=== PATIENT | male | born 1955 | race Hispanic/Latino ===

== ENCOUNTER 2017-09-20 12:34 | Inpatient (IN) | payer MEDICAID ==
[2017-09-20 12:40] VITALS: BMI 33.5
[2017-09-20] MEDS ORDERED: Sodium Chloride 0.9% 1,000 ML IV STA (13:02)
[2017-09-20] MEDS ORDERED: Morphine 4 MG/ML VIAL ONE (13:21)
[2017-09-20 13:31] LABS: BASO % 0.4 % (0.0-2.0); EOS # 0.1 K/uL (0.0-0.7); EOS % 0.8 % (0.0-4.0); HEMOGLOBIN 12.8 g/dL (12.0-18.0); LYMPH # 1.2 K/uL (1.0-4.3); LYMPH % 9.8 % (20.0-40.0); MEAN CELL VOLUME 91.3 fl (80.0-94.0); MEAN CORPUSCULAR HEMOGLOBIN 30.6 pg (27.0-31.0); MEAN CORPUSCULAR HGB CONC 33.5 g/dL (33.0-37.0); MEAN PLATELET VOLUME 8.3 fl (7.2-11.7); MONO # 0.9 K/uL (0.0-0.8); MONO % 7.1 % (0.0-10.0); NEUT # 9.8 K/uL (1.8-7.0); NEUT % 81.9 % (50.0-75.0); NRBC % 0.1 % (0.0-0.0); PLATELET COUNT 172 K/uL (130-400); RED CELL DISTRIBUTION WIDTH 13.8 % (11.5-14.5); WHITE BLOOD COUNT 11.9 K/uL (4.8-10.8)
[2017-09-20 13:45] LABS: ALT/SGPT 30 U/L (21-72); AST/SGOT 23 U/L (17-59); BLOOD UREA NITROGEN 19 mg/dl (9-20); CALCIUM 8.6 mg/dL (8.4-10.2); GFR AFRICAN-AMERICAN > 60; GFR NON-AFRICAN AMERICAN 51
--- NOTE | 2017-09-20 14:09 | RAD ---
PROCEDURE: Right Foot and 3rd toe Radiographs. HISTORY: second digit necrosis COMPARISON: None. FINDINGS: BONES: No fracture, erosions or periosteal change. JOINTS: Unremarkable. SOFT TISSUES: Normal. OTHER FINDINGS: None. IMPRESSION: No demonstrated fracture, dislocation or periosteal reaction.
--- NOTE | 2017-09-20 14:11 | US ---
PROCEDURE: Right lower extremity venous duplex Doppler. HISTORY: calf pain, lower leg edema COMPARISON: None available. TECHNIQUE: Common femoral, superficial femoral, popliteal and posterior tibial veins were evaluated. Flow was assessed with color Doppler, compressibility, assessment of phasic flow and augmentation response. FINDINGS: COMMON FEMORAL VEIN: Unremarkable. SUPERFICIAL FEMORAL VEIN: Unremarkable. POPLITEAL VEIN: Unremarkable. POSTERIOR TIBIAL VEIN: Unremarkable. OTHER FINDINGS: Prominent right inguinal lymph nodes with fatty romina. IMPRESSION: No evidence of deep venous thrombosis in the right lower extremity.
[2017-09-20 14:26] LABS: BANDS 2 % (0-2); LYMPHOCYTE 12 % (20-50); MONOCYTE 7 % (0-10); NEUTROPHIL 79 % (42-75); PLATELET ESTIMATE NORMAL (NORMAL); TOTAL CELLS COUNTED 100
[2017-09-20 14:27] LABS: ANISOCYTOSIS SLIGHT; LARGE PLATELETS PRESENT
--- NOTE | 2017-09-20 15:35 | CP.PCM.CON ---
History of Present Illness - History of Present Illness History of Present Illness: 62 y/o male patient with PMHx of DM, HTN seen and evaluated at bedside in ED complaining of pain, redness and swelling to his right foot. Patient states that he got scratches to his 2nd toe about 3 days ago and it progressively started getting worst from there. Patient states that the color of the toe started turning black and he started getting pain and redness which extended to his right leg. Patient states that [facility] a homeless [facility]. 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 States that he last saw her about 6 months ago. Patient states that he has had history of wound to the right foot which he had a surgery on with Dr. Johnson at [facility]. Patient denies of any other pedal complains at this time. Patient denies of any recent F/N/V/C/SOB/CP today. PMHx: DM, HTN PSHx: Right heel I&D, Sebaceous cyst removal from the neck, Cholecystectomy Allergies: N.K.D.A SHx: 1ppd smoker x 20 years, Denies of EtOH and illicit drug usage Review of Systems - Constitutional Constitutional: As Per HPI Past Patient History - Infectious Disease Hx of Infectious Diseases: None - Tetanus Immunizations Tetanus Immunization: Unknown - Past Medical History & Family History Past Medical History?: Yes - Past Social History Smoking Status: Current Some Days Smoker - CARDIAC Hx Hypertension: Yes - PULMONARY Hx Bronchitis: Yes Hx Chronic Obstructive Pulmonary Disease (COPD): Yes Hx Pneumonia: Yes - NEUROLOGICAL Hx Neurological Disorder: No - HEENT Hx Cataracts: Yes (CHANEL SX) - RENAL Hx Chronic Kidney Disease: No - ENDOCRINE/METABOLIC Hx Diabetes Mellitus Type 2: Yes - HEMATOLOGICAL/ONCOLOGICAL Hx Blood Transfusions: No Hx Blood Transfusion Reaction: No - INTEGUMENTARY Other/Comment: RT FOOT ULCER - MUSCULOSKELETAL/RHEUMATOLOGICAL Hx Falls: Yes - GASTROINTESTINAL Hx Gall Bladder Disease: Yes - GENITOURINARY/GYNECOLOGICAL Hx Genitourinary Disorders: No - PSYCHIATRIC Hx Psychophysiologic Disorder: Yes Hx Anxiety: Yes Hx Depression: No Hx Substance Use: No - SURGICAL HISTORY Hx Surgeries: Yes - ANESTHESIA Hx Anesthesia Reactions: No Hx Malignant Hyperthermia: No Meds Allergies/Adverse Reactions: Allergies Allergy/AdvReac Type Severity Reaction Status Date / Time No Known Allergies Allergy Verified 12/30/15 17:31 Physical Exam - Constitutional Appears: Well, Non-toxic, No Acute Distress - Extremities Exam Additional comments: Bilateral LE exam: VASC: DP/PT pulses are palpable 2/4 b/l, Cap Refill time: < 3 sec to all digits except 2nd digit on the right, Temp gradient: warm to warm from proximal to distal on the right and warm to cool from proximal to distal on the left, diffuse non-pitting edema accompanied with erythema noted on the dorsum of the foot which extends on the distal leg DERM: Hyperpigmented changed noted on the dorsum of the 2nd digit as well as 3rd digit on the right, dusky skin appearance and macerated wound edges noted on the distal aspect of the right 2nd digit, small fissure with mild serous drainage noted on the medial proximal aspect of the right digit, no malodor, no probe to bone, no purulance, no tunneling or undermining, no interdigital maceration NEURO: Protective sensation grossly diminished ORTHO: tenderness on palpation of the distal leg as well as during ROM of the 2nd digit on the right - Neurological Exam Neurological exam: Alert, Oriented x3 - Psychiatric Exam Psychiatric exam: Normal Affect, Normal Mood Results - Vital Signs Recent Vital Signs: Last Vital Signs Temp 97.7 F 09/20/17 12:42 Pulse 92 H 09/20/17 12:42 Resp 20 09/20/17 12:42 BP 175/65 H 09/20/17 12:42 Pulse Ox 98 09/20/17 12:42 - Labs Result Diagrams: 09/20/17 13:19 09/20/17 13:19 Labs: Laboratory Results - last 24 hr 09/20/17 09/20/17 13:19 13:19 WBC 11.9 H RBC 4.20 L Hgb 12.8 Hct 38.4 MCV 91.3 MCH 30.6 MCHC 33.5 RDW 13.8 Plt Count 172 MPV 8.3 Neut % (Auto) 81.9 H Lymph % (Auto) 9.8 L [place] % (Auto) 7.1 Eos % (Auto) 0.8 Baso % (Auto) 0.4 Neut # 9.8 H Lymph # 1.2 Daniels # 0.9 H Eos # 0.1 Baso # 0.0 Neutrophils % (Manual) 79 H Band Neutrophils % 2 Lymphocytes % (Manual) 12 L Monocytes % (Manual) 7 Platelet Estimate Normal Large Platelets Present Anisocytosis (manual) Slight Sodium 133 Potassium 4.4 Chloride 94 L Carbon Dioxide 28 Anion Gap 15 BUN 19 Creatinine 1.4 Est GFR ( Amer) > 60 Est GFR (Non-Af Amer) 51 Random Glucose 519 H* Calcium 8.6 Total Bilirubin 0.8 AST 23 ALT 30 Alkaline Phosphatase 81 Total Protein 7.8 Albumin 4.0 Globulin 3.9 Albumin/Globulin Ratio 1.0 Assessment & Plan - Assessment and Plan (Free Text) Assessment: 62 y/o male patient with PMHx of DM, HTN seen and evaluated in ED for 1). ischemic changes to the right 2nd and 3rd digit 2). cellulitis extending proximally on the right LE Plan: Patient seen and evaluated at bedside in ED Patient discussed in details with attending Dr. Ramirez Labs, vitals and charts reviewed - afebrile WBC @ 11.9 X-rays of the right foot ordered/reviewed - no signs of soft tissue emphysema, no signs of periosteal reaction indicating acute OM noted, no acute fractures or dislocations noted Wound cleaned using saline and dressing applied using betadine, DSD Patient started on vancomycin/zosyn in the ED Infectious disease consult placed - recommendations appreciated Vascular consult placed - recommendations appreciated - Arterial duplex ordered Mulitipodus boots ordered - to be worn at all times while in ED Surgical shoe ordered - weightbear as tolerated to the RLE Patient educated that he may need surgical intervention - patient demonstrated verbal understanding Podiatry to follow patient while in house Thank you for the podiatry consult and allowing to take part in patient care - Date & Time Date: 09/20/17 Time: 15:42
[2017-09-20] MEDS ORDERED: Povidone Iodine Topical 10% Sol ONE (15:55)
[2017-09-20] MEDS ORDERED: Piperacillin/Tazobact 3.375 GM in Sodium Chloride 0.9% 100 ML IV ONE (16:09)
[2017-09-20] MEDS ORDERED: Insulin Regular 100 units/ml IV STA (16:09)
--- NOTE | 2017-09-20 18:02 | ED PDOC ---
Lower Extremity Pain/Injury Time Seen by Provider: 09/20/17 12:50 Chief Complaint (Nursing): Lower Extremity Problem/Injury Chief Complaint (Provider): Right foot pain, discoloration History Per: Patient Onset/Duration Of Symptoms: Days Current Symptoms Are (Timing): Still Present Severity: Severe Pain Scale Rating Of: 10 Additional Complaint(s): Pt reports pain of the right foot for a long time. Pt states the last 2-3 days he noticed his right 2nd toe turning a lang color and becoming more painful. Pt denies fever/chills. Pt states the pain radiates up the right leg. PT reports taking his normal percocet at home but states it is not helping. Pt states he has had 2 areas of scabbing/ulcers over the 2nd and 3rd dorsal toes Past Medical History Reviewed: Historical Data, Nursing Documentation, Vital Signs Vital Signs: Last Vital Signs Temp 100.3 F H 09/20/17 17:15 Pulse 79 09/20/17 17:15 Resp 20 09/20/17 17:15 BP 131/63 09/20/17 17:15 Pulse Ox 99 09/20/17 17:47 - Medical History PMH: Anxiety, Bronchitis, COPD, Diabetes, Gall Bladder Disease, HTN, Pneumonia Denies: Depression, Chronic Kidney Disease - Surgical History Surgical History: Cholecystectomy - Family History Family History: States: No Known Family Hx - Home Medications Home Medications: Ambulatory Orders Medication Instructions Recorded GlipiZIDE [Glucotrol] 5 tab PO BID 07/27/13 Insulin Detemir [Levemir] 50 units SC .AM 07/27/13 Metformin Hydrochloride [Metformin] 1,000 mg PO BID 07/27/13 Alprazolam [Xanax] 0.5 mg PO TID PRN 06/25/14 Aspirin 81 mg PO DAILY 06/25/14 Oxycodone Hydrochloride [Oxycodone] 30 mg PO QID PRN 07/19/15 Insulin Detemir [Levemir] 50 units SC HS 12/30/15 Losartan/Hydrochlorothiazide 1 tab PO DAILY 12/30/15 [Losartan-Hctz 100-12.5 mg Tab] - Allergies Allergies/Adverse Reactions: Allergies Allergy/AdvReac Type Severity Reaction Status Date / Time No Known Allergies Allergy Verified 12/30/15 17:31 Review of Systems ROS Statement: Except As Marked, All Systems Reviewed And Found Negative Constitutional: Negative for: Fever, Chills Genitourinary Male: Negative for: Dysuria, Frequency Musculoskeletal: Positive for: Foot Pain Skin: Positive for: Bruising, Other Physical Exam - Reviewed Nursing Documentation Reviewed: Yes Vital Signs Reviewed: Yes - Physical Exam Appears: Positive for: Well, Non-toxic, No Acute Distress Head Exam: Positive for: ATRAUMATIC, NORMAL INSPECTION, NORMOCEPHALIC Skin: Positive for: Warm. Negative for: Normal Color ((+) edema and lang necrotic discoloration of the right 2nd toe, (+) erythema extending up the right leg to mid shaft) Eye Exam: Positive for: Normal appearance ENT: Positive for: Normal ENT Inspection Neck: Positive for: Normal, Painless ROM Cardiovascular/Chest: Positive for: Regular Rate, Rhythm Respiratory: Positive for: CNT, Normal Breath Sounds Back: Positive for: Normal Inspection Extremity: Positive for: Normal ROM Neurologic/Psych: Positive for: Alert, Oriented - Laboratory Results Result Diagrams: 09/20/17 13:19 09/20/17 13:19 - ECG O2 Sat by Pulse Oximetry: 99 Medical Decision Making Medical Decision Makin - Discussed admission with Dr. Krishna. Pt seen and evaluated by podiatry. 1750 - Informed by MESFIN Orozco that patient has temp of 100.3. Tylenol 650mg ordered. Instructed RN to inform Dr. Crabtree Disposition - Clinical Impression Clinical Impression: Cellulitis, Hyperglycemia - Patient ED Disposition Is Patient to be Admitted: Yes - Disposition Disposition Time: 17:40 Condition: STABLE
[2017-09-20 18:06] LABS: VENOUS BLOOD GAS BASE EXCESS 5.2 mmol/L (0.0-2.0); VENOUS BLOOD GAS PCO2 59 mmHg (40-60); VENOUS BLOOD GAS PO2 15 mm/Hg (30-55); VENOUS BLOOD PH 7.35 (7.32-7.43)
--- NOTE | 2017-09-20 19:05 | CP.PCM.HP ---
History of Present Illness - History of Present Illness History of Present Illness: CC:Right Foot History of Present Illness: A 62 y/o male patient with PMHx of DM, HTN seen and evaluated at bedside in ED complaining of pain, redness and swelling to his right foot. Patient states that he got scratches to his 2nd toe about 3 days ago and it progressively started getting worst from there. Patient states that the color of the toe started turning black and he started getting pain and redness which extended to his right leg. Patient states that [facility]. 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 States that he last saw her about 6 months ago. Patient states that he has had history of wound to the right foot which he had a surgery on with at [place]. Patient denies of any other pedal complains at this time. Patient denies of any recent F/N/V/C/SOB/CP today. Present on Admission - Present on Admission Any Indicators Present on Admission: No History of DVT/PE: No History of Uncontrolled Diabetes: Yes Urinary Catheter: No Decubitus Ulcer Present: No Review of Systems - Review of Systems All systems: reviewed and no additional remarkable complaints except - Musculoskeletal Musculoskeletal: As Per HPI Past Patient History - Infectious Disease Hx of Infectious Diseases: None - Tetanus Immunizations Tetanus Immunization: Unknown - Past Medical History & Family History Past Medical History?: Yes - Past Social History Smoking Status: Current Some Days Smoker Alcohol: None Drugs: Denies - CARDIAC Hx Cardiac Disorders: Yes - PULMONARY Hx Bronchitis: Yes Hx Chronic Obstructive Pulmonary Disease (COPD): Yes Hx Pneumonia: Yes - NEUROLOGICAL Hx Neurological Disorder: No - HEENT Hx Cataracts: Yes (CHANEL SX) - RENAL Hx Chronic Kidney Disease: No - ENDOCRINE/METABOLIC Hx Diabetes Mellitus Type 2: Yes - HEMATOLOGICAL/ONCOLOGICAL Hx Blood Transfusions: No Hx Blood Transfusion Reaction: No - INTEGUMENTARY Other/Comment: RT FOOT ULCER - MUSCULOSKELETAL/RHEUMATOLOGICAL Hx Falls: Yes - GASTROINTESTINAL Hx Gall Bladder Disease: Yes - GENITOURINARY/GYNECOLOGICAL Hx Genitourinary Disorders: No - PSYCHIATRIC Hx Anxiety: Yes Hx Depression: No - SURGICAL HISTORY Hx Cholecystectomy: Yes - ANESTHESIA Hx Anesthesia Reactions: No Hx Malignant Hyperthermia: No Meds Allergies/Adverse Reactions: Allergies Allergy/AdvReac Type Severity Reaction Status Date / Time No Known Allergies Allergy Verified 12/30/15 17:31 Physical Exam - Constitutional Appears: Well, No Acute Distress - Head Exam Head Exam: ATRAUMATIC, NORMAL INSPECTION, NORMOCEPHALIC - Eye Exam Eye Exam: EOMI, Normal appearance, PERRL Pupil Exam: NORMAL ACCOMODATION, PERRL - ENT Exam ENT Exam: Mucous Membranes Moist, Normal Exam - Neck Exam Neck exam: Positive for: Full Rom, Normal Inspection - Respiratory Exam Respiratory Exam: Clear to Auscultation Bilateral, NORMAL BREATHING PATTERN - Cardiovascular Exam Cardiovascular Exam: REGULAR RHYTHM, +S1, +S2 - GI/Abdominal Exam GI & Abdominal Exam: Normal Bowel Sounds, Soft. absent: Tenderness - Back Exam Back exam: NORMAL INSPECTION - Neurological Exam Neurological exam: Alert, CN II-XII Intact, Normal Gait, Oriented x3, Reflexes Normal - Psychiatric Exam Psychiatric exam: Normal Affect, Normal Mood - Skin Skin Exam: Dry, Intact, Normal Color, Warm Results - Vital Signs Recent Vital Signs: Last Vital Signs Temp 99.7 F H 09/20/17 18:59 Pulse 80 09/20/17 19:00 Resp 18 09/20/17 19:00 BP 138/80 09/20/17 19:00 Pulse Ox 95 09/20/17 18:59 - Labs Result Diagrams: 09/23/17 06:52 09/23/17 06:52 Labs: Laboratory Results - last 24 hr 09/20/17 09/20/17 09/20/17 13:19 13:19 17:10 WBC 11.9 H RBC 4.20 L Hgb 12.8 Hct 38.4 MCV 91.3 MCH 30.6 MCHC 33.5 RDW 13.8 Plt Count 172 MPV 8.3 Neut % (Auto) 81.9 H Lymph % (Auto) 9.8 L [place] % (Auto) 7.1 Eos % (Auto) 0.8 Baso % (Auto) 0.4 Neut # 9.8 H Lymph # 1.2 [place] # 0.9 H Eos # 0.1 Baso # 0.0 Neutrophils % (Manual) 79 H Band Neutrophils % 2 Lymphocytes % (Manual) 12 L Monocytes % (Manual) 7 Platelet Estimate Normal Large Platelets Present Anisocytosis (manual) Slight pO2 VBG pH VBG pCO2 VBG HCO3 VBG Total CO2 VBG O2 Sat (Calc) VBG Base Excess VBG Potassium Glucose Lactate FiO2 Sodium 133 Potassium 4.4 Chloride 94 L Carbon Dioxide 28 Anion Gap 15 BUN 19 Creatinine 1.4 Est GFR ( Amer) > 60 Est GFR (Non-Af Amer) 51 POC Glucose (mg/dL) 268 H Random Glucose 519 H* Calcium 8.6 Total Bilirubin 0.8 AST 23 ALT 30 Alkaline Phosphatase 81 Total Protein 7.8 Albumin 4.0 Globulin 3.9 Albumin/Globulin Ratio 1.0 Venous Blood Potassium 09/20/17 17:55 WBC RBC Hgb Hct MCV MCH MCHC RDW Plt Count MPV Neut % (Auto) Lymph % (Auto) [place] % (Auto) Eos % (Auto) Baso % (Auto) Neut # Lymph # [place] # Eos # Baso # Neutrophils % (Manual) Band Neutrophils % Lymphocytes % (Manual) Monocytes % (Manual) Platelet Estimate Large Platelets Anisocytosis (manual) pO2 15 L VBG pH 7.35 VBG pCO2 59 VBG HCO3 26.8 VBG Total CO2 34.4 H VBG O2 Sat (Calc) 30.8 L VBG Base Excess 5.2 H VBG Potassium 4.3 Glucose 246 H Lactate 1.3 FiO2 21.0 Sodium 137.0 Potassium Chloride 103.0 Carbon Dioxide Anion Gap BUN Creatinine Est GFR ( Amer) Est GFR (Non-Af Amer) POC Glucose (mg/dL) Random Glucose Calcium Total Bilirubin AST ALT Alkaline Phosphatase Total Protein Albumin Globulin Albumin/Globulin Ratio Venous Blood Potassium 4.3 - Imaging and Cardiology X-Ray of Right Foot: Status: Report reviewed by me Additional comment: No Fracture, Dislocation or Perosteal Elevation US Venous Doppler: Status: Report reviewed by me Additional comment: No DVT of Right Lower extremity. Assessment & Plan (1) Gangrene of toe Assessment and Plan: with Surrounding Cellulitis PVD IV Vancomycin/Zosyn ASA Wound care daily Wll need amputation after Vascular Intervention ID & CV Consult with Maintenance Chief on Board Status: Acute Priority: High (2) Diabetes mellitus Status: Chronic Priority: High
[2017-09-20] MEDS ORDERED: OXYCODONE HYDROCHLORIDE 30 MG PO PRN (19:32)
[2017-09-20] MEDS: oxyCODONE 10 mg Immediate Release Tab PO PRN (20:24)
[2017-09-20] MEDS ORDERED: INSULIN DETEMIR 50 UNIT SC SCH (22:00)
[2017-09-20] MEDS: Insulin Detemir 100 Units/ml Inj SC SCH (22:12)
[2017-09-20] MEDS: Insulin Lispro (humaLOG) 100 Units/ml Inj SC SCH (22:14)
[2017-09-21] MEDS: Piperacillin/Tazobact 3.375 GM in Sodium Chloride 0.9% 100 ML IVPB SCH ×3 (00:33→16:05)
[2017-09-21] MEDS: oxyCODONE 10 mg Immediate Release Tab PO PRN ×4 (03:53→22:11)
[2017-09-21 06:48] LABS: BASO % 0.3 % (0.0-2.0); EOS # 0.2 K/uL (0.0-0.7); EOS % 1.8 % (0.0-4.0); HEMOGLOBIN 11.6 g/dL (12.0-18.0); LYMPH # 1.4 K/uL (1.0-4.3); LYMPH % 13.7 % (20.0-40.0); MEAN CELL VOLUME 92.1 fl (80.0-94.0); MEAN CORPUSCULAR HEMOGLOBIN 30.1 pg (27.0-31.0); MEAN CORPUSCULAR HGB CONC 32.7 g/dL (33.0-37.0); MEAN PLATELET VOLUME 8.4 fl (7.2-11.7); MONO # 0.9 K/uL (0.0-0.8); MONO % 8.7 % (0.0-10.0); NEUT # 7.6 K/uL (1.8-7.0); NEUT % 75.5 % (50.0-75.0); RBC 3.85 Mil/uL (4.40-5.90); WHITE BLOOD COUNT 10.1 K/uL (4.8-10.8)
[2017-09-21 07:07] LABS: BLOOD UREA NITROGEN 16 mg/dl (9-20); GFR AFRICAN-AMERICAN > 60; GFR NON-AFRICAN AMERICAN > 60
--- NOTE | 2017-09-21 07:58 | CP.PCM.PN ---
Subjective - Date & Time of Evaluation Date of Evaluation: 09/21/17 Time of Evaluation: 07:58 - Subjective Subjective: Podiatry Progress Note - Dr. Ramirez 62 y/o male patient with PMHx of DM, HTN seen and evaluated at bedside for ischemic changes to right 2nd and 3rd digit + cellulitis RLE. Patient hemodynamically stable and NAD. Denies any acute events overnight. Reports worsening pain to his right calf and increased swelling to his RLE. Denies SOB. Patient states the color of his 2nd digit is worsening as well. Denies N/V/F/D/ C. Objective - Vital Signs/Intake and Output Vital Signs (last 24 hours): Temp Pulse Resp BP Pulse Ox 98.9 F 71 19 132/73 95 09/21/17 00:00 09/21/17 00:00 09/21/17 00:00 09/21/17 00:00 09/21/17 00:00 - Medications Medications: Current Medications Alprazolam (Xanax) 0.5 mg PO TID PRN PRN Reason: Anxiety Aspirin (Ecotrin) 81 mg PO DAILY [facility] Glipizide (Glucotrol) 5 mg PO BID [facility] Heparin Sodium (Porcine) (Heparin) 5,000 units SC Q8 [facility] PRN Reason: Protocol Last Admin: 09/21/17 00:33 Dose: 5,000 units Hydrochlorothiazide (Microzide) 12.5 mg PO DAILY [facility] Piperacillin Sod/Tazobactam (Sod 3.375 gm/ Sodium Chloride) 100 mls @ 100 mls/ hr IVPB Q8 [facility] PRN Reason: Protocol Last Admin: 09/21/17 00:33 Dose: 100 mls/hr Vancomycin HCl 1,000 mg/ (Sodium Chloride) 250 mls @ 250 mls/hr IVPB Q12@0500, 1700 [facility] PRN Reason: Protocol Last Admin: 09/21/17 04:04 Dose: 250 mls/hr Insulin Detemir (Levemir) 50 units SC [facility] Last Admin: 09/20/17 22:12 Dose: 50 unit Insulin Human Lispro (Humalog) 0 units SC ACHS [facility] PRN Reason: Protocol Last Admin: 09/20/17 22:14 Dose: Not Given Losartan Potassium (Cozaar) 100 mg PO DAILY [facility] Oxycodone HCl (Oxycodone Immediate Release Tab) 30 mg PO QID PRN PRN Reason: Pain, moderate (4-7) Last Admin: 09/21/17 03:53 Dose: 30 mg - Labs Labs: 09/21/17 05:30 09/21/17 05:30 - Constitutional Appears: Well, Non-toxic, No Acute Distress - Extremities Exam Additional comments: Bilateral LE exam: VASC: DP/PT pulses are palpable 2/4 b/l, Cap Refill time: < 3 sec to all digits except 2nd digit on the right. Temperature gradient warm hot to RLE, warm to warm LLE. Increase in warmth noted to erythema to right lower leg and dorsum of foot. Diffuse non-pitting edema noted to RLE. DERM: Hyperpigmented changed noted on the dorsum of the 2nd digit as well as 3rd digit on the right, dusky skin appearance and macerated wound edges noted on the distal aspect of the right 2nd digit, small fissure with mild serous drainage noted on the medial proximal aspect of the right digit, no malodor, no probe to bone, no purulance, no tunneling or undermining, no interdigital maceration. Erythema noted to dorsum of right forefoot as well as circumfirentially around right lower 1/2 of leg. NEURO: Protective sensation grossly diminished ORTHO: Tenderness to palpation to erythema on lower leg as well as during ROM of the 2nd digit on the right. Pain on right calf squeeze. No palpable cord noted to RLE. - Neurological Exam Neurological Exam: Alert, Awake, Oriented x3 - Psychiatric Exam Psychiatric exam: Normal Affect, Normal Mood Assessment and Plan - Assessment and Plan (Free Text) Assessment: 62 y/o male patient with PMHx of DM, HTN seen and evaluated in ED for 1) ischemic changes to the right 2nd and 3rd digit 2) cellulitis extending proximally on the right LE Plan: Patient seen and evaluated at bedside Discussed with attending Dr. Ramirez Febrile yesterday PM (Tmax 100.3), afebrile currently, WBC decreasing 10.1 ( yesterday 11.9) X-rays of the right foot ordered/reviewed - no signs of soft tissue emphysema, no signs of periosteal reaction indicating acute OM noted, no acute fractures or dislocations noted Wound cleaned using saline and dressing applied using betadine, DSD Patient currently on Vancomycin and Zosyn; f/u ID recommendations Bilateral arterial duplex - elevated peak systolic velocities and loss of triphasic waveform in the below the knee RLE likely representing moderate to severe stenoses -Per vascular, plan for angio this week Mulitipodus boots ordered - to be worn at all times in bed Surgical shoe ordered - weightbear as tolerated to the RLE Patient educated that he may need surgical intervention - patient demonstrated verbal understanding Podiatry will continue to follow patient while in house
[2017-09-21] MEDS: Insulin Lispro (humaLOG) 100 Units/ml Inj SC SCH ×4 (08:42→22:07)
[2017-09-21] MEDS: Insulin Detemir 100 Units/ml Inj SC SCH ×2 (08:43→22:12)
[2017-09-21] MEDS ORDERED: Patient's Own Med (Losartan/Hydrochlorothiazide [Losartan-Hctz 100-12.5 Mg Tab] 1 TAB) PO SCH (09:00)
--- NOTE | 2017-09-21 12:21 | US ---
PROCEDURE: Duplex ultrasound of the right lower extremity arteries. HISTORY: swelling on RLE COMPARISON: None available. TECHNIQUE: Grayscale and duplex Doppler evaluation of the right common femoral, superficial femoral, popliteal, posterior tibial and dorsalis pedis arteries was performed.. FINDINGS: COMMON FEMORAL ARTERY: Patent. Maximal flow velocity of 114.7 cm/s. Triphasic waveform. SUPERFICIAL FEMORAL ARTERY:Patent. Maximal flow velocity of 148.4 cm/s. Triphasic waveform. POPLITEAL ARTERY:Patent. Maximal flow velocity of 123.4 cm/s. Monophasic waveform. POSTERIOR TIBIAL ARTERY: Patent. Maximal flow velocity of 172.7 cm/s. Monophasic waveform. ANTERIOR TIBIAL ARTERY: Patent. Maximal flow velocity of 133.2 cm/s. Monophasic waveform. DORSALIS PEDIS ARTERY: Patent. Maximal flow velocity of 107.6 cm/s. Monophasic waveform. OTHER FINDINGS: None. IMPRESSION: Elevated peak systolic velocities and loss of triphasic waveform in the erldt-kxi-exit right lower extremity likely representing moderate to severe stenoses.
--- NOTE | 2017-09-21 17:15 | CP.PCM.CON ---
History of Present Illness - History of Present Illness History of Present Illness: 62 y/o male patient with PMHx of DM, HTN seen and evaluated at bedside for ischemic changes to right 2nd and 3rd digit + cellulitis RLE. Patient hemodynamically stable and NAD. Denies any acute events overnight. Reports worsening pain to his right calf and increased swelling to his RLE. Denies SOB. Patient states the color of his 2nd digit is worsening as well. Denies N/V/F/D/ C. id consult to follow Past Patient History - Infectious Disease Hx of Infectious Diseases: None - Tetanus Immunizations Tetanus Immunization: Unknown - Past Medical History & Family History Past Medical History?: Yes - Past Social History Smoking Status: Current Some Days Smoker - CARDIAC Hx Cardiac Disorders: Yes - PULMONARY Hx Bronchitis: Yes Hx Chronic Obstructive Pulmonary Disease (COPD): Yes Hx Pneumonia: Yes - NEUROLOGICAL Hx Neurological Disorder: No - HEENT Hx Cataracts: Yes (CHANEL SX) - RENAL Hx Chronic Kidney Disease: No - ENDOCRINE/METABOLIC Hx Diabetes Mellitus Type 2: Yes - HEMATOLOGICAL/ONCOLOGICAL Hx Blood Transfusions: No Hx Blood Transfusion Reaction: No - INTEGUMENTARY Other/Comment: RT FOOT ULCER - MUSCULOSKELETAL/RHEUMATOLOGICAL Hx Falls: Yes - GASTROINTESTINAL Hx Gall Bladder Disease: Yes - GENITOURINARY/GYNECOLOGICAL Hx Genitourinary Disorders: No - PSYCHIATRIC Hx Anxiety: Yes Hx Depression: No - SURGICAL HISTORY Hx Cholecystectomy: Yes - ANESTHESIA Hx Anesthesia Reactions: No Hx Malignant Hyperthermia: No Meds Allergies/Adverse Reactions: Allergies Allergy/AdvReac Type Severity Reaction Status Date / Time No Known Allergies Allergy Verified 12/30/15 17:31 - Medications Medications: Current Medications Acetaminophen (Tylenol 325mg Tab) 650 mg PO Q6 PRN PRN Reason: Temperature Alprazolam (Xanax) 0.5 mg PO TID PRN PRN Reason: Anxiety Last Admin: 09/21/17 10:36 Dose: 0.5 mg Aspirin (Ecotrin) 81 mg PO DAILY [facility] Last Admin: 09/21/17 08:41 Dose: 81 mg Glipizide (Glucotrol) 5 mg PO BID [facility] Last Admin: 09/21/17 16:02 Dose: 5 mg Heparin Sodium (Porcine) (Heparin) 5,000 units SC Q8 [facility] PRN Reason: Protocol Last Admin: 09/21/17 16:02 Dose: 5,000 units Hydrochlorothiazide (Microzide) 12.5 mg PO DAILY [facility] Last Admin: 09/21/17 08:43 Dose: 12.5 mg Piperacillin Sod/Tazobactam (Sod 3.375 gm/ Sodium Chloride) 100 mls @ 100 mls/ hr IVPB Q8 [facility] PRN Reason: Protocol Last Admin: 09/21/17 16:05 Dose: 100 mls/hr Vancomycin HCl 1,000 mg/ (Sodium Chloride) 250 mls @ 250 mls/hr IVPB Q12@0500, 1700 [facility] PRN Reason: Protocol Last Admin: 09/21/17 16:09 Dose: 250 mls/hr Insulin Detemir (Levemir) 50 units SC AMHS [facility] Last Admin: 09/21/17 08:43 Dose: 50 unit Insulin Human Lispro (Humalog) 0 units SC ACHS [facility] PRN Reason: Protocol Last Admin: 09/21/17 16:03 Dose: 1 units Losartan Potassium (Cozaar) 100 mg PO DAILY [facility] Last Admin: 09/21/17 08:41 Dose: 100 mg Oxycodone HCl (Oxycodone Immediate Release Tab) 30 mg PO QID PRN PRN Reason: Pain, moderate (4-7) Last Admin: 09/21/17 10:14 Dose: 30 mg Results - Vital Signs Recent Vital Signs: Last Vital Signs Temp 101.4 F H 09/21/17 15:45 Pulse 72 09/21/17 15:45 Resp 20 09/21/17 15:45 BP 127/66 09/21/17 15:45 Pulse Ox 92 L 09/21/17 15:45 - Labs Result Diagrams: 09/21/17 05:30 09/21/17 05:30 Labs: Laboratory Results - last 24 hr 09/20/17 09/20/17 09/20/17 16:09 17:55 21:56 WBC RBC Hgb Hct MCV MCH MCHC RDW Plt Count MPV Neut % (Auto) Lymph % (Auto) Story % (Auto) Eos % (Auto) Baso % (Auto) Neut # Lymph # Story # Eos # Baso # ESR pO2 15 L VBG pH 7.35 VBG pCO2 59 VBG HCO3 26.8 VBG Total CO2 34.4 H VBG O2 Sat (Calc) 30.8 L VBG Base Excess 5.2 H VBG Potassium 4.3 Sodium 137.0 Chloride 103.0 Glucose 246 H Lactate 1.3 FiO2 21.0 Potassium Carbon Dioxide Anion Gap BUN Creatinine Est GFR ( Amer) Est GFR (Non-Af Amer) POC Glucose (mg/dL) 339 H 326 H Random Glucose Hemoglobin A1c Calcium TSH 3rd Generation Venous Blood Potassium 4.3 09/21/17 09/21/17 09/21/17 05:30 05:30 05:30 WBC 10.1 RBC 3.85 L Hgb 11.6 L Hct 35.5 MCV 92.1 MCH 30.1 MCHC 32.7 L RDW 14.0 Plt Count 160 MPV 8.4 Neut % (Auto) 75.5 H Lymph % (Auto) 13.7 L Story % (Auto) 8.7 Eos % (Auto) 1.8 Baso % (Auto) 0.3 Neut # 7.6 H Lymph # 1.4 Story # 0.9 H Eos # 0.2 Baso # 0.0 ESR 102 H pO2 VBG pH VBG pCO2 VBG HCO3 VBG Total CO2 VBG O2 Sat (Calc) VBG Base Excess VBG Potassium Sodium 133 Chloride 99 Glucose Lactate FiO2 Potassium 4.0 Carbon Dioxide 30 Anion Gap 8 L BUN 16 Creatinine 1.1 Est GFR ( Amer) > 60 Est GFR (Non-Af Amer) > 60 POC Glucose (mg/dL) Random Glucose 279 H Hemoglobin A1c 12.3 H D Calcium 8.0 L TSH 3rd Generation 1.08 Venous Blood Potassium 09/21/17 09/21/17 09/21/17 05:46 11:09 15:31 WBC RBC Hgb Hct MCV MCH MCHC RDW Plt Count MPV Neut % (Auto) Lymph % (Auto) Story % (Auto) Eos % (Auto) Baso % (Auto) Neut # Lymph # Story # Eos # Baso # ESR pO2 VBG pH VBG pCO2 VBG HCO3 VBG Total CO2 VBG O2 Sat (Calc) VBG Base Excess VBG Potassium Sodium Chloride Glucose Lactate FiO2 Potassium Carbon Dioxide Anion Gap BUN Creatinine Est GFR ( Amer) Est GFR (Non-Af Amer) POC Glucose (mg/dL) 229 H 229 H 162 H Random Glucose Hemoglobin A1c Calcium TSH 3rd Generation Venous Blood Potassium
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
--- NOTE | 2017-09-21 18:25 | CP.PCM.PN ---
Subjective - Date & Time of Evaluation Date of Evaluation: 09/21/17 Time of Evaluation: 18:23 - Subjective Subjective: s/p arterial duplex showing multilevel stenosis Objective - Vital Signs/Intake and Output Vital Signs (last 24 hours): Temp Pulse Resp BP Pulse Ox 101.4 F H 72 20 127/66 92 L 09/21/17 15:45 09/21/17 15:45 09/21/17 15:45 09/21/17 15:45 09/21/17 15:45 - Medications Medications: Current Medications Acetaminophen (Tylenol 325mg Tab) 650 mg PO Q6 PRN PRN Reason: Temperature Alprazolam (Xanax) 0.5 mg PO TID PRN PRN Reason: Anxiety Last Admin: 09/21/17 16:05 Dose: 0.5 mg Aspirin (Ecotrin) 81 mg PO DAILY [facility] Last Admin: 09/21/17 08:41 Dose: 81 mg Glipizide (Glucotrol) 5 mg PO BID [facility] Last Admin: 09/21/17 16:02 Dose: 5 mg Heparin Sodium (Porcine) (Heparin) 5,000 units SC Q8 [facility] PRN Reason: Protocol Last Admin: 09/21/17 16:02 Dose: 5,000 units Hydrochlorothiazide (Microzide) 12.5 mg PO DAILY [facility] Last Admin: 09/21/17 08:43 Dose: 12.5 mg Piperacillin Sod/Tazobactam (Sod 3.375 gm/ Sodium Chloride) 100 mls @ 100 mls/ hr IVPB Q8 [facility] PRN Reason: Protocol Last Admin: 09/21/17 16:05 Dose: 100 mls/hr Vancomycin HCl 1,000 mg/ (Sodium Chloride) 250 mls @ 250 mls/hr IVPB Q12@0500, 1700 [facility] PRN Reason: Protocol Last Admin: 09/21/17 16:09 Dose: 250 mls/hr Insulin Detemir (Levemir) 50 units SC AMHS [facility] Last Admin: 09/21/17 08:43 Dose: 50 unit Insulin Human Lispro (Humalog) 0 units SC ACHS [facility] PRN Reason: Protocol Last Admin: 09/21/17 16:03 Dose: 1 units Losartan Potassium (Cozaar) 100 mg PO DAILY [facility] Last Admin: 09/21/17 08:41 Dose: 100 mg Oxycodone HCl (Oxycodone Immediate Release Tab) 30 mg PO QID PRN PRN Reason: Pain, moderate (4-7) Last Admin: 09/21/17 16:05 Dose: 30 mg - Labs Labs: 09/21/17 05:30 09/21/17 05:30 - Constitutional Appears: Well - Head Exam Head Exam: ATRAUMATIC, NORMAL INSPECTION, NORMOCEPHALIC - Eye Exam Eye Exam: EOMI, Normal appearance, PERRL Pupil Exam: NORMAL ACCOMODATION, PERRL - ENT Exam ENT Exam: Mucous Membranes Moist, Normal Exam - Neck Exam Neck Exam: Full ROM, Normal Inspection. absent: Lymphadenopathy - Respiratory Exam Respiratory Exam: Clear to Ausculation Bilateral, NORMAL BREATHING PATTERN - Cardiovascular Exam Cardiovascular Exam: REGULAR RHYTHM, +S1, +S2. absent: Murmur - GI/Abdominal Exam GI & Abdominal Exam: Soft, Normal Bowel Sounds. absent: Tenderness - Extremities Exam Extremities Exam: Full ROM, Normal Capillary Refill. absent: Joint Swelling, Pedal Edema Additional comments: dsg , erythema , tenderness - Back Exam Back Exam: NORMAL INSPECTION - Neurological Exam Neurological Exam: Alert, Awake, CN II-XII Intact, Oriented x3 - Psychiatric Exam Psychiatric exam: Normal Affect, Normal Mood - Skin Skin Exam: Dry, Intact, Normal Color, Warm Assessment and Plan (1) Gangrene of toe Assessment & Plan: cont ABx asa, statins, bb add plavix Status: Acute (2) PVD (peripheral vascular disease) Assessment & Plan: plan for angio on once cellulitis resolves Status: Acute (3) Cellulitis Status: Acute
[2017-09-22] MEDS: Piperacillin/Tazobact 3.375 GM in Sodium Chloride 0.9% 100 ML IVPB SCH ×3 (00:29→16:08)
--- NOTE | 2017-09-22 01:39 | CP.PCM.PN ---
Subjective - Date & Time of Evaluation Date of Evaluation: 09/21/17 Time of Evaluation: 18:45 Objective - Vital Signs/Intake and Output Vital Signs (last 24 hours): Temp Pulse Resp BP Pulse Ox 100.4 F H 67 18 117/62 95 09/22/17 00:30 09/22/17 00:01 09/22/17 00:01 09/22/17 00:01 09/22/17 00:01 - Medications Medications: Current Medications Acetaminophen (Tylenol 325mg Tab) 650 mg PO Q6 PRN PRN Reason: Temperature Last Admin: 09/22/17 00:30 Dose: 650 mg Alprazolam (Xanax) 0.5 mg PO TID PRN PRN Reason: Anxiety Last Admin: 09/21/17 23:12 Dose: 0.5 mg Aspirin (Ecotrin) 81 mg PO DAILY [facility] Last Admin: 09/21/17 08:41 Dose: 81 mg Glipizide (Glucotrol) 5 mg PO BID [facility] Last Admin: 09/21/17 16:02 Dose: 5 mg Heparin Sodium (Porcine) ([facility]) 5,000 units SC Q8 [facility] PRN Reason: Protocol Last Admin: 09/22/17 00:31 Dose: 5,000 units Hydrochlorothiazide (Microzide) 12.5 mg PO DAILY [facility] Last Admin: 09/21/17 08:43 Dose: 12.5 mg Piperacillin Sod/Tazobactam (Sod 3.375 gm/ Sodium Chloride) 100 mls @ 100 mls/ hr IVPB Q8 [facility] PRN Reason: Protocol Last Admin: 09/22/17 00:29 Dose: 100 mls/hr Vancomycin HCl 1,000 mg/ (Sodium Chloride) 250 mls @ 250 mls/hr IVPB Q12@0500, 1700 [facility] PRN Reason: Protocol Last Admin: 09/21/17 16:09 Dose: 250 mls/hr Insulin Detemir (Levemir) 50 units SC [facility]HS [facility] Last Admin: 09/21/17 22:12 Dose: 50 unit Insulin Human Lispro (Humalog) 0 units SC ACHS [facility] PRN Reason: Protocol Last Admin: 09/21/17 22:07 Dose: Not Given Losartan Potassium (Cozaar) 100 mg PO DAILY [facility] Last Admin: 09/21/17 08:41 Dose: 100 mg Oxycodone HCl (Oxycodone Immediate Release Tab) 30 mg PO QID PRN PRN Reason: Pain, moderate (4-7) Last Admin: 09/21/17 22:11 Dose: 30 mg - Labs Labs: 09/21/17 05:30 09/21/17 05:30
[2017-09-22 05:27] LABS: BASO # 0.1 K/uL (0.0-0.2); BASO % 0.8 % (0.0-2.0); EOS # 0.2 K/uL (0.0-0.7); EOS % 2.1 % (0.0-4.0); HEMOGLOBIN 11.3 g/dL (12.0-18.0); LYMPH % 21.4 % (20.0-40.0); MEAN CELL VOLUME 91.4 fl (80.0-94.0); MEAN CORPUSCULAR HEMOGLOBIN 30.1 pg (27.0-31.0); MEAN PLATELET VOLUME 7.7 fl (7.2-11.7); MONO % 11.3 % (0.0-10.0); NEUT # 5.9 K/uL (1.8-7.0); NEUT % 64.4 % (50.0-75.0); NRBC % 0.1 % (0.0-0.0); RBC 3.76 Mil/uL (4.40-5.90); RED CELL DISTRIBUTION WIDTH 13.7 % (11.5-14.5); WHITE BLOOD COUNT 9.2 K/uL (4.8-10.8)
[2017-09-22 05:59] LABS: BLOOD UREA NITROGEN 17 mg/dl (9-20); CALCIUM 8.3 mg/dL (8.4-10.2); GFR AFRICAN-AMERICAN > 60; GFR NON-AFRICAN AMERICAN > 60
[2017-09-22] MEDS: Insulin Lispro (humaLOG) 100 Units/ml Inj SC SCH ×4 (06:37→22:09)
[2017-09-22 06:56] LABS: HDL CHOLESTEROL 31 MG/DL (30-70)
[2017-09-22 07:06] LABS: LDL CHOLESTEROL 33 mg/dL (0-129)
--- NOTE | 2017-09-22 07:46 | CP.PCM.PN ---
<Seema Hartman - Last Filed: 09/22/17 14:16> Subjective - Date & Time of Evaluation Date of Evaluation: 09/22/17 Time of Evaluation: 07:44 - Subjective Subjective: PGY2 progress note for cardiology, Dr. Quiros Pt seen and examined at bedside. Pt was febrile overnight. Temp improved after Tylenol. Pt denies having any CP, SOB, abd pain, N/V/D/C. C/O non- productive cough and right LE pain and swelling. Pt is ambulating without difficulty. 12 point ROS negative except for the above mentioned. Objective - Vital Signs/Intake and Output Vital Signs (last 24 hours): Temp Pulse Resp BP Pulse Ox 99.3 F 67 18 117/62 95 09/22/17 01:30 09/22/17 00:01 09/22/17 00:01 09/22/17 00:01 09/22/17 00:01 - Medications Medications: Current Medications Acetaminophen (Tylenol 325mg Tab) 650 mg PO Q6 PRN PRN Reason: Temperature Last Admin: 09/22/17 00:30 Dose: 650 mg Alprazolam (Xanax) 0.5 mg PO TID PRN PRN Reason: Anxiety Last Admin: 09/21/17 23:12 Dose: 0.5 mg Aspirin (Ecotrin) 81 mg PO DAILY [facility] Last Admin: 09/21/17 08:41 Dose: 81 mg Atorvastatin Calcium (Lipitor) 20 mg PO DAILY [facility] Carvedilol (Coreg) 3.125 mg PO Q12 [facility] Glipizide (Glucotrol) 5 mg PO BID [facility] Last Admin: 09/21/17 16:02 Dose: 5 mg Heparin Sodium (Porcine) (Heparin) 5,000 units SC Q8 [facility] PRN Reason: Protocol Last Admin: 09/22/17 00:31 Dose: 5,000 units Hydrochlorothiazide (Microzide) 12.5 mg PO DAILY [facility] Last Admin: 09/21/17 08:43 Dose: 12.5 mg Piperacillin Sod/Tazobactam (Sod 3.375 gm/ Sodium Chloride) 100 mls @ 100 mls/ hr IVPB Q8 [facility] PRN Reason: Protocol Last Admin: 09/22/17 00:29 Dose: 100 mls/hr Vancomycin HCl 1,000 mg/ (Sodium Chloride) 250 mls @ 250 mls/hr IVPB Q12@0500, 1700 [facility] PRN Reason: Protocol Last Admin: 09/22/17 05:50 Dose: 250 mls/hr Insulin Detemir (Levemir) 50 units SC AMHS [facility] Last Admin: 09/21/17 22:12 Dose: 50 unit Insulin Human Lispro (Humalog) 0 units SC ACHS [facility] PRN Reason: Protocol Last Admin: 09/22/17 06:37 Dose: Not Given Losartan Potassium (Cozaar) 100 mg PO DAILY [facility] Last Admin: 09/21/17 08:41 Dose: 100 mg Oxycodone HCl (Oxycodone Immediate Release Tab) 30 mg PO QID PRN PRN Reason: Pain, moderate (4-7) Last Admin: 09/21/17 22:11 Dose: 30 mg - Labs Labs: 09/22/17 05:10 09/22/17 05:10 - Constitutional Appears: Non-toxic, No Acute Distress - Head Exam Head Exam: ATRAUMATIC - ENT Exam ENT Exam: Mucous Membranes Moist - Respiratory Exam Respiratory Exam: Clear to Ausculation Bilateral. absent: Accessory Muscle Use , Rales, Rhonchi, Wheezes, Respiratory Distress - Cardiovascular Exam Cardiovascular Exam: REGULAR RHYTHM, +S1, +S2. absent: Gallop, Rubs, Murmur - GI/Abdominal Exam GI & Abdominal Exam: Soft, Normal Bowel Sounds. absent: Distended, Firm, Guarding, Rigid, Tenderness - Extremities Exam Extremities Exam: Pedal Edema (Right LE), Tenderness (R LE) - Neurological Exam Neurological Exam: Alert, Awake, Oriented x3 - Psychiatric Exam Psychiatric exam: Normal Affect, Normal Mood - Skin Skin Exam: Dry, Intact, Normal Color, Warm Assessment and Plan - Assessment and Plan (Free Text) Assessment: (1) Gangrene of toe cont ABx per ID recs. Currently on Zosyn and vanco LE venous US showed no DVT (2) PVD (peripheral vascular disease) LE arterial US showed moderate to severe stenosis in right Le below the knee plan for angio once cellulitis resolves Continue Aspirin, Statin, plavix, Coreg (3) Diabetes Hgb A1c is 12.3 Continue management per primary team Lipid panel WNL (4) HTN Currently under control Continue Losartan and HCTZ Case will be discussed with attending, Dr. Quiros <Nico Quiros - Last Filed: 09/22/17 15:37> Objective - Vital Signs/Intake and Output Vital Signs (last 24 hours): Temp Pulse Resp BP Pulse Ox 98.8 F 75 18 172/73 H 98 09/22/17 08:36 09/22/17 08:36 09/22/17 08:36 09/22/17 08:36 09/22/17 08:36 - Medications Medications: Current Medications Acetaminophen (Tylenol 325mg Tab) 650 mg PO Q6 PRN PRN Reason: Temperature Last Admin: 09/22/17 00:30 Dose: 650 mg Alprazolam (Xanax) 0.5 mg PO TID PRN PRN Reason: Anxiety Last Admin: 09/22/17 15:28 Dose: 0.5 mg Aspirin (Ecotrin) 81 mg PO DAILY [facility] Last Admin: 09/22/17 08:38 Dose: 81 mg Atorvastatin Calcium (Lipitor) 20 mg PO DAILY [facility] Last Admin: 09/22/17 08:50 Dose: 20 mg Benzocaine/Menthol (Cepacol Sore Throat) 1 pam PO Q2 PRN PRN Reason: Sore Throat Last Admin: 09/22/17 12:14 Dose: 1 pam Carvedilol (Coreg) 3.125 mg PO Q12 [facility] Last Admin: 09/22/17 08:46 Dose: 3.125 mg Clopidogrel Bisulfate (Plavix) 75 mg PO DAILY [facility] Last Admin: 09/22/17 08:45 Dose: 75 mg Glipizide (Glucotrol) 5 mg PO BID [facility] Last Admin: 09/22/17 08:38 Dose: 5 mg Heparin Sodium (Porcine) (Heparin) 5,000 units SC Q8 [facility] PRN Reason: Protocol Last Admin: 09/22/17 08:37 Dose: 5,000 units Hydrochlorothiazide (Microzide) 12.5 mg PO DAILY [facility] Last Admin: 09/22/17 08:38 Dose: 12.5 mg Piperacillin Sod/Tazobactam (Sod 3.375 gm/ Sodium Chloride) 100 mls @ 100 mls/ hr IVPB Q8 [facility] PRN Reason: Protocol Last Admin: 09/22/17 08:54 Dose: 100 mls/hr Vancomycin HCl 1,000 mg/ (Sodium Chloride) 250 mls @ 250 mls/hr IVPB Q12@0500, 1700 [facility] PRN Reason: Protocol Last Admin: 09/22/17 05:50 Dose: 250 mls/hr Sodium Chloride (Sodium Chloride 0.9%) 1,000 mls @ 75 mls/hr IV .[id number] [facility] Stop: 09/23/17 22:15 Last Admin: 09/22/17 15:29 Dose: Not Given Insulin Detemir (Levemir) 50 units SC AMHS [facility] Last Admin: 09/22/17 08:47 Dose: 50 unit Insulin Human Lispro (Humalog) 0 units SC ACHS [facility] PRN Reason: Protocol Last Admin: 09/22/17 12:14 Dose: 2 units Lactobacillus Acidophilus (Bacid Acidophilus) 1 cap PO BID [facility] Losartan Potassium (Cozaar) 100 mg PO DAILY [facility] Last Admin: 09/22/17 08:38 Dose: 100 mg Oxycodone HCl (Oxycodone Immediate Release Tab) 30 mg PO QID PRN PRN Reason: Pain, moderate (4-7) Last Admin: 09/22/17 15:27 Dose: 30 mg - Labs Labs: 09/22/17 05:10 09/22/17 05:10 Assessment and Plan (1) Gangrene of toe Status: Acute (2) PVD (peripheral vascular disease) Status: Acute (3) Cellulitis Status: Acute Attending/Attestation - Attestation I have personally seen and examined this patient.: Yes I have fully participated in the care of the patient.: Yes I have reviewed all pertinent clinical information, including history, physical exam and plan: Yes Notes (Text): 09/22/17 15:37 npo p mn angio in am
--- NOTE | 2017-09-22 08:18 | CP.PCM.PN ---
Subjective - Date & Time of Evaluation Date of Evaluation: 09/22/17 Time of Evaluation: 08:18 - Subjective Subjective: Podiatry Progress Note - Dr. Ramirez 62 y/o male patient with PMHx of DM, HTN seen and evaluated at bedside for ischemic changes to right 2nd and 3rd digit + cellulitis RLE. Patient hemodynamically stable and NAD. present at bedside. No acute events overnight. Patient still complaining of pain in areas of redness, denies any pain to his 2nd and 3rd digits. Patient states he was febrile overnight, however not currently. Patient aware he is scheduled for angio with Dr. Quiros. Denies N/V/D/C/SOB. Objective - Vital Signs/Intake and Output Vital Signs (last 24 hours): Temp Pulse Resp BP Pulse Ox 99.3 F 67 18 117/62 95 09/22/17 01:30 09/22/17 00:01 09/22/17 00:01 09/22/17 00:01 09/22/17 00:01 - Medications Medications: Current Medications Acetaminophen (Tylenol 325mg Tab) 650 mg PO Q6 PRN PRN Reason: Temperature Last Admin: 09/22/17 00:30 Dose: 650 mg Alprazolam (Xanax) 0.5 mg PO TID PRN PRN Reason: Anxiety Last Admin: 09/21/17 23:12 Dose: 0.5 mg Aspirin (Ecotrin) 81 mg PO DAILY [facility] Last Admin: 09/21/17 08:41 Dose: 81 mg Atorvastatin Calcium (Lipitor) 20 mg PO DAILY [facility] Carvedilol (Coreg) 3.125 mg PO Q12 [facility] Clopidogrel Bisulfate (Plavix) 75 mg PO DAILY [facility] Glipizide (Glucotrol) 5 mg PO BID [facility] Last Admin: 09/21/17 16:02 Dose: 5 mg Heparin Sodium (Porcine) (Heparin) 5,000 units SC Q8 [facility] PRN Reason: Protocol Last Admin: 09/22/17 00:31 Dose: 5,000 units Hydrochlorothiazide (Microzide) 12.5 mg PO DAILY [facility] Last Admin: 09/21/17 08:43 Dose: 12.5 mg Piperacillin Sod/Tazobactam (Sod 3.375 gm/ Sodium Chloride) 100 mls @ 100 mls/ hr IVPB Q8 [facility] PRN Reason: Protocol Last Admin: 09/22/17 00:29 Dose: 100 mls/hr Vancomycin HCl 1,000 mg/ (Sodium Chloride) 250 mls @ 250 mls/hr IVPB Q12@0500, 1700 [facility] PRN Reason: Protocol Last Admin: 09/22/17 05:50 Dose: 250 mls/hr Insulin Detemir (Levemir) 50 units SC AMHS [facility] Last Admin: 09/21/17 22:12 Dose: 50 unit Insulin Human Lispro (Humalog) 0 units SC ACHS [facility] PRN Reason: Protocol Last Admin: 09/22/17 06:37 Dose: Not Given Losartan Potassium (Cozaar) 100 mg PO DAILY [facility] Last Admin: 09/21/17 08:41 Dose: 100 mg Oxycodone HCl (Oxycodone Immediate Release Tab) 30 mg PO QID PRN PRN Reason: Pain, moderate (4-7) Last Admin: 09/21/17 22:11 Dose: 30 mg - Labs Labs: 09/22/17 05:10 09/22/17 05:10 - Constitutional Appears: Well, Non-toxic, No Acute Distress - Extremities Exam Additional comments: Bilateral LE exam: VASC: DP/PT pulses are palpable 2/4 b/l, Cap Refill time: < 3 sec to all digits except 2nd digit on the right. Temperature gradient warm hot to RLE, warm to warm LLE. Increase in warmth noted to erythema to right lower leg and dorsum of foot. Diffuse non-pitting edema noted to RLE. DERM: Dry ulcerations noted to dorsum of the 2nd digit as well as 3rd digit on the right, dusky skin appearance noted on the distal aspect of the right 2nd digit, small fissure with mild serous drainage noted on the medial proximal aspect of the right digit, no malodor, no probe to bone, no purulance, no tunneling or undermining, no interdigital maceration. Erythema noted to dorsum of right forefoot as well as circumfirentially around right lower 1/2 of leg. NEURO: Protective sensation grossly diminished ORTHO: Tenderness to palpation to erythema on lower leg as well as during ROM of the 2nd digit on the right. Pain on right calf squeeze. No palpable cord noted to RLE. - Neurological Exam Neurological Exam: Alert, Awake, Oriented x3 Assessment and Plan - Assessment and Plan (Free Text) Assessment: 62 y/o male patient with PMHx of DM, HTN seen and evaluated in ED for 1) ischemic changes to the right 2nd and 3rd digit 2) cellulitis extending proximally on the right LE Plan: Patient seen and evaluated at bedside with attending Dr. Ramirez Febrile yesterday PM (Tmax 100.4), afebrile currently, WBC decreasing 9.2 ( yesterday 10.1) X-rays of the right foot ordered/reviewed - no signs of soft tissue emphysema, no signs of periosteal reaction indicating acute OM noted, no acute fractures or dislocations noted Right foot and ankle MRI ordered, f/u report Wound cleaned using saline and dressing applied using betadine, DSD Continue Vancomycin and Zosyn per ID Bilateral arterial duplex - elevated peak systolic velocities and loss of triphasic waveform in the below the knee RLE likely representing moderate to severe stenoses -Per vascular, plan for angio this week, likely tomorrow Continue multipodus boots Continue WBAT to the RLE in surgical shoe Patient educated that he may need surgical intervention - patient demonstrated verbal understanding Podiatry will continue to follow patient while in house
[2017-09-22] MEDS: oxyCODONE 10 mg Immediate Release Tab PO PRN ×3 (08:46→20:52)
[2017-09-22] MEDS: Insulin Detemir 100 Units/ml Inj SC SCH ×2 (08:47→22:10)
[2017-09-22] MEDS ORDERED: Benzocaine/Menthol (Cepacol) Lozenge PO PRN (11:08)
--- NOTE | 2017-09-22 13:17 | CP.PCM.CON ---
History of Present Illness - History of Present Illness History of Present Illness: 62 y/o male patient with PMHx of DM, HTN seen and evaluated at bedside for ischemic changes to right 2nd and 3rd digit + cellulitis RLE. Patient hemodynamically stable and NAD. Denies any acute events overnight. Reports worsening pain to his right calf and increased swelling to his RLE. Denies SOB. Patient states the color of his 2nd digit is worsening as well. Denies N/V/F/D/ C. ID consulted for severe cellulitis right leg, r/o OM right foot with ischemic changes to digits 2/3 of right foot Review of Systems - Review of Systems All systems: reviewed and no additional remarkable complaints except - Constitutional Constitutional: absent: Chills, Fever - EENT Eyes: absent: As Per HPI, Blind Spots, Blurred Vision, Change in Vision, Decreased Night Vision, Diplopia, Discharge, Dry Eye, Exophthalmos, Floaters, Irritation, Itchy Eyes, Loss of Peripheral Vision, Pain, Photophobia, Requires Corrective Lenses, Sees Flashes, Spots in Vision, Tunnel Vision, Other Visual Disturbances, Loss of Vision, Other Ears: absent: As Per HPI, Decreased Hearing, Ear Discharge, Ear Pain, Tinnitus, Abnormal Hearing, Disequilibrium, Dizziness, Other Nose/Mouth/Throat: absent: As Per HPI, Epistaxis, Nasal Congestion, Nasal Discharge, Nasal Obstruction, Nasal Trauma, Nose Pain, Post Nasal Drip, Sinus Pain, Sinus Pressure, Bleeding Gums, Change in Voice, Dental Pain, Dry Mouth, Dysphagia, Halitosis, Hoarsness, Lip Swelling, Mouth Lesions, Mouth Pain, Odynophagia, Sore Throat, Throat Swelling, Tongue Swelling, Facial Pain, Neck Pain, Neck Mass, Other - Cardiovascular Cardiovascular: absent: As Per HPI, Acrocyanosis, Chest Pain, Chest Pain at Rest , Chest Pain with Activity, Claudication, Diaphoresis, Dyspnea, Dyspnea on Exertion, Edema, Irregular Heart Rhythm, Pain Radiating to Arm/Neck/Jaw, Leg Edema, Leg Ulcers, Lightheadedness, Orthopnea, Palpitations, Paroxysmal Nocturnal Dyspnea, Pedal Edema, Radiating Pain, Rapid Heart Rate, Slow Heart Rate, Syncope, Other - Respiratory Respiratory: absent: As Per HPI, Cough, Dyspnea, Hemoptysis, Dyspnea on Exertion , Wheezing, Snoring, Stridor, Pain on Inspiration, Chest Congestion, Excessive Mucous Production, Change in Mucous Color, Pain with Coughing, Other - Gastrointestinal Gastrointestinal: absent: As Per HPI, Abdominal Pain, Belching, Bloating, Change in Bowel Habits, Change in Stool Character, Coffee Ground Emesis, Constipation, Cramping, Diarrhea, Dyspepsia, Dysphagia, Early Satiety, Excessive Flatus, Fecal Incontinence, Heartburn, Hematemesis, Hematochezia, Loose Stools, Melena, Nausea, Odynophagia, Temesmus, Vomiting, Other - Genitourinary Genitourinary: absent: As Per HPI, Change in Urinary Stream, Difficulty Urinating, Dysuria, Flank Pain, Hematuria, Pyuria, Nocturia, Urinary Incontinence, Urinary Frequency, Urinary Hesitance, Urinary Urgency, Voiding Freq/Small Amts, Freq UTI, Hx Renal/Bladder Calculi, Hx /Renal Surgery, Bladder Distension, Other - Musculoskeletal Musculoskeletal: As Per HPI - Integumentary Integumentary: As Per HPI - Neurological Neurological: As Per HPI, Sensory Deficit - Psychiatric Psychiatric: absent: As Per HPI, Abnormal Sleep Pattern, Anhedonia, Anxiety, Auditory Hallucinations, Behavioral Changes, Change in Appetite, Change in Libido, Confusion, Depression, Difficulty Concentrating, Hallucinations, Homicidal Ideation, Hopelessness, Irritability, Memory Loss, Mood Swings, Panic Attacks, Paranoia, Suicidal Ideation, Visual Hallucinations, Tactile Hallucinations, Other - Endocrine Endocrine: absent: As Per HPI, Change in Body Appearance, Change in Libido, Cold Intolorance, Deepening of Voice, Excessive Sweating, Fatigue, Flushing, Heat Intolorance, Increase in Ring/Shoe/Hat Size, Palpitations, Polydipsia, Polyphagia, Polyuria, Other - Hematologic/Lymphatic Hematologic: absent: As Per HPI, Easy Bleeding, Easy Bruising, Lymphadenopathy, Other Past Patient History - Infectious Disease Hx of Infectious Diseases: None - Tetanus Immunizations Tetanus Immunization: Unknown - Past Medical History & Family History Past Medical History?: Yes - Past Social History Smoking Status: Current Some Days Smoker - CARDIAC Hx Cardiac Disorders: Yes - PULMONARY Hx Bronchitis: Yes Hx Chronic Obstructive Pulmonary Disease (COPD): Yes Hx Pneumonia: Yes - NEUROLOGICAL Hx Neurological Disorder: No - HEENT Hx Cataracts: Yes (CHANEL SX) - RENAL Hx Chronic Kidney Disease: No - ENDOCRINE/METABOLIC Hx Diabetes Mellitus Type 2: Yes - HEMATOLOGICAL/ONCOLOGICAL Hx Blood Transfusions: No Hx Blood Transfusion Reaction: No - INTEGUMENTARY Other/Comment: RT FOOT ULCER - MUSCULOSKELETAL/RHEUMATOLOGICAL Hx Falls: Yes - GASTROINTESTINAL Hx Gall Bladder Disease: Yes - GENITOURINARY/GYNECOLOGICAL Hx Genitourinary Disorders: No - PSYCHIATRIC Hx Anxiety: Yes Hx Depression: No - SURGICAL HISTORY Hx Cholecystectomy: Yes - ANESTHESIA Hx Anesthesia Reactions: No Hx Malignant Hyperthermia: No Meds Allergies/Adverse Reactions: Allergies Allergy/AdvReac Type Severity Reaction Status Date / Time No Known Allergies Allergy Verified 12/30/15 17:31 - Medications Medications: Current Medications Acetaminophen (Tylenol 325mg Tab) 650 mg PO Q6 PRN PRN Reason: Temperature Last Admin: 09/22/17 00:30 Dose: 650 mg Alprazolam (Xanax) 0.5 mg PO TID PRN PRN Reason: Anxiety Last Admin: 09/22/17 08:45 Dose: 0.5 mg Aspirin (Ecotrin) 81 mg PO DAILY [facility] Last Admin: 09/22/17 08:38 Dose: 81 mg Atorvastatin Calcium (Lipitor) 20 mg PO DAILY [facility] Last Admin: 09/22/17 08:50 Dose: 20 mg Benzocaine/Menthol (Cepacol Sore Throat) 1 pam PO Q2 PRN PRN Reason: Sore Throat Last Admin: 09/22/17 12:14 Dose: 1 pam Carvedilol (Coreg) 3.125 mg PO Q12 [facility] Last Admin: 09/22/17 08:46 Dose: 3.125 mg Clopidogrel Bisulfate (Plavix) 75 mg PO DAILY [facility] Last Admin: 09/22/17 08:45 Dose: 75 mg Glipizide (Glucotrol) 5 mg PO BID [facility] Last Admin: 09/22/17 08:38 Dose: 5 mg Heparin Sodium (Porcine) (Heparin) 5,000 units SC Q8 [facility] PRN Reason: Protocol Last Admin: 09/22/17 08:37 Dose: 5,000 units Hydrochlorothiazide (Microzide) 12.5 mg PO DAILY [facility] Last Admin: 09/22/17 08:38 Dose: 12.5 mg Piperacillin Sod/Tazobactam (Sod 3.375 gm/ Sodium Chloride) 100 mls @ 100 mls/ hr IVPB Q8 [facility] PRN Reason: Protocol Last Admin: 09/22/17 08:54 Dose: 100 mls/hr Vancomycin HCl 1,000 mg/ (Sodium Chloride) 250 mls @ 250 mls/hr IVPB Q12@0500, 1700 [facility] PRN Reason: Protocol Last Admin: 09/22/17 05:50 Dose: 250 mls/hr Insulin Detemir (Levemir) 50 units SC AMHS [facility] Last Admin: 09/22/17 08:47 Dose: 50 unit Insulin Human Lispro (Humalog) 0 units SC ACHS [facility] PRN Reason: Protocol Last Admin: 09/22/17 12:14 Dose: 2 units Losartan Potassium (Cozaar) 100 mg PO DAILY [facility] Last Admin: 09/22/17 08:38 Dose: 100 mg Oxycodone HCl (Oxycodone Immediate Release Tab) 30 mg PO QID PRN PRN Reason: Pain, moderate (4-7) Last Admin: 09/22/17 08:46 Dose: 30 mg Physical Exam - Constitutional Appears: Chronically Ill - Head Exam Head Exam: ATRAUMATIC, NORMOCEPHALIC - Eye Exam Eye Exam: PERRL. absent: Scleral icterus - ENT Exam ENT Exam: Mucous Membranes Dry - Neck Exam Neck exam: Negative for: Lymphadenopathy - Respiratory Exam Respiratory Exam: Decreased Breath Sounds, Rhonchi - Cardiovascular Exam Cardiovascular Exam: REGULAR RHYTHM, +S1, +S2 - GI/Abdominal Exam GI & Abdominal Exam: Diminished Bowel Sounds - Rectal Exam Rectal Exam: Deferred - Exam Exam: NORMAL INSPECTION - Extremities Exam Extremities exam: Positive for: pedal pulses present. Negative for: calf tenderness, pedal edema, tenderness - Back Exam Back exam: absent: CVA tenderness (L), CVA tenderness (R) - Neurological Exam Neurological exam: Alert, CN II-XII Intact, Oriented x3, Reflexes Normal - Psychiatric Exam Psychiatric exam: Depressed - Skin Skin Exam: Dry, Erythema Additional comments: necrosis right second digit cellulitis right leg dusky color right 3rd digit Results - Vital Signs Recent Vital Signs: Last Vital Signs Temp 98.8 F 09/22/17 08:36 Pulse 75 09/22/17 08:36 Resp 18 09/22/17 08:36 BP 172/73 H 09/22/17 08:36 Pulse Ox 98 09/22/17 08:36 - Labs Result Diagrams: 09/22/17 05:10 09/22/17 05:10 Labs: Laboratory Results - last 24 hr 09/21/17 09/21/17 09/22/17 15:31 21:07 02:04 WBC RBC Hgb Hct MCV MCH MCHC RDW Plt Count MPV Neut % (Auto) Lymph % (Auto) Johnson % (Auto) Eos % (Auto) Baso % (Auto) Neut # Lymph # Johnson # Eos # Baso # Sodium Potassium Chloride Carbon Dioxide Anion Gap BUN Creatinine Est GFR ( Amer) Est GFR (Non-Af Amer) POC Glucose (mg/dL) 162 H 150 H 103 Random Glucose Calcium Triglycerides Cholesterol LDL Cholesterol Direct HDL Cholesterol Vancomycin Trough 09/22/17 09/22/17 09/22/17 05:10 05:10 05:10 WBC 9.2 RBC 3.76 L Hgb 11.3 L Hct 34.4 L MCV 91.4 MCH 30.1 MCHC 33.0 RDW 13.7 Plt Count 166 MPV 7.7 Neut % (Auto) 64.4 Lymph % (Auto) 21.4 Johnson % (Auto) 11.3 H Eos % (Auto) 2.1 Baso % (Auto) 0.8 Neut # 5.9 Lymph # 2.0 Johnson # 1.0 H Eos # 0.2 Baso # 0.1 Sodium 138 Potassium 3.5 L Chloride 99 Carbon Dioxide 33 H Anion Gap 10 BUN 17 Creatinine 1.1 Est GFR ( Amer) > 60 Est GFR (Non-Af Amer) > 60 POC Glucose (mg/dL) Random Glucose 65 L Calcium 8.3 L Triglycerides Cholesterol LDL Cholesterol Direct HDL Cholesterol Vancomycin Trough 7.9 09/22/17 09/22/17 09/22/17 05:10 05:24 06:15 WBC RBC Hgb Hct MCV MCH MCHC RDW Plt Count MPV Neut % (Auto) Lymph % (Auto) Johnson % (Auto) Eos % (Auto) Baso % (Auto) Neut # Lymph # Johnson # Eos # Baso # Sodium Potassium Chloride Carbon Dioxide Anion Gap BUN Creatinine Est GFR ( Amer) Est GFR (Non-Af Amer) POC Glucose (mg/dL) 77 133 H Random Glucose Calcium Triglycerides 78 Cholesterol 96 LDL Cholesterol Direct 33 HDL Cholesterol 31 Vancomycin Trough 09/22/17 09/22/17 10:41 10:45 WBC RBC Hgb Hct MCV MCH MCHC RDW Plt Count MPV Neut % (Auto) Lymph % (Auto) Johnson % (Auto) Eos % (Auto) Baso % (Auto) Neut # Lymph # Johnson # Eos # Baso # Sodium Potassium Chloride Carbon Dioxide Anion Gap BUN Creatinine Est GFR ( Amer) Est GFR (Non-Af Amer) POC Glucose (mg/dL) 204 H Random Glucose Calcium Triglycerides Cholesterol LDL Cholesterol Direct HDL Cholesterol Vancomycin Trough 11.5 H Assessment & Plan (1) Cellulitis Status: Acute (2) Gangrene of toe Status: Acute (3) PVD (peripheral vascular disease) Status: Acute - Assessment and Plan (Free Text) Assessment: severe SSTI right foot and leg may need amp right 2nd toe consider mri TO ESTABLISH INTGRITY OF RIGHT 2ND 3RD METATARSALS AND TO R/O OM
[2017-09-22] MEDS: Sodium Chloride 0.9% 1,000 ML IV SCH ×2 (15:29→23:51)
--- NOTE | 2017-09-22 15:59 | RAD ---
HISTORY: Admission. Portable upright study 19:20. COMPARISON: No prior. FINDINGS: LUNGS: No active pulmonary disease. PLEURA: No significant pleural effusion identified, no pneumothorax apparent. CARDIOVASCULAR: Normal. OSSEOUS STRUCTURES: No significant abnormalities. VISUALIZED UPPER ABDOMEN: Normal. OTHER FINDINGS: None. IMPRESSION: No active disease.
[2017-09-22] MEDS: Lactobacillus Acidophilus 500 MU Cap PO SCH (16:09)
--- NOTE | 2017-09-22 23:46 | CP.PCM.PN ---
Subjective - Date & Time of Evaluation Date of Evaluation: 09/22/17 Time of Evaluation: 14:05 Objective - Vital Signs/Intake and Output Vital Signs (last 24 hours): Temp Pulse Resp BP Pulse Ox 98.4 F 90 20 153/71 H 94 L 09/22/17 16:19 09/22/17 21:04 09/22/17 16:19 09/22/17 21:04 09/22/17 16:19 - Medications Medications: Current Medications Acetaminophen (Tylenol 325mg Tab) 650 mg PO Q6 PRN PRN Reason: Temperature Last Admin: 09/22/17 00:30 Dose: 650 mg Alprazolam (Xanax) 0.5 mg PO TID PRN PRN Reason: Anxiety Last Admin: 09/22/17 20:52 Dose: 0.5 mg Aspirin (Ecotrin) 81 mg PO DAILY [facility] Last Admin: 09/22/17 08:38 Dose: 81 mg Atorvastatin Calcium (Lipitor) 20 mg PO DAILY [facility] Last Admin: 09/22/17 08:50 Dose: 20 mg Benzocaine/Menthol (Cepacol Sore Throat) 1 pam PO Q2 PRN PRN Reason: Sore Throat Last Admin: 09/22/17 12:14 Dose: 1 pam Carvedilol (Coreg) 3.125 mg PO Q12 [facility] Last Admin: 09/22/17 21:04 Dose: 3.125 mg Clopidogrel Bisulfate (Plavix) 75 mg PO DAILY [facility] Last Admin: 09/22/17 08:45 Dose: 75 mg Glipizide (Glucotrol) 5 mg PO BID [facility] Last Admin: 09/22/17 16:12 Dose: 5 mg Heparin Sodium (Porcine) (Heparin) 5,000 units SC Q8 [facility] PRN Reason: Protocol Last Admin: 09/22/17 16:13 Dose: 5,000 units Hydrochlorothiazide (Microzide) 12.5 mg PO DAILY [facility] Last Admin: 09/22/17 08:38 Dose: 12.5 mg Piperacillin Sod/Tazobactam (Sod 3.375 gm/ Sodium Chloride) 100 mls @ 100 mls/ hr IVPB Q8 [facility] PRN Reason: Protocol Last Admin: 09/22/17 16:08 Dose: 100 mls/hr Vancomycin HCl 1,000 mg/ (Sodium Chloride) 250 mls @ 250 mls/hr IVPB Q12@0500, 1700 [facility] PRN Reason: Protocol Last Admin: 09/22/17 16:08 Dose: 250 mls/hr Sodium Chloride (Sodium Chloride 0.9%) 1,000 mls @ 75 mls/hr IV .[id number] [facility] Stop: 09/23/17 22:15 Last Admin: 09/22/17 15:29 Dose: Not Given Insulin Detemir (Levemir) 50 units SC [facility] Last Admin: 09/22/17 22:10 Dose: Not Given Insulin Human Lispro (Humalog) 0 units SC [facility] PRN Reason: Protocol Last Admin: 09/22/17 22:09 Dose: Not Given Lactobacillus Acidophilus (Bacid Acidophilus) 1 cap PO BID [facility] Last Admin: 09/22/17 16:09 Dose: 1 cap Losartan Potassium (Cozaar) 100 mg PO DAILY [facility] Last Admin: 09/22/17 08:38 Dose: 100 mg Oxycodone HCl (Oxycodone Immediate Release Tab) 30 mg PO QID PRN PRN Reason: Pain, moderate (4-7) Last Admin: 09/22/17 20:52 Dose: 30 mg - Labs Labs: 09/22/17 05:10 09/22/17 05:10
[2017-09-23] MEDS: Piperacillin/Tazobact 3.375 GM in Sodium Chloride 0.9% 100 ML IVPB SCH ×3 (01:08→17:30)
[2017-09-23] MEDS: oxyCODONE 10 mg Immediate Release Tab PO PRN ×4 (04:05→22:21)
[2017-09-23] MEDS: Insulin Lispro (humaLOG) 100 Units/ml Inj SC SCH ×4 (06:47→22:43)
--- NOTE | 2017-09-23 07:42 | CP.PCM.PN ---
Subjective - Date & Time of Evaluation Date of Evaluation: 09/23/17 Time of Evaluation: 07:42 - Subjective Subjective: Podiatry Progress Note - Dr. Ramirez 62 y/o male patient with PMHx of DM, HTN seen and evaluated at bedside for ischemic changes to right 2nd and 3rd digit + cellulitis RLE. Patient drowsy, hemodynamically stable and NAD. Patient seen s/p vascular intervention. Patient still complaining of 10/10 pain in areas of redness, denies any pain to his 2nd and 3rd digits as he has no feeling in his toes. Denies N/V/D/C/SOB/calf pain. Objective - Vital Signs/Intake and Output Vital Signs (last 24 hours): Temp Pulse Resp BP Pulse Ox 98.1 F 61 20 129/72 97 09/23/17 07:20 09/23/17 07:20 09/23/17 07:20 09/23/17 07:20 09/23/17 07:20 - Medications Medications: Current Medications Acetaminophen (Tylenol 325mg Tab) 650 mg PO Q6 PRN PRN Reason: Temperature Last Admin: 09/22/17 23:47 Dose: 650 mg Alprazolam (Xanax) 0.5 mg PO TID PRN PRN Reason: Anxiety Last Admin: 09/22/17 20:52 Dose: 0.5 mg Aspirin (Ecotrin) 81 mg PO DAILY [facility] Last Admin: 09/22/17 08:38 Dose: 81 mg Atorvastatin Calcium (Lipitor) 20 mg PO DAILY [facility] Last Admin: 09/22/17 08:50 Dose: 20 mg Benzocaine/Menthol (Cepacol Sore Throat) 1 pam PO Q2 PRN PRN Reason: Sore Throat Last Admin: 09/22/17 12:14 Dose: 1 pam Carvedilol (Coreg) 3.125 mg PO Q12 [facility] Last Admin: 09/22/17 21:04 Dose: 3.125 mg Clopidogrel Bisulfate (Plavix) 75 mg PO DAILY [facility] Last Admin: 09/22/17 08:45 Dose: 75 mg Glipizide (Glucotrol) 5 mg PO BID [facility] Last Admin: 09/22/17 16:12 Dose: 5 mg Heparin Sodium (Porcine) (Heparin) 5,000 units SC Q8 [facility] PRN Reason: Protocol Last Admin: 09/23/17 01:14 Dose: Not Given Hydrochlorothiazide (Microzide) 12.5 mg PO DAILY [facility] Last Admin: 09/22/17 08:38 Dose: 12.5 mg Piperacillin Sod/Tazobactam (Sod 3.375 gm/ Sodium Chloride) 100 mls @ 100 mls/ hr IVPB Q8 [facility] PRN Reason: Protocol Last Admin: 09/23/17 01:08 Dose: 100 mls/hr Vancomycin HCl 1,000 mg/ (Sodium Chloride) 250 mls @ 250 mls/hr IVPB Q12@0500, 1700 [facility] PRN Reason: Protocol Last Admin: 09/23/17 04:51 Dose: 250 mls/hr Sodium Chloride (Sodium Chloride 0.9%) 1,000 mls @ 75 mls/hr IV .[id number] [facility] Stop: 09/23/17 22:15 Last Admin: 09/22/17 23:51 Dose: 75 mls/hr Insulin Detemir (Levemir) 50 units SC [facility] Last Admin: 09/22/17 22:10 Dose: Not Given Insulin Human Lispro (Humalog) 0 units SC [facility] PRN Reason: Protocol Last Admin: 09/23/17 06:47 Dose: Not Given Lactobacillus Acidophilus (Bacid Acidophilus) 1 cap PO BID [facility] Last Admin: 09/22/17 16:09 Dose: 1 cap Losartan Potassium (Cozaar) 100 mg PO DAILY [facility] Last Admin: 09/22/17 08:38 Dose: 100 mg Oxycodone HCl (Oxycodone Immediate Release Tab) 30 mg PO QID PRN PRN Reason: Pain, moderate (4-7) Last Admin: 09/23/17 04:05 Dose: 30 mg - Labs Labs: 09/22/17 05:10 09/22/17 05:10 - Constitutional Appears: Well, Non-toxic, No Acute Distress - Extremities Exam Additional comments: Bilateral LE exam: VASC: DP/PT pulses are palpable 2/4 b/l, Cap Refill time: < 3 sec to all digits except 2nd digit on the right. Temperature gradient warm hot to RLE, warm to warm LLE. Increase in warmth noted to erythema to right lower leg and dorsum of foot. Diffuse non-pitting edema noted to RLE. DERM: Dry ulcerations noted to dorsum of the 2nd digit as well as 3rd digit on the right, dusky skin appearance noted on the distal aspect of the right 2nd digit, small fissure with absent drainage noted on the medial proximal aspect of the right digit + malodor, no probe to bone, no purulance, no tunneling or undermining, no interdigital maceration. Erythema noted to dorsum of right forefoot as well as circumfirentially around right lower 1/2 of leg. NEURO: Protective sensation grossly diminished ORTHO: Tenderness to palpation to erythema on lower leg as well as during ROM of the 2nd digit on the right. Pain on right calf squeeze. No palpable cord noted to RLE. - Neurological Exam Neurological Exam: Alert, Awake, Oriented x3 - Psychiatric Exam Psychiatric exam: Normal Mood Assessment and Plan - Assessment and Plan (Free Text) Assessment: 62 y/o male patient with PMHx of DM, HTN seen and evaluated in ED for 1) ischemic changes to the right 2nd and 3rd digit 2) cellulitis extending proximally on the right LE Plan: Patient seen and evaluated at bedside with attending Dr. Ramirez Febrile yesterday PM (Tmax 101.6), afebrile currently, WBC increasing 11.2 ( yesterday 9.2) X-rays of the right foot ordered/reviewed - No signs of soft tissue emphysema, no signs of periosteal reaction indicating acute OM noted, no acute fractures or dislocations noted Right foot and ankle MRI ordered/reviewed - Osteomyelitis at 2nd digit and relatively diffuse fashion with borderline or early OM at proximal phalanx of 3rfd digit - Joint effusions at 2nd and 3rd MPJs small but nonspecific - Signal changes at distal phalanx of great toe may reflex failure of fat suppression w/limited OM not excluded Wound cleaned using saline and dressing applied using betadine, DSD Continue Vancomycin and Zosyn per ID Bilateral arterial duplex - elevated peak systolic velocities and loss of triphasic waveform in the below the knee RLE likely representing moderate to severe stenoses -Per vascular, marcocirculation present, distal small vessel disease -s/p peripheral angio at , f/u report Continue multipodus boots Continue WBAT to the RLE in surgical shoe Patient educated that he may need surgical intervention pending results of angio - patient demonstrated verbal understanding and agrees Pain mgmt per medicine Podiatry will continue to follow patient while in house
[2017-09-23 08:00] LABS: BASO # 0.1 K/uL (0.0-0.2); BASO % 0.8 % (0.0-2.0); EOS # 0.3 K/uL (0.0-0.7); EOS % 2.6 % (0.0-4.0); HEMOGLOBIN 12.4 g/dL (12.0-18.0); LYMPH # 2.1 K/uL (1.0-4.3); LYMPH % 18.5 % (20.0-40.0); MEAN CELL VOLUME 91.7 fl (80.0-94.0); MEAN CORPUSCULAR HEMOGLOBIN 30.2 pg (27.0-31.0); MEAN CORPUSCULAR HGB CONC 32.9 g/dL (33.0-37.0); MEAN PLATELET VOLUME 9.3 fl (7.2-11.7); MONO # 1.3 K/uL (0.0-0.8); NEUT # 7.4 K/uL (1.8-7.0); NEUT % 66.1 % (50.0-75.0); NRBC % 0.1 % (0.0-0.0); RBC 4.12 Mil/uL (4.40-5.90); RED CELL DISTRIBUTION WIDTH 13.8 % (11.5-14.5); WHITE BLOOD COUNT 11.2 K/uL (4.8-10.8)
[2017-09-23 08:12] LABS: BLOOD UREA NITROGEN 18 mg/dl (9-20); CALCIUM 8.4 mg/dL (8.4-10.2); GFR AFRICAN-AMERICAN > 60; GFR NON-AFRICAN AMERICAN > 60
--- NOTE | 2017-09-23 08:22 | CP.PCM.PN ---
<Seema Hartman - Last Filed: 09/23/17 08:24> Subjective - Date & Time of Evaluation Date of Evaluation: 09/23/17 Time of Evaluation: : - Subjective Subjective: PGY2 progress note for cardiology, Dr. Quiros Pt seen and examined at bedside. No acute events overnight. Pt is resting comfortably in bed. Still complaining of R LE pain. Denies having any CP, SOB , abd pain, N/V/D/C. 12 point ROS negative except for above mentioned. Objective - Vital Signs/Intake and Output Vital Signs (last 24 hours): Temp Pulse Resp BP Pulse Ox 98.1 F 61 20 129/72 97 09/23/17 07:20 09/23/17 08:01 09/23/17 07:20 09/23/17 08:01 09/23/17 07:20 - Medications Medications: Current Medications Acetaminophen (Tylenol 325mg Tab) 650 mg PO Q6 PRN PRN Reason: Temperature Last Admin: 09/22/17 23:47 Dose: 650 mg Alprazolam (Xanax) 0.5 mg PO TID PRN PRN Reason: Anxiety Last Admin: 09/23/17 07:59 Dose: 0.5 mg Aspirin (Ecotrin) 81 mg PO DAILY [facility] Last Admin: 09/22/17 08:38 Dose: 81 mg Atorvastatin Calcium (Lipitor) 20 mg PO DAILY [facility] Last Admin: 09/22/17 08:50 Dose: 20 mg Benzocaine/Menthol (Cepacol Sore Throat) 1 pam PO Q2 PRN PRN Reason: Sore Throat Last Admin: 09/22/17 12:14 Dose: 1 pam Carvedilol (Coreg) 3.125 mg PO Q12 [facility] Last Admin: 09/23/17 08:01 Dose: 3.125 mg Clopidogrel Bisulfate (Plavix) 75 mg PO DAILY [facility] Last Admin: 09/22/17 08:45 Dose: 75 mg Glipizide (Glucotrol) 5 mg PO BID [facility] Last Admin: 09/22/17 16:12 Dose: 5 mg Heparin Sodium (Porcine) (Heparin) 5,000 units SC Q8 [facility] PRN Reason: Protocol Last Admin: 09/23/17 01:14 Dose: Not Given Hydrochlorothiazide (Microzide) 12.5 mg PO DAILY [facility] Last Admin: 09/22/17 08:38 Dose: 12.5 mg Piperacillin Sod/Tazobactam (Sod 3.375 gm/ Sodium Chloride) 100 mls @ 100 mls/ hr IVPB Q8 [facility] PRN Reason: Protocol Last Admin: 09/23/17 01:08 Dose: 100 mls/hr Vancomycin HCl 1,000 mg/ (Sodium Chloride) 250 mls @ 250 mls/hr IVPB Q12@0500, 1700 [facility] PRN Reason: Protocol Last Admin: 09/23/17 04:51 Dose: 250 mls/hr Sodium Chloride (Sodium Chloride 0.9%) 1,000 mls @ 75 mls/hr IV .[id number] [facility] Stop: 09/23/17 22:15 Last Admin: 09/22/17 23:51 Dose: 75 mls/hr Insulin Detemir (Levemir) 50 units SC [facility] Last Admin: 09/22/17 22:10 Dose: Not Given Insulin Human Lispro (Humalog) 0 units SC [facility] PRN Reason: Protocol Last Admin: 09/23/17 06:47 Dose: Not Given Lactobacillus Acidophilus (Bacid Acidophilus) 1 cap PO BID [facility] Last Admin: 09/22/17 16:09 Dose: 1 cap Losartan Potassium (Cozaar) 100 mg PO DAILY [facility] Last Admin: 09/22/17 08:38 Dose: 100 mg Oxycodone HCl (Oxycodone Immediate Release Tab) 30 mg PO QID PRN PRN Reason: Pain, moderate (4-7) Last Admin: 09/23/17 08:02 Dose: 30 mg - Labs Labs: 09/23/17 06:52 09/23/17 06:52 - Constitutional Appears: Non-toxic, No Acute Distress - Head Exam Head Exam: ATRAUMATIC - ENT Exam ENT Exam: Mucous Membranes Moist - Respiratory Exam Respiratory Exam: Clear to Ausculation Bilateral. absent: Accessory Muscle Use , Rales, Rhonchi, Wheezes, Respiratory Distress - Cardiovascular Exam Cardiovascular Exam: REGULAR RHYTHM, +S1, +S2. absent: Gallop, Rubs, Murmur - GI/Abdominal Exam GI & Abdominal Exam: Soft, Normal Bowel Sounds. absent: Firm, Guarding, Rigid, Tenderness - Extremities Exam Extremities Exam: Tenderness (right LE ). absent: Pedal Edema - Neurological Exam Neurological Exam: Alert, Awake, Oriented x3 - Psychiatric Exam Psychiatric exam: Normal Affect, Normal Mood - Skin Skin Exam: Dry, Erythema (R LE), Intact, Warm. absent: Normal Color Assessment and Plan - Assessment and Plan (Free Text) Assessment: (1) PVD (peripheral vascular disease) Angio scheduled for this morning LE arterial US showed moderate to severe stenosis in right LE below the knee Continue Aspirin, Statin, plavix, Coreg (2) Gangrene of toe cont ABx per ID recs. Currently on Zosyn and vanco LE venous US showed no DVT Initial blood cx negative (3) Diabetes Hgb A1c is 12.3 Continue management per primary team Lipid panel WNL (4) HTN Currently under control Continue Losartan and HCTZ Case will be discussed with attending, Dr. Quiros <Nico Quiros - Last Filed: 09/23/17 11:23> Objective - Vital Signs/Intake and Output Vital Signs (last 24 hours): Temp Pulse Resp BP Pulse Ox 98.1 F 61 20 129/72 97 09/23/17 07:20 09/23/17 08:01 09/23/17 07:20 09/23/17 08:01 09/23/17 07:20 - Medications Medications: Current Medications Acetaminophen (Tylenol 325mg Tab) 650 mg PO Q6 PRN PRN Reason: Temperature Last Admin: 09/22/17 23:47 Dose: 650 mg Alprazolam (Xanax) 0.5 mg PO TID PRN PRN Reason: Anxiety Last Admin: 09/23/17 07:59 Dose: 0.5 mg Aspirin (Ecotrin) 81 mg PO DAILY [facility] Last Admin: 09/22/17 08:38 Dose: 81 mg Atorvastatin Calcium (Lipitor) 20 mg PO DAILY [facility] Last Admin: 09/22/17 08:50 Dose: 20 mg Benzocaine/Menthol (Cepacol Sore Throat) 1 pam PO Q2 PRN PRN Reason: Sore Throat Last Admin: 09/22/17 12:14 Dose: 1 pam Carvedilol (Coreg) 3.125 mg PO Q12 [facility] Last Admin: 09/23/17 08:01 Dose: 3.125 mg Clopidogrel Bisulfate (Plavix) 75 mg PO DAILY [facility] Last Admin: 09/22/17 08:45 Dose: 75 mg Glipizide (Glucotrol) 5 mg PO BID [facility] Last Admin: 09/22/17 16:12 Dose: 5 mg Heparin Sodium (Porcine) (Heparin) 5,000 units SC Q8 [facility] PRN Reason: Protocol Last Admin: 09/23/17 01:14 Dose: Not Given Hydrochlorothiazide (Microzide) 12.5 mg PO DAILY [facility] Last Admin: 09/22/17 08:38 Dose: 12.5 mg Piperacillin Sod/Tazobactam (Sod 3.375 gm/ Sodium Chloride) 100 mls @ 100 mls/ hr IVPB Q8 [facility] PRN Reason: Protocol Last Admin: 09/23/17 01:08 Dose: 100 mls/hr Vancomycin HCl 1,000 mg/ (Sodium Chloride) 250 mls @ 250 mls/hr IVPB Q12@0500, 1700 [facility] PRN Reason: Protocol Last Admin: 09/23/17 04:51 Dose: 250 mls/hr Sodium Chloride (Sodium Chloride 0.9%) 1,000 mls @ 75 mls/hr IV .[id number] [facility] Stop: 09/23/17 22:15 Last Admin: 09/22/17 23:51 Dose: 75 mls/hr Insulin Detemir (Levemir) 50 units SC [facility] Last Admin: 09/22/17 22:10 Dose: Not Given Insulin Human Lispro (Humalog) 0 units SC [facility] PRN Reason: Protocol Last Admin: 09/23/17 06:47 Dose: Not Given Lactobacillus Acidophilus (Bacid Acidophilus) 1 cap PO BID [facility] Last Admin: 09/22/17 16:09 Dose: 1 cap Losartan Potassium (Cozaar) 100 mg PO DAILY [facility] Last Admin: 09/22/17 08:38 Dose: 100 mg Oxycodone HCl (Oxycodone Immediate Release Tab) 30 mg PO QID PRN PRN Reason: Pain, moderate (4-7) Last Admin: 09/23/17 08:02 Dose: 30 mg - Labs Labs: 09/23/17 06:52 09/23/17 06:52 Assessment and Plan (1) Gangrene of toe Status: Acute (2) PVD (peripheral vascular disease) Status: Acute (3) Cellulitis Status: Acute Attending/Attestation - Attestation I have personally seen and examined this patient.: Yes I have fully participated in the care of the patient.: Yes I have reviewed all pertinent clinical information, including history, physical exam and plan: Yes Notes (Text): 09/23/17 11:23 s/p peripheral angiogram today at macro-circulation patent distal small vessel disease ASA, statins, Acei
[2017-09-23] MEDS: Insulin Detemir 100 Units/ml Inj SC SCH ×2 (09:00→22:47)
[2017-09-23] MEDS: Lactobacillus Acidophilus 500 MU Cap PO SCH ×2 (09:00→17:26)
--- NOTE | 2017-09-23 12:48 | CP.PCM.PN ---
Subjective - Date & Time of Evaluation Date of Evaluation: 09/23/17 Time of Evaluation: 07:00 - Subjective Subjective: s/p peripheral angiogram today at macro-circulation patent distal small vessel disease empiric iv rx in progress Objective - Vital Signs/Intake and Output Vital Signs (last 24 hours): Temp Pulse Resp BP Pulse Ox 98.1 F 61 20 129/72 97 09/23/17 07:20 09/23/17 08:01 09/23/17 07:20 09/23/17 08:01 09/23/17 07:20 - Medications Medications: Current Medications Acetaminophen (Tylenol 325mg Tab) 650 mg PO Q6 PRN PRN Reason: Temperature Last Admin: 09/22/17 23:47 Dose: 650 mg Alprazolam (Xanax) 0.5 mg PO TID PRN PRN Reason: Anxiety Last Admin: 09/23/17 07:59 Dose: 0.5 mg Aspirin (Ecotrin) 81 mg PO DAILY [facility] Last Admin: 09/22/17 08:38 Dose: 81 mg Atorvastatin Calcium (Lipitor) 20 mg PO DAILY [facility] Last Admin: 09/22/17 08:50 Dose: 20 mg Benzocaine/Menthol (Cepacol Sore Throat) 1 pam PO Q2 PRN PRN Reason: Sore Throat Last Admin: 09/22/17 12:14 Dose: 1 pam Carvedilol (Coreg) 3.125 mg PO Q12 [facility] Last Admin: 09/23/17 08:01 Dose: 3.125 mg Clopidogrel Bisulfate (Plavix) 75 mg PO DAILY [facility] Last Admin: 09/22/17 08:45 Dose: 75 mg Glipizide (Glucotrol) 5 mg PO BID [facility] Last Admin: 09/22/17 16:12 Dose: 5 mg Heparin Sodium (Porcine) (Heparin) 5,000 units SC Q8 [facility] PRN Reason: Protocol Last Admin: 09/23/17 01:14 Dose: Not Given Hydrochlorothiazide (Microzide) 12.5 mg PO DAILY [facility] Last Admin: 09/22/17 08:38 Dose: 12.5 mg Piperacillin Sod/Tazobactam (Sod 3.375 gm/ Sodium Chloride) 100 mls @ 100 mls/ hr IVPB Q8 [facility] PRN Reason: Protocol Last Admin: 09/23/17 01:08 Dose: 100 mls/hr Vancomycin HCl 1,000 mg/ (Sodium Chloride) 250 mls @ 250 mls/hr IVPB Q12@0500, 1700 [facility] PRN Reason: Protocol Last Admin: 09/23/17 04:51 Dose: 250 mls/hr Sodium Chloride (Sodium Chloride 0.9%) 1,000 mls @ 75 mls/hr IV .[id number] [facility] Stop: 09/23/17 22:15 Last Admin: 09/22/17 23:51 Dose: 75 mls/hr Insulin Detemir (Levemir) 50 units SC [facility] Last Admin: 09/22/17 22:10 Dose: Not Given Insulin Human Lispro (Humalog) 0 units SC [facility] PRN Reason: Protocol Last Admin: 09/23/17 06:47 Dose: Not Given Lactobacillus Acidophilus (Bacid Acidophilus) 1 cap PO BID [facility] Last Admin: 09/22/17 16:09 Dose: 1 cap Losartan Potassium (Cozaar) 100 mg PO DAILY [facility] Last Admin: 09/22/17 08:38 Dose: 100 mg Oxycodone HCl (Oxycodone Immediate Release Tab) 30 mg PO QID PRN PRN Reason: Pain, moderate (4-7) Last Admin: 09/23/17 08:02 Dose: 30 mg - Labs Labs: 09/23/17 06:52 09/23/17 06:52 - Constitutional Appears: Non-toxic, Chronically Ill - Head Exam Head Exam: NORMOCEPHALIC - Eye Exam Eye Exam: PERRL - ENT Exam ENT Exam: Mucous Membranes Dry - Neck Exam Neck Exam: absent: Lymphadenopathy - Respiratory Exam Respiratory Exam: Decreased Breath Sounds - Cardiovascular Exam Cardiovascular Exam: REGULAR RHYTHM - GI/Abdominal Exam GI & Abdominal Exam: Distended - Rectal Exam Rectal Exam: Deferred - Exam Exam: NORMAL INSPECTION - Extremities Exam Extremities Exam: Pedal Edema Assessment and Plan (1) Cellulitis Status: Acute (2) Gangrene of toe Status: Acute (3) PVD (peripheral vascular disease) Status: Acute
--- NOTE | 2017-09-23 13:11 | MRI ---
PROCEDURE: MRI RIGHT FOOT WITHOUT CONTRAST HISTORY: r/o osteomyelitis 2nd and 3rd digits COMPARISON: Right foot radiographs 09/20/2017. TECHNIQUE: Multiple multisequential MR imaging of the right foot is performed from the digits to the proximal hindfoot. The posterior hindfoot is excluded from this examination due to clinical indication of osteomyelitis 2nd and 3rd digits. Intravenous contrast was not administered as per referring physician request. FINDINGS: Increased signal changes are seen in long TR sequences at the 2nd digit proximal and middle phalanges and potentially the distal phalanx as well with abnormal study signal also seen in the distal phalanx of the great toe. Borderline signal changes seen at the 3rd digit proximal phalanx. Diffuse cellulitis type changes seen in the forefoot soft tissues tooth in general and particularly at the dorsal forefoot and midfoot. A definite abscess is not clearly identified the nonspecific joint effusions are seen related to the 2nd and 3rd metatarsal phalangeal joints. Early osteomyelitis versus reactive edema is questioned at the proximal phalanx 3rd digit. Abnormal signal of the distal phalanx great toe is indeterminate and may reflect failure fat suppression with limited osteomyelitis not excluded here nevertheless. Otherwise, no Lisfranc ligament disruption appreciated with the medial lateral collateral ligaments grossly intact. The flexor or extensor tendons are grossly nonfocal as well as the perineal tendon, tibialis anterior and posterior tendons. Plantar fascia appears grossly intact. No definite fracture, subluxation or dislocation. Degenerative changes are manifest primarily by cortical sclerosis throughout the forefoot and midfoot joints diffusely. IMPRESSION: Overall pattern indicates osteomyelitis at the 2nd digit and relatively diffuse fashion with borderline or early osteomyelitis at the proximal phalanx 3rd digit. Joint effusions at the 2nd and 3rd metatarsophalangeal joints are small but are nonspecific in terms of entered related or potentially reactive or infectious. Signal changes at the distal phalanx great toe may reflect failure of fat suppression with limited osteomyelitis is not excluded here either.
[2017-09-23 23:58] LABS: HEPATITIS B SURFACE AG NEGATIVE (NEGATIVE)
[2017-09-24 00:03] LABS: HEPATITIS A IGM NEGATIVE (NEGATIVE); HEPATITIS B CORE AB Negative (NEGATIVE)
[2017-09-24] MEDS: Piperacillin/Tazobact 3.375 GM in Sodium Chloride 0.9% 100 ML IVPB SCH ×3 (00:09→16:46)
[2017-09-24 00:16] LABS: HEPATITIS C ANTIBODY Negative (NEGATIVE)
[2017-09-24] MEDS: oxyCODONE 10 mg Immediate Release Tab PO PRN ×3 (03:42→22:14)
[2017-09-24] MEDS: Insulin Lispro (humaLOG) 100 Units/ml Inj SC SCH ×4 (06:51→22:05)
--- NOTE | 2017-09-24 07:17 | CP.PCM.PN ---
<Seema Hartman - Last Filed: 09/24/17 07:44> Subjective - Date & Time of Evaluation Date of Evaluation: 09/24/17 Time of Evaluation: 07:15 - Subjective Subjective: PGY2 progress note for cardiology, Dr. Quiros Pt seen and examined at bedside. No acute events overnight. Pt underwent LE angio yesterday at [facility] which showed microvascular disease B/L. Denies having any Cp, SOB, abd pain, N/V/D/C, F/C. Continues to complain of right LE pain. 12 point ROS are negative except for the above mentioned. Objective - Vital Signs/Intake and Output Vital Signs (last 24 hours): Temp Pulse Resp BP Pulse Ox 98.5 F 68 18 134/62 94 L 09/24/17 00:00 09/24/17 00:00 09/24/17 00:00 09/24/17 00:00 09/24/17 00:00 - Medications Medications: Current Medications Acetaminophen (Tylenol 325mg Tab) 650 mg PO Q6 PRN PRN Reason: Temperature Last Admin: 09/23/17 18:52 Dose: 650 mg Alprazolam (Xanax) 0.5 mg PO TID PRN PRN Reason: Anxiety Last Admin: 09/24/17 05:51 Dose: 0.5 mg Aspirin (Ecotrin) 81 mg PO DAILY [facility] Last Admin: 09/23/17 18:14 Dose: 81 mg Atorvastatin Calcium (Lipitor) 20 mg PO DAILY [facility] Last Admin: 09/23/17 17:13 Dose: 20 mg Benzocaine/Menthol (Cepacol Sore Throat) 1 pam PO Q2 PRN PRN Reason: Sore Throat Last Admin: 09/22/17 12:14 Dose: 1 pam Carvedilol (Coreg) 3.125 mg PO Q12 [facility] Last Admin: 09/23/17 22:22 Dose: 3.125 mg Clopidogrel Bisulfate (Plavix) 75 mg PO DAILY [facility] Last Admin: 09/23/17 18:13 Dose: 75 mg Glipizide (Glucotrol) 5 mg PO BID [facility] Last Admin: 09/23/17 17:12 Dose: 5 mg Hydrochlorothiazide (Microzide) 12.5 mg PO DAILY [facility] Last Admin: 09/23/17 17:14 Dose: 12.5 mg Piperacillin Sod/Tazobactam (Sod 3.375 gm/ Sodium Chloride) 100 mls @ 100 mls/ hr IVPB Q8 [facility] PRN Reason: Protocol Last Admin: 09/24/17 00:09 Dose: 100 mls/hr Vancomycin HCl 1,000 mg/ (Sodium Chloride) 250 mls @ 250 mls/hr IVPB Q12@0500, 1700 [facility] PRN Reason: Protocol Last Admin: 09/24/17 04:00 Dose: 250 mls/hr Insulin Detemir (Levemir) 50 units SC [facility] Last Admin: 09/23/17 22:47 Dose: 50 unit Insulin Human Lispro (Humalog) 0 units SC ACHS [facility] PRN Reason: Protocol Last Admin: 09/24/17 06:51 Dose: Not Given Lactobacillus Acidophilus (Bacid Acidophilus) 1 cap PO BID [facility] Last Admin: 09/23/17 17:26 Dose: 1 cap Losartan Potassium (Cozaar) 100 mg PO DAILY [facility] Last Admin: 09/23/17 17:11 Dose: 100 mg Oxycodone HCl (Oxycodone Immediate Release Tab) 30 mg PO QID PRN PRN Reason: Pain, moderate (4-7) Last Admin: 09/24/17 03:42 Dose: 30 mg - Labs Labs: 09/23/17 06:52 09/23/17 06:52 - Constitutional Appears: Non-toxic, No Acute Distress - Head Exam Head Exam: ATRAUMATIC - ENT Exam ENT Exam: Mucous Membranes Moist - Respiratory Exam Respiratory Exam: Clear to Ausculation Bilateral, NORMAL BREATHING PATTERN. absent: Accessory Muscle Use, Rales, Rhonchi, Wheezes, Respiratory Distress - Cardiovascular Exam Cardiovascular Exam: REGULAR RHYTHM, +S1, +S2. absent: Gallop, Rubs, Murmur - GI/Abdominal Exam GI & Abdominal Exam: Soft, Normal Bowel Sounds. absent: Distended, Firm, Guarding, Rigid, Tenderness, Organomegaly - Extremities Exam Extremities Exam: Tenderness (R LE). absent: Pedal Edema - Neurological Exam Neurological Exam: Alert, Awake, Normal Gait (Pt able to ambulate with use of cane ), Oriented x3 - Psychiatric Exam Psychiatric exam: Normal Affect, Normal Mood - Skin Skin Exam: Dry, Erythema (right LE), Intact, Warm Assessment and Plan - Assessment and Plan (Free Text) Assessment: (1) PVD (peripheral vascular disease) S/P angio yesterday which showed B/L microvascular disease. Recommend aggressive medical therapy Continue Aspirin, Statin, plavix, Coreg (2) Gangrene of toe Per podiatry note, pt scheduled for OR this morning. Will require medical and cardiac clearance. Will consider getting echo cont ABx per ID recs. Currently on Zosyn and vanco LE venous US showed no DVT Initial blood cx negative (3) Diabetes Hgb A1c is 12.3 Continue management per primary team Lipid panel WNL (4) HTN Currently under control Continue Losartan and HCTZ Case will be discussed with attending, Dr. Quiros <Nico Quiros - Last Filed: 09/24/17 12:41> Objective - Vital Signs/Intake and Output Vital Signs (last 24 hours): Temp Pulse Resp BP Pulse Ox 99.3 F 64 20 134/81 96 09/24/17 08:19 09/24/17 08:54 09/24/17 08:19 09/24/17 08:54 09/24/17 08:19 - Medications Medications: Current Medications Acetaminophen (Tylenol 325mg Tab) 650 mg PO Q6 PRN PRN Reason: Temperature Last Admin: 09/23/17 18:52 Dose: 650 mg Alprazolam (Xanax) 0.5 mg PO TID PRN PRN Reason: Anxiety Last Admin: 09/24/17 05:51 Dose: 0.5 mg Aspirin (Ecotrin) 81 mg PO DAILY [facility] Last Admin: 09/23/17 18:14 Dose: 81 mg Atorvastatin Calcium (Lipitor) 20 mg PO DAILY [facility] Last Admin: 09/24/17 08:49 Dose: Not Given Benzocaine/Menthol (Cepacol Sore Throat) 1 pam PO Q2 PRN PRN Reason: Sore Throat Last Admin: 09/22/17 12:14 Dose: 1 pam Carvedilol (Coreg) 3.125 mg PO Q12 [facility] Last Admin: 09/24/17 08:54 Dose: 3.125 mg Clopidogrel Bisulfate (Plavix) 75 mg PO DAILY [facility] Last Admin: 09/23/17 18:13 Dose: 75 mg Glipizide (Glucotrol) 5 mg PO BID [facility] Last Admin: 09/24/17 08:52 Dose: 5 mg Hydrochlorothiazide (Microzide) 12.5 mg PO DAILY [facility] Last Admin: 09/24/17 08:52 Dose: 12.5 mg Piperacillin Sod/Tazobactam (Sod 3.375 gm/ Sodium Chloride) 100 mls @ 100 mls/ hr IVPB Q8 [facility] PRN Reason: Protocol Last Admin: 09/24/17 09:00 Dose: 100 mls/hr Vancomycin HCl 1,000 mg/ (Sodium Chloride) 250 mls @ 250 mls/hr IVPB Q12@0500, 1700 [facility] PRN Reason: Protocol Last Admin: 09/24/17 04:00 Dose: 250 mls/hr Dextrose (Dextrose 5% In Water) 500 mls @ 0 mls/hr IV .Q0M [facility] PRN Reason: Per Protocol Stop: 09/25/17 10:26 Dextrose/Sodium Chloride (Dextrose 5%/0.45% Ns 1000 Ml) 1,000 mls @ 75 mls/hr IV .[id number] [facility] Stop: 09/25/17 11:44 Last Admin: 09/24/17 11:54 Dose: 75 mls/hr Insulin Detemir (Levemir) 50 units SC [facility] Last Admin: 09/24/17 08:43 Dose: Not Given Insulin Human Lispro (Humalog) 0 units SC [facility] PRN Reason: Protocol Last Admin: 09/24/17 11:56 Dose: Not Given Lactobacillus Acidophilus (Bacid Acidophilus) 1 cap PO BID [facility] Last Admin: 09/24/17 08:48 Dose: Not Given Losartan Potassium (Cozaar) 100 mg PO DAILY [facility] Last Admin: 09/24/17 08:52 Dose: 100 mg Morphine Sulfate (Morphine) 2 mg IVP Q4 PRN PRN Reason: Pain, severe (8-10) Last Admin: 09/24/17 10:49 Dose: 2 mg Oxycodone HCl (Oxycodone Immediate Release Tab) 30 mg PO QID PRN PRN Reason: Pain, moderate (4-7) Last Admin: 09/24/17 03:42 Dose: 30 mg - Labs Labs: 09/24/17 06:12 09/24/17 06:12 Assessment and Plan (1) Gangrene of toe Status: Acute (2) PVD (peripheral vascular disease) Status: Acute (3) Cellulitis Status: Acute Attending/Attestation - Attestation I have personally seen and examined this patient.: Yes I have fully participated in the care of the patient.: Yes I have reviewed all pertinent clinical information, including history, physical exam and plan: Yes Notes (Text): 09/24/17 12:41 ok to proceed with amputation with low risk for perioperative cardiac event
[2017-09-24 07:34] LABS: BASO % 0.7 % (0.0-2.0); HEMOGLOBIN 11.2 g/dL (12.0-18.0); LYMPH # 0.7 K/uL (1.0-4.3); LYMPH % 13.8 % (20.0-40.0); MEAN CELL VOLUME 90.2 fl (80.0-94.0); MEAN CORPUSCULAR HEMOGLOBIN 29.7 pg (27.0-31.0); MEAN CORPUSCULAR HGB CONC 32.9 g/dL (33.0-37.0); MEAN PLATELET VOLUME 8.4 fl (7.2-11.7); MONO # 0.5 K/uL (0.0-0.8); MONO % 9.9 % (0.0-10.0); NEUT # 3.6 K/uL (1.8-7.0); NEUT % 74.6 % (50.0-75.0); NRBC % 0.1 % (0.0-0.0); RBC 3.77 Mil/uL (4.40-5.90); RED CELL DISTRIBUTION WIDTH 13.6 % (11.5-14.5); WHITE BLOOD COUNT 4.8 K/uL (4.8-10.8)
--- NOTE | 2017-09-24 07:37 | CP.PCM.PN ---
Subjective - Date & Time of Evaluation Date of Evaluation: 09/24/17 Time of Evaluation: 07:37 - Subjective Subjective: Podiatry Progress Note - Dr. Ramirez 62 year old male patient PMHx DM, HTN seen and evaluated at bedside for pre- operative evaluation for right partial foot amputation by Dr. Ramirez today. Patient hemodynamically stable and NAD. Denies any acute events overnight with no complains s/p LE angio yesterday. States he is still experiencing RLE pain in areas of redness circumfirentially around his right lower leg along with the top of his right foot; no pain to his 2nd and 3rd digits. NPO status confirmed. Denies N/V/F/D/C/SOB/calf pain. Objective - Vital Signs/Intake and Output Vital Signs (last 24 hours): Temp Pulse Resp BP Pulse Ox 98.5 F 68 18 134/62 94 L 09/24/17 00:00 09/24/17 00:00 09/24/17 00:00 09/24/17 00:00 09/24/17 00:00 - Medications Medications: Current Medications Acetaminophen (Tylenol 325mg Tab) 650 mg PO Q6 PRN PRN Reason: Temperature Last Admin: 09/23/17 18:52 Dose: 650 mg Alprazolam (Xanax) 0.5 mg PO TID PRN PRN Reason: Anxiety Last Admin: 09/24/17 05:51 Dose: 0.5 mg Aspirin (Ecotrin) 81 mg PO DAILY [facility] Last Admin: 09/23/17 18:14 Dose: 81 mg Atorvastatin Calcium (Lipitor) 20 mg PO DAILY [facility] Last Admin: 09/23/17 17:13 Dose: 20 mg Benzocaine/Menthol (Cepacol Sore Throat) 1 pam PO Q2 PRN PRN Reason: Sore Throat Last Admin: 09/22/17 12:14 Dose: 1 pam Carvedilol (Coreg) 3.125 mg PO Q12 [facility] Last Admin: 09/23/17 22:22 Dose: 3.125 mg Clopidogrel Bisulfate (Plavix) 75 mg PO DAILY [facility] Last Admin: 09/23/17 18:13 Dose: 75 mg Glipizide (Glucotrol) 5 mg PO BID [facility] Last Admin: 09/23/17 17:12 Dose: 5 mg Hydrochlorothiazide (Microzide) 12.5 mg PO DAILY [facility] Last Admin: 09/23/17 17:14 Dose: 12.5 mg Piperacillin Sod/Tazobactam (Sod 3.375 gm/ Sodium Chloride) 100 mls @ 100 mls/ hr IVPB Q8 [facility] PRN Reason: Protocol Last Admin: 09/24/17 00:09 Dose: 100 mls/hr Vancomycin HCl 1,000 mg/ (Sodium Chloride) 250 mls @ 250 mls/hr IVPB Q12@0500, 1700 [facility] PRN Reason: Protocol Last Admin: 09/24/17 04:00 Dose: 250 mls/hr Insulin Detemir (Levemir) 50 units SC [facility] Last Admin: 09/23/17 22:47 Dose: 50 unit Insulin Human Lispro (Humalog) 0 units SC ACHS [facility] PRN Reason: Protocol Last Admin: 09/24/17 06:51 Dose: Not Given Lactobacillus Acidophilus (Bacid Acidophilus) 1 cap PO BID [facility] Last Admin: 09/23/17 17:26 Dose: 1 cap Losartan Potassium (Cozaar) 100 mg PO DAILY [facility] Last Admin: 09/23/17 17:11 Dose: 100 mg Oxycodone HCl (Oxycodone Immediate Release Tab) 30 mg PO QID PRN PRN Reason: Pain, moderate (4-7) Last Admin: 09/24/17 03:42 Dose: 30 mg - Labs Labs: 09/23/17 06:52 09/23/17 06:52 - Constitutional Appears: Well, Non-toxic, No Acute Distress - Extremities Exam Additional comments: Dressing to right foot appears clean/dry/intact with no strikethrough noted. - Neurological Exam Neurological Exam: Alert, Awake, Oriented x3 - Psychiatric Exam Psychiatric exam: Flat Affect Assessment and Plan - Assessment and Plan (Free Text) Assessment: 62 y/o male patient with PMHx of DM, HTN seen and evaluated in ED for 1) ischemic changes to the right 2nd and 3rd digit 2) cellulitis extending proximally on the right LE Plan: Patient seen and evaluated at bedside Discussed with attending Dr. Ramirez Febrile yesterday PM (Tmax 100.3), afebrile currently, WBC 4.8 X-rays of the right foot ordered/reviewed - No signs of soft tissue emphysema, no signs of periosteal reaction indicating acute OM noted, no acute fractures or dislocations noted Right foot and ankle MRI ordered/reviewed - Osteomyelitis at 2nd digit and relatively diffuse fashion with borderline or early OM at proximal phalanx of 3rd digit - Joint effusions at 2nd and 3rd MPJs small but nonspecific - Signal changes at distal phalanx of great toe may reflex failure of fat suppression w/limited OM not excluded Continue local wound care Continue Vancomycin and Zosyn per ID Bilateral arterial duplex - elevated peak systolic velocities and loss of triphasic waveform in the below the knee RLE likely representing moderate to severe stenoses -Per vascular, marcocirculation present, distal small vessel disease; recommending aggressive medical thearpy -s/p peripheral angio at which showed bilateral microvascular disease and patent macro-circulation -ASA and plavix held Continue multipodus boots Plan for OR today right partial foot amputation -NPO since mn -Explained to pt procedure and post-operative course -Pt will be NWB RLE with the assistance of crutches; PT consulted Pain mgmt per medicine Podiatry will continue to follow patient while in house
[2017-09-24 07:51] LABS: BLOOD UREA NITROGEN 13 mg/dl (9-20); CALCIUM 8.5 mg/dL (8.4-10.2); GFR AFRICAN-AMERICAN > 60; GFR NON-AFRICAN AMERICAN > 60
[2017-09-24] MEDS: Insulin Detemir 100 Units/ml Inj SC SCH ×3 (08:43→22:18)
[2017-09-24] MEDS: Lactobacillus Acidophilus 500 MU Cap PO SCH ×2 (08:48→16:43)
[2017-09-24] MEDS ORDERED: Lidocaine 1% Inj (20ml) IJ ONE (10:25)
[2017-09-24] MEDS ORDERED: Bupivacaine 0.5% Inj(30mL) IJ ONE (10:25)
[2017-09-24] MEDS ORDERED: Dextrose 50% SYRINGE Inj (50 ml) IVP ONE (11:39)
[2017-09-24] MEDS ORDERED: Dextrose 50% SYRINGE Inj (50 ml) ONE (11:51)
[2017-09-24] MEDS: Dextrose 5%/0.45% NS 1,000 ML IV SCH (11:54)
[2017-09-24] MEDS ORDERED: Lidocaine 1% Inj (20ml) ONE (12:16)
[2017-09-24] MEDS ORDERED: ceFAZolin IV 1 gm in Dextrose 2 GM/100 ML BAG IVPB ONE (12:16)
[2017-09-24] MEDS ORDERED: Bupivacaine 0.5% Inj(30mL) ONE (12:16)
--- NOTE | 2017-09-24 12:33 | CARD ---
APPROVED REPORT EXAM: Two-dimensional and M-mode echocardiogram with Doppler and color Doppler. Other Information Quality : GoodRhythm : NSR INDICATION Pre-Op 2D DIMENSIONS IVSd1.28 (0.7-1.1cm)LVDd4.49 (3.9-5.9cm) LVOT Diameter2.59 (1.8-2.4cm)PWd0.87 (0.7-1.1cm) IVSs1.49 (0.8-1.2cm)LVDs3.08 (2.5-4.0cm) FS (%) 31.3 %PWs1.23 (0.8-1.2cm) M-Mode DIMENSIONS Left Atrium (MM)5.49 (2.5-4.0cm)IVSd0.69 (0.7-1.1cm) Aortic Root3.08 (2.2-3.7cm)LVDd6.29 (4.0-5.6cm) Aortic Cusp Exc.2.32 (1.5-2.0cm)PWd1.03 (0.7-1.1cm) IVSs1.19 cmFS (%) 34 % LVDs4.17 (2.0-3.8cm)PWs1.26 cm Mitral Valve MV E Uncctaij72.1cm/sMV DECEL [id number] A Twefsssa46.7cm/s MV IVW99yxQ/A ratio1.1MVA (PHT)3.49cm2 TDI Lateral E' Peak V12.79cm/sMedial E' Peak V9.86cm/sE/Lateral E'6.3 E/Medial E'8.2 LEFT VENTRICLE The left ventricle is normal size. There is normal left ventricular wall thickness. The left ventricular function is normal. The left ventricular ejection fraction is within the normal range. The Ejection Fraction is 60-65%. There is normal LV segmental wall motion. The left ventricular diastolic function is normal. No left ventricle thrombus noted on this study. There is no mass noted in the left ventricle. RIGHT VENTRICLE The right ventricle is normal size. There is normal right ventricular wall thickness. The right ventricular systolic function is normal. ATRIA The left atrium size is normal. The right atrium size is normal. The interatrial septum is intact with no evidence for an atrial septal defect. AORTIC VALVE The aortic valve is normal in structure. No aortic regurgitation is present. No aortic regurgitation is present. There is no aortic valvular stenosis. There is no aortic valvular vegetation. MITRAL VALVE The mitral valve is normal in structure. There is no evidence of mitral valve prolapse. There is no mitral valve stenosis. There is no mitral valve regurgitation noted. TRICUSPID VALVE The tricuspid valve is normal in structure. There is no tricuspid valve regurgitation noted. There is no tricuspid valve prolapse or vegetation. There is no tricuspid valve stenosis. PULMONIC VALVE The pulmonary valve is normal in structure. There is no pulmonic valvular regurgitation. There is no pulmonic valvular stenosis. GREAT VESSELS The aortic root is normal in size. The IVC is normal in size and collapses >50% with inspiration. PERICARDIAL EFFUSION The pericardium appears normal. <Conclusion> The left ventricle is normal size. The left ventricular function is normal. The left ventricular ejection fraction is within the normal range. The Ejection Fraction is 60-65%.
--- NOTE | 2017-09-24 12:36 | CARD ---
APPROVED REPORT EKG Measurement Heart [id number] <Conclusion> Normal sinus rhythm Left axis deviation Abnormal ECG
--- NOTE | 2017-09-24 13:02 | CP.PCM.PN ---
Subjective - Date & Time of Evaluation Date of Evaluation: 09/24/17 Time of Evaluation: 09:00 - Subjective Subjective: awaiting amputation afeb no new cultures Objective - Vital Signs/Intake and Output Vital Signs (last 24 hours): Temp Pulse Resp BP Pulse Ox 99.3 F 64 20 134/81 96 09/24/17 08:19 09/24/17 08:54 09/24/17 08:19 09/24/17 08:54 09/24/17 08:19 - Medications Medications: Current Medications Acetaminophen (Tylenol 325mg Tab) 650 mg PO Q6 PRN PRN Reason: Temperature Last Admin: 09/23/17 18:52 Dose: 650 mg Alprazolam (Xanax) 0.5 mg PO TID PRN PRN Reason: Anxiety Last Admin: 09/24/17 05:51 Dose: 0.5 mg Aspirin (Ecotrin) 81 mg PO DAILY [facility] Last Admin: 09/23/17 18:14 Dose: 81 mg Atorvastatin Calcium (Lipitor) 20 mg PO DAILY [facility] Last Admin: 09/24/17 08:49 Dose: Not Given Benzocaine/Menthol (Cepacol Sore Throat) 1 pam PO Q2 PRN PRN Reason: Sore Throat Last Admin: 09/22/17 12:14 Dose: 1 pam Carvedilol (Coreg) 3.125 mg PO Q12 [facility] Last Admin: 09/24/17 08:54 Dose: 3.125 mg Clopidogrel Bisulfate (Plavix) 75 mg PO DAILY [facility] Last Admin: 09/23/17 18:13 Dose: 75 mg Glipizide (Glucotrol) 5 mg PO BID [facility] Last Admin: 09/24/17 08:52 Dose: 5 mg Hydrochlorothiazide (Microzide) 12.5 mg PO DAILY [facility] Last Admin: 09/24/17 08:52 Dose: 12.5 mg Piperacillin Sod/Tazobactam (Sod 3.375 gm/ Sodium Chloride) 100 mls @ 100 mls/ hr IVPB Q8 [facility] PRN Reason: Protocol Last Admin: 09/24/17 09:00 Dose: 100 mls/hr Vancomycin HCl 1,000 mg/ (Sodium Chloride) 250 mls @ 250 mls/hr IVPB Q12@0500, 1700 [facility] PRN Reason: Protocol Last Admin: 09/24/17 04:00 Dose: 250 mls/hr Dextrose (Dextrose 5% In Water) 500 mls @ 0 mls/hr IV .Q0M [facility] PRN Reason: Per Protocol Stop: 09/25/17 10:26 Dextrose/Sodium Chloride (Dextrose 5%/0.45% Ns 1000 Ml) 1,000 mls @ 75 mls/hr IV .[id number] [facility] Stop: 09/25/17 11:44 Last Admin: 09/24/17 11:54 Dose: 75 mls/hr Insulin Detemir (Levemir) 50 units SC [facility] Last Admin: 09/24/17 08:43 Dose: Not Given Insulin Human Lispro (Humalog) 0 units SC ACHS [facility] PRN Reason: Protocol Last Admin: 09/24/17 11:56 Dose: Not Given Lactobacillus Acidophilus (Bacid Acidophilus) 1 cap PO BID [facility] Last Admin: 09/24/17 08:48 Dose: Not Given Losartan Potassium (Cozaar) 100 mg PO DAILY [facility] Last Admin: 09/24/17 08:52 Dose: 100 mg Morphine Sulfate (Morphine) 2 mg IVP Q4 PRN PRN Reason: Pain, severe (8-10) Last Admin: 09/24/17 10:49 Dose: 2 mg Oxycodone HCl (Oxycodone Immediate Release Tab) 30 mg PO QID PRN PRN Reason: Pain, moderate (4-7) Last Admin: 09/24/17 03:42 Dose: 30 mg - Labs Labs: 09/24/17 06:12 09/24/17 06:12 - Constitutional Appears: Non-toxic, Chronically Ill - Head Exam Head Exam: NORMOCEPHALIC - Eye Exam Eye Exam: PERRL - ENT Exam ENT Exam: Mucous Membranes Dry - Neck Exam Neck Exam: absent: Lymphadenopathy - Respiratory Exam Respiratory Exam: Decreased Breath Sounds - Cardiovascular Exam Cardiovascular Exam: REGULAR RHYTHM - GI/Abdominal Exam GI & Abdominal Exam: Distended - Rectal Exam Rectal Exam: Deferred - Exam Exam: NORMAL INSPECTION Assessment and Plan (1) Cellulitis Status: Acute (2) Gangrene of toe Status: Acute (3) PVD (peripheral vascular disease) Status: Acute - Assessment and Plan (Free Text) Assessment: for or / amp in am
--- NOTE | 2017-09-24 13:04 | CP.PCM.PCO ---
Physician Communication Note - Physician Communication Note Physician Communication Note: please send bone for biopsy / culture
--- NOTE | 2017-09-24 23:52 | CP.PCM.PN ---
Subjective - Date & Time of Evaluation Date of Evaluation: 09/23/17 Time of Evaluation: 12:15 - Subjective Subjective: Seen and examined at the bed side. Denies SOB, Chest pain, Palpitation and lightheadedness. Cardiology Clearance appreciated for the gangrenous toe amputation. Denies fever or chills. Objective - Vital Signs/Intake and Output Vital Signs (last 24 hours): Temp Pulse Resp BP Pulse Ox 99.1 F 70 20 157/79 H 98 09/24/17 16:09 09/24/17 21:12 09/24/17 16:09 09/24/17 21:12 09/24/17 16:09 - Medications Medications: Current Medications Acetaminophen (Tylenol 325mg Tab) 650 mg PO Q6 PRN PRN Reason: Temperature Last Admin: 09/23/17 18:52 Dose: 650 mg Alprazolam (Xanax) 0.5 mg PO TID PRN PRN Reason: Anxiety Last Admin: 09/24/17 22:14 Dose: 0.5 mg Aspirin (Ecotrin) 81 mg PO DAILY [facility] Last Admin: 09/23/17 18:14 Dose: 81 mg Atorvastatin Calcium (Lipitor) 20 mg PO DAILY [facility] Last Admin: 09/24/17 08:49 Dose: Not Given Benzocaine/Menthol (Cepacol Sore Throat) 1 pam PO Q2 PRN PRN Reason: Sore Throat Last Admin: 09/22/17 12:14 Dose: 1 pam Carvedilol (Coreg) 3.125 mg PO Q12 [facility] Last Admin: 09/24/17 21:12 Dose: 3.125 mg Clopidogrel Bisulfate (Plavix) 75 mg PO DAILY [facility] Last Admin: 09/23/17 18:13 Dose: 75 mg Glipizide (Glucotrol) 5 mg PO BID [facility] Last Admin: 09/24/17 18:29 Dose: 5 mg Hydrochlorothiazide (Microzide) 12.5 mg PO DAILY [facility] Last Admin: 09/24/17 08:52 Dose: 12.5 mg Piperacillin Sod/Tazobactam (Sod 3.375 gm/ Sodium Chloride) 100 mls @ 100 mls/ hr IVPB Q8 [facility] PRN Reason: Protocol Last Admin: 09/24/17 16:46 Dose: 100 mls/hr Vancomycin HCl 1,000 mg/ (Sodium Chloride) 250 mls @ 250 mls/hr IVPB Q12@0500, 1700 [facility] PRN Reason: Protocol Last Admin: 09/24/17 17:50 Dose: 250 mls/hr Dextrose (Dextrose 5% In Water) 500 mls @ 0 mls/hr IV .Q0M [facility] PRN Reason: Per Protocol Stop: 09/25/17 10:26 Dextrose/Sodium Chloride (Dextrose 5%/0.45% Ns 1000 Ml) 1,000 mls @ 75 mls/hr IV .[id number] [facility] Stop: 09/25/17 11:44 Last Admin: 09/24/17 11:54 Dose: 75 mls/hr Insulin Detemir (Levemir) 25 units SC [facility] Last Admin: 09/24/17 22:18 Dose: Not Given Insulin Human Lispro (Humalog) 0 units SC [facility] PRN Reason: Protocol Last Admin: 09/24/17 22:05 Dose: Not Given Lactobacillus Acidophilus (Bacid Acidophilus) 1 cap PO BID [facility] Last Admin: 09/24/17 16:43 Dose: 1 cap Losartan Potassium (Cozaar) 100 mg PO DAILY [facility] Last Admin: 09/24/17 08:52 Dose: 100 mg Morphine Sulfate (Morphine) 2 mg IVP Q4 PRN PRN Reason: Pain, severe (8-10) Last Admin: 09/24/17 10:49 Dose: 2 mg Oxycodone HCl (Oxycodone Immediate Release Tab) 30 mg PO QID PRN PRN Reason: Pain, moderate (4-7) Last Admin: 09/24/17 22:14 Dose: 30 mg - Labs Labs: 09/24/17 06:12 09/24/17 06:12 - Constitutional Appears: Well, No Acute Distress - Head Exam Head Exam: ATRAUMATIC, NORMAL INSPECTION, NORMOCEPHALIC - Eye Exam Eye Exam: EOMI, Normal appearance, PERRL Pupil Exam: NORMAL ACCOMODATION - ENT Exam ENT Exam: Mucous Membranes Moist, Normal External Ear Exam - Neck Exam Neck Exam: Full ROM, Normal Inspection - Respiratory Exam Respiratory Exam: Clear to Ausculation Bilateral. absent: Rales, Wheezes - Cardiovascular Exam Cardiovascular Exam: REGULAR RHYTHM, +S1, +S2 - GI/Abdominal Exam GI & Abdominal Exam: Soft, Normal Bowel Sounds. absent: Rigid - Extremities Exam Additional comments: Dry ulcerations noted to dorsum of the 2nd digit as well as 3rd digit on the right, dusky skin appearance noted on the distal aspect of the right 2nd digit, small fissure with absent drainage noted on the medial proximal aspect of the right digit + malodor, no probe to bone, no purulance, no tunneling or undermining, no interdigital maceration. Erythema noted to dorsum of right forefoot as well as circumfirentially around right lower 1/2 of leg. DP/PT pulses are palpable 2/4 b/l, Cap Refill time: < 3 sec to all digits except 2nd digit on the right. Temperature gradient warm hot to RLE, warm to warm LLE. Increase in warmth noted to erythema to right lower leg and dorsum of foot. Diffuse non-pitting edema noted to RLE. - Back Exam Back Exam: NORMAL INSPECTION. absent: CVA tenderness (L), CVA tenderness (R) - Neurological Exam Neurological Exam: Alert, Awake, CN II-XII Intact, Oriented x3 - Psychiatric Exam Psychiatric exam: Normal Affect, Normal Mood - Additional Findings Additional findings: -EKG- LAD. Otherwise normal -Echo: Normal with EF 60-65%. Assessment and Plan (1) Gangrene of toe Assessment & Plan: Continue IV Vancomycin and Zosyn Wound care daily For Amputation tomorrow NPO Past Midnight Cardiology Clearance Appreciated Medically Cleared with Acceptable Risk for the Procedure Status: Acute (2) Diabetes mellitus Status: Chronic
[2017-09-25] MEDS: Piperacillin/Tazobact 3.375 GM in Sodium Chloride 0.9% 100 ML IVPB SCH ×3 (00:33→16:04)
[2017-09-25] MEDS: Dextrose 5%/0.45% NS 1,000 ML IV SCH (01:15)
[2017-09-25] MEDS: Insulin Lispro (humaLOG) 100 Units/ml Inj SC SCH ×4 (06:59→22:26)
[2017-09-25 08:00] LABS: INR 1.4 (0.9-1.2); PARTIAL THROMBOPLASTIN TIME 30.9 Seconds (25.6-37.1); PROTHROMBIN TIME 15.8 Seconds (9.8-13.1)
[2017-09-25] MEDS: Lactobacillus Acidophilus 500 MU Cap PO SCH ×2 (08:08→16:00)
[2017-09-25] MEDS: Insulin Detemir 100 Units/ml Inj SC SCH ×2 (08:10→22:10)
--- NOTE | 2017-09-25 08:22 | CP.PCM.PN ---
Subjective - Date & Time of Evaluation Date of Evaluation: 09/25/17 Time of Evaluation: 08:16 - Subjective Subjective: Podiatry Progress Note- Dr. Ramirez 62 year old male patient PMHx DM, HTN seen at bedside for OM of digits of right foot. Patient is AAO x 3 and NAD seen sleeping at time of examination. He denies any acute overnight events or any new onset pain. Denies N/V/F/C/CP/SOB/ posterior calf pain/urinary retention/constipation. Denies any further pedal complaints at this time. Patient is scheduled for OR today at 12:[address] Ramirez for amputation of second digits with bony removal of third digit and bone biopsy of hallux distal phalanx. Patient has confirmed his NPO status since yesterday evening. All questions about surgery were answered to patient's satisfaction with patient demonstrating good understanding. Blood sugar today is 86. Medical clearance from Dr. Krishna is still pending but he has been contacted and will provide medical clearance before surgery. Objective - Vital Signs/Intake and Output Vital Signs (last 24 hours): Temp Pulse Resp BP Pulse Ox 99.8 F H 65 18 142/93 H 95 09/25/17 08:14 09/25/17 08:14 09/25/17 08:14 09/25/17 08:14 09/25/17 08:14 - Medications Medications: Current Medications Acetaminophen (Tylenol 325mg Tab) 650 mg PO Q6 PRN PRN Reason: Temperature Last Admin: 09/23/17 18:52 Dose: 650 mg Alprazolam (Xanax) 0.5 mg PO TID PRN PRN Reason: Anxiety Last Admin: 09/24/17 22:14 Dose: 0.5 mg Aspirin (Ecotrin) 81 mg PO DAILY [facility] Last Admin: 09/23/17 18:14 Dose: 81 mg Atorvastatin Calcium (Lipitor) 20 mg PO DAILY [facility] Last Admin: 09/25/17 08:11 Dose: Not Given Benzocaine/Menthol (Cepacol Sore Throat) 1 pam PO Q2 PRN PRN Reason: Sore Throat Last Admin: 09/22/17 12:14 Dose: 1 pam Carvedilol (Coreg) 3.125 mg PO Q12 [facility] Last Admin: 09/25/17 08:09 Dose: 3.125 mg Clopidogrel Bisulfate (Plavix) 75 mg PO DAILY [facility] Last Admin: 09/23/17 18:13 Dose: 75 mg Glipizide (Glucotrol) 5 mg PO BID [facility] Last Admin: 09/25/17 08:10 Dose: Not Given Hydrochlorothiazide (Microzide) 12.5 mg PO DAILY [facility] Last Admin: 09/25/17 08:11 Dose: Not Given Piperacillin Sod/Tazobactam (Sod 3.375 gm/ Sodium Chloride) 100 mls @ 100 mls/ hr IVPB Q8 [facility] PRN Reason: Protocol Last Admin: 09/25/17 08:11 Dose: 100 mls/hr Vancomycin HCl 1,000 mg/ (Sodium Chloride) 250 mls @ 250 mls/hr IVPB Q12@0500, 1700 [facility] PRN Reason: Protocol Last Admin: 09/25/17 04:54 Dose: 250 mls/hr Dextrose (Dextrose 5% In Water) 500 mls @ 0 mls/hr IV .Q0M [facility] PRN Reason: Per Protocol Stop: 09/25/17 10:26 Dextrose/Sodium Chloride (Dextrose 5%/0.45% Ns 1000 Ml) 1,000 mls @ 75 mls/hr IV .[id number] [facility] Stop: 09/25/17 11:44 Last Admin: 09/25/17 01:15 Dose: Not Given Insulin Detemir (Levemir) 25 units SC AMHS [facility] Last Admin: 09/25/17 08:10 Dose: Not Given Insulin Human Lispro (Humalog) 0 units SC ACHS [facility] PRN Reason: Protocol Last Admin: 09/25/17 06:59 Dose: Not Given Lactobacillus Acidophilus (Bacid Acidophilus) 1 cap PO BID [facility] Last Admin: 09/25/17 08:08 Dose: Not Given Losartan Potassium (Cozaar) 100 mg PO DAILY [facility] Last Admin: 09/25/17 08:10 Dose: Not Given Morphine Sulfate (Morphine) 2 mg IVP Q4 PRN PRN Reason: Pain, severe (8-10) Last Admin: 09/25/17 07:40 Dose: 2 mg Oxycodone HCl (Oxycodone Immediate Release Tab) 30 mg PO QID PRN PRN Reason: Pain, moderate (4-7) Last Admin: 09/24/17 22:14 Dose: 30 mg - Labs Labs: 09/24/17 06:12 09/24/17 06:12 PT 15.8 Seconds (9.8-13.1) H 09/25/17 06:50 INR 1.4 (0.9-1.2) H 09/25/17 06:50 APTT 30.9 Seconds (25.6-37.1) 09/25/17 06:50 - Constitutional Appears: Well, Non-toxic, No Acute Distress - Extremities Exam Additional comments: Bilateral LE exam: VASC: DP/PT pulses are palpable 2/4 b/l, Cap Refill time: < 3 sec to all digits except 2nd digit on the right. Temperature gradient warm hot to RLE, warm to warm LLE. Increase in warmth noted to erythema to right lower leg and dorsum of foot. Diffuse non-pitting edema noted to RLE. DERM: Dry ulcerations noted to dorsum of the 2nd digit as well as 3rd digit on the right, dusky skin appearance noted on the distal aspect of the right 2nd digit, small fissure with absent drainage noted on the medial proximal aspect of the right digit + malodor, no probe to bone, no purulance, no tunneling or undermining, no interdigital maceration. Erythema noted to dorsum of right forefoot as well as circumfirentially around right lower 1/2 of leg. NEURO: Protective sensation grossly diminished ORTHO: Tenderness to palpation to erythema on lower leg as well as during ROM of the 2nd digit on the right. - Neurological Exam Neurological Exam: Alert, Awake, Oriented x3 - Psychiatric Exam Psychiatric exam: Normal Affect, Normal Mood Assessment and Plan - Assessment and Plan (Free Text) Assessment: 62 year old male with PMHx DM, HTN seen at bedside for OM of digits of right foot. Patient is for OR today with Dr. Ramirez at 12:30 for R second digit amputation, bony removal of R third digit and bone biopsy of R hallux. Plan: Pt was seen and examined at bedside Pt NPO status was confirmed Dr. Krishna to provide medical clearance before patient's surgery today. Otherwise , all Pre-op testing and clearance was in the chart Pt has exhausted all conservative treatment at this time and is opting for surgical intervention Pt was explained procedure and post-operative course All pt's questions were answered to satisfaction No guarantees were made Pt understands all risks, benefits and complications of procedure Pt will follow-up with Dr. Ramirez following discharge from hospital
[2017-09-25] MEDS ORDERED: Lidocaine 1% Inj (20ml) IJ ONE (11:52)
[2017-09-25] MEDS ORDERED: Bupivacaine 0.5% Inj(30mL) IJ ONE (11:52)
[2017-09-25] MEDS ORDERED: ceFAZolin IV 1 gm in Dextrose 1 GM/50 ML BAG IVPB ONE (11:52)
[2017-09-25] MEDS ORDERED: Etomidate 20 mg/10ml Inj IV ONE (12:00)
[2017-09-25] MEDS ORDERED: Propofol 10 mg/ml Inj (20 ML) ONE (12:00)
[2017-09-25] MEDS ORDERED: Sodium Chloride 0.9% 1,000 ML IV SCH (12:00)
[2017-09-25] MEDS ORDERED: Phenylephrine 10 mg/ml Inj ONE (12:04)
[2017-09-25] MEDS ORDERED: Ropivacaine 0.5% 30ML IV ONE (12:05)
[2017-09-25] MEDS ORDERED: Lactated Ringer's 1,000 ML IV ONE (12:41)
[2017-09-25] MEDS ORDERED: Midazolam 2 MG/2 ML VIAL ONE (12:44)
[2017-09-25] MEDS ORDERED: Dexamethasone 4 mg/1 ml ONE (12:58)
[2017-09-25] MEDS ORDERED: Sevoflurane - Inhalation Anesthetic Liq (250 ml) ONE (13:00)
--- NOTE | 2017-09-25 14:30 | PCM.SURG1 ---
Surgeon's Initial Post Op Note - Surgeon's Notes Surgeon: Dr. Ramirez, DPM Quality Control Clerk: Dr. Taurus Wei Type of Anesthesia: General LMA, Block Regional Anesthesia Administered By: Dr. Cohn Pre-Operative Diagnosis: Osteomyelitis right second digit, Osteomyelitis proximal phalanx right third digit Operative Findings: See dictation report. M- 3-0 vicryl, 3-0 prolene. I- 10 cc Marcaine plain, pop block Post-Operative Diagnosis: Same Operation Performed: Partial second ray resection right foot. Removal of proximal phalanx, third digit, right foot. Biopsy of distal phalanx, right hallux Specimen/Specimens Removed: 2nd digit, bone 2nd metatarsal, bone third proximal phalanx, bone biopsy distal phalanx right hallux, soft tissue right foot Estimated Blood Loss: EBL {In ML}: 20 Blood Products Given: N/A Drains Used: No Drains Post-Op Condition: Good Date of Surgery/Procedure: 09/25/17 Time of Surgery/Procedure: 14:31
[2017-09-25] MEDS ORDERED: HYDROmorphone 0.5 mg/0.5 ml ISec IVP PRN ×2 (14:31→22:23)
--- NOTE | 2017-09-25 14:35 | PCM.ANESB2 ---
Popliteal Nerve Block - Popliteal Nerve Block Date of Procedure: 09/25/17 Anesthesiologist: Suki Pre-Procedure Diagnosis: Dry gangrene right foot Post-Procedure Diagnosis: Same Procedure Performed: Popliteal Nerve Block Right - Procedure Popliteal Nerve Block: This procedure was explained to the patient that it is for post-operative pain management. Consent was obtained after a thorough discussion with the patient regarding the benefits and possible complications of local anesthetic block of the sciatic nerve at the popliteal level. The patient was brought to the operating room and standard monitors are applied. After the procedure and prior to emergence, a time-out was held with the circulating nurse to confirm the correct surgery and the appropriate block. Under general anesthesia, patient's operative leg was gently raised and supported and the groove in between the biceps femoris and vastus lateralis muscles was carefully palpated. The skin approximately 8cm above the popliteal crease was then marked. The ultrasound transducer was then applied to the posterior thigh approximately 8cm above the popliteal crease in the transverse plane and the sciatic nerve before its division was visualized lateral to the popliteal artery and in between the bicep femoris and semimembranosus/semitendinosus muscles. After identification, the lateral portion of the thigh was prepped with Betadine solution three times and Lidocaine 1% was injected subcutaneously for topical anesthesia. At this point, a # 21 gauge Stimuplex insulated 4 inch needle was inserted into pre-marked area and advanced in a perpendicular direction. The needle was inserted above the ultrasound transducer in-plane towards the sciatic nerve in a [id number] direction. Needle advancement was performed carefully under direct ultrasound visualization. Nerve stimulator was used and dorsiflexion of the __right___ foot was elicited at a current of _0.4____ MA. After repeated negative aspiration, __2___cc of __2___ % ____lidocaine was injected and this was flowed with ___8___ cc of __2____% ___lidocaine and 20 cc 0.5% ropivicaine . Under ultrasound guidance the local anesthetics were observed surrounding sciatic nerve . The needle was removed intact and sterile dressing was applied. The patient tolerated the popliteal nerve block well with stable vital signs and was prepared for emergence.
[2017-09-25] MEDS: Lactated Ringer's 1,000 ML IV SCH (16:15)
--- NOTE | 2017-09-25 16:56 | RAD ---
PROCEDURE: Right Foot Radiographs. HISTORY: s/p right foot surgery COMPARISON: 09/20/2017 FINDINGS: BONES: Status post amputation 2nd digit at metatarsal phalangeal articulation. There has been amputation of a small portion of the distal aspect of the 2nd metatarsal. There has been osteotomy of the distal aspect 3rd proximal phalanx. No acute fracture. Very small plantar calcaneal spur. JOINTS: Normal. SOFT TISSUES: Soft tissue swelling noted over the plantar and dorsal aspect of the foot OTHER FINDINGS: None. IMPRESSION: Amputation 2nd digit and small portion of 2nd metatarsal head. Osteotomy distal aspect 3rd proximal phalanx.
[2017-09-25] MEDS: oxyCODONE 10 mg ER Tab (oxyCONTIN) PO SCH (20:48)
--- NOTE | 2017-09-25 23:17 | CP.PCM.PN ---
Subjective - Date & Time of Evaluation Date of Evaluation: 09/25/17 Time of Evaluation: 18:10 Objective - Vital Signs/Intake and Output Vital Signs (last 24 hours): Temp Pulse Resp BP Pulse Ox 101.6 F H 80 17 151/71 H 95 09/25/17 22:09 09/25/17 21:35 09/25/17 21:35 09/25/17 21:35 09/25/17 21:35 Intake and Output: 09/25/17 09/26/17 18:59 06:59 Intake Total 700 Balance 700 - Medications Medications: Current Medications Acetaminophen (Tylenol 325mg Tab) 650 mg PO Q6 PRN PRN Reason: Temperature Last Admin: 09/25/17 22:09 Dose: 650 mg Alprazolam (Xanax) 0.5 mg PO TID PRN PRN Reason: Anxiety Last Admin: 09/25/17 16:08 Dose: 0.5 mg Aspirin (Ecotrin) 81 mg PO DAILY [facility]EDS AT [facility] Last Admin: 09/23/17 18:14 Dose: 81 mg Atorvastatin Calcium (Lipitor) 20 mg PO DAILY [facility] 234 [facility]S AT [facility] Last Admin: 09/25/17 16:06 Dose: 20 mg Benzocaine/Menthol (Cepacol Sore Throat) 1 pam PO Q2 PRN PRN Reason: Sore Throat Last Admin: 09/22/17 12:14 Dose: 1 pam Carvedilol (Coreg) 3.125 mg PO Q12 [facility] 234 [facility]S AT [facility] Last Admin: 09/25/17 20:47 Dose: 3.125 mg Clopidogrel Bisulfate (Plavix) 75 mg PO DAILY [facility] 234 [facility]S AT [facility] Last Admin: 09/23/17 18:13 Dose: 75 mg Glipizide (Glucotrol) 5 mg PO BID [facility] 234 [facility]S AT [facility] Last Admin: 09/25/17 16:05 Dose: 5 mg Heparin Sodium (Porcine) (Heparin) 5,000 units SC Q8 [facility] PRN Reason: Protocol Hydrochlorothiazide (Microzide) 12.5 mg PO DAILY [facility] 234 [facility]S AT [facility] Last Admin: 09/25/17 16:06 Dose: 12.5 mg Hydromorphone HCl (Dilaudid) 1 mg IVP Q4 PRN PRN Reason: Pain, severe (8-10) Piperacillin Sod/Tazobactam (Sod 3.375 gm/ Sodium Chloride) 100 mls @ 100 mls/ hr IVPB Q8 [facility] 234 [facility]S AT [facility] PRN Reason: Protocol Last Admin: 09/25/17 16:04 Dose: 100 mls/hr Vancomycin HCl 1 gm/ Sodium (Chloride) 250 mls @ 166.667 mls/hr IVPB Q12@0500, 1700 [facility] 234 [facility]S AT [facility] PRN Reason: Protocol Last Admin: 09/25/17 16:03 Dose: 166.667 mls/hr Sodium Chloride (Sodium Chloride 0.9%) 1,000 mls @ 0 mls/hr IV .Q0M [facility] 234 [facility]EDS AT [facility] PRN Reason: As Directed Stop: 09/26/17 11:53 Lactated Ringer's (Lactated Ringer's) 1,000 mls @ 100 mls/hr IV .Q10H [facility] 234 [facility]S AT [facility] Last Admin: 09/25/17 16:15 Dose: Not Given Insulin Detemir (Levemir) 25 units SC AMHS COUNTS [facility]CLUDE 234 [facility]S AT [facility] Last Admin: 09/25/17 22:10 Dose: 25 units Insulin Human Lispro (Humalog) 0 units SC ACHS [facility] 234 BEDS AT [facility] PRN Reason: Protocol Last Admin: 09/25/17 22:26 Dose: Not Given Lactobacillus Acidophilus (Bacid Acidophilus) 1 cap PO BID [facility] 234 [facility]S AT [facility] Last Admin: 09/25/17 16:00 Dose: 1 cap Losartan Potassium (Cozaar) 100 mg PO DAILY [facility] 234 [facility]S [facility] Last Admin: 09/25/17 16:06 Dose: 100 mg Oxycodone HCl (Oxycontin Extended Release Tab) 30 mg PO Q12 [facility] 234 [facility]S AT [facility] Stop: 09/28/17 21:01 Last Admin: 09/25/17 20:48 Dose: 30 mg Oxycodone HCl (Oxycodone Immediate Release Tab) 30 mg PO Q6 PRN PRN Reason: Pain, moderate (4-7) - Labs Labs: 09/24/17 06:12 09/24/17 06:12 PT 15.8 Seconds (9.8-13.1) H 09/25/17 06:50 INR 1.4 (0.9-1.2) H 09/25/17 06:50 APTT 30.9 Seconds (25.6-37.1) 09/25/17 06:50 Assessment and Plan (1) Gangrene of toe Status: Acute (2) Diabetes mellitus Status: Chronic
[2017-09-26] MEDS: Piperacillin/Tazobact 3.375 GM in Sodium Chloride 0.9% 100 ML IVPB SCH ×3 (00:41→17:00)
[2017-09-26] MEDS: Lactated Ringer's 1,000 ML IV SCH (04:55)
[2017-09-26] MEDS: oxyCODONE 10 mg Immediate Release Tab PO PRN ×2 (05:53→16:05)
[2017-09-26] MEDS: Insulin Lispro (humaLOG) 100 Units/ml Inj SC SCH ×4 (06:54→22:00)
[2017-09-26] MEDS: oxyCODONE 10 mg ER Tab (oxyCONTIN) PO SCH ×2 (08:39→21:10)
[2017-09-26] MEDS: Lactobacillus Acidophilus 500 MU Cap PO SCH ×2 (08:41→16:06)
[2017-09-26] MEDS: Insulin Detemir 100 Units/ml Inj SC SCH ×2 (09:25→22:41)
--- NOTE | 2017-09-26 11:54 | CP.PCM.PN ---
Subjective - Date & Time of Evaluation Date of Evaluation: 09/26/17 Time of Evaluation: 11:49 - Subjective Subjective: 62 year old male seen at bedside one day s/p partial second ray amputation, resection of third proximal phalanx and biopsy of hallux distal phalanx, all of right foot. Patient is AAO x 3 and NAD resting comfortably in bed. Patient was febrile last night but his fever has since broken after being given Tylenol. Encouraged patient to continue using his incentive spirometer. Patient states that the pain in his right leg is still present but improved. He denies any feeling to his right foot. Denies N/V/F/C/CP/SOB/posterior calf pain when calf is squeezed. Denies any further pedal complaints at this time Objective - Vital Signs/Intake and Output Vital Signs (last 24 hours): Temp Pulse Resp BP Pulse Ox 98.5 F 81 20 125/65 99 09/26/17 08:23 09/26/17 08:55 09/26/17 08:23 09/26/17 08:55 09/26/17 08:23 - Medications Medications: Current Medications Acetaminophen (Tylenol 325mg Tab) 650 mg PO Q6 PRN PRN Reason: Temperature Last Admin: 09/25/17 22:09 Dose: 650 mg Alprazolam (Xanax) 0.5 mg PO TID PRN PRN Reason: Anxiety Last Admin: 09/25/17 16:08 Dose: 0.5 mg Aspirin (Ecotrin) 81 mg PO DAILY [facility] Atorvastatin Calcium (Lipitor) 20 mg PO DAILY [facility] Last Admin: 09/26/17 08:44 Dose: 20 mg Benzocaine/Menthol (Cepacol Sore Throat) 1 pam PO Q2 PRN PRN Reason: Sore Throat Last Admin: 09/22/17 12:14 Dose: 1 pam Carvedilol (Coreg) 3.125 mg PO Q12 [facility] Last Admin: 09/26/17 08:55 Dose: 3.125 mg Clopidogrel Bisulfate (Plavix) 75 mg PO DAILY [facility] Glipizide (Glucotrol) 5 mg PO BID [facility] Last Admin: 09/26/17 08:43 Dose: 5 mg Heparin Sodium (Porcine) (Heparin) 5,000 units SC Q8 [facility] PRN Reason: Protocol Last Admin: 09/26/17 08:44 Dose: 5,000 units Hydrochlorothiazide (Microzide) 12.5 mg PO DAILY [facility] Last Admin: 09/26/17 08:44 Dose: 12.5 mg Hydromorphone HCl (Dilaudid) 1 mg IVP Q4 PRN PRN Reason: Pain, severe (8-10) Vancomycin HCl 1 gm/ Sodium (Chloride) 250 mls @ 166.667 mls/hr IVPB Q12@0500, 1700 [facility] PRN Reason: Protocol Last Admin: 09/26/17 04:52 Dose: 166.667 mls/hr Sodium Chloride (Sodium Chloride 0.9%) 1,000 mls @ 0 mls/hr IV .Q0M [facility] PRN Reason: As Directed Stop: 09/26/17 11:53 Lactated Ringer's (Lactated Ringer's) 1,000 mls @ 100 mls/hr IV .Q10H [facility] Last Admin: 09/26/17 04:55 Dose: 100 mls/hr Piperacillin Sod/Tazobactam (Sod 3.375 gm/ Sodium Chloride) 100 mls @ 100 mls/ hr IVPB Q8H [facility] PRN Reason: Protocol Last Admin: 09/26/17 10:43 Dose: 100 mls/hr Insulin Detemir (Levemir) 25 units SC AMHS [facility] Last Admin: 09/26/17 09:25 Dose: 25 units Insulin Human Lispro (Humalog) 0 units SC ACHS [facility] PRN Reason: Protocol Last Admin: 09/26/17 06:54 Dose: Not Given Lactobacillus Acidophilus (Bacid Acidophilus) 1 cap PO BID [facility] Last Admin: 09/26/17 08:41 Dose: 1 cap Losartan Potassium (Cozaar) 100 mg PO DAILY [facility] Last Admin: 09/26/17 08:42 Dose: 100 mg Oxycodone HCl (Oxycontin Extended Release Tab) 30 mg PO Q12 [facility] Stop: 09/28/17 21:01 Last Admin: 09/26/17 08:39 Dose: 30 mg Oxycodone HCl (Oxycodone Immediate Release Tab) 30 mg PO Q6 PRN PRN Reason: Pain, moderate (4-7) Last Admin: 09/26/17 05:53 Dose: 30 mg - Labs Labs: 09/24/17 06:12 09/24/17 06:12 PT 15.8 Seconds (9.8-13.1) H 09/25/17 06:50 INR 1.4 (0.9-1.2) H 09/25/17 06:50 APTT 30.9 Seconds (25.6-37.1) 09/25/17 06:50 - Constitutional Appears: Well, Non-toxic, No Acute Distress - Extremities Exam Additional comments: RLE focused exam VASC: DP/PT pulses are palpable 2/4 b/l, Cap Refill time: < 3 sec to all digits. Temperature gradient warm to warm RLE, warm to warm LLE. Increase in warmth noted to erythema to right lower leg and dorsum of foot that was present yesterday is seen to be diminishing at this time. Diffuse non-pitting edema noted to RLE decreased from yesterday. DERM: All suture sites noted to be intact with no evidence of dehiscence. No clinical signs of infection to surgical site including erythema, malodor, purulent drainage. Otherwise no open lesions, wounds, maceration, xerosis, abnormal pigmentation or abnormal growths noted. NEURO: Protective sensation grossly diminished ORTHO: Amputation of second digit noted right foot. No POP to surgical site ( popliteal block given yesterday) - Neurological Exam Neurological Exam: Alert, Awake, Oriented x3 - Psychiatric Exam Psychiatric exam: Normal Affect, Normal Mood Assessment and Plan - Assessment and Plan (Free Text) Assessment: 62 year old male seen at bedside one day s/p partial second ray amputation, resection of third proximal phalanx and biopsy of hallux distal phalanx, all of right foot. Plan: Patient seen and evaluated at bedside Dressing noted to be C/D/I Plan discussed with Dr. Ramirez Afebrile Intra- op cx and biopsy pending Continue IV abx per ID Continue incentive spirometer Weight bearing as tolerated to right foot with surgical shoe Continue PT Podiatry will continue to follow while patient is in house
--- NOTE | 2017-09-26 12:39 | CP.PCM.PN ---
Subjective - Date & Time of Evaluation Date of Evaluation: 09/26/17 Time of Evaluation: 08:00 - Subjective Subjective: doing well s/p amputation right second digit for OM cellulitis RLE less Objective - Vital Signs/Intake and Output Vital Signs (last 24 hours): Temp Pulse Resp BP Pulse Ox 98.5 F 81 20 125/65 99 09/26/17 08:23 09/26/17 08:55 09/26/17 08:23 09/26/17 08:55 09/26/17 08:23 - Medications Medications: Current Medications Acetaminophen (Tylenol 325mg Tab) 650 mg PO Q6 PRN PRN Reason: Temperature Last Admin: 09/25/17 22:09 Dose: 650 mg Alprazolam (Xanax) 0.5 mg PO TID PRN PRN Reason: Anxiety Last Admin: 09/26/17 11:58 Dose: 0.5 mg Aspirin (Ecotrin) 81 mg PO DAILY [facility] Atorvastatin Calcium (Lipitor) 20 mg PO DAILY [facility] Last Admin: 09/26/17 08:44 Dose: 20 mg Benzocaine/Menthol (Cepacol Sore Throat) 1 pam PO Q2 PRN PRN Reason: Sore Throat Last Admin: 09/22/17 12:14 Dose: 1 pam Carvedilol (Coreg) 3.125 mg PO Q12 [facility] Last Admin: 09/26/17 08:55 Dose: 3.125 mg Clopidogrel Bisulfate (Plavix) 75 mg PO DAILY [facility] Glipizide (Glucotrol) 5 mg PO BID [facility] Last Admin: 09/26/17 08:43 Dose: 5 mg Heparin Sodium (Porcine) (Heparin) 5,000 units SC Q8 [facility] PRN Reason: Protocol Last Admin: 09/26/17 08:44 Dose: 5,000 units Hydrochlorothiazide (Microzide) 12.5 mg PO DAILY [facility] Last Admin: 09/26/17 08:44 Dose: 12.5 mg Hydromorphone HCl (Dilaudid) 1 mg IVP Q4 PRN PRN Reason: Pain, severe (8-10) Vancomycin HCl 1 gm/ Sodium (Chloride) 250 mls @ 166.667 mls/hr IVPB Q12@0500, 1700 [facility] PRN Reason: Protocol Last Admin: 09/26/17 04:52 Dose: 166.667 mls/hr Lactated Ringer's (Lactated Ringer's) 1,000 mls @ 100 mls/hr IV .Q10H [facility] Last Admin: 09/26/17 04:55 Dose: 100 mls/hr Piperacillin Sod/Tazobactam (Sod 3.375 gm/ Sodium Chloride) 100 mls @ 100 mls/ hr IVPB Q8H [facility] PRN Reason: Protocol Last Admin: 09/26/17 10:43 Dose: 100 mls/hr Insulin Detemir (Levemir) 25 units SC AMHS [facility] Last Admin: 09/26/17 09:25 Dose: 25 units Insulin Human Lispro (Humalog) 0 units SC ACHS [facility] PRN Reason: Protocol Last Admin: 09/26/17 06:54 Dose: Not Given Lactobacillus Acidophilus (Bacid Acidophilus) 1 cap PO BID [facility] Last Admin: 09/26/17 08:41 Dose: 1 cap Losartan Potassium (Cozaar) 100 mg PO DAILY [facility] Last Admin: 09/26/17 08:42 Dose: 100 mg Oxycodone HCl (Oxycontin Extended Release Tab) 30 mg PO Q12 [facility] Stop: 09/28/17 21:01 Last Admin: 09/26/17 08:39 Dose: 30 mg Oxycodone HCl (Oxycodone Immediate Release Tab) 30 mg PO Q6 PRN PRN Reason: Pain, moderate (4-7) Last Admin: 09/26/17 05:53 Dose: 30 mg - Labs Labs: 09/24/17 06:12 09/24/17 06:12 PT 15.8 Seconds (9.8-13.1) H 09/25/17 06:50 INR 1.4 (0.9-1.2) H 09/25/17 06:50 APTT 30.9 Seconds (25.6-37.1) 09/25/17 06:50 - Constitutional Appears: Non-toxic, Chronically Ill - Head Exam Head Exam: NORMOCEPHALIC - Eye Exam Eye Exam: absent: Scleral icterus - ENT Exam ENT Exam: Mucous Membranes Dry - Neck Exam Neck Exam: absent: Lymphadenopathy - Respiratory Exam Respiratory Exam: Decreased Breath Sounds - Cardiovascular Exam Cardiovascular Exam: REGULAR RHYTHM - GI/Abdominal Exam GI & Abdominal Exam: Distended, Soft - Rectal Exam Rectal Exam: Deferred - Exam Exam: NORMAL INSPECTION Assessment and Plan (1) Cellulitis Status: Acute (2) Gangrene of toe Status: Acute (3) PVD (peripheral vascular disease) Status: Acute - Assessment and Plan (Free Text) Assessment: cont iv then po rx await or cultures
[2017-09-27] MEDS: Piperacillin/Tazobact 3.375 GM in Sodium Chloride 0.9% 100 ML IVPB SCH ×3 (01:32→17:08)
[2017-09-27] MEDS: oxyCODONE 10 mg Immediate Release Tab PO PRN ×2 (04:49→15:40)
[2017-09-27] MEDS: Lactobacillus Acidophilus 500 MU Cap PO SCH ×2 (08:32→17:13)
[2017-09-27] MEDS: Insulin Lispro (humaLOG) 100 Units/ml Inj SC SCH ×4 (08:38→22:12)
[2017-09-27] MEDS: Insulin Detemir 100 Units/ml Inj SC SCH ×2 (08:41→22:14)
[2017-09-27] MEDS: oxyCODONE 10 mg ER Tab (oxyCONTIN) PO SCH ×2 (08:55→22:11)
--- NOTE | 2017-09-27 14:53 | CP.PCM.PN ---
Subjective - Date & Time of Evaluation Date of Evaluation: 09/27/17 Time of Evaluation: 14:52 - Subjective Subjective: 62 year old male seen at bedside two days s/p partial second ray amputation, resection of third proximal phalanx and biopsy of hallux distal phalanx, all of right foot. Patient is AAO x 3 and NAD resting comfortably in bed. Patient states that the pain in his right leg is still present but improved. He also states that sensation to his right foot is returned and that his pain is well controlled. He states that he has been walking in a surgical shoe without incident. Denies N/V/F/C/CP/SOB/posterior calf pain when calf is squeezed. Denies any further pedal complaints at this time Objective - Vital Signs/Intake and Output Vital Signs (last 24 hours): Temp Pulse Resp BP Pulse Ox 98.0 F 54 L 20 99/61 L 96 09/27/17 08:15 09/27/17 08:15 09/27/17 08:15 09/27/17 08:33 09/27/17 08:15 - Medications Medications: Current Medications Acetaminophen (Tylenol 325mg Tab) 650 mg PO Q6 PRN PRN Reason: Temperature Last Admin: 09/26/17 16:12 Dose: 650 mg Aspirin (Ecotrin) 81 mg PO DAILY [facility] Last Admin: 09/27/17 08:34 Dose: 81 mg Atorvastatin Calcium (Lipitor) 20 mg PO DAILY [facility] Last Admin: 09/27/17 08:34 Dose: 20 mg Benzocaine/Menthol (Cepacol Sore Throat) 1 pma PO Q2 PRN PRN Reason: Sore Throat Last Admin: 09/22/17 12:14 Dose: 1 pam Carvedilol (Coreg) 3.125 mg PO Q12 [facility] Last Admin: 09/27/17 08:33 Dose: 3.125 mg Glipizide (Glucotrol) 5 mg PO BID [facility] Last Admin: 09/27/17 08:36 Dose: 5 mg Heparin Sodium (Porcine) (Heparin) 5,000 units SC Q8 [facility] PRN Reason: Protocol Last Admin: 09/27/17 08:37 Dose: 5,000 units Hydrochlorothiazide (Microzide) 12.5 mg PO DAILY [facility] Last Admin: 09/27/17 08:36 Dose: 12.5 mg Hydromorphone HCl (Dilaudid) 1 mg IVP Q4 PRN PRN Reason: Pain, severe (8-10) Vancomycin HCl 1 gm/ Sodium (Chloride) 250 mls @ 166.667 mls/hr IVPB Q12@0500, 1700 [facility] PRN Reason: Protocol Last Admin: 09/27/17 04:58 Dose: 166.667 mls/hr Lactated Ringer's (Lactated Ringer's) 1,000 mls @ 100 mls/hr IV .Q10H [facility] Last Admin: 09/26/17 04:55 Dose: 100 mls/hr Piperacillin Sod/Tazobactam (Sod 3.375 gm/ Sodium Chloride) 100 mls @ 100 mls/ hr IVPB Q8H [facility] PRN Reason: Protocol Last Admin: 09/27/17 08:42 Dose: 100 mls/hr Insulin Detemir (Levemir) 25 units SC AMHS [facility] Last Admin: 09/27/17 08:41 Dose: 25 units Insulin Human Lispro (Humalog) 0 units SC ACHS [facility] PRN Reason: Protocol Last Admin: 09/27/17 12:12 Dose: 1 units Lactobacillus Acidophilus (Bacid Acidophilus) 1 cap PO BID [facility] Last Admin: 09/27/17 08:32 Dose: 1 cap Losartan Potassium (Cozaar) 100 mg PO DAILY [facility] Last Admin: 09/27/17 08:33 Dose: 100 mg Oxycodone HCl (Oxycontin Extended Release Tab) 30 mg PO Q12 [facility] Stop: 09/28/17 21:01 Last Admin: 09/27/17 08:55 Dose: 30 mg Oxycodone HCl (Oxycodone Immediate Release Tab) 30 mg PO Q6 PRN PRN Reason: Pain, moderate (4-7) Last Admin: 09/27/17 04:49 Dose: 30 mg - Labs Labs: 09/24/17 06:12 09/24/17 06:12 PT 15.8 Seconds (9.8-13.1) H 09/25/17 06:50 INR 1.4 (0.9-1.2) H 09/25/17 06:50 APTT 30.9 Seconds (25.6-37.1) 09/25/17 06:50 - Constitutional Appears: Well, Non-toxic, No Acute Distress - Extremities Exam Additional comments: RLE focused exam VASC: DP/PT pulses are palpable 2/4 b/l, Cap Refill time: < 3 sec to all digits. Temperature gradient warm to warm RLE, warm to warm LLE. Increase in warmth noted to erythema to right lower leg and dorsum of foot that was present yesterday is seen to be diminishing at this time. Diffuse non-pitting edema noted to RLE decreased from yesterday. DERM: All suture sites noted to be intact with no evidence of dehiscence. No clinical signs of infection to surgical site including erythema, malodor, purulent drainage. Minimal area of maceration noted to skin surrounding surgical site. Otherwise no open lesions, wounds, maceration, xerosis, abnormal pigmentation or abnormal growths noted. NEURO: Protective sensation grossly diminished ORTHO: Amputation of second digit noted right foot. No POP to surgical site ( popliteal block given yesterday) - Neurological Exam Neurological Exam: Alert, Awake, Oriented x3 - Psychiatric Exam Psychiatric exam: Normal Affect, Normal Mood Assessment and Plan - Assessment and Plan (Free Text) Assessment: 62 year old male seen at bedside two days s/p partial second ray amputation, resection of third proximal phalanx and biopsy of hallux distal phalanx, all of right Plan: Patient seen and evaluated at bedside Minimal bloody strikethrough noted to dressing Plan discussed with Dr. Ramirez Afebrile Intra- op cx and biopsy pending Continue IV abx per ID Continue incentive spirometer Weight bearing as tolerated to right foot with surgical shoe Continue PT Surgical site dressed with gauze, ABD pad, kirlix, LUBA Per Dr. Ramirez patient is stable from podiatric standpoint and can be transferred to [facility] Podiatry will continue to follow while patient is in house
--- NOTE | 2017-09-28 01:55 | CP.PCM.PN ---
Subjective - Date & Time of Evaluation Date of Evaluation: 09/26/17 Time of Evaluation: 18:25 Objective - Vital Signs/Intake and Output Vital Signs (last 24 hours): Temp Pulse Resp BP Pulse Ox 98.4 F 62 19 135/70 95 09/28/17 00:26 09/28/17 00:26 09/28/17 00:26 09/28/17 00:26 09/28/17 00:26 - Medications Medications: Current Medications Acetaminophen (Tylenol 325mg Tab) 650 mg PO Q6 PRN PRN Reason: Temperature Last Admin: 09/26/17 16:12 Dose: 650 mg Alprazolam (Xanax) 0.5 mg PO TID PRN PRN Reason: Anxiety Last Admin: 09/27/17 22:25 Dose: 0.5 mg Aspirin (Ecotrin) 81 mg PO DAILY [facility] Last Admin: 09/27/17 08:34 Dose: 81 mg Atorvastatin Calcium (Lipitor) 20 mg PO DAILY [facility] Last Admin: 09/27/17 08:34 Dose: 20 mg Benzocaine/Menthol (Cepacol Sore Throat) 1 pam PO Q2 PRN PRN Reason: Sore Throat Last Admin: 09/22/17 12:14 Dose: 1 pam Carvedilol (Coreg) 3.125 mg PO Q12 [facility] Last Admin: 09/27/17 21:15 Dose: Not Given Glipizide (Glucotrol) 5 mg PO BID [facility] Last Admin: 09/27/17 17:59 Dose: 5 mg Heparin Sodium (Porcine) (Heparin) 5,000 units SC Q8 [facility] PRN Reason: Protocol Last Admin: 09/28/17 01:46 Dose: 5,000 units Hydrochlorothiazide (Microzide) 12.5 mg PO DAILY [facility] Last Admin: 09/27/17 08:36 Dose: 12.5 mg Hydromorphone HCl (Dilaudid) 1 mg IVP Q4 PRN PRN Reason: Pain, severe (8-10) Vancomycin HCl 1 gm/ Sodium (Chloride) 250 mls @ 166.667 mls/hr IVPB Q12@0500, 1700 [facility] PRN Reason: Protocol Last Admin: 09/27/17 17:14 Dose: 166.667 mls/hr Lactated Ringer's (Lactated Ringer's) 1,000 mls @ 100 mls/hr IV .Q10H [facility] Last Admin: 09/26/17 04:55 Dose: 100 mls/hr Piperacillin Sod/Tazobactam (Sod 3.375 gm/ Sodium Chloride) 100 mls @ 100 mls/ hr IVPB Q8H [facility] PRN Reason: Protocol Last Admin: 09/27/17 17:08 Dose: 100 mls/hr Insulin Detemir (Levemir) 25 units SC [facility]HS [facility] Last Admin: 09/27/17 22:14 Dose: 25 units Insulin Human Lispro (Humalog) 0 units SC ACHS [facility] PRN Reason: Protocol Last Admin: 09/27/17 22:12 Dose: Not Given Lactobacillus Acidophilus (Bacid Acidophilus) 1 cap PO BID [facility] Last Admin: 09/27/17 17:13 Dose: 1 cap Losartan Potassium (Cozaar) 100 mg PO DAILY [facility] Last Admin: 09/27/17 08:33 Dose: 100 mg Oxycodone HCl (Oxycontin Extended Release Tab) 30 mg PO Q12 [facility] Stop: 09/28/17 21:01 Last Admin: 09/27/17 22:11 Dose: 30 mg Oxycodone HCl (Oxycodone Immediate Release Tab) 30 mg PO Q6 PRN PRN Reason: Pain, moderate (4-7) Last Admin: 09/27/17 15:40 Dose: 30 mg - Labs Labs: 09/24/17 06:12 09/24/17 06:12 PT 15.8 Seconds (9.8-13.1) H 09/25/17 06:50 INR 1.4 (0.9-1.2) H 09/25/17 06:50 APTT 30.9 Seconds (25.6-37.1) 09/25/17 06:50 Assessment and Plan (1) Gangrene of toe Status: Acute (2) Diabetes mellitus Status: Chronic
--- NOTE | 2017-09-28 01:56 | CP.PCM.PN ---
Subjective - Date & Time of Evaluation Date of Evaluation: 09/27/17 Time of Evaluation: 17:30 Objective - Vital Signs/Intake and Output Vital Signs (last 24 hours): Temp Pulse Resp BP Pulse Ox 98.4 F 62 19 135/70 95 09/28/17 00:26 09/28/17 00:26 09/28/17 00:26 09/28/17 00:26 09/28/17 00:26 - Medications Medications: Current Medications Acetaminophen (Tylenol 325mg Tab) 650 mg PO Q6 PRN PRN Reason: Temperature Last Admin: 09/26/17 16:12 Dose: 650 mg Alprazolam (Xanax) 0.5 mg PO TID PRN PRN Reason: Anxiety Last Admin: 09/27/17 22:25 Dose: 0.5 mg Aspirin (Ecotrin) 81 mg PO DAILY [facility] Last Admin: 09/27/17 08:34 Dose: 81 mg Atorvastatin Calcium (Lipitor) 20 mg PO DAILY [facility] Last Admin: 09/27/17 08:34 Dose: 20 mg Benzocaine/Menthol (Cepacol Sore Throat) 1 pam PO Q2 PRN PRN Reason: Sore Throat Last Admin: 09/22/17 12:14 Dose: 1 pam Carvedilol (Coreg) 3.125 mg PO Q12 [facility] Last Admin: 09/27/17 21:15 Dose: Not Given Glipizide (Glucotrol) 5 mg PO BID [facility] Last Admin: 09/27/17 17:59 Dose: 5 mg Heparin Sodium (Porcine) (Heparin) 5,000 units SC Q8 [facility] PRN Reason: Protocol Last Admin: 09/28/17 01:46 Dose: 5,000 units Hydrochlorothiazide (Microzide) 12.5 mg PO DAILY [facility] Last Admin: 09/27/17 08:36 Dose: 12.5 mg Hydromorphone HCl (Dilaudid) 1 mg IVP Q4 PRN PRN Reason: Pain, severe (8-10) Vancomycin HCl 1 gm/ Sodium (Chloride) 250 mls @ 166.667 mls/hr IVPB Q12@0500, 1700 [facility] PRN Reason: Protocol Last Admin: 09/27/17 17:14 Dose: 166.667 mls/hr Lactated Ringer's (Lactated Ringer's) 1,000 mls @ 100 mls/hr IV .Q10H [facility] Last Admin: 09/26/17 04:55 Dose: 100 mls/hr Piperacillin Sod/Tazobactam (Sod 3.375 gm/ Sodium Chloride) 100 mls @ 100 mls/ hr IVPB Q8H [facility] PRN Reason: Protocol Last Admin: 09/27/17 17:08 Dose: 100 mls/hr Insulin Detemir (Levemir) 25 units SC AMHS [facility] Last Admin: 09/27/17 22:14 Dose: 25 units Insulin Human Lispro (Humalog) 0 units SC ACHS [facility] PRN Reason: Protocol Last Admin: 09/27/17 22:12 Dose: Not Given Lactobacillus Acidophilus (Bacid Acidophilus) 1 cap PO BID [facility] Last Admin: 09/27/17 17:13 Dose: 1 cap Losartan Potassium (Cozaar) 100 mg PO DAILY [facility] Last Admin: 09/27/17 08:33 Dose: 100 mg Oxycodone HCl (Oxycontin Extended Release Tab) 30 mg PO Q12 [facility] Stop: 09/28/17 21:01 Last Admin: 09/27/17 22:11 Dose: 30 mg Oxycodone HCl (Oxycodone Immediate Release Tab) 30 mg PO Q6 PRN PRN Reason: Pain, moderate (4-7) Last Admin: 09/27/17 15:40 Dose: 30 mg - Labs Labs: 09/24/17 06:12 09/24/17 06:12 PT 15.8 Seconds (9.8-13.1) H 09/25/17 06:50 INR 1.4 (0.9-1.2) H 09/25/17 06:50 APTT 30.9 Seconds (25.6-37.1) 09/25/17 06:50 Assessment and Plan (1) Gangrene of toe Status: Acute (2) Diabetes mellitus Status: Chronic
[2017-09-28] MEDS: Piperacillin/Tazobact 3.375 GM in Sodium Chloride 0.9% 100 ML IVPB SCH ×3 (02:06→18:39)
[2017-09-28] MEDS: Lactated Ringer's 1,000 ML IV SCH ×2 (02:50→14:01)
[2017-09-28] MEDS: Insulin Lispro (humaLOG) 100 Units/ml Inj SC SCH ×4 (07:59→21:48)
[2017-09-28] MEDS: Lactobacillus Acidophilus 500 MU Cap PO SCH ×2 (08:42→17:11)
[2017-09-28] MEDS: Insulin Detemir 100 Units/ml Inj SC SCH ×2 (08:43→21:48)
[2017-09-28] MEDS: oxyCODONE 10 mg ER Tab (oxyCONTIN) PO SCH ×2 (08:54→20:55)
[2017-09-28] MEDS: oxyCODONE 10 mg Immediate Release Tab PO PRN ×2 (09:09→15:17)
--- NOTE | 2017-09-28 09:23 | OP ---
PROCEDURE DATE: 09/25/2017 PREOPERATIVE DIAGNOSES: Osteomyelitis of right second digit, osteomyelitis of right third digit proximal phalanx and possible osteomyelitis of distal phalanx, right hallux. NAME OF PROCEDURE: 1. Partial second ray resection, right foot. 2. Proximal phalanx resection of third digit, right foot. 3. Bone biopsy of distal phalanx, right hallux. SURGEON: Demetri Ramirez DPM. SUPERINTENDENT STATIONS: Taurus Wei DPM, PGY-1. TYPE OF ANESTHESIA: General LMA with popliteal block postoperatively. ANESTHESIA ADMINISTERED BY: Alessio Cohn MD. INDICATIONS: The patient is a 62-year-old male with the above diagnoses. The patient has exhausted all conservative treatment at this time and now requires surgical intervention. The patient signed the consent after careful explanation of risks, benefits, complications and alternatives for surgical procedure. No guarantees were given nor implied. N.p.o. status confirmed prior to taking the patient to the OR. PREPARATION: The patient was brought into the operating room and placed on the operating room table in a supine position. Time-out was performed for identification of the correct patient and procedure. General LMA sedation was given to the patient. The right lower extremity was then prepped and draped in a normal sterile manner and the procedure was began. A pneumatic ankle tourniquet was applied to the right ankle, but was not inflated during this case. DESCRIPTION OF PROCEDURE: Procedure 1, attention was then drawn to the right second digit, which was noted to be purple/black in color due to ischemic skin changes. Using a #10 blade, an incision was made down to the level of bone at the base of the second digit in a racquet-type incision pattern. The digit was then disarticulated from the foot at the second metatarsophalangeal joint using the same #10 blade. From there, all remaining visible nonviable soft tissue was removed using pickups and a fresh #15 blade. A micro-sagittal saw on power was then utilized to resect the distal most aspect of the second metatarsal head. All soft tissue and bony samples were sent to pathology for examination. Procedure 2, attention was then drawn to the third digit where an elliptical incision was made dorsally on the third digit exposing underlying tendon and bone using a fresh #10 blade. Using the same #10 blade, a transverse incision was made through the extensor tendon of the third digit and the tendon was retracted both distally and proximally exposing the underlying phalanges. Using a micro-sagittal saw on power, the distal most aspect of the proximal phalanx of the third digit was then excised, removed from the field and sent to pathology for examination as well. Both incision sites were then flushed with copious amounts of normal sterile saline. Procedure 3, attention was then drawn to the hallux of the right foot. Using a Jamshidi needle, 2 bone biopsies were obtained from the distal phalanx of the hallux and also sent to pathology for examination and culture to rule out any potential underlying osteomyelitis. Attention was then drawn back to the site of the second digit amputation. Using 3-0 Prolene suture, end over end suturing technique was used to suture closed the surgical site superficially. Attention was then kal to the third digit surgical site where 3-0 Vicryl was used to reapproximate the distal and proximal ends of the extensor tendon and 3-0 Prolene was used to close the surgical site superficially. The wound was then dressed with Xeroform, 4x4 gauze, Kerlix and a loosely placed LUBA bandage and the procedure was completed. POSTOPERATIVE CONDITION: The patient tolerated the anesthesia and procedure well and was escorted to the recovery room with vital signs stable and neurovascular status intact to the right lower extremity. The patient is to remain weightbearing as tolerated to the right lower extremity in a surgical shoe and will remain in-house for the time being. Podiatry will continue to follow up with the patient while he is in-house and upon discharge from the hospital, the patient will follow up with Dr. Ramirez as an outpatient at his private clinic. Taurus Wei DPM Demetri Ramirez DPM [facility]ENTER[facility]
[2017-09-28 09:59] LABS: HEMOGLOBIN 11.7 g/dL (12.0-18.0); MEAN CELL VOLUME 89.6 fl (80.0-94.0); MEAN CORPUSCULAR HEMOGLOBIN 29.8 pg (27.0-31.0); MEAN CORPUSCULAR HGB CONC 33.2 g/dL (33.0-37.0); RBC 3.94 Mil/uL (4.40-5.90); RED CELL DISTRIBUTION WIDTH 14.2 % (11.5-14.5); WHITE BLOOD COUNT 5.6 K/uL (4.8-10.8)
[2017-09-28 10:08] LABS: BLOOD UREA NITROGEN 16 mg/dl (9-20); CALCIUM 8.5 mg/dL (8.4-10.2); GFR AFRICAN-AMERICAN > 60; GFR NON-AFRICAN AMERICAN > 60
--- NOTE | 2017-09-28 11:59 | CP.PCM.PN ---
Subjective - Date & Time of Evaluation Date of Evaluation: 09/27/17 Time of Evaluation: 19:35 - Subjective Subjective: feeling fine no complaints Objective - Vital Signs/Intake and Output Vital Signs (last 24 hours): Temp Pulse Resp BP Pulse Ox 98.0 F 54 L 20 99/61 L 96 09/27/17 08:15 09/27/17 08:15 09/27/17 08:15 09/27/17 08:33 09/27/17 08:15 - Medications Medications: Current Medications Acetaminophen (Tylenol 325mg Tab) 650 mg PO Q6 PRN PRN Reason: Temperature Last Admin: 09/26/17 16:12 Dose: 650 mg Alprazolam (Xanax) 0.5 mg PO TID PRN PRN Reason: Anxiety Last Admin: 09/28/17 11:00 Dose: 0.5 mg Aspirin (Ecotrin) 81 mg PO DAILY [facility] Last Admin: 09/28/17 08:43 Dose: 81 mg Atorvastatin Calcium (Lipitor) 20 mg PO DAILY [facility] Last Admin: 09/28/17 08:44 Dose: 20 mg Benzocaine/Menthol (Cepacol Sore Throat) 1 pam PO Q2 PRN PRN Reason: Sore Throat Last Admin: 09/22/17 12:14 Dose: 1 pam Carvedilol (Coreg) 3.125 mg PO Q12 [facility] Last Admin: 09/28/17 08:42 Dose: 3.125 mg Glipizide (Glucotrol) 5 mg PO BID [facility] Last Admin: 09/28/17 08:43 Dose: 5 mg Heparin Sodium (Porcine) (Heparin) 5,000 units SC Q8 [facility] PRN Reason: Protocol Last Admin: 09/28/17 08:43 Dose: 5,000 units Hydrochlorothiazide (Microzide) 12.5 mg PO DAILY [facility] Last Admin: 09/28/17 08:44 Dose: 12.5 mg Hydromorphone HCl (Dilaudid) 1 mg IVP Q4 PRN PRN Reason: Pain, severe (8-10) Vancomycin HCl 1 gm/ Sodium (Chloride) 250 mls @ 166.667 mls/hr IVPB Q12@0500, 1700 [facility] PRN Reason: Protocol Last Admin: 09/28/17 05:46 Dose: 166.667 mls/hr Lactated Ringer's (Lactated Ringer's) 1,000 mls @ 100 mls/hr IV .Q10H [facility] Last Admin: 09/28/17 02:50 Dose: Not Given Piperacillin Sod/Tazobactam (Sod 3.375 gm/ Sodium Chloride) 100 mls @ 100 mls/ hr IVPB Q8H [facility] PRN Reason: Protocol Last Admin: 09/28/17 08:44 Dose: 100 mls/hr Insulin Detemir (Levemir) 25 units SC AMHS [facility] Last Admin: 09/28/17 08:43 Dose: 25 units Insulin Human Lispro (Humalog) 0 units SC ACHS [facility] PRN Reason: Protocol Last Admin: 09/28/17 07:59 Dose: Not Given Lactobacillus Acidophilus (Bacid Acidophilus) 1 cap PO BID [facility] Last Admin: 09/28/17 08:42 Dose: 1 cap Losartan Potassium (Cozaar) 100 mg PO DAILY [facility] Last Admin: 09/28/17 08:42 Dose: 100 mg Oxycodone HCl (Oxycontin Extended Release Tab) 30 mg PO Q12 [facility] Stop: 09/28/17 21:01 Last Admin: 09/28/17 08:54 Dose: Not Given Oxycodone HCl (Oxycodone Immediate Release Tab) 30 mg PO Q6 PRN PRN Reason: Pain, moderate (4-7) Last Admin: 09/28/17 09:09 Dose: 30 mg - Labs Labs: 09/28/17 09:52 09/28/17 09:52 PT 15.8 Seconds (9.8-13.1) H 09/25/17 06:50 INR 1.4 (0.9-1.2) H 09/25/17 06:50 APTT 30.9 Seconds (25.6-37.1) 09/25/17 06:50 - Constitutional Appears: Well - Head Exam Head Exam: ATRAUMATIC, NORMAL INSPECTION, NORMOCEPHALIC - Eye Exam Eye Exam: EOMI, Normal appearance, PERRL Pupil Exam: NORMAL ACCOMODATION, PERRL - ENT Exam ENT Exam: Mucous Membranes Moist, Normal Exam - Neck Exam Neck Exam: Full ROM, Normal Inspection. absent: Lymphadenopathy - Respiratory Exam Respiratory Exam: Clear to Ausculation Bilateral, NORMAL BREATHING PATTERN - Cardiovascular Exam Cardiovascular Exam: REGULAR RHYTHM, +S1, +S2, Murmur - GI/Abdominal Exam GI & Abdominal Exam: Soft, Normal Bowel Sounds. absent: Tenderness - Extremities Exam Extremities Exam: Full ROM, Normal Capillary Refill, Normal Inspection. absent : Joint Swelling, Pedal Edema Additional comments: dsg with erythema - Back Exam Back Exam: NORMAL INSPECTION - Neurological Exam Neurological Exam: Alert, Awake, CN II-XII Intact, Oriented x3 - Psychiatric Exam Psychiatric exam: Normal Affect, Normal Mood - Skin Skin Exam: Dry, Intact, Normal Color, Warm Assessment and Plan (1) Gangrene of toe Status: Acute (2) PVD (peripheral vascular disease) Status: Acute (3) Cellulitis Status: Acute (4) Diabetes mellitus Status: Chronic (5) HTN (hypertension) Status: Acute
--- NOTE | 2017-09-28 12:00 | CP.PCM.PN ---
Subjective - Date & Time of Evaluation Date of Evaluation: 09/28/17 Time of Evaluation: 11:59 - Subjective Subjective: c/o pain in the leg and foot Objective - Vital Signs/Intake and Output Vital Signs (last 24 hours): Temp Pulse Resp BP Pulse Ox 98.2 F 62 19 134/73 98 09/28/17 07:43 09/28/17 08:42 09/28/17 07:43 09/28/17 08:42 09/28/17 07:43 - Medications Medications: Current Medications Acetaminophen (Tylenol 325mg Tab) 650 mg PO Q6 PRN PRN Reason: Temperature Last Admin: 09/26/17 16:12 Dose: 650 mg Alprazolam (Xanax) 0.5 mg PO TID PRN PRN Reason: Anxiety Last Admin: 09/28/17 11:00 Dose: 0.5 mg Aspirin (Ecotrin) 81 mg PO DAILY [facility] Last Admin: 09/28/17 08:43 Dose: 81 mg Atorvastatin Calcium (Lipitor) 20 mg PO DAILY [facility] Last Admin: 09/28/17 08:44 Dose: 20 mg Benzocaine/Menthol (Cepacol Sore Throat) 1 pam PO Q2 PRN PRN Reason: Sore Throat Last Admin: 09/22/17 12:14 Dose: 1 pam Carvedilol (Coreg) 3.125 mg PO Q12 [facility] Last Admin: 09/28/17 08:42 Dose: 3.125 mg Glipizide (Glucotrol) 5 mg PO BID [facility] Last Admin: 09/28/17 08:43 Dose: 5 mg Heparin Sodium (Porcine) (Heparin) 5,000 units SC Q8 [facility] PRN Reason: Protocol Last Admin: 09/28/17 08:43 Dose: 5,000 units Hydrochlorothiazide (Microzide) 12.5 mg PO DAILY [facility] Last Admin: 09/28/17 08:44 Dose: 12.5 mg Hydromorphone HCl (Dilaudid) 1 mg IVP Q4 PRN PRN Reason: Pain, severe (8-10) Vancomycin HCl 1 gm/ Sodium (Chloride) 250 mls @ 166.667 mls/hr IVPB Q12@0500, 1700 [facility] PRN Reason: Protocol Last Admin: 09/28/17 05:46 Dose: 166.667 mls/hr Lactated Ringer's (Lactated Ringer's) 1,000 mls @ 100 mls/hr IV .Q10H [facility] Last Admin: 09/28/17 02:50 Dose: Not Given Piperacillin Sod/Tazobactam (Sod 3.375 gm/ Sodium Chloride) 100 mls @ 100 mls/ hr IVPB Q8H [facility] PRN Reason: Protocol Last Admin: 09/28/17 08:44 Dose: 100 mls/hr Insulin Detemir (Levemir) 25 units SC AMHS [facility] Last Admin: 09/28/17 08:43 Dose: 25 units Insulin Human Lispro (Humalog) 0 units SC ACHS [facility] PRN Reason: Protocol Last Admin: 09/28/17 07:59 Dose: Not Given Lactobacillus Acidophilus (Bacid Acidophilus) 1 cap PO BID [facility] Last Admin: 09/28/17 08:42 Dose: 1 cap Losartan Potassium (Cozaar) 100 mg PO DAILY [facility] Last Admin: 09/28/17 08:42 Dose: 100 mg Oxycodone HCl (Oxycontin Extended Release Tab) 30 mg PO Q12 [facility] Stop: 09/28/17 21:01 Last Admin: 09/28/17 08:54 Dose: Not Given Oxycodone HCl (Oxycodone Immediate Release Tab) 30 mg PO Q6 PRN PRN Reason: Pain, moderate (4-7) Last Admin: 09/28/17 09:09 Dose: 30 mg - Labs Labs: 09/28/17 09:52 09/28/17 09:52 PT 15.8 Seconds (9.8-13.1) H 09/25/17 06:50 INR 1.4 (0.9-1.2) H 09/25/17 06:50 APTT 30.9 Seconds (25.6-37.1) 09/25/17 06:50 - Constitutional Appears: Well - Head Exam Head Exam: ATRAUMATIC, NORMAL INSPECTION, NORMOCEPHALIC - Eye Exam Eye Exam: EOMI, Normal appearance, PERRL Pupil Exam: NORMAL ACCOMODATION, PERRL - ENT Exam ENT Exam: Mucous Membranes Moist, Normal Exam - Neck Exam Neck Exam: Full ROM, Normal Inspection. absent: Lymphadenopathy - Respiratory Exam Respiratory Exam: Clear to Ausculation Bilateral, NORMAL BREATHING PATTERN - Cardiovascular Exam Cardiovascular Exam: REGULAR RHYTHM, +S1, +S2, Murmur - GI/Abdominal Exam GI & Abdominal Exam: Soft, Normal Bowel Sounds. absent: Tenderness - Extremities Exam Extremities Exam: Full ROM, Normal Capillary Refill, Normal Inspection. absent : Joint Swelling, Pedal Edema Additional comments: erythema and tenderness - Back Exam Back Exam: NORMAL INSPECTION - Neurological Exam Neurological Exam: Alert, Awake, CN II-XII Intact, Normal Gait, Oriented x3 - Psychiatric Exam Psychiatric exam: Normal Affect, Normal Mood - Skin Skin Exam: Dry, Intact, Normal Color, Warm Assessment and Plan (1) Gangrene of toe Status: Acute (2) PVD (peripheral vascular disease) Status: Acute (3) Cellulitis Status: Acute (4) Diabetes mellitus Status: Chronic (5) HTN (hypertension) Status: Acute
--- NOTE | 2017-09-28 12:29 | CP.PCM.PN ---
Subjective - Date & Time of Evaluation Date of Evaluation: 09/28/17 Time of Evaluation: 08:00 - Subjective Subjective: wound growing sstaph await ID/ sensitivity ? Mrsa possible d/c on Zyvox for 7 days if covered Objective - Vital Signs/Intake and Output Vital Signs (last 24 hours): Temp Pulse Resp BP Pulse Ox 98.2 F 62 19 134/73 98 09/28/17 07:43 09/28/17 08:42 09/28/17 07:43 09/28/17 08:42 09/28/17 07:43 - Medications Medications: Current Medications Acetaminophen (Tylenol 325mg Tab) 650 mg PO Q6 PRN PRN Reason: Temperature Last Admin: 09/26/17 16:12 Dose: 650 mg Alprazolam (Xanax) 0.5 mg PO TID PRN PRN Reason: Anxiety Last Admin: 09/28/17 11:00 Dose: 0.5 mg Aspirin (Ecotrin) 81 mg PO DAILY [facility] Last Admin: 09/28/17 08:43 Dose: 81 mg Atorvastatin Calcium (Lipitor) 20 mg PO DAILY [facility] Last Admin: 09/28/17 08:44 Dose: 20 mg Benzocaine/Menthol (Cepacol Sore Throat) 1 pam PO Q2 PRN PRN Reason: Sore Throat Last Admin: 09/22/17 12:14 Dose: 1 pam Carvedilol (Coreg) 3.125 mg PO Q12 [facility] Last Admin: 09/28/17 08:42 Dose: 3.125 mg Glipizide (Glucotrol) 5 mg PO BID [facility] Last Admin: 09/28/17 08:43 Dose: 5 mg Heparin Sodium (Porcine) (Heparin) 5,000 units SC Q8 [facility] PRN Reason: Protocol Last Admin: 09/28/17 08:43 Dose: 5,000 units Hydrochlorothiazide (Microzide) 12.5 mg PO DAILY [facility] Last Admin: 09/28/17 08:44 Dose: 12.5 mg Hydromorphone HCl (Dilaudid) 1 mg IVP Q4 PRN PRN Reason: Pain, severe (8-10) Vancomycin HCl 1 gm/ Sodium (Chloride) 250 mls @ 166.667 mls/hr IVPB Q12@0500, 1700 [facility] PRN Reason: Protocol Last Admin: 09/28/17 05:46 Dose: 166.667 mls/hr Lactated Ringer's (Lactated Ringer's) 1,000 mls @ 100 mls/hr IV .Q10H [facility] Last Admin: 09/28/17 02:50 Dose: Not Given Piperacillin Sod/Tazobactam (Sod 3.375 gm/ Sodium Chloride) 100 mls @ 100 mls/ hr IVPB Q8H [facility] PRN Reason: Protocol Last Admin: 09/28/17 08:44 Dose: 100 mls/hr Insulin Detemir (Levemir) 25 units SC AMHS [facility] Last Admin: 09/28/17 08:43 Dose: 25 units Insulin Human Lispro (Humalog) 0 units SC ACHS [facility] PRN Reason: Protocol Last Admin: 09/28/17 07:59 Dose: Not Given Lactobacillus Acidophilus (Bacid Acidophilus) 1 cap PO BID [facility] Last Admin: 09/28/17 08:42 Dose: 1 cap Losartan Potassium (Cozaar) 100 mg PO DAILY [facility] Last Admin: 09/28/17 08:42 Dose: 100 mg Oxycodone HCl (Oxycontin Extended Release Tab) 30 mg PO Q12 [facility] Stop: 09/28/17 21:01 Last Admin: 09/28/17 08:54 Dose: Not Given Oxycodone HCl (Oxycodone Immediate Release Tab) 30 mg PO Q6 PRN PRN Reason: Pain, moderate (4-7) Last Admin: 09/28/17 09:09 Dose: 30 mg - Labs Labs: 09/28/17 09:52 09/28/17 09:52 PT 15.8 Seconds (9.8-13.1) H 09/25/17 06:50 INR 1.4 (0.9-1.2) H 09/25/17 06:50 APTT 30.9 Seconds (25.6-37.1) 09/25/17 06:50 - Constitutional Appears: Non-toxic, Chronically Ill - Head Exam Head Exam: NORMOCEPHALIC - Eye Exam Eye Exam: PERRL - ENT Exam ENT Exam: Mucous Membranes Dry - Neck Exam Neck Exam: absent: Lymphadenopathy - Respiratory Exam Respiratory Exam: Decreased Breath Sounds - Cardiovascular Exam Cardiovascular Exam: REGULAR RHYTHM - GI/Abdominal Exam GI & Abdominal Exam: Distended, Soft - Rectal Exam Rectal Exam: Deferred - Exam Exam: NORMAL INSPECTION Assessment and Plan (1) Cellulitis Status: Acute (2) Gangrene of toe Status: Acute (3) PVD (peripheral vascular disease) Status: Acute
--- NOTE | 2017-09-28 14:30 | CP.PCM.CON ---
Past Patient History - Infectious Disease Hx of Infectious Diseases: None - Tetanus Immunizations Tetanus Immunization: Unknown - Past Medical History & Family History Past Medical History?: Yes - Past Social History Smoking Status: Current Some Days Smoker Alcohol: None Drugs: Denies - CARDIAC Hx Cardiac Disorders: Yes - PULMONARY Hx Bronchitis: Yes Hx Chronic Obstructive Pulmonary Disease (COPD): Yes Hx Pneumonia: Yes - NEUROLOGICAL Hx Neurological Disorder: No - HEENT Hx Cataracts: Yes (CHANEL SX) - RENAL Hx Chronic Kidney Disease: No - ENDOCRINE/METABOLIC Hx Diabetes Mellitus Type 2: Yes - HEMATOLOGICAL/ONCOLOGICAL Hx Blood Transfusions: No Hx Blood Transfusion Reaction: No - INTEGUMENTARY Other/Comment: RT FOOT ULCER - MUSCULOSKELETAL/RHEUMATOLOGICAL Hx Falls: Yes - GASTROINTESTINAL Hx Gall Bladder Disease: Yes - GENITOURINARY/GYNECOLOGICAL Hx Genitourinary Disorders: No - PSYCHIATRIC Hx Anxiety: Yes Hx Depression: No - SURGICAL HISTORY Hx Cholecystectomy: Yes - ANESTHESIA Hx Anesthesia Reactions: No Hx Malignant Hyperthermia: No Meds Allergies/Adverse Reactions: Allergies Allergy/AdvReac Type Severity Reaction Status Date / Time No Known Allergies Allergy Verified 12/30/15 17:31 - Medications Medications: Current Medications Acetaminophen (Tylenol 325mg Tab) 650 mg PO Q6 PRN PRN Reason: Temperature Last Admin: 09/26/17 16:12 Dose: 650 mg Alprazolam (Xanax) 0.5 mg PO TID PRN PRN Reason: Anxiety Last Admin: 09/28/17 11:00 Dose: 0.5 mg Aspirin (Ecotrin) 81 mg PO DAILY [facility] Last Admin: 09/28/17 08:43 Dose: 81 mg Atorvastatin Calcium (Lipitor) 20 mg PO DAILY [facility] Last Admin: 09/28/17 08:44 Dose: 20 mg Benzocaine/Menthol (Cepacol Sore Throat) 1 pam PO Q2 PRN PRN Reason: Sore Throat Last Admin: 09/22/17 12:14 Dose: 1 pam Carvedilol (Coreg) 3.125 mg PO Q12 [facility] Last Admin: 09/28/17 08:42 Dose: 3.125 mg Glipizide (Glucotrol) 5 mg PO BID [facility] Last Admin: 09/28/17 08:43 Dose: 5 mg Heparin Sodium (Porcine) (Heparin) 5,000 units SC Q8 [facility] PRN Reason: Protocol Last Admin: 09/28/17 08:43 Dose: 5,000 units Hydrochlorothiazide (Microzide) 12.5 mg PO DAILY [facility] Last Admin: 09/28/17 08:44 Dose: 12.5 mg Hydromorphone HCl (Dilaudid) 1 mg IVP Q4 PRN PRN Reason: Pain, severe (8-10) Vancomycin HCl 1 gm/ Sodium (Chloride) 250 mls @ 166.667 mls/hr IVPB Q12@0500, 1700 [facility] PRN Reason: Protocol Last Admin: 09/28/17 05:46 Dose: 166.667 mls/hr Lactated Ringer's (Lactated Ringer's) 1,000 mls @ 100 mls/hr IV .Q10H [facility] Last Admin: 09/28/17 14:01 Dose: Not Given Piperacillin Sod/Tazobactam (Sod 3.375 gm/ Sodium Chloride) 100 mls @ 100 mls/ hr IVPB Q8H [facility] PRN Reason: Protocol Last Admin: 09/28/17 08:44 Dose: 100 mls/hr Insulin Detemir (Levemir) 25 units SC AMHS [facility] Last Admin: 09/28/17 08:43 Dose: 25 units Insulin Human Lispro (Humalog) 0 units SC ACHS [facility] PRN Reason: Protocol Last Admin: 09/28/17 14:01 Dose: Not Given Lactobacillus Acidophilus (Bacid Acidophilus) 1 cap PO BID [facility] Last Admin: 09/28/17 08:42 Dose: 1 cap Losartan Potassium (Cozaar) 100 mg PO DAILY [facility] Last Admin: 09/28/17 08:42 Dose: 100 mg Oxycodone HCl (Oxycontin Extended Release Tab) 30 mg PO Q12 [facility] Stop: 09/28/17 21:01 Last Admin: 09/28/17 08:54 Dose: Not Given Oxycodone HCl (Oxycodone Immediate Release Tab) 30 mg PO Q6 PRN PRN Reason: Pain, moderate (4-7) Last Admin: 09/28/17 09:09 Dose: 30 mg Results - Vital Signs Recent Vital Signs: Last Vital Signs Temp 98.2 F 09/28/17 07:43 Pulse 62 09/28/17 08:42 Resp 19 09/28/17 07:43 BP 134/73 09/28/17 08:42 Pulse Ox 98 09/28/17 07:43 - Labs Result Diagrams: 09/28/17 09:52 09/28/17 09:52 Labs: Laboratory Results - last 24 hr 09/27/17 09/27/17 09/28/17 15:54 21:44 05:19 WBC RBC Hgb Hct MCV MCH MCHC RDW Plt Count Sodium Potassium Chloride Carbon Dioxide Anion Gap BUN Creatinine Est GFR ( Amer) Est GFR (Non-Af Amer) POC Glucose (mg/dL) 112 H 116 H 90 Random Glucose Calcium 09/28/17 09/28/17 09/28/17 09:52 09:52 10:36 WBC 5.6 RBC 3.94 L Hgb 11.7 L Hct 35.3 MCV 89.6 MCH 29.8 MCHC 33.2 RDW 14.2 Plt Count 169 Sodium 140 Potassium 4.3 Chloride 101 Carbon Dioxide 28 Anion Gap 15 BUN 16 Creatinine 1.1 Est GFR ( Amer) > 60 Est GFR (Non-Af Amer) > 60 POC Glucose (mg/dL) 151 H Random Glucose 113 H Calcium 8.5
--- NOTE | 2017-09-28 15:05 | MRI ---
PROCEDURE: MRI right ankle without contrast HISTORY: r/o abscess right foot and ankle COMPARISON: Right foot x-rays 09/20/2017. MRI right foot 09/22/2017 TECHNIQUE: Only education professional sequences and T2 sagittal sequence were acquired as patient was premature termination of the exam. FINDINGS: Incomplete exam as patient requested premature termination. No marrow signal abnormality seen on STIR sequences. No focal fluid collections seen. Achilles tendon appears intact. Plantar fascia is unremarkable. Sinus tarsi appears unremarkable. Subcutaneous soft tissue edema noted along the dorsum of the foot as well as anterior aspect visualized lower leg and ankle. Subcutaneous soft tissue edema noted of the foot to the extent visualized. IMPRESSION: Limited exam as patient requested premature termination. No marrow signal abnormality seen on this single STIR sequence. Subcutaneous soft tissue edema of the foot as above. Recommend repeat MRI of the ankle as only a single sequence was acquired. .
--- NOTE | 2017-09-28 15:08 | CP.PCM.PN ---
Subjective - Date & Time of Evaluation Date of Evaluation: 09/28/17 Time of Evaluation: 15:05 - Subjective Subjective: 62 year old male seen at bedside 3 days s/p right foot surgery with partial second ray amputation, resection of third proximal phalanx and biopsy of hallux distal phalanx. Patient is AAO x 3 and in NAD resting comfortably in bed at time of visit. Admits to continued pain in the right foot. He states that sensation to his right foot is returned and that his pain is well controlled. He admits to ambulating in the surgical shoe at all times and working with physical therapy, using both a walker and a cane. Denies N/V/F/C/CP/SOB. Objective - Vital Signs/Intake and Output Vital Signs (last 24 hours): Temp Pulse Resp BP Pulse Ox 98.2 F 62 19 134/73 98 09/28/17 07:43 09/28/17 08:42 09/28/17 07:43 09/28/17 08:42 09/28/17 07:43 - Medications Medications: Current Medications Acetaminophen (Tylenol 325mg Tab) 650 mg PO Q6 PRN PRN Reason: Temperature Last Admin: 09/26/17 16:12 Dose: 650 mg Alprazolam (Xanax) 0.5 mg PO TID PRN PRN Reason: Anxiety Last Admin: 09/28/17 11:00 Dose: 0.5 mg Aspirin (Ecotrin) 81 mg PO DAILY [facility] Last Admin: 09/28/17 08:43 Dose: 81 mg Atorvastatin Calcium (Lipitor) 20 mg PO DAILY [facility] Last Admin: 09/28/17 08:44 Dose: 20 mg Benzocaine/Menthol (Cepacol Sore Throat) 1 pam PO Q2 PRN PRN Reason: Sore Throat Last Admin: 09/22/17 12:14 Dose: 1 pam Carvedilol (Coreg) 3.125 mg PO Q12 [facility] Last Admin: 09/28/17 08:42 Dose: 3.125 mg Glipizide (Glucotrol) 5 mg PO BID [facility] Last Admin: 09/28/17 08:43 Dose: 5 mg Heparin Sodium (Porcine) (Heparin) 5,000 units SC Q8 [facility] PRN Reason: Protocol Last Admin: 09/28/17 08:43 Dose: 5,000 units Hydrochlorothiazide (Microzide) 12.5 mg PO DAILY [facility] Last Admin: 09/28/17 08:44 Dose: 12.5 mg Hydromorphone HCl (Dilaudid) 1 mg IVP Q4 PRN PRN Reason: Pain, severe (8-10) Vancomycin HCl 1 gm/ Sodium (Chloride) 250 mls @ 166.667 mls/hr IVPB Q12@0500, 1700 [facility] PRN Reason: Protocol Last Admin: 09/28/17 05:46 Dose: 166.667 mls/hr Lactated Ringer's (Lactated Ringer's) 1,000 mls @ 100 mls/hr IV .Q10H [facility] Last Admin: 09/28/17 14:01 Dose: Not Given Piperacillin Sod/Tazobactam (Sod 3.375 gm/ Sodium Chloride) 100 mls @ 100 mls/ hr IVPB Q8H [facility] PRN Reason: Protocol Last Admin: 09/28/17 08:44 Dose: 100 mls/hr Insulin Detemir (Levemir) 25 units SC AMHS [facility] Last Admin: 09/28/17 08:43 Dose: 25 units Insulin Human Lispro (Humalog) 0 units SC ACHS [facility] PRN Reason: Protocol Last Admin: 09/28/17 14:01 Dose: Not Given Lactobacillus Acidophilus (Bacid Acidophilus) 1 cap PO BID [facility] Last Admin: 09/28/17 08:42 Dose: 1 cap Losartan Potassium (Cozaar) 100 mg PO DAILY [facility] Last Admin: 09/28/17 08:42 Dose: 100 mg Oxycodone HCl (Oxycontin Extended Release Tab) 30 mg PO Q12 [facility] Stop: 09/28/17 21:01 Last Admin: 09/28/17 08:54 Dose: Not Given Oxycodone HCl (Oxycodone Immediate Release Tab) 30 mg PO Q6 PRN PRN Reason: Pain, moderate (4-7) Last Admin: 09/28/17 09:09 Dose: 30 mg - Labs Labs: 09/28/17 09:52 09/28/17 09:52 PT 15.8 Seconds (9.8-13.1) H 09/25/17 06:50 INR 1.4 (0.9-1.2) H 09/25/17 06:50 APTT 30.9 Seconds (25.6-37.1) 09/25/17 06:50 - Constitutional Appears: Well, Non-toxic, No Acute Distress - Extremities Exam Extremities Exam: absent: Calf Tenderness Additional comments: RLE focused: dressing remains clean, dry and intact CFT < 3 sec to all digits pt able to wiggle remaining toes no strikethrough noted to bandage - Neurological Exam Neurological Exam: Alert, Awake, Oriented x3 - Psychiatric Exam Psychiatric exam: Normal Affect, Normal Mood Assessment and Plan - Assessment and Plan (Free Text) Assessment: 62 year old male seen at bedside 3 days s/p right foot partial second ray amputation, resection of third proximal phalanx and biopsy of hallux distal phalanx Plan: Patient seen and evaluated at bedside Plan discussed with Dr. Ramirez Afebrile, absent leukocytosis noted Intra-op toe cx shoes Staph aureus - await sensitivity Continue IV abx per ID, await further recs Continue incentive spirometer Continue WBAT to right foot with surgical shoe Continue PT Per Dr. Ramirez patient is stable from podiatric standpoint and can be transferred to [facility] Podiatry will continue to follow while patient is in house
[2017-09-28 15:36] VITALS: RESP 20
[2017-09-29] MEDS: Piperacillin/Tazobact 3.375 GM in Sodium Chloride 0.9% 100 ML IVPB SCH ×3 (00:47→16:31)
--- NOTE | 2017-09-29 00:57 | CP.PCM.PN ---
Subjective - Date & Time of Evaluation Date of Evaluation: 09/28/17 Time of Evaluation: 16:00 Objective - Vital Signs/Intake and Output Vital Signs (last 24 hours): Temp Pulse Resp BP Pulse Ox 98.4 F 60 20 122/62 97 09/29/17 00:02 09/29/17 00:02 09/29/17 00:02 09/29/17 00:02 09/29/17 00:02 - Medications Medications: Current Medications Acetaminophen (Tylenol 325mg Tab) 650 mg PO Q6 PRN PRN Reason: Temperature Last Admin: 09/26/17 16:12 Dose: 650 mg Alprazolam (Xanax) 0.5 mg PO TID PRN PRN Reason: Anxiety Last Admin: 09/28/17 11:00 Dose: 0.5 mg Aspirin (Ecotrin) 81 mg PO DAILY [facility] Last Admin: 09/28/17 08:43 Dose: 81 mg Atorvastatin Calcium (Lipitor) 20 mg PO DAILY [facility] Last Admin: 09/28/17 08:44 Dose: 20 mg Benzocaine/Menthol (Cepacol Sore Throat) 1 pam PO Q2 PRN PRN Reason: Sore Throat Last Admin: 09/22/17 12:14 Dose: 1 pam Carvedilol (Coreg) 3.125 mg PO Q12 [facility] Last Admin: 09/28/17 20:58 Dose: Not Given Glipizide (Glucotrol) 5 mg PO BID [facility] Last Admin: 09/28/17 17:11 Dose: 5 mg Heparin Sodium (Porcine) (Heparin) 5,000 units SC Q8 [facility] PRN Reason: Protocol Last Admin: 09/28/17 17:11 Dose: 5,000 units Hydrochlorothiazide (Microzide) 12.5 mg PO DAILY [facility] Last Admin: 09/28/17 08:44 Dose: 12.5 mg Vancomycin HCl 1 gm/ Sodium (Chloride) 250 mls @ 166.667 mls/hr IVPB Q12@0500, 1700 [facility] PRN Reason: Protocol Last Admin: 09/28/17 17:10 Dose: 166.667 mls/hr Piperacillin Sod/Tazobactam (Sod 3.375 gm/ Sodium Chloride) 100 mls @ 100 mls/ hr IVPB Q8H [facility] PRN Reason: Protocol Last Admin: 09/29/17 00:47 Dose: 100 mls/hr Insulin Detemir (Levemir) 25 units SC AMHS [facility] Last Admin: 09/28/17 21:48 Dose: Not Given Insulin Human Lispro (Humalog) 0 units SC ACHS [facility] PRN Reason: Protocol Last Admin: 09/28/17 21:48 Dose: Not Given Lactobacillus Acidophilus (Bacid Acidophilus) 1 cap PO BID [facility] Last Admin: 09/28/17 17:11 Dose: 1 cap Losartan Potassium (Cozaar) 100 mg PO DAILY [facility] Last Admin: 09/28/17 08:42 Dose: 100 mg Oxycodone HCl (Oxycodone Immediate Release Tab) 30 mg PO Q6 PRN PRN Reason: Pain, moderate (4-7) Last Admin: 09/28/17 15:17 Dose: 30 mg Oxycodone HCl (Oxycontin Extended Release Tab) 30 mg PO Q12 [facility] Stop: 10/02/17 09:01 - Labs Labs: 09/28/17 09:52 09/28/17 09:52 PT 15.8 Seconds (9.8-13.1) H 09/25/17 06:50 INR 1.4 (0.9-1.2) H 09/25/17 06:50 APTT 30.9 Seconds (25.6-37.1) 09/25/17 06:50 Assessment and Plan (1) Gangrene of toe Status: Acute (2) Diabetes mellitus Status: Chronic
[2017-09-29] MEDS: Insulin Lispro (humaLOG) 100 Units/ml Inj SC SCH ×3 (06:30→16:22)
--- NOTE | 2017-09-29 08:00 | CP.PCM.PN ---
<Seema Hartman - Last Filed: 09/29/17 11:43> Subjective - Date & Time of Evaluation Date of Evaluation: 09/29/17 Time of Evaluation: 07:58 - Subjective Subjective: PGY2 progress note for cardiology Pt seen and examined at bedside. No acute events overnight. Pt is s/p right 2nd digit amputation POD #4. C/O right LE pain. Denies having any CP, SOB, abd pain, N/V/D/C. 12 point ROS negative except for above mentioned. Objective - Vital Signs/Intake and Output Vital Signs (last 24 hours): Temp Pulse Resp BP Pulse Ox 98.4 F 60 20 122/62 97 09/29/17 00:02 09/29/17 00:02 09/29/17 00:02 09/29/17 00:02 09/29/17 00:02 - Medications Medications: Current Medications Acetaminophen (Tylenol 325mg Tab) 650 mg PO Q6 PRN PRN Reason: Temperature Last Admin: 09/26/17 16:12 Dose: 650 mg Alprazolam (Xanax) 0.5 mg PO TID PRN PRN Reason: Anxiety Last Admin: 09/28/17 11:00 Dose: 0.5 mg Aspirin (Ecotrin) 81 mg PO DAILY [facility] Last Admin: 09/28/17 08:43 Dose: 81 mg Atorvastatin Calcium (Lipitor) 20 mg PO DAILY [facility] Last Admin: 09/28/17 08:44 Dose: 20 mg Benzocaine/Menthol (Cepacol Sore Throat) 1 pam PO Q2 PRN PRN Reason: Sore Throat Last Admin: 09/22/17 12:14 Dose: 1 pam Carvedilol (Coreg) 3.125 mg PO Q12 [facility] Last Admin: 09/28/17 20:58 Dose: Not Given Glipizide (Glucotrol) 5 mg PO BID [facility] Last Admin: 09/28/17 17:11 Dose: 5 mg Heparin Sodium (Porcine) (Heparin) 5,000 units SC Q8 [facility] PRN Reason: Protocol Last Admin: 09/29/17 00:58 Dose: 5,000 units Hydrochlorothiazide (Microzide) 12.5 mg PO DAILY [facility] Last Admin: 09/28/17 08:44 Dose: 12.5 mg Vancomycin HCl 1 gm/ Sodium (Chloride) 250 mls @ 166.667 mls/hr IVPB Q12@0500, 1700 [facility] PRN Reason: Protocol Last Admin: 09/29/17 04:07 Dose: 166.667 mls/hr Piperacillin Sod/Tazobactam (Sod 3.375 gm/ Sodium Chloride) 100 mls @ 100 mls/ hr IVPB Q8H [facility] PRN Reason: Protocol Last Admin: 09/29/17 00:47 Dose: 100 mls/hr Insulin Detemir (Levemir) 25 units SC AMHS [facility] Last Admin: 09/28/17 21:48 Dose: Not Given Insulin Human Lispro (Humalog) 0 units SC ACHS [facility] PRN Reason: Protocol Last Admin: 09/29/17 06:30 Dose: Not Given Lactobacillus Acidophilus (Bacid Acidophilus) 1 cap PO BID [facility] Last Admin: 09/28/17 17:11 Dose: 1 cap Losartan Potassium (Cozaar) 100 mg PO DAILY [facility] Last Admin: 09/28/17 08:42 Dose: 100 mg Oxycodone HCl (Oxycodone Immediate Release Tab) 30 mg PO Q6 PRN PRN Reason: Pain, moderate (4-7) Last Admin: 09/28/17 15:17 Dose: 30 mg Oxycodone HCl (Oxycontin Extended Release Tab) 30 mg PO Q12 [facility] Stop: 10/02/17 09:01 - Labs Labs: 09/28/17 09:52 09/28/17 09:52 PT 15.8 Seconds (9.8-13.1) H 09/25/17 06:50 INR 1.4 (0.9-1.2) H 09/25/17 06:50 APTT 30.9 Seconds (25.6-37.1) 09/25/17 06:50 - Constitutional Appears: Non-toxic, No Acute Distress - Head Exam Head Exam: ATRAUMATIC - ENT Exam ENT Exam: Mucous Membranes Moist - Respiratory Exam Respiratory Exam: Clear to Ausculation Bilateral, NORMAL BREATHING PATTERN. absent: Accessory Muscle Use, Rales, Rhonchi, Wheezes, Respiratory Distress - Cardiovascular Exam Cardiovascular Exam: REGULAR RHYTHM, +S1, +S2. absent: Gallop, Rubs, Murmur - GI/Abdominal Exam GI & Abdominal Exam: Soft, Normal Bowel Sounds. absent: Distended, Firm, Guarding, Rigid, Tenderness - Neurological Exam Neurological Exam: Alert, Awake, Oriented x3 - Psychiatric Exam Psychiatric exam: Normal Affect, Normal Mood - Skin Skin Exam: Dry, Erythema (in Right LE), Intact, Normal Color, Warm Assessment and Plan - Assessment and Plan (Free Text) Assessment: (1) PVD (peripheral vascular disease) Continue Aspirin, Statin, plavix, Coreg Will repeat LE US to rule out DVT (2) Gangrene of toe S/P right 2nd digit amputation POD #4 Wound cultures grew staph. Awaiting sensitivity to decide specific Abx for discharge Currently on Zosyn and vanco (3) Diabetes Hgb A1c is 12.3 Continue management per primary team Lipid panel WNL (4) HTN Continue Losartan and HCTZ Case will be discussed with attending, Dr. Quiros <Nico Quiros - Last Filed: 09/29/17 23:15> Objective - Vital Signs/Intake and Output Vital Signs (last 24 hours): Temp Pulse Resp BP Pulse Ox 98.3 F 66 20 143/66 97 09/29/17 16:13 09/29/17 16:39 09/29/17 16:13 09/29/17 16:39 09/29/17 16:13 - Labs Labs: 09/28/17 09:52 09/28/17 09:52 PT 15.8 Seconds (9.8-13.1) H 09/25/17 06:50 INR 1.4 (0.9-1.2) H 09/25/17 06:50 APTT 30.9 Seconds (25.6-37.1) 09/25/17 06:50 Assessment and Plan (1) Gangrene of toe Status: Acute (2) PVD (peripheral vascular disease) Status: Acute (3) Cellulitis Status: Acute (4) Diabetes mellitus Status: Chronic (5) HTN (hypertension) Status: Acute Attending/Attestation - Attestation I have personally seen and examined this patient.: Yes I have fully participated in the care of the patient.: Yes I have reviewed all pertinent clinical information, including history, physical exam and plan: Yes
[2017-09-29 08:22] VITALS: TEMP 98.3
[2017-09-29] MEDS: Lactobacillus Acidophilus 500 MU Cap PO SCH ×2 (08:39→16:22)
[2017-09-29] MEDS: Insulin Detemir 100 Units/ml Inj SC SCH (08:42)
[2017-09-29] MEDS ORDERED: oxyCODONE 10 mg ER Tab (oxyCONTIN) PO SCH (09:00)
--- NOTE | 2017-09-29 11:45 | CP.PCM.PCO ---
Physician Communication Note - Physician Communication Note Physician Communication Note: Per Dr. De La Paz, pt to continue IV antibiotics x 7 more days
--- NOTE | 2017-09-29 11:56 | CP.PCM.PN ---
Subjective - Date & Time of Evaluation Date of Evaluation: 09/29/17 Time of Evaluation: 07:00 - Subjective Subjective: improving cellulitis s/p peggy 2nd digit right foot and 3rd prox phalynx culture + MRSA Objective - Vital Signs/Intake and Output Vital Signs (last 24 hours): Temp Pulse Resp BP Pulse Ox 98.3 F 61 20 170/69 H 98 09/29/17 08:21 09/29/17 08:41 09/29/17 08:21 09/29/17 08:41 09/29/17 08:21 - Medications Medications: Current Medications Acetaminophen (Tylenol 325mg Tab) 650 mg PO Q6 PRN PRN Reason: Temperature Last Admin: 09/26/17 16:12 Dose: 650 mg Alprazolam (Xanax) 0.5 mg PO TID PRN PRN Reason: Anxiety Last Admin: 09/29/17 11:03 Dose: 0.5 mg Aspirin (Ecotrin) 81 mg PO DAILY [facility] Last Admin: 09/29/17 08:41 Dose: 81 mg Atorvastatin Calcium (Lipitor) 20 mg PO DAILY [facility] Last Admin: 09/29/17 08:44 Dose: 20 mg Benzocaine/Menthol (Cepacol Sore Throat) 1 pam PO Q2 PRN PRN Reason: Sore Throat Last Admin: 09/22/17 12:14 Dose: 1 pam Carvedilol (Coreg) 3.125 mg PO Q12 [facility] Last Admin: 09/29/17 08:40 Dose: 3.125 mg Glipizide (Glucotrol) 5 mg PO BID [facility] Last Admin: 09/29/17 08:41 Dose: 5 mg Heparin Sodium (Porcine) (Heparin) 5,000 units SC Q8 [facility] PRN Reason: Protocol Last Admin: 09/29/17 08:41 Dose: 5,000 units Hydrochlorothiazide (Microzide) 12.5 mg PO DAILY [facility] Last Admin: 09/29/17 08:44 Dose: 12.5 mg Vancomycin HCl 1 gm/ Sodium (Chloride) 250 mls @ 166.667 mls/hr IVPB Q12@0500, 1700 [facility] PRN Reason: Protocol Last Admin: 09/29/17 04:07 Dose: 166.667 mls/hr Piperacillin Sod/Tazobactam (Sod 3.375 gm/ Sodium Chloride) 100 mls @ 100 mls/ hr IVPB Q8H [facility] PRN Reason: Protocol Last Admin: 09/29/17 08:49 Dose: 100 mls/hr Insulin Detemir (Levemir) 25 units SC AMHS [facility] Last Admin: 09/29/17 08:42 Dose: 25 units Insulin Human Lispro (Humalog) 0 units SC ACHS [facility] PRN Reason: Protocol Last Admin: 09/29/17 11:06 Dose: 1 units Lactobacillus Acidophilus (Bacid Acidophilus) 1 cap PO BID [facility] Last Admin: 09/29/17 08:39 Dose: 1 cap Losartan Potassium (Cozaar) 100 mg PO DAILY [facility] Last Admin: 09/29/17 08:41 Dose: 100 mg Oxycodone HCl (Oxycodone Immediate Release Tab) 30 mg PO Q6 PRN PRN Reason: Pain, moderate (4-7) Last Admin: 09/28/17 15:17 Dose: 30 mg Oxycodone HCl (Oxycontin Extended Release Tab) 30 mg PO Q12 [facility] Stop: 10/02/17 09:01 Last Admin: 09/29/17 08:45 Dose: 30 mg - Labs Labs: 09/28/17 09:52 09/28/17 09:52 PT 15.8 Seconds (9.8-13.1) H 09/25/17 06:50 INR 1.4 (0.9-1.2) H 09/25/17 06:50 APTT 30.9 Seconds (25.6-37.1) 09/25/17 06:50 - Constitutional Appears: Non-toxic, Chronically Ill - Head Exam Head Exam: NORMOCEPHALIC - Eye Exam Eye Exam: PERRL - ENT Exam ENT Exam: Mucous Membranes Dry - Neck Exam Neck Exam: absent: Lymphadenopathy - Respiratory Exam Respiratory Exam: Decreased Breath Sounds - Cardiovascular Exam Cardiovascular Exam: REGULAR RHYTHM - GI/Abdominal Exam GI & Abdominal Exam: Distended, Soft - Rectal Exam Rectal Exam: Deferred - Exam Exam: NORMAL INSPECTION - Extremities Exam Extremities Exam: Pedal Edema, Tenderness. absent: Calf Tenderness - Back Exam Back Exam: absent: CVA tenderness (L), CVA tenderness (R) - Neurological Exam Neurological Exam: Alert, Awake, Oriented x3 - Psychiatric Exam Psychiatric exam: Normal Mood - Skin Skin Exam: Dry Assessment and Plan (1) Cellulitis Status: Acute (2) Gangrene of toe Status: Acute (3) PVD (peripheral vascular disease) Status: Acute - Assessment and Plan (Free Text) Assessment: need to cont iv then po antibiotics cont wound care / elevation and control of blood sugar
[2017-09-29 16:14] VITALS: O2SAT 97
[2017-09-29] MEDS: oxyCODONE 10 mg Immediate Release Tab PO PRN (16:23)
[2017-09-29 16:41] VITALS: BP 143/66; PULSE 66
--- NOTE | 2017-09-29 18:58 | US ---
PROCEDURE: Bilateral lower extremity venous duplex Doppler. HISTORY: LE swelling and pain COMPARISON: None available. TECHNIQUE: Bilateral common femoral, superficial femoral, popliteal and posterior tibial veins were evaluated. Flow was assessed with color Doppler, compressibility, assessment of phasic flow and augmentation response. FINDINGS: COMMON FEMORAL VEIN: Right CFV: Unremarkable. Left CFV: Unremarkable. SUPERFICIAL FEMORAL VEIN: Right SFV: Unremarkable. Left SFV: Unremarkable. POPLITEAL VEIN: Right Popliteal: Unremarkable. Left Popliteal: Unremarkable. POSTERIOR TIBIAL VEIN: Right PTV: Unremarkable. Left PTV: Unremarkable. OTHER FINDINGS: None. IMPRESSION: No evidence of deep venous thrombosis.
--- NOTE | 2017-09-29 22:25 | CP.PCM.DIS ---
Provider - Provider Date of Admission: 09/20/17 17:48 Attending physician: Huong Krishna MD Time Spent in preparation of Discharge (in minutes): 25 Diagnosis - Discharge Diagnosis (1) Gangrene of toe Status: Acute Priority: High (2) Diabetes mellitus Status: Chronic Priority: High Hospital Course - Lab Results Lab Results: Micro Results 09/25/17 12:54 Toe Gram Stain - Final 09/25/17 12:54 Toe Wound Culture - Final Methicillin Resistant S Aureus 09/20/17 Unknown Blood Blood Culture - Final NO GROWTH AFTER 5 DAYS 09/20/17 Unknown Blood Gram Stain - Final TEST NOT PERFORMED Most Recent Lab Values WBC 5.6 K/uL (4.8-10.8) 09/28/17 09:52 RBC 3.94 Mil/uL (4.40-5.90) L 09/28/17 09:52 Hgb 11.7 g/dL (12.0-18.0) L 09/28/17 09:52 Hct 35.3 % (35.0-51.0) 09/28/17 09:52 MCV 89.6 fl (80.0-94.0) 09/28/17 09:52 MCH 29.8 pg (27.0-31.0) 09/28/17 09:52 MCHC 33.2 g/dL (33.0-37.0) 09/28/17 09:52 RDW 14.2 % (11.5-14.5) 09/28/17 09:52 Plt Count 169 K/uL (130-400) 09/28/17 09:52 MPV 8.4 fl (7.2-11.7) 09/24/17 06:12 Neut % (Auto) 74.6 % (50.0-75.0) 09/24/17 06:12 Lymph % (Auto) 13.8 % (20.0-40.0) L 09/24/17 06:12 Centre % (Auto) 9.9 % (0.0-10.0) 09/24/17 06:12 Eos % (Auto) 1.0 % (0.0-4.0) 09/24/17 06:12 Baso % (Auto) 0.7 % (0.0-2.0) 09/24/17 06:12 Neut # 3.6 K/uL (1.8-7.0) 09/24/17 06:12 Lymph # 0.7 K/uL (1.0-4.3) L 09/24/17 06:12 Centre # 0.5 K/uL (0.0-0.8) 09/24/17 06:12 Eos # 0.0 K/uL (0.0-0.7) 09/24/17 06:12 Baso # 0.0 K/uL (0.0-0.2) 09/24/17 06:12 Neutrophils % (Manual) 79 % (42-75) H 09/20/17 13:19 Band Neutrophils % 2 % (0-2) 09/20/17 13:19 Lymphocytes % (Manual) 12 % (20-50) L 09/20/17 13:19 Monocytes % (Manual) 7 % (0-10) 09/20/17 13:19 Platelet Estimate Normal (NORMAL) 09/20/17 13:19 Large Platelets Present 09/20/17 13:19 Anisocytosis (manual) Slight 09/20/17 13:19 ESR 102 mm/hr (0-20) H 09/21/17 05:30 PT 15.8 Seconds (9.8-13.1) H 09/25/17 06:50 INR 1.4 (0.9-1.2) H 09/25/17 06:50 APTT 30.9 Seconds (25.6-37.1) 09/25/17 06:50 pO2 15 mm/Hg (30-55) L 09/20/17 17:55 VBG pH 7.35 (7.32-7.43) 09/20/17 17:55 VBG pCO2 59 mmHg (40-60) 09/20/17 17:55 VBG HCO3 26.8 mmol/L 09/20/17 17:55 VBG Total CO2 34.4 mmol/L (22-28) H 09/20/17 17:55 VBG O2 Sat (Calc) 30.8 % (40-65) L 09/20/17 17:55 VBG Base Excess 5.2 mmol/L (0.0-2.0) H 09/20/17 17:55 VBG Potassium 4.3 mmol/L (3.6-5.2) 09/20/17 17:55 Sodium 137.0 mmol/L (132-148) 09/20/17 17:55 Chloride 103.0 mmol/L (98-107) 09/20/17 17:55 Glucose 246 mg/dL (75-110) H 09/20/17 17:55 Lactate 1.3 mmol/L (0.7-2.1) 09/20/17 17:55 FiO2 21.0 % 09/20/17 17:55 Sodium 140 mmol/l (132-148) 09/28/17 09:52 Potassium 4.3 MMOL/L (3.6-5.0) 09/28/17 09:52 Chloride 101 mmol/L (98-107) 09/28/17 09:52 Carbon Dioxide 28 mmol/L (22-30) 09/28/17 09:52 Anion Gap 15 (10-20) 09/28/17 09:52 BUN 16 mg/dl (9-20) 09/28/17 09:52 Creatinine 1.1 mg/dl (0.8-1.5) 09/28/17 09:52 Est GFR ( Amer) > 60 09/28/17 09:52 Est GFR (Non-Af Amer) > 60 09/28/17 09:52 POC Glucose (mg/dL) 253 mg/dL (65-110) H 09/29/17 15:46 Random Glucose 113 mg/dL (75-110) H 09/28/17 09:52 Hemoglobin A1c 12.3 % (4.2-6.5) H D 09/21/17 05:30 Calcium 8.5 mg/dL (8.4-10.2) 09/28/17 09:52 Total Bilirubin 0.8 mg/dl (0.2-1.3) 09/20/17 13:19 AST 23 U/L (17-59) 09/20/17 13:19 ALT 30 U/L (21-72) 09/20/17 13:19 Alkaline Phosphatase 81 U/L (38-126) 09/20/17 13:19 Total Protein 7.8 G/DL (6.3-8.2) 09/20/17 13:19 Albumin 4.0 g/dL (3.5-5.0) 09/20/17 13:19 Globulin 3.9 gm/dL (2.2-3.9) 09/20/17 13:19 Albumin/Globulin Ratio 1.0 (1.0-2.1) 09/20/17 13:19 Triglycerides 78 mg/DL (0-149) 09/22/17 05:10 Cholesterol 96 mg/dL (0-199) 09/22/17 05:10 LDL Cholesterol Direct 33 mg/dL (0-129) 09/22/17 05:10 HDL Cholesterol 31 MG/DL (30-70) 09/22/17 05:10 TSH 3rd Generation 1.08 mIU/ML (0.46-4.68) 09/21/17 05:30 Venous Blood Potassium 4.3 mmol/L (3.6-5.2) 09/20/17 17:55 Vancomycin Trough 13.2 ug/mL (5.0-10.0) H 09/27/17 04:50 Hepatitis A IgM Ab Negative (NEGATIVE) 09/23/17 06:52 Hep Bs Antigen Negative (NEGATIVE) 09/23/17 06:52 Hep B Core IgM Ab Negative (NEGATIVE) 09/23/17 06:52 Hepatitis C Antibody Negative (NEGATIVE) 09/23/17 06:52 HIV 1&2 Antibody Screen Negative (NEGATIVE) 09/22/17 14:22 Discharge Exam - Head Exam Head Exam: NORMOCEPHALIC Discharge Plan - Discharge Medications Prescriptions: Vancomycin [Vancomycin Inj] 1 gm IVPB Q12 #14 vial Piperacillin/Tazobact [Zosyn] 3.375 gm IVPB Q8 #21 vial - Follow Up Plan Condition: STABLE Disposition: REHAB FACILITY/REHAB UNIT Instructions: Cellulitis (DC), Cellulitis (GEN) Referrals: Nico Quiros MD [Staff Provider] - Demetri Ramirez DPM [Staff Provider] - Jayme De La Paz MD [Staff Provider] -
== END 2017-09-29 18:45 ==
LOC: H.ER 12:34 → H.ERHOLD 17:48 → H.MEDSURG1 18:35
PROVIDERS: ADMIT Internal Medicine; ATTEND Internal Medicine
PROC: B40DYZZ Plain Radiography of Aorta and Bilateral Lower Extremity Arteries using Other Contrast (ICD-10-PCS; 2017-09-23)
PROC: 0QBQ0ZX Excision of Right Toe Phalanx, Open Approach, Diagnostic (ICD-10-PCS; 2017-09-25)
PROC: 3E0T3BZ Introduction of Anesthetic Agent into Peripheral Nerves and Plexi, Percutaneous Approach (ICD-10-PCS; 2017-09-25)
PROC: 0Y6M0ZB Detachment at Right Foot, Partial 2nd Ray, Open Approach (ICD-10-PCS; principal; 2017-09-25 12:30)
PROC: 0Y6T0Z1 Detachment at Right 3rd Toe, High, Open Approach (ICD-10-PCS; 2017-09-25 12:30)
DX: E11.69 Type 2 diabetes mellitus with other specified complication (principal); E11.52 Type 2 diabetes mellitus with diabetic peripheral angiopathy with gangrene; E11.65 Type 2 diabetes mellitus with hyperglycemia; I70.263 Atherosclerosis of native arteries of extremities with gangrene, bilateral legs; J44.9 Chronic obstructive pulmonary disease, unspecified; L03.115 Cellulitis of right lower limb; L97.519 Non-pressure chronic ulcer of other part of right foot with unspecified severity; M86.9 Osteomyelitis, unspecified; I10 Essential (primary) hypertension; E78.5 Hyperlipidemia, unspecified; F17.200 Nicotine dependence, unspecified, uncomplicated; Z59.0 Homelessness; B95.62 Methicillin resistant Staphylococcus aureus infection as the cause of diseases classified elsewhere

== ENCOUNTER 2017-09-29 14:49 | Inpatient (IN) | payer MEDICAID ==
[2017-09-29] MEDS ORDERED: oxyCODONE 10 mg ER Tab (oxyCONTIN) PO PRN (19:37)
[2017-09-29] MEDS: oxyCODONE 10 mg ER Tab (oxyCONTIN) PO SCH (21:26)
[2017-09-29] MEDS: Insulin Detemir 100 Units/ml Inj SC SCH (21:33)
[2017-09-30] MEDS: oxyCODONE 10 mg Immediate Release Tab PO PRN ×3 (06:02→18:52)
[2017-09-30] MEDS: Insulin Lispro (humaLOG) 100 Units/ml Inj SC SCH ×4 (07:06→21:19)
--- NOTE | 2017-09-30 07:35 | CP.PCM.CON ---
History of Present Illness - History of Present Illness History of Present Illness: 62 year old male seen at bedside in TCU five days s/p partial second ray amputation, resection of third proximal phalanx and biopsy of hallux distal phalanx, all of right foot. Patient is AAO x 3 and NAD resting comfortably in bed. Patient states that his pain is persisting but decreased since the last few days. Patient states pain medications are helping. Admits to walking a lot with the surgical shoe, both with PT and on his own up and down the floors. Admits to mild discomfort in his right calf. Denies F/C/N/V/CP/SOB. Has no other pedal complaints at this time. Review of Systems - Review of Systems All systems: reviewed and no additional remarkable complaints except (per HPI) Past Patient History - Infectious Disease Hx of Infectious Diseases: None - Tetanus Immunizations Tetanus Immunization: Unknown - Past Medical History & Family History Past Medical History?: Yes - Past Social History Smoking Status: Former Smoker - CARDIAC Hx Cardiac Disorders: Yes - PULMONARY Hx Bronchitis: Yes Hx Chronic Obstructive Pulmonary Disease (COPD): Yes Hx Pneumonia: Yes - NEUROLOGICAL Hx Neurological Disorder: No - HEENT Hx Cataracts: Yes (CHANEL SX) - RENAL Hx Chronic Kidney Disease: No - ENDOCRINE/METABOLIC Hx Diabetes Mellitus Type 2: Yes - HEMATOLOGICAL/ONCOLOGICAL Hx Blood Transfusions: No Hx Blood Transfusion Reaction: No - INTEGUMENTARY Other/Comment: RT FOOT ULCER - MUSCULOSKELETAL/RHEUMATOLOGICAL Hx Falls: Yes - GASTROINTESTINAL Hx Gall Bladder Disease: Yes - GENITOURINARY/GYNECOLOGICAL Hx Genitourinary Disorders: No - PSYCHIATRIC Hx Anxiety: Yes Hx Depression: No - SURGICAL HISTORY Hx Cholecystectomy: Yes - ANESTHESIA Hx Anesthesia Reactions: No Hx Malignant Hyperthermia: No Meds Allergies/Adverse Reactions: Allergies Allergy/AdvReac Type Severity Reaction Status Date / Time No Known Allergies Allergy Verified 12/30/15 17:31 - Medications Medications: Current Medications Alprazolam (Xanax) 0.5 mg PO TID PRN PRN Reason: Anxiety Last Admin: 09/29/17 21:35 Dose: 0.5 mg Aspirin (Aspirin Chewable) 81 mg PO DAILY [facility] Atorvastatin Calcium (Lipitor) 20 mg PO HS [facility] Last Admin: 09/29/17 21:33 Dose: 20 mg Carvedilol (Coreg) 3.125 mg PO Q12 [facility] Last Admin: 09/29/17 21:32 Dose: 3.125 mg Glipizide (Glucotrol) 5 mg PO BID [facility] Heparin Sodium (Porcine) (Heparin) 5,000 units SC Q8 [facility] PRN Reason: Protocol Last Admin: 09/30/17 00:03 Dose: 5,000 units Hydrochlorothiazide (Microzide) 12.5 mg PO DAILY [facility] Vancomycin HCl 1 gm/ Sodium (Chloride) 250 mls @ 166.667 mls/hr IVPB Q12@0500, 1700 [facility] PRN Reason: Protocol Last Admin: 09/30/17 04:40 Dose: 166.667 mls/hr Insulin Detemir (Levemir) 25 units SC AMHS [facility] Last Admin: 09/29/17 21:33 Dose: 25 units Insulin Human Lispro (Humalog) 0 units SC ACHS [facility] PRN Reason: Protocol Last Admin: 09/30/17 07:06 Dose: Not Given Lactobacillus Acidophilus (Bacid Acidophilus) 1 cap PO BID [facility] Losartan Potassium (Cozaar) 100 mg PO DAILY [facility] Metformin HCl (Glucophage) 1,000 mg PO BIDWM [facility] Oxycodone HCl (Oxycontin Extended Release Tab) 30 mg PO Q12 [facility] Stop: 10/02/17 21:01 Last Admin: 09/29/17 21:26 Dose: 30 mg Oxycodone HCl (Oxycodone Immediate Release Tab) 30 mg PO QID PRN PRN Reason: Pain, moderate (4-7) Last Admin: 09/30/17 06:02 Dose: 30 mg Physical Exam - Constitutional Appears: Well, Non-toxic, No Acute Distress - Extremities Exam Additional comments: Lower extremity exam: VASC: DP/PT pulses are palpable 2/4 B/L. CFT < 3 sec to all digits. Temperature gradient warm to warm to B/L lower extremities. Diffuse non-pitting edema noted to RLE, decreased from yesterday. DERM: Sutures intact to surgical site. Dehiscence is noted to surgical incision site with open wound measuring 0.7cm x 2.5cm x 0.1cm jnoted to interspace b/n 1st and 3rd toes. Wound base is 90% granular with minor fibrotic tissue noted to medial aspect. Minimal area of maceration noted to skin surrounding surgical site which is resolving. Otherwise no open lesions, wounds, maceration, xerosis , abnormal pigmentation or abnormal growths noted. NEURO: Protective sensation grossly diminished ORTHO: Amputation of second digit noted right foot. No tenderness noted upon palpation of surgical site. - Neurological Exam Neurological exam: Alert, Oriented x3 - Psychiatric Exam Psychiatric exam: Normal Affect, Normal Mood Results - Vital Signs Recent Vital Signs: Last Vital Signs Temp 97.7 F 09/29/17 20:48 Pulse 60 09/29/17 21:32 Resp 20 09/29/17 20:48 BP 165/64 H 09/29/17 21:32 Pulse Ox 97 09/29/17 20:48 - Labs Result Diagrams: 09/30/17 09:54 Labs: Laboratory Results - last 24 hr 09/29/17 09/30/17 09/30/17 20:11 06:30 06:55 POC Glucose (mg/dL) 229 H 91 Vancomycin Trough 23.0 H Assessment & Plan - Assessment and Plan (Free Text) Assessment: 62 year old male seen at bedside five days s/p right foot partial second ray amputation, resection of third proximal phalanx and biopsy of hallux distal phalanx Plan: Patient seen and evaluated at bedside Minimal bloody strikethrough noted to dressing Plan discussed with Dr. Ramirez Afebrile, absent leukocytosis, NNL today Extremity U/S (-) for DVT Intra-op wound cx positive for MRSA Continue IV abx in TCU per ID - Vanc/Zosyn regimen At this time, WB status changed to PWB to heel only on RLE to allow adequate healing of surgical incision site with wound Continue PT Surgical site dressed with betadine, gauze, kerlix, and light LUBA Podiatry will continue to follow while patient is in house
[2017-09-30] MEDS: Insulin Detemir 100 Units/ml Inj SC SCH ×2 (09:28→21:18)
[2017-09-30] MEDS: oxyCODONE 10 mg ER Tab (oxyCONTIN) PO SCH ×2 (09:35→21:16)
[2017-09-30] MEDS: Lactobacillus Acidophilus 500 MU Cap PO SCH ×2 (09:35→16:53)
[2017-09-30 10:05] LABS: BASO % 0.2 % (0.0-2.0); EOS # 0.3 K/uL (0.0-0.7); HEMOGLOBIN 10.6 g/dL (12.0-18.0); LYMPH # 2.1 K/uL (1.0-4.3); LYMPH % 30.4 % (20.0-40.0); MEAN CELL VOLUME 90.4 fl (80.0-94.0); MEAN CORPUSCULAR HEMOGLOBIN 28.9 pg (27.0-31.0); MEAN PLATELET VOLUME 8.4 fl (7.2-11.7); MONO # 0.5 K/uL (0.0-0.8); NEUT % 58.4 % (50.0-75.0); RBC 3.67 Mil/uL (4.40-5.90); RED CELL DISTRIBUTION WIDTH 14.2 % (11.5-14.5); WHITE BLOOD COUNT 6.9 K/uL (4.8-10.8)
[2017-09-30 17:42] VITALS: RESP 20
--- NOTE | 2017-10-01 07:04 | CP.PCM.PN ---
Subjective - Date & Time of Evaluation Date of Evaluation: 10/01/17 Time of Evaluation: 15:39 - Subjective Subjective: 62 year old male seen at bedside in TCU six days s/p partial second ray amputation, resection of third proximal phalanx and biopsy of hallux distal phalanx, all of right foot. Patient is AAO x 3 and NAD resting comfortably in bed at time of visit. Denies any acute events overnight. States he is doing his best to only bear weight on his heel but is concerned about leaving here with a rolling walker. States pain is well controlled today. Denies F/C/N/V/CP/SOB. Objective - Vital Signs/Intake and Output Vital Signs (last 24 hours): Temp Pulse Resp BP Pulse Ox 97.9 F 64 20 147/74 96 09/30/17 19:40 10/01/17 01:21 09/30/17 19:40 10/01/17 01:21 09/30/17 19:40 - Medications Medications: Current Medications Alprazolam (Xanax) 0.5 mg PO TID PRN PRN Reason: Anxiety Last Admin: 09/30/17 14:00 Dose: 0.5 mg Aspirin (Aspirin Chewable) 81 mg PO DAILY [facility] Last Admin: 09/30/17 09:36 Dose: 81 mg Atorvastatin Calcium (Lipitor) 20 mg PO HS [facility] Last Admin: 09/30/17 21:19 Dose: 20 mg Carvedilol (Coreg) 3.125 mg PO Q12 [facility] Last Admin: 10/01/17 01:21 Dose: 3.125 mg Glipizide (Glucotrol) 5 mg PO BID [facility] Last Admin: 09/30/17 16:53 Dose: 5 mg Heparin Sodium (Porcine) (Heparin) 5,000 units SC Q8 [facility] PRN Reason: Protocol Last Admin: 10/01/17 01:18 Dose: 5,000 units Hydrochlorothiazide (Microzide) 12.5 mg PO DAILY [facility] Last Admin: 09/30/17 09:35 Dose: 12.5 mg Vancomycin HCl 1 gm/ Sodium (Chloride) 250 mls @ 166.667 mls/hr IVPB DAILY@ 1700 [facility] PRN Reason: Protocol Insulin Detemir (Levemir) 25 units SC AMHS [facility] Last Admin: 09/30/17 21:18 Dose: 25 units Insulin Human Lispro (Humalog) 0 units SC ACHS [facility] PRN Reason: Protocol Last Admin: 09/30/17 21:19 Dose: Not Given Lactobacillus Acidophilus (Bacid Acidophilus) 1 cap PO BID [facility] Last Admin: 09/30/17 16:53 Dose: 1 cap Losartan Potassium (Cozaar) 100 mg PO DAILY [facility] Last Admin: 09/30/17 09:34 Dose: Not Given Metformin HCl (Glucophage) 1,000 mg PO BIDWM [facility] Last Admin: 09/30/17 16:53 Dose: 1,000 mg Oxycodone HCl (Oxycontin Extended Release Tab) 30 mg PO Q12 [facility] Stop: 10/02/17 21:01 Last Admin: 09/30/17 21:16 Dose: 30 mg Oxycodone HCl (Oxycodone Immediate Release Tab) 30 mg PO QID PRN PRN Reason: Pain, moderate (4-7) Last Admin: 09/30/17 18:52 Dose: 30 mg - Labs Labs: 09/30/17 09:54 - Constitutional Appears: Well, Non-toxic, No Acute Distress - Extremities Exam Additional comments: Lower extremity exam: VASC: DP/PT pulses are palpable 2/4 B/L. CFT < 3 sec to all digits. Temperature gradient warm to warm to B/L lower extremities. Diffuse non-pitting edema noted to RLE, decreasing. DERM: Sutures intact to surgical site. Dehiscence is noted to surgical incision site with open wound measuring 0.7cm x 2.5cm x 0.1cm noted to interspace b/n 1st and 3rd digits. Wound base is 90% granular with minor fibrotic tissue noted to medial aspect. Mild maceration which is resolving since yesterday noted to skin surrounding surgical site. Otherwise no open lesions, wounds, maceration, xerosis, abnormal pigmentation or abnormal growths noted. NEURO: Protective sensation grossly diminished ORTHO: Amputation of second digit noted right foot. No tenderness noted upon palpation of surgical site. - Neurological Exam Neurological Exam: Alert, Awake, Oriented x3 - Psychiatric Exam Psychiatric exam: Normal Affect, Normal Mood Assessment and Plan - Assessment and Plan (Free Text) Assessment: 62 year old male seen at bedside six days s/p right foot partial second ray amputation, resection of third proximal phalanx and biopsy of hallux distal phalanx Plan: Patient seen and evaluated at bedside Minimal bloody strikethrough noted to dressing Plan discussed with Dr. Ramirez Afebrile, WBC 6.9 Extremity U/S (-) for DVT Intra-op wound cx positive for MRSA Continue IV abx in TCU per ID - Vanc/Zosyn regimen Discharge planned for Wednesday following completion of IV abx Continue PWB to heel only on RLE to allow adequate healing of surgical incision site with wound Rx forefoot offloading shoe for gait assistance Continue PT Surgical site cleansed with sterile saline and dressed with betadine, gauze, kerlix, and light LUBA Podiatry will continue to follow while patient is in house
[2017-10-01] MEDS: Insulin Detemir 100 Units/ml Inj SC SCH ×2 (08:23→21:23)
[2017-10-01] MEDS: Lactobacillus Acidophilus 500 MU Cap PO SCH ×2 (08:25→17:33)
[2017-10-01] MEDS: oxyCODONE 10 mg ER Tab (oxyCONTIN) PO SCH ×2 (08:25→20:43)
[2017-10-01] MEDS: Insulin Lispro (humaLOG) 100 Units/ml Inj SC SCH ×4 (08:26→21:22)
--- NOTE | 2017-10-01 12:27 | CP.PCM.CON ---
History of Present Illness - History of Present Illness History of Present Illness: 62 year old male seen at bedside in TCU five days s/p partial second ray amputation, resection of third proximal phalanx and biopsy of hallux distal phalanx, all of right foot. Patient is AAO x 3 and NAD resting comfortably in bed. Review of Systems - Constitutional Constitutional: As Per HPI - EENT Eyes: absent: As Per HPI, Blind Spots, Blurred Vision, Change in Vision, Decreased Night Vision, Diplopia, Discharge, Dry Eye, Exophthalmos, Floaters, Irritation, Itchy Eyes, Loss of Peripheral Vision, Pain, Photophobia, Requires Corrective Lenses, Sees Flashes, Spots in Vision, Tunnel Vision, Other Visual Disturbances, Loss of Vision, Other Ears: absent: As Per HPI, Decreased Hearing, Ear Discharge, Ear Pain, Tinnitus, Abnormal Hearing, Disequilibrium, Dizziness, Other Nose/Mouth/Throat: absent: As Per HPI, Epistaxis, Nasal Congestion, Nasal Discharge, Nasal Obstruction, Nasal Trauma, Nose Pain, Post Nasal Drip, Sinus Pain, Sinus Pressure, Bleeding Gums, Change in Voice, Dental Pain, Dry Mouth, Dysphagia, Halitosis, Hoarsness, Lip Swelling, Mouth Lesions, Mouth Pain, Odynophagia, Sore Throat, Throat Swelling, Tongue Swelling, Facial Pain, Neck Pain, Neck Mass, Other - Cardiovascular Cardiovascular: absent: As Per HPI, Acrocyanosis, Chest Pain, Chest Pain at Rest , Chest Pain with Activity, Claudication, Diaphoresis, Dyspnea, Dyspnea on Exertion, Edema, Irregular Heart Rhythm, Pain Radiating to Arm/Neck/Jaw, Leg Edema, Leg Ulcers, Lightheadedness, Orthopnea, Palpitations, Paroxysmal Nocturnal Dyspnea, Pedal Edema, Radiating Pain, Rapid Heart Rate, Slow Heart Rate, Syncope, Other - Respiratory Respiratory: absent: As Per HPI, Cough, Dyspnea, Hemoptysis, Dyspnea on Exertion , Wheezing, Snoring, Stridor, Pain on Inspiration, Chest Congestion, Excessive Mucous Production, Change in Mucous Color, Pain with Coughing, Other - Gastrointestinal Gastrointestinal: absent: As Per HPI, Abdominal Pain, Belching, Bloating, Change in Bowel Habits, Change in Stool Character, Coffee Ground Emesis, Constipation, Cramping, Diarrhea, Dyspepsia, Dysphagia, Early Satiety, Excessive Flatus, Fecal Incontinence, Heartburn, Hematemesis, Hematochezia, Loose Stools, Melena, Nausea, Odynophagia, Temesmus, Vomiting, Other - Genitourinary Genitourinary: absent: As Per HPI, Change in Urinary Stream, Difficulty Urinating, Dysuria, Flank Pain, Hematuria, Pyuria, Nocturia, Urinary Incontinence, Urinary Frequency, Urinary Hesitance, Urinary Urgency, Voiding Freq/Small Amts, Freq UTI, Hx Renal/Bladder Calculi, Hx /Renal Surgery, Bladder Distension, Other - Musculoskeletal Musculoskeletal: As Per HPI - Integumentary Integumentary: As Per HPI, Skin Pain, Wounds - Neurological Neurological: As Per HPI - Psychiatric Psychiatric: absent: As Per HPI, Abnormal Sleep Pattern, Anhedonia, Anxiety, Auditory Hallucinations, Behavioral Changes, Change in Appetite, Change in Libido, Confusion, Depression, Difficulty Concentrating, Hallucinations, Homicidal Ideation, Hopelessness, Irritability, Memory Loss, Mood Swings, Panic Attacks, Paranoia, Suicidal Ideation, Visual Hallucinations, Tactile Hallucinations, Other - Endocrine Endocrine: absent: As Per HPI, Change in Body Appearance, Change in Libido, Cold Intolorance, Deepening of Voice, Excessive Sweating, Fatigue, Flushing, Heat Intolorance, Increase in Ring/Shoe/Hat Size, Palpitations, Polydipsia, Polyphagia, Polyuria, Other - Hematologic/Lymphatic Hematologic: absent: As Per HPI, Easy Bleeding, Easy Bruising, Lymphadenopathy, Other Past Patient History - Infectious Disease Hx of Infectious Diseases: None - Tetanus Immunizations Tetanus Immunization: Unknown - Past Medical History & Family History Past Medical History?: Yes - Past Social History Smoking Status: Former Smoker - CARDIAC Hx Cardiac Disorders: Yes - PULMONARY Hx Bronchitis: Yes Hx Chronic Obstructive Pulmonary Disease (COPD): Yes Hx Pneumonia: Yes - NEUROLOGICAL Hx Neurological Disorder: No - HEENT Hx Cataracts: Yes (CHANEL SX) - RENAL Hx Chronic Kidney Disease: No - ENDOCRINE/METABOLIC Hx Diabetes Mellitus Type 2: Yes - HEMATOLOGICAL/ONCOLOGICAL Hx Blood Transfusions: No Hx Blood Transfusion Reaction: No - INTEGUMENTARY Other/Comment: RT FOOT ULCER - MUSCULOSKELETAL/RHEUMATOLOGICAL Hx Falls: Yes - GASTROINTESTINAL Hx Gall Bladder Disease: Yes - GENITOURINARY/GYNECOLOGICAL Hx Genitourinary Disorders: No - PSYCHIATRIC Hx Anxiety: Yes Hx Depression: No - SURGICAL HISTORY Hx Cholecystectomy: Yes - ANESTHESIA Hx Anesthesia Reactions: No Hx Malignant Hyperthermia: No Meds Allergies/Adverse Reactions: Allergies Allergy/AdvReac Type Severity Reaction Status Date / Time No Known Allergies Allergy Verified 12/30/15 17:31 - Medications Medications: Current Medications Alprazolam (Xanax) 0.5 mg PO TID PRN PRN Reason: Anxiety Last Admin: 09/30/17 14:00 Dose: 0.5 mg Aspirin (Aspirin Chewable) 81 mg PO DAILY [facility] Last Admin: 10/01/17 08:25 Dose: 81 mg Atorvastatin Calcium (Lipitor) 20 mg PO HS [facility] Last Admin: 09/30/17 21:19 Dose: 20 mg Carvedilol (Coreg) 3.125 mg PO Q12 [facility] Last Admin: 10/01/17 08:15 Dose: Not Given Glipizide (Glucotrol) 5 mg PO BID [facility] Last Admin: 10/01/17 08:25 Dose: 5 mg Heparin Sodium (Porcine) (Heparin) 5,000 units SC Q8 [facility] PRN Reason: Protocol Last Admin: 10/01/17 08:24 Dose: 5,000 units Hydrochlorothiazide (Microzide) 12.5 mg PO DAILY [facility] Last Admin: 10/01/17 09:58 Dose: 12.5 mg Vancomycin HCl 1 gm/ Sodium (Chloride) 250 mls @ 166.667 mls/hr IVPB DAILY@ 1700 [facility] PRN Reason: Protocol Insulin Detemir (Levemir) 25 units SC AMHS [facility] Last Admin: 10/01/17 08:23 Dose: 25 units Insulin Human Lispro (Humalog) 0 units SC ACHS [facility] PRN Reason: Protocol Last Admin: 10/01/17 08:26 Dose: Not Given Lactobacillus Acidophilus (Bacid Acidophilus) 1 cap PO BID [facility] Last Admin: 10/01/17 08:25 Dose: 1 cap Losartan Potassium (Cozaar) 100 mg PO DAILY [facility] Last Admin: 10/01/17 09:58 Dose: 100 mg Metformin HCl (Glucophage) 1,000 mg PO BIDWM [facility] Last Admin: 10/01/17 08:25 Dose: 1,000 mg Oxycodone HCl (Oxycontin Extended Release Tab) 30 mg PO Q12 [facility] Stop: 10/02/17 21:01 Last Admin: 10/01/17 08:25 Dose: 30 mg Oxycodone HCl (Oxycodone Immediate Release Tab) 30 mg PO QID PRN PRN Reason: Pain, moderate (4-7) Last Admin: 09/30/17 18:52 Dose: 30 mg Physical Exam - Constitutional Appears: Non-toxic, Chronically Ill - Head Exam Head Exam: NORMOCEPHALIC - Eye Exam Eye Exam: PERRL. absent: Scleral icterus - ENT Exam ENT Exam: Mucous Membranes Dry - Neck Exam Neck exam: Negative for: Lymphadenopathy - Respiratory Exam Respiratory Exam: Decreased Breath Sounds - Cardiovascular Exam Cardiovascular Exam: REGULAR RHYTHM - GI/Abdominal Exam GI & Abdominal Exam: Diminished Bowel Sounds, Soft. absent: Tenderness - Rectal Exam Rectal Exam: Deferred - Exam Exam: NORMAL INSPECTION - Extremities Exam Extremities exam: Positive for: pedal edema, tenderness, pedal pulses present. Negative for: calf tenderness Additional comments: Lower extremity exam: VASC: DP/PT pulses are palpable 2/4 B/L. CFT < 3 sec to all digits. Temperature gradient warm to warm to B/L lower extremities. Diffuse non-pitting edema noted to RLE, decreased from yesterday. DERM: Sutures intact to surgical site. Dehiscence is noted to surgical incision site with open wound measuring 0.7cm x 2.5cm x 0.1cm jnoted to interspace b/n 1st and 3rd toes. Wound base is 90% granular with minor fibrotic tissue noted to medial aspect. Minimal area of maceration noted to skin surrounding surgical site which is resolving. Otherwise no open lesions, wounds, maceration, xerosis , abnormal pigmentation or abnormal growths noted. NEURO: Protective sensation grossly diminished ORTHO: Amputation of second digit noted right foot. No tenderness noted upon palpation of surgical site. - Back Exam Back exam: absent: CVA tenderness (L), CVA tenderness (R) - Neurological Exam Neurological exam: Alert, CN II-XII Intact, Oriented x3, Reflexes Normal - Psychiatric Exam Psychiatric exam: Depressed - Skin Skin Exam: Dry Results - Vital Signs Recent Vital Signs: Last Vital Signs Temp 98.3 F 10/01/17 10:44 Pulse 54 L 10/01/17 10:44 Resp 20 10/01/17 10:44 BP 136/81 10/01/17 10:44 Pulse Ox 97 10/01/17 10:44 - Labs Result Diagrams: 09/30/17 09:54 Labs: Laboratory Results - last 24 hr 09/30/17 09/30/17 10/01/17 15:48 20:45 06:33 POC Glucose (mg/dL) 165 H 158 H 82 10/01/17 10/01/17 08:40 11:05 POC Glucose (mg/dL) 95 129 H Assessment & Plan (1) Osteomyelitis due to type 2 diabetes mellitus Status: Acute (2) Osteomyelitis due to type 2 diabetes mellitus Status: Acute (3) Cellulitis Status: Acute (4) Gangrene of toe Status: Acute Priority: High (5) Diabetes mellitus Status: Chronic Priority: High - Assessment and Plan (Free Text) Assessment: hx MRSA OM and gangrene s/p amputation has wound dehissence may need intermediate IV rx await Bx / Cultures
[2017-10-01] MEDS: oxyCODONE 10 mg Immediate Release Tab PO PRN (15:16)
[2017-10-02] MEDS: Insulin Lispro (humaLOG) 100 Units/ml Inj SC SCH ×4 (06:40→22:15)
[2017-10-02] MEDS: oxyCODONE 10 mg Immediate Release Tab PO PRN ×2 (07:39→14:39)
[2017-10-02] MEDS: Insulin Detemir 100 Units/ml Inj SC SCH ×2 (09:11→21:42)
[2017-10-02] MEDS: Lactobacillus Acidophilus 500 MU Cap PO SCH ×2 (09:15→16:55)
[2017-10-02] MEDS: oxyCODONE 10 mg ER Tab (oxyCONTIN) PO SCH ×3 (09:17→22:16)
--- NOTE | 2017-10-02 13:22 | CP.PCM.PN ---
Subjective - Date & Time of Evaluation Date of Evaluation: 10/02/17 Time of Evaluation: 15:48 - Subjective Subjective: 62 year old male seen at bedside in TCU 1 week s/p partial second ray amputation , resection of third proximal phalanx and biopsy of hallux distal phalanx, all of right foot. Patient is ambulating in surgical shoe at time of visit, stating he finds it hard to walk in the shoe without putting weight on the toes. Denies any acute events overnight. States pain is well controlled and decreasing over the last few days. Denies F/C/N/V/CP/SOB. Objective - Vital Signs/Intake and Output Vital Signs (last 24 hours): Temp Pulse Resp BP Pulse Ox 97.9 F 58 L 20 147/62 99 10/02/17 08:06 10/02/17 09:17 10/02/17 08:06 10/02/17 09:15 10/02/17 08:06 - Medications Medications: Current Medications Alprazolam (Xanax) 0.5 mg PO TID PRN PRN Reason: Anxiety Last Admin: 10/01/17 12:47 Dose: 0.5 mg Aspirin (Aspirin Chewable) 81 mg PO DAILY [facility] Last Admin: 10/02/17 09:16 Dose: 81 mg Atorvastatin Calcium (Lipitor) 20 mg PO HS [facility] Last Admin: 10/01/17 21:03 Dose: 20 mg Carvedilol (Coreg) 3.125 mg PO Q12 [facility] Last Admin: 10/02/17 09:17 Dose: Not Given Glipizide (Glucotrol) 5 mg PO BID [facility] Last Admin: 10/02/17 09:13 Dose: 5 mg Heparin Sodium (Porcine) (Heparin) 5,000 units SC Q8 [facility] PRN Reason: Protocol Last Admin: 10/02/17 09:12 Dose: 5,000 units Hydrochlorothiazide (Microzide) 12.5 mg PO DAILY [facility] Last Admin: 10/02/17 09:16 Dose: 12.5 mg Vancomycin HCl 1 gm/ Sodium (Chloride) 250 mls @ 166.667 mls/hr IVPB DAILY@ 1700 [facility] PRN Reason: Protocol Last Admin: 10/01/17 17:41 Dose: 166.667 mls/hr Insulin Detemir (Levemir) 25 units SC AMHS [facility] Last Admin: 10/02/17 09:11 Dose: 25 units Insulin Human Lispro (Humalog) 0 units SC ACHS [facility] PRN Reason: Protocol Last Admin: 10/02/17 13:00 Dose: 2 u Lactobacillus Acidophilus (Bacid Acidophilus) 1 cap PO BID [facility] Last Admin: 10/02/17 09:15 Dose: 1 cap Losartan Potassium (Cozaar) 100 mg PO DAILY [facility] Last Admin: 10/02/17 09:15 Dose: 100 mg Metformin HCl (Glucophage) 1,000 mg PO BIDWM [facility] Last Admin: 10/02/17 09:13 Dose: 1,000 mg Oxycodone HCl (Oxycontin Extended Release Tab) 30 mg PO Q12 [facility] Stop: 10/02/17 21:01 Last Admin: 10/02/17 09:17 Dose: 30 mg Oxycodone HCl (Oxycodone Immediate Release Tab) 30 mg PO QID PRN PRN Reason: Pain, moderate (4-7) Last Admin: 10/02/17 07:39 Dose: 30 mg - Labs Labs: 09/30/17 09:54 - Constitutional Appears: Well, Non-toxic, No Acute Distress - Extremities Exam Additional comments: Lower extremity exam: VASC: DP/PT pulses are palpable 2/4 B/L. CFT < 3 sec to all digits. Temperature gradient warm to warm to B/L lower extremities. Diffuse non-pitting edema noted to RLE, decreasing. DERM: Sutures intact to surgical site. Surgical incision site dehiscence is noted to surgical incision site with open wound measuring 0.6cm x 2.3cm x 0.1cm noted to interspace b/n 1st and 3rd digits. Wound base is 90-95% granular with minor fibrotic tissue noted within wound bed. No maceration noted at this time. Otherwise no open lesions, wounds, maceration, xerosis, abnormal pigmentation or abnormal growths noted. NEURO: Protective sensation grossly diminished ORTHO: Amputation of second digit noted right foot. No tenderness noted upon palpation of surgical site. - Neurological Exam Neurological Exam: Alert, Awake, Oriented x3 - Psychiatric Exam Psychiatric exam: Normal Affect, Normal Mood Assessment and Plan - Assessment and Plan (Free Text) Assessment: 62 year old male seen at bedside 1 week s/p right foot partial second ray amputation, resection of third proximal phalanx and biopsy of hallux distal phalanx Plan: Patient seen and evaluated at bedside Minimal bloody strikethrough noted to dressing Plan discussed with Dr. James Bolton, NNL today Surgical site cleansed with sterile saline and dressed with betadine, gauze, kerlix, and light LUBA Intra-op wound cx positive for MRSA Continue IV abx in TCU per ID - d/c planned for Wednesday following completion of IV abx Continue PWB to heel on RLE to allow adequate healing of wound site Rx forefoot offloading shoe for gait assistance Continue PT Podiatry will continue to follow while patient is in house
--- NOTE | 2017-10-03 00:03 | CP.PCM.HP ---
History of Present Illness - History of Present Illness History of Present Illness: CC: S/P Right Third Proximal Phalax, and on IV Vancomycin and Wound Care History of Present Illness: A 62 year old male with H/O seen at bedside in TCU five days s/p partial second ray amputation, resection of third proximal phalanx and biopsy of hallux distal phalanx. Patient is AAO x 3 and NAD resting comfortably in bed. Patient states that his pain is persisting but decreased since the last few days. Patient states pain medications are helping. Admits to walking a lot with the surgical Shoes, both with PT and on his own up and down the floors. Admits to mild discomfort in his right calf. Redness and swelling of the lower leg has improved. Denies F/C/N/V/CP/SOB. Has no other pedal complaints at this time. Past Patient History - Infectious Disease Hx of Infectious Diseases: None - Tetanus Immunizations Tetanus Immunization: Unknown - Past Medical History & Family History Past Medical History?: Yes - Past Social History Smoking Status: Former Smoker - CARDIAC Hx Cardiac Disorders: Yes - PULMONARY Hx Bronchitis: Yes Hx Chronic Obstructive Pulmonary Disease (COPD): Yes Hx Pneumonia: Yes - NEUROLOGICAL Hx Neurological Disorder: No - HEENT Hx Cataracts: Yes (CHANEL SX) - RENAL Hx Chronic Kidney Disease: No - ENDOCRINE/METABOLIC Hx Diabetes Mellitus Type 2: Yes - HEMATOLOGICAL/ONCOLOGICAL Hx Blood Transfusions: No Hx Blood Transfusion Reaction: No - INTEGUMENTARY Other/Comment: RT FOOT ULCER - MUSCULOSKELETAL/RHEUMATOLOGICAL Hx Falls: Yes - GASTROINTESTINAL Hx Gall Bladder Disease: Yes - GENITOURINARY/GYNECOLOGICAL Hx Genitourinary Disorders: No - PSYCHIATRIC Hx Anxiety: Yes Hx Depression: No - SURGICAL HISTORY Hx Cholecystectomy: Yes - ANESTHESIA Hx Anesthesia Reactions: No Hx Malignant Hyperthermia: No Meds Allergies/Adverse Reactions: Allergies Allergy/AdvReac Type Severity Reaction Status Date / Time No Known Allergies Allergy Verified 12/30/15 17:31 Results - Vital Signs Recent Vital Signs: Last Vital Signs Temp 97.9 F 10/02/17 19:32 Pulse 54 L 10/02/17 21:37 Resp 20 10/02/17 19:32 BP 139/58 L 10/02/17 19:32 Pulse Ox 95 10/02/17 19:32 - Labs Result Diagrams: 09/30/17 09:54 Labs: Laboratory Results - last 24 hr 10/02/17 10/02/17 10/02/17 05:32 07:41 10:40 POC Glucose (mg/dL) 77 96 236 H Vancomycin Trough 10/02/17 10/02/17 10/02/17 15:52 16:39 20:37 POC Glucose (mg/dL) 117 H 125 H Vancomycin Trough 6.7
--- NOTE | 2017-10-03 00:04 | CP.PCM.PN ---
Subjective - Date & Time of Evaluation Date of Evaluation: 10/01/17 Time of Evaluation: 14:45 Objective - Vital Signs/Intake and Output Vital Signs (last 24 hours): Temp Pulse Resp BP Pulse Ox 97.9 F 54 L 20 139/58 L 95 10/02/17 19:32 10/02/17 21:37 10/02/17 19:32 10/02/17 19:32 10/02/17 19:32 - Medications Medications: Current Medications Alprazolam (Xanax) 0.5 mg PO TID PRN PRN Reason: Anxiety Last Admin: 10/02/17 18:42 Dose: 0.5 mg Aspirin (Aspirin Chewable) 81 mg PO DAILY [facility] Last Admin: 10/02/17 09:16 Dose: 81 mg Atorvastatin Calcium (Lipitor) 20 mg PO HS [facility] Last Admin: 10/02/17 21:42 Dose: 20 mg Carvedilol (Coreg) 3.125 mg PO Q12 [facility] Last Admin: 10/02/17 21:37 Dose: Not Given Glipizide (Glucotrol) 5 mg PO BID [facility] Last Admin: 10/02/17 16:55 Dose: 5 mg Heparin Sodium (Porcine) (Heparin) 5,000 units SC Q8 [facility] PRN Reason: Protocol Last Admin: 10/02/17 16:56 Dose: 5,000 units Hydrochlorothiazide (Microzide) 12.5 mg PO DAILY [facility] Last Admin: 10/02/17 09:16 Dose: 12.5 mg Vancomycin HCl 1 gm/ Sodium (Chloride) 250 mls @ 166.667 mls/hr IVPB Q12@0500, 1700 [facility] PRN Reason: Protocol Insulin Detemir (Levemir) 25 units SC [facility] Last Admin: 10/02/17 21:42 Dose: 25 units Insulin Human Lispro (Humalog) 0 units SC ACHS [facility] PRN Reason: Protocol Last Admin: 10/02/17 22:15 Dose: Not Given Lactobacillus Acidophilus (Bacid Acidophilus) 1 cap PO BID [facility] Last Admin: 10/02/17 16:55 Dose: 1 cap Losartan Potassium (Cozaar) 100 mg PO DAILY [facility] Last Admin: 10/02/17 09:15 Dose: 100 mg Metformin HCl (Glucophage) 1,000 mg PO BIDWM [facility] Last Admin: 10/02/17 16:56 Dose: 1,000 mg Oxycodone HCl (Oxycodone Immediate Release Tab) 30 mg PO QID PRN PRN Reason: Pain, moderate (4-7) Last Admin: 10/02/17 14:39 Dose: 30 mg Oxycodone HCl (Oxycontin Extended Release Tab) 30 mg PO Q12 [facility] Stop: 10/05/17 21:46 Last Admin: 10/02/17 22:16 Dose: 30 mg - Labs Labs: 09/30/17 09:54
--- NOTE | 2017-10-03 00:05 | CP.PCM.PN ---
Subjective - Date & Time of Evaluation Date of Evaluation: 10/02/17 Time of Evaluation: 16:00 Objective - Vital Signs/Intake and Output Vital Signs (last 24 hours): Temp Pulse Resp BP Pulse Ox 97.9 F 54 L 20 139/58 L 95 10/02/17 19:32 10/02/17 21:37 10/02/17 19:32 10/02/17 19:32 10/02/17 19:32 - Medications Medications: Current Medications Alprazolam (Xanax) 0.5 mg PO TID PRN PRN Reason: Anxiety Last Admin: 10/02/17 18:42 Dose: 0.5 mg Aspirin (Aspirin Chewable) 81 mg PO DAILY [facility] Last Admin: 10/02/17 09:16 Dose: 81 mg Atorvastatin Calcium (Lipitor) 20 mg PO HS [facility] Last Admin: 10/02/17 21:42 Dose: 20 mg Carvedilol (Coreg) 3.125 mg PO Q12 [facility] Last Admin: 10/02/17 21:37 Dose: Not Given Glipizide (Glucotrol) 5 mg PO BID [facility] Last Admin: 10/02/17 16:55 Dose: 5 mg Heparin Sodium (Porcine) (Heparin) 5,000 units SC Q8 [facility] PRN Reason: Protocol Last Admin: 10/02/17 16:56 Dose: 5,000 units Hydrochlorothiazide (Microzide) 12.5 mg PO DAILY [facility] Last Admin: 10/02/17 09:16 Dose: 12.5 mg Vancomycin HCl 1 gm/ Sodium (Chloride) 250 mls @ 166.667 mls/hr IVPB Q12@0500, 1700 [facility] PRN Reason: Protocol Insulin Detemir (Levemir) 25 units SC AMHS [facility] Last Admin: 10/02/17 21:42 Dose: 25 units Insulin Human Lispro (Humalog) 0 units SC ACHS [facility] PRN Reason: Protocol Last Admin: 10/02/17 22:15 Dose: Not Given Lactobacillus Acidophilus (Bacid Acidophilus) 1 cap PO BID [facility] Last Admin: 10/02/17 16:55 Dose: 1 cap Losartan Potassium (Cozaar) 100 mg PO DAILY [facility] Last Admin: 10/02/17 09:15 Dose: 100 mg Metformin HCl (Glucophage) 1,000 mg PO BIDWM [facility] Last Admin: 10/02/17 16:56 Dose: 1,000 mg Oxycodone HCl (Oxycodone Immediate Release Tab) 30 mg PO QID PRN PRN Reason: Pain, moderate (4-7) Last Admin: 10/02/17 14:39 Dose: 30 mg Oxycodone HCl (Oxycontin Extended Release Tab) 30 mg PO Q12 [facility] Stop: 10/05/17 21:46 Last Admin: 10/02/17 22:16 Dose: 30 mg - Labs Labs: 09/30/17 09:54
[2017-10-03] MEDS: Insulin Lispro (humaLOG) 100 Units/ml Inj SC SCH ×4 (07:20→21:47)
[2017-10-03] MEDS: Lactobacillus Acidophilus 500 MU Cap PO SCH ×2 (08:11→17:11)
[2017-10-03] MEDS: Insulin Detemir 100 Units/ml Inj SC SCH ×2 (08:13→21:49)
[2017-10-03] MEDS: oxyCODONE 10 mg ER Tab (oxyCONTIN) PO SCH ×2 (08:14→21:50)
--- NOTE | 2017-10-03 10:34 | CP.PCM.PN ---
Subjective - Date & Time of Evaluation Date of Evaluation: 10/03/17 Time of Evaluation: 10:34 - Subjective Subjective: 62 year old male seen at bedside in TCU 8 days s/p partial second ray amputation , resection of third proximal phalanx and biopsy of hallux distal phalanx, all of right foot. Patient is resting in bed at time of visit. Admits to having spasmodic and throbbing type pain in the surgical site overnight, but states the pain medicines are helping. Denies F/C/N/V/CP/SOB Objective - Vital Signs/Intake and Output Vital Signs (last 24 hours): Temp Pulse Resp BP Pulse Ox 97.7 F 60 20 132/62 99 10/03/17 07:57 10/03/17 08:13 10/03/17 07:57 10/03/17 08:13 10/03/17 07:57 - Medications Medications: Current Medications Alprazolam (Xanax) 0.5 mg PO TID PRN PRN Reason: Anxiety Last Admin: 10/02/17 18:42 Dose: 0.5 mg Aspirin (Aspirin Chewable) 81 mg PO DAILY [facility] Last Admin: 10/03/17 08:12 Dose: 81 mg Atorvastatin Calcium (Lipitor) 20 mg PO HS [facility] Last Admin: 10/02/17 21:42 Dose: 20 mg Carvedilol (Coreg) 3.125 mg PO Q12 [facility] Last Admin: 10/03/17 08:12 Dose: 3.125 mg Glipizide (Glucotrol) 5 mg PO BID [facility] Last Admin: 10/03/17 08:12 Dose: 5 mg Heparin Sodium (Porcine) (Heparin) 5,000 units SC Q8 [facility] PRN Reason: Protocol Last Admin: 10/03/17 08:47 Dose: 5,000 units Hydrochlorothiazide (Microzide) 12.5 mg PO DAILY [facility] Last Admin: 10/03/17 08:11 Dose: 12.5 mg Vancomycin HCl 1 gm/ Sodium (Chloride) 250 mls @ 166.667 mls/hr IVPB Q12@0500, 1700 [facility] PRN Reason: Protocol Last Admin: 10/03/17 06:02 Dose: 166.667 mls/hr Insulin Detemir (Levemir) 25 units SC AMHS [facility] Last Admin: 01/07/18 08:13 Dose: 25 units Insulin Human Lispro (Humalog) 0 units SC ACHS [facility] PRN Reason: Protocol Last Admin: 10/03/17 07:20 Dose: Not Given Lactobacillus Acidophilus (Bacid Acidophilus) 1 cap PO BID [facility] Last Admin: 10/03/17 08:11 Dose: 1 cap Losartan Potassium (Cozaar) 100 mg PO DAILY [facility] Last Admin: 10/03/17 08:13 Dose: 100 mg Metformin HCl (Glucophage) 1,000 mg PO BIDWM [facility] Last Admin: 10/03/17 08:11 Dose: 1,000 mg Oxycodone HCl (Oxycontin Extended Release Tab) 30 mg PO Q12 [facility] Stop: 10/05/17 21:46 Last Admin: 10/03/17 08:14 Dose: 30 mg Oxycodone HCl (Oxycodone Immediate Release Tab) 30 mg PO QID PRN PRN Reason: Pain, moderate (4-7) - Labs Labs: 09/30/17 09:54 - Constitutional Appears: Well, Non-toxic, No Acute Distress - Extremities Exam Additional comments: Lower extremity exam: VASC: DP/PT pulses are palpable 2/4 B/L. CFT < 3 sec to all digits. Temperature gradient warm to warm to B/L lower extremities. Diffuse non-pitting edema noted to RLE, decreasing. DERM: Sutures intact to surgical site. Surgical incision site dehiscence is noted to surgical incision site with open wound measuring 0.6cm x 2.3cm x 0.1cm noted to interspace b/n 1st and 3rd digits. Wound base is 90-95% granular with minor fibrotic tissue noted within wound bed. No maceration noted at this time. Otherwise no open lesions, wounds, maceration, xerosis, abnormal pigmentation or abnormal growths noted. NEURO: Protective sensation grossly diminished ORTHO: Amputation of second digit noted right foot. No tenderness noted upon palpation of surgical site. - Neurological Exam Neurological Exam: Alert, Awake, Oriented x3 - Psychiatric Exam Psychiatric exam: Normal Affect, Normal Mood Assessment and Plan - Assessment and Plan (Free Text) Assessment: 62 year old male seen at bedside 8 days s/p right foot partial second ray amputation, resection of third proximal phalanx and biopsy of hallux distal phalanx Plan: Patient seen and evaluated at bedside Plan discussed with Dr. Iannuzzi Afebrile, NNL today Surgical site cleansed with sterile saline and dressed with betadine, gauze, kerlix, and light LUBA Intra-op wound cx positive for MRSA Continue IV abx in TCU per ID - d/c planned for Wednesday following completion of IV abx Continue PWB to heel on RLE to allow adequate healing of wound site Rx forefoot offloading shoe for gait assistance Continue PT Podiatry will continue to follow while patient is in house
--- NOTE | 2017-10-03 13:34 | CP.PCM.PN ---
Subjective - Date & Time of Evaluation Date of Evaluation: 10/03/17 Time of Evaluation: 10:00 - Subjective Subjective: seen at bedside in TCU 8 days s/p partial second ray amputation, resection of third proximal phalanx and biopsy of hallux distal phalanx, all of right foot. vanco dose adjusted Objective - Vital Signs/Intake and Output Vital Signs (last 24 hours): Temp Pulse Resp BP Pulse Ox 97.7 F 60 20 132/62 99 10/03/17 07:57 10/03/17 08:13 10/03/17 07:57 10/03/17 08:13 10/03/17 07:57 - Medications Medications: Current Medications Alprazolam (Xanax) 0.5 mg PO TID PRN PRN Reason: Anxiety Last Admin: 10/02/17 18:42 Dose: 0.5 mg Aspirin (Aspirin Chewable) 81 mg PO DAILY [facility] Last Admin: 10/03/17 08:12 Dose: 81 mg Atorvastatin Calcium (Lipitor) 20 mg PO HS [facility] Last Admin: 10/02/17 21:42 Dose: 20 mg Carvedilol (Coreg) 3.125 mg PO Q12 [facility] Last Admin: 10/03/17 08:12 Dose: 3.125 mg Glipizide (Glucotrol) 5 mg PO BID [facility] Last Admin: 10/03/17 08:12 Dose: 5 mg Heparin Sodium (Porcine) (Heparin) 5,000 units SC Q8 [facility] PRN Reason: Protocol Last Admin: 10/03/17 08:47 Dose: 5,000 units Hydrochlorothiazide (Microzide) 12.5 mg PO DAILY [facility] Last Admin: 10/03/17 08:11 Dose: 12.5 mg Vancomycin HCl 1 gm/ Sodium (Chloride) 250 mls @ 166.667 mls/hr IVPB Q12@0500, 1700 [facility] PRN Reason: Protocol Last Admin: 10/03/17 06:02 Dose: 166.667 mls/hr Insulin Detemir (Levemir) 25 units SC [facility]HS [facility] Last Admin: 10/03/17 08:13 Dose: 25 units Insulin Human Lispro (Humalog) 0 units SC ACHS [facility] PRN Reason: Protocol Last Admin: 10/03/17 12:43 Dose: Not Given Lactobacillus Acidophilus (Bacid Acidophilus) 1 cap PO BID [facility] Last Admin: 10/03/17 08:11 Dose: 1 cap Losartan Potassium (Cozaar) 100 mg PO DAILY [facility] Last Admin: 10/03/17 08:13 Dose: 100 mg Metformin HCl (Glucophage) 1,000 mg PO BIDWM [facility] Last Admin: 10/03/17 08:11 Dose: 1,000 mg Oxycodone HCl (Oxycontin Extended Release Tab) 30 mg PO Q12 [facility] Stop: 10/05/17 21:46 Last Admin: 10/03/17 08:14 Dose: 30 mg Oxycodone HCl (Oxycodone Immediate Release Tab) 30 mg PO QID PRN PRN Reason: Pain, moderate (4-7) - Labs Labs: 09/30/17 09:54 - Constitutional Appears: Non-toxic, Chronically Ill - Head Exam Head Exam: NORMOCEPHALIC - Eye Exam Eye Exam: PERRL - ENT Exam ENT Exam: Mucous Membranes Dry - Neck Exam Neck Exam: absent: Lymphadenopathy - Respiratory Exam Respiratory Exam: Decreased Breath Sounds - Cardiovascular Exam Cardiovascular Exam: REGULAR RHYTHM - GI/Abdominal Exam GI & Abdominal Exam: Distended - Rectal Exam Rectal Exam: Deferred - Exam Exam: NORMAL INSPECTION - Extremities Exam Extremities Exam: Pedal Edema, Tenderness Additional comments: Lower extremity exam: VASC: DP/PT pulses are palpable 2/4 B/L. CFT < 3 sec to all digits. Temperature gradient warm to warm to B/L lower extremities. Diffuse non-pitting edema noted to RLE, decreasing. DERM: Sutures intact to surgical site. Surgical incision site dehiscence is noted to surgical incision site with open wound measuring 0.6cm x 2.3cm x 0.1cm noted to interspace b/n 1st and 3rd digits. Wound base is 90-95% granular with minor fibrotic tissue noted within wound bed. No maceration noted at this time. Otherwise no open lesions, wounds, maceration, xerosis, abnormal pigmentation or abnormal growths noted. NEURO: Protective sensation grossly diminished ORTHO: Amputation of second digit noted right foot. No tenderness noted upon palpation of surgical site. - Back Exam Back Exam: absent: CVA tenderness (L), CVA tenderness (R) - Neurological Exam Neurological Exam: Alert, Awake, Oriented x3 - Psychiatric Exam Psychiatric exam: Depressed - Skin Skin Exam: Dry Assessment and Plan (1) Osteomyelitis due to type 2 diabetes mellitus Status: Acute (2) Osteomyelitis due to type 2 diabetes mellitus Status: Acute (3) Cellulitis Status: Acute (4) Gangrene of toe Status: Acute (5) Diabetes mellitus Status: Chronic - Assessment and Plan (Free Text) Assessment: s/p amputation wound sehissence gangrene 3nd digit right ffot DM PVD MRSA + cont iv antibiotics and wound care
[2017-10-03] MEDS: oxyCODONE 10 mg Immediate Release Tab PO PRN ×2 (14:11→20:21)
[2017-10-04] MEDS: oxyCODONE 10 mg Immediate Release Tab PO PRN ×2 (06:10→15:25)
[2017-10-04] MEDS: Insulin Lispro (humaLOG) 100 Units/ml Inj SC SCH ×4 (06:51→21:10)
--- NOTE | 2017-10-04 06:51 | CP.PCM.PN ---
Subjective - Date & Time of Evaluation Date of Evaluation: 10/04/17 Time of Evaluation: 06:51 - Subjective Subjective: 62 year old male seen at bedside in TCU this morning 9 days s/p partial second ray amputation, resection of third proximal phalanx and biopsy of hallux distal phalanx, all of right foot. Patient is sleeping at initial time of visit. Admits to pain in the middle of the night but was able to go back to sleep. States pain is well controlled and decreasing over the last few days. States he gets most relief from the immediate release pain meds as the others are not as successful at pain control. Is aware of likely discharge Wednesday and [facility] with use of cane as assistive device. Denies F/C/N /V/CP/SOB. Objective - Vital Signs/Intake and Output Vital Signs (last 24 hours): Temp Pulse Resp BP Pulse Ox 97.9 F 62 20 130/63 96 10/03/17 19:20 10/03/17 20:22 10/03/17 19:20 10/03/17 20:22 10/03/17 19:20 - Medications Medications: Current Medications Alprazolam (Xanax) 0.5 mg PO TID PRN PRN Reason: Anxiety Last Admin: 10/02/17 18:42 Dose: 0.5 mg Aspirin (Aspirin Chewable) 81 mg PO DAILY [facility] Last Admin: 10/03/17 08:12 Dose: 81 mg Atorvastatin Calcium (Lipitor) 20 mg PO HS [facility] Last Admin: 10/03/17 21:49 Dose: 20 mg Carvedilol (Coreg) 3.125 mg PO Q12 [facility] Last Admin: 10/03/17 20:22 Dose: 3.125 mg Glipizide (Glucotrol) 5 mg PO BID [facility] Last Admin: 10/03/17 17:13 Dose: 5 mg Heparin Sodium (Porcine) (Heparin) 5,000 units SC Q8 [facility] PRN Reason: Protocol Last Admin: 10/04/17 00:58 Dose: 5,000 units Hydrochlorothiazide (Microzide) 12.5 mg PO DAILY [facility] Last Admin: 10/03/17 08:11 Dose: 12.5 mg Vancomycin HCl 1 gm/ Sodium (Chloride) 250 mls @ 166.667 mls/hr IVPB Q12@0500, 1700 [facility] PRN Reason: Protocol Last Admin: 10/04/17 05:49 Dose: 166.667 mls/hr Insulin Detemir (Levemir) 25 units SC AMHS [facility] Last Admin: 10/03/17 21:49 Dose: 25 units Insulin Human Lispro (Humalog) 0 units SC [facility] PRN Reason: Protocol Last Admin: 10/03/17 21:47 Dose: Not Given Lactobacillus Acidophilus (Bacid Acidophilus) 1 cap PO BID [facility] Last Admin: 10/03/17 17:11 Dose: 1 cap Losartan Potassium (Cozaar) 100 mg PO DAILY [facility] Last Admin: 10/03/17 08:13 Dose: 100 mg Metformin HCl (Glucophage) 1,000 mg PO BIDWM [facility] Last Admin: 10/03/17 17:13 Dose: 1,000 mg Oxycodone HCl (Oxycontin Extended Release Tab) 30 mg PO Q12 [facility] Stop: 10/05/17 21:46 Last Admin: 10/03/17 21:50 Dose: Not Given Oxycodone HCl (Oxycodone Immediate Release Tab) 30 mg PO QID PRN PRN Reason: Pain, severe (8-10) Last Admin: 10/04/17 06:10 Dose: 30 mg - Labs Labs: 09/30/17 09:54 - Constitutional Appears: Well, Non-toxic, No Acute Distress - Extremities Exam Additional comments: Lower extremity exam: VASC: DP/PT pulses are palpable 2/4 B/L. CFT < 3 sec to all digits. Temperature gradient warm to warm to B/L lower extremities. Diffuse non-pitting edema noted to RLE, decreasing. DERM: Sutures intact to surgical site. Surgical incision site dehiscence is noted to surgical incision site with open wound measuring 0.6cm x 2.3cm x 0.1cm noted to interspace b/n 1st and 3rd digits. Wound base is 90-95% granular with minor fibrotic tissue noted within wound bed. No maceration noted at this time. Otherwise no open lesions, wounds, maceration, xerosis, abnormal pigmentation or abnormal growths noted. NEURO: Protective sensation grossly diminished ORTHO: Amputation of second digit noted right foot. No tenderness noted upon palpation of surgical site. - Neurological Exam Neurological Exam: Alert, Awake, Oriented x3 - Psychiatric Exam Psychiatric exam: Normal Affect, Normal Mood Assessment and Plan - Assessment and Plan (Free Text) Assessment: Assessment: 62 year old male seen at bedside 9 days s/p right foot partial second ray amputation, resection of third proximal phalanx and biopsy of hallux distal phalanx Plan: Patient seen and evaluated at bedside Plan discussed with Dr. James Bolton, TRUDY today Surgical site cleansed with sterile saline and dressed with betadine, gauze, kerlix, and light LUBA Intra-op wound cx positive for MRSA Continue IV abx in TCU per ID - d/c planned for Wednesday following completion of IV abx Pt will be d/c with use of cane Continue PWB to heel on RLE to allow adequate healing of wound site Continue forefoot offloading shoe for gait assistance Continue PT Podiatry will continue to follow while patient is in house Patient to follow up with Dr. Ramirez as outpatient in his office within 1 week of discharge
[2017-10-04] MEDS: Lactobacillus Acidophilus 500 MU Cap PO SCH ×2 (08:08→16:57)
[2017-10-04] MEDS: Insulin Detemir 100 Units/ml Inj SC SCH (08:10)
[2017-10-04] MEDS: oxyCODONE 10 mg ER Tab (oxyCONTIN) PO SCH ×2 (08:14→20:34)
[2017-10-04] MEDS ORDERED: oxyCODONE 10 mg Immediate Release Tab PO PRN (21:45)
--- NOTE | 2017-10-04 22:24 | CP.PCM.PN ---
Subjective - Date & Time of Evaluation Date of Evaluation: 10/04/17 Time of Evaluation: 17:20 Objective - Vital Signs/Intake and Output Vital Signs (last 24 hours): Temp Pulse Resp BP Pulse Ox 97.9 F 52 L 20 140/68 96 10/04/17 19:45 10/04/17 21:07 10/04/17 19:45 10/04/17 21:07 10/04/17 19:45 - Medications Medications: Current Medications Alprazolam (Xanax) 0.5 mg PO TID PRN PRN Reason: Anxiety Last Admin: 10/02/17 18:42 Dose: 0.5 mg Aspirin (Aspirin Chewable) 81 mg PO DAILY [facility] Last Admin: 10/04/17 08:08 Dose: 81 mg Atorvastatin Calcium (Lipitor) 20 mg PO HS [facility] Last Admin: 10/04/17 21:07 Dose: 20 mg Carvedilol (Coreg) 3.125 mg PO Q12 [facility] Last Admin: 10/04/17 21:07 Dose: Not Given Glipizide (Glucotrol) 5 mg PO BID [facility] Last Admin: 10/04/17 16:57 Dose: 5 mg Heparin Sodium (Porcine) (Heparin) 5,000 units SC Q8 [facility] PRN Reason: Protocol Last Admin: 10/04/17 16:57 Dose: 5,000 units Hydrochlorothiazide (Microzide) 12.5 mg PO DAILY [facility] Last Admin: 10/04/17 08:10 Dose: 12.5 mg Vancomycin HCl 1 gm/ Sodium (Chloride) 250 mls @ 166.667 mls/hr IVPB Q12@0500, 1700 [facility] PRN Reason: Protocol Last Admin: 10/04/17 16:56 Dose: 166.667 mls/hr Insulin Detemir (Levemir) 25 units SC AMHS [facility] Last Admin: 10/04/17 08:10 Dose: 25 units Insulin Human Lispro (Humalog) 0 units SC ACHS [facility] PRN Reason: Protocol Last Admin: 10/04/17 21:10 Dose: Not Given Lactobacillus Acidophilus (Bacid Acidophilus) 1 cap PO BID [facility] Last Admin: 10/04/17 16:57 Dose: 1 cap Losartan Potassium (Cozaar) 100 mg PO DAILY [facility] Last Admin: 10/04/17 08:09 Dose: 100 mg Metformin HCl (Glucophage) 1,000 mg PO BIDWM [facility] Last Admin: 10/04/17 16:57 Dose: 1,000 mg Oxycodone HCl (Oxycontin Extended Release Tab) 30 mg PO Q12 [facility] Stop: 10/05/17 21:46 Last Admin: 10/04/17 20:34 Dose: 30 mg Oxycodone HCl (Oxycodone Immediate Release Tab) 30 mg PO QID PRN PRN Reason: Pain, severe (8-10) Last Admin: 10/04/17 15:25 Dose: 30 mg - Labs Labs: 09/30/17 09:54
--- NOTE | 2017-10-04 22:24 | CP.PCM.PN ---
Subjective - Date & Time of Evaluation Date of Evaluation: 10/03/17 Time of Evaluation: 17:00 Objective - Vital Signs/Intake and Output Vital Signs (last 24 hours): Temp Pulse Resp BP Pulse Ox 97.9 F 52 L 20 140/68 96 10/04/17 19:45 10/04/17 21:07 10/04/17 19:45 10/04/17 21:07 10/04/17 19:45 - Medications Medications: Current Medications Alprazolam (Xanax) 0.5 mg PO TID PRN PRN Reason: Anxiety Last Admin: 10/02/17 18:42 Dose: 0.5 mg Aspirin (Aspirin Chewable) 81 mg PO DAILY [facility] Last Admin: 10/04/17 08:08 Dose: 81 mg Atorvastatin Calcium (Lipitor) 20 mg PO HS [facility] Last Admin: 10/04/17 21:07 Dose: 20 mg Carvedilol (Coreg) 3.125 mg PO Q12 [facility] Last Admin: 10/04/17 21:07 Dose: Not Given Glipizide (Glucotrol) 5 mg PO BID [facility] Last Admin: 10/04/17 16:57 Dose: 5 mg Heparin Sodium (Porcine) (Heparin) 5,000 units SC Q8 [facility] PRN Reason: Protocol Last Admin: 10/04/17 16:57 Dose: 5,000 units Hydrochlorothiazide (Microzide) 12.5 mg PO DAILY [facility] Last Admin: 10/04/17 08:10 Dose: 12.5 mg Vancomycin HCl 1 gm/ Sodium (Chloride) 250 mls @ 166.667 mls/hr IVPB Q12@0500, 1700 [facility] PRN Reason: Protocol Last Admin: 10/04/17 16:56 Dose: 166.667 mls/hr Insulin Detemir (Levemir) 25 units SC [facility] Last Admin: 10/04/17 08:10 Dose: 25 units Insulin Human Lispro (Humalog) 0 units SC ACHS [facility] PRN Reason: Protocol Last Admin: 10/04/17 21:10 Dose: Not Given Lactobacillus Acidophilus (Bacid Acidophilus) 1 cap PO BID [facility] Last Admin: 10/04/17 16:57 Dose: 1 cap Losartan Potassium (Cozaar) 100 mg PO DAILY [facility] Last Admin: 10/04/17 08:09 Dose: 100 mg Metformin HCl (Glucophage) 1,000 mg PO BIDWM [facility] Last Admin: 10/04/17 16:57 Dose: 1,000 mg Oxycodone HCl (Oxycontin Extended Release Tab) 30 mg PO Q12 [facility] Stop: 10/05/17 21:46 Last Admin: 10/04/17 20:34 Dose: 30 mg Oxycodone HCl (Oxycodone Immediate Release Tab) 30 mg PO QID PRN PRN Reason: Pain, severe (8-10) Last Admin: 10/04/17 15:25 Dose: 30 mg - Labs Labs: 09/30/17 09:54
[2017-10-05] MEDS: oxyCODONE 10 mg Immediate Release Tab PO PRN ×3 (00:41→14:41)
[2017-10-05] MEDS: Insulin Lispro (humaLOG) 100 Units/ml Inj SC SCH ×4 (06:55→21:02)
[2017-10-05] MEDS: Lactobacillus Acidophilus 500 MU Cap PO SCH ×2 (08:57→17:16)
[2017-10-05] MEDS: Insulin Detemir 100 Units/ml Inj SC SCH (08:59)
[2017-10-05] MEDS: oxyCODONE 10 mg ER Tab (oxyCONTIN) PO SCH ×2 (09:01→20:20)
--- NOTE | 2017-10-05 09:57 | CP.PCM.PN ---
Subjective - Date & Time of Evaluation Date of Evaluation: 10/05/17 Time of Evaluation: 09:57 - Subjective Subjective: 62 y/o male seen at bedside in TCU today 10 days s/p partial second ray amputation, resection of third proximal phalanx and biopsy of hallux distal phalanx, all of right foot. Pt states he still has occasional spasm like pains when the pain medications start to wear off, but states he is overall doing just fine. He is aware of discharge tomorrow and will be [facility]. He requests if he can follow up at or near the hospital so he is able to walk to his appointments. Denies any drainage coming from the surgical site. Denies F/C/N/V/CP/SOB Objective - Vital Signs/Intake and Output Vital Signs (last 24 hours): Temp Pulse Resp BP Pulse Ox 97.9 F 60 20 146/75 96 10/04/17 19:45 10/05/17 09:00 10/04/17 19:45 10/05/17 09:00 10/04/17 19:45 - Medications Medications: Current Medications Alprazolam (Xanax) 0.5 mg PO TID PRN PRN Reason: Anxiety Last Admin: 10/02/17 18:42 Dose: 0.5 mg Aspirin (Aspirin Chewable) 81 mg PO DAILY [facility] Last Admin: 10/05/17 08:58 Dose: 81 mg Atorvastatin Calcium (Lipitor) 20 mg PO HS [facility] Last Admin: 10/04/17 21:07 Dose: 20 mg Carvedilol (Coreg) 3.125 mg PO Q12 [facility] Last Admin: 10/05/17 09:00 Dose: 3.125 mg Glipizide (Glucotrol) 5 mg PO BID [facility] Last Admin: 10/05/17 08:58 Dose: 5 mg Heparin Sodium (Porcine) (Heparin) 5,000 units SC Q8 [facility] PRN Reason: Protocol Last Admin: 10/05/17 09:00 Dose: 5,000 units Hydrochlorothiazide (Microzide) 12.5 mg PO DAILY [facility] Last Admin: 10/05/17 08:58 Dose: 12.5 mg Vancomycin HCl 1 gm/ Sodium (Chloride) 250 mls @ 166.667 mls/hr IVPB Q12@0500, 1700 [facility] PRN Reason: Protocol Last Admin: 10/05/17 04:46 Dose: 166.667 mls/hr Insulin Detemir (Levemir) 25 units SC AMHS [facility] Last Admin: 10/05/17 08:59 Dose: 25 units Insulin Human Lispro (Humalog) 0 units SC ACHS [facility] PRN Reason: Protocol Last Admin: 10/05/17 06:55 Dose: Not Given Lactobacillus Acidophilus (Bacid Acidophilus) 1 cap PO BID [facility] Last Admin: 10/05/17 08:57 Dose: 1 cap Losartan Potassium (Cozaar) 100 mg PO DAILY [facility] Last Admin: 10/05/17 08:58 Dose: 100 mg Metformin HCl (Glucophage) 1,000 mg PO BIDWM [facility] Last Admin: 10/05/17 09:00 Dose: 1,000 mg Oxycodone HCl (Oxycontin Extended Release Tab) 30 mg PO Q12 [facility] Stop: 10/05/17 21:46 Last Admin: 10/05/17 09:01 Dose: 30 mg Oxycodone HCl (Oxycodone Immediate Release Tab) 30 mg PO QID PRN PRN Reason: Pain, severe (8-10) Last Admin: 10/05/17 07:03 Dose: 30 mg - Labs Labs: 09/30/17 09:54 - Constitutional Appears: Well, Non-toxic, No Acute Distress - Extremities Exam Additional comments: Lower extremity exam: VASC: DP/PT pulses are palpable 2/4 B/L. CFT < 3 sec to all digits. Temperature gradient warm to warm to B/L lower extremities. Diffuse non-pitting edema noted to RLE, decreasing. DERM: Sutures intact to surgical site. Surgical incision to dorsum of 3rd digit is intact with well coapted skin edges. Surgical incision site dehiscence is noted to surgical incision site in interspace b/n 1st and 3rd digits with open wound measuring 0.6cm x 2.3cm x 0.1cm. Wound base is 90-95% granular with minor fibrotic tissue noted within wound bed. No maceration noted at this time. Otherwise no open lesions, wounds, maceration, xerosis, abnormal pigmentation or abnormal growths noted. NEURO: Protective sensation grossly diminished ORTHO: Amputation of second digit noted right foot. No tenderness noted upon palpation of surgical site. - Neurological Exam Neurological Exam: Alert, Awake, Oriented x3 - Psychiatric Exam Psychiatric exam: Normal Affect, Normal Mood Assessment and Plan - Assessment and Plan (Free Text) Assessment: 62 year old male seen at bedside 10 days s/p right foot partial second ray amputation, resection of third proximal phalanx and biopsy of hallux distal phalanx Plan: Patient seen and evaluated at bedside Plan discussed with Dr. James Bolton, NNL today Surgical site cleansed with sterile saline and dressed with betadine, gauze, kerlix, and light LUBA Intra-op wound cx positive for MRSA Continue IV abx in TCU per ID - d/c planned for tomorrow following completion of IV abx Pt will be d/c with use of cane and forefoot offloading shoe Continue PWB to heel on RLE to allow adequate healing of wound site Continue PT until discharge Podiatry will continue to follow while patient is in house Patient to follow up in wound care center with Dr. Moran for continued management of interspace wound and post-operative care
--- NOTE | 2017-10-05 18:44 | CP.PCM.PN ---
Subjective - Date & Time of Evaluation Date of Evaluation: 10/05/17 Time of Evaluation: 18:35 Objective - Vital Signs/Intake and Output Vital Signs (last 24 hours): Temp Pulse Resp BP Pulse Ox 97.7 F 53 L 20 139/69 97 10/05/17 15:27 10/05/17 15:27 10/05/17 15:27 10/05/17 15:27 10/05/17 15:27 - Medications Medications: Current Medications Alprazolam (Xanax) 0.5 mg PO TID PRN PRN Reason: Anxiety Last Admin: 10/02/17 18:42 Dose: 0.5 mg Aspirin (Aspirin Chewable) 81 mg PO DAILY [facility] Last Admin: 10/05/17 08:58 Dose: 81 mg Atorvastatin Calcium (Lipitor) 20 mg PO HS [facility] Last Admin: 10/04/17 21:07 Dose: 20 mg Carvedilol (Coreg) 3.125 mg PO Q12 [facility] Last Admin: 10/05/17 09:00 Dose: 3.125 mg Glipizide (Glucotrol) 5 mg PO BID [facility] Last Admin: 10/05/17 17:13 Dose: 5 mg Heparin Sodium (Porcine) (Heparin) 5,000 units SC Q8 [facility] PRN Reason: Protocol Last Admin: 10/05/17 17:13 Dose: 5,000 units Hydrochlorothiazide (Microzide) 12.5 mg PO DAILY [facility] Last Admin: 10/05/17 08:58 Dose: 12.5 mg Vancomycin HCl 1 gm/ Sodium (Chloride) 250 mls @ 166.667 mls/hr IVPB Q12@0500, 1700 [facility] PRN Reason: Protocol Last Admin: 10/05/17 17:14 Dose: 166.667 mls/hr Insulin Detemir (Levemir) 25 units SC AMHS [facility] Last Admin: 10/05/17 08:59 Dose: 25 units Insulin Human Lispro (Humalog) 0 units SC ACHS [facility] PRN Reason: Protocol Last Admin: 10/05/17 17:14 Dose: Not Given Lactobacillus Acidophilus (Bacid Acidophilus) 1 cap PO BID [facility] Last Admin: 10/05/17 17:16 Dose: 1 cap Losartan Potassium (Cozaar) 100 mg PO DAILY [facility] Last Admin: 10/05/17 08:58 Dose: 100 mg Metformin HCl (Glucophage) 1,000 mg PO BIDWM [facility] Last Admin: 10/05/17 17:13 Dose: 1,000 mg Oxycodone HCl (Oxycontin Extended Release Tab) 30 mg PO Q12 [facility] Stop: 10/05/17 21:46 Last Admin: 10/05/17 09:01 Dose: 30 mg Oxycodone HCl (Oxycodone Immediate Release Tab) 30 mg PO QID PRN PRN Reason: Pain, severe (8-10) Last Admin: 10/05/17 14:41 Dose: 30 mg - Labs Labs: 09/30/17 09:54
[2017-10-06] MEDS: oxyCODONE 10 mg Immediate Release Tab PO PRN ×2 (00:11→16:06)
[2017-10-06] MEDS: Insulin Lispro (humaLOG) 100 Units/ml Inj SC SCH ×4 (06:33→22:08)
[2017-10-06] MEDS: Insulin Detemir 100 Units/ml Inj SC SCH (08:53)
[2017-10-06] MEDS: Lactobacillus Acidophilus 500 MU Cap PO SCH ×2 (08:56→16:06)
[2017-10-06] MEDS ORDERED: oxyCODONE 10 mg ER Tab (oxyCONTIN) PO SCH (09:00)
--- NOTE | 2017-10-06 13:16 | CP.PCM.PN ---
Subjective - Date & Time of Evaluation Date of Evaluation: 10/06/17 Time of Evaluation: 08:00 - Subjective Subjective: improving afebrile nad Objective - Vital Signs/Intake and Output Vital Signs (last 24 hours): Temp Pulse Resp BP Pulse Ox 97.9 F 53 L 20 140/65 97 10/06/17 08:46 10/06/17 08:46 10/06/17 08:46 10/06/17 08:57 10/06/17 08:46 - Medications Medications: Current Medications Alprazolam (Xanax) 0.5 mg PO TID PRN PRN Reason: Anxiety Last Admin: 10/02/17 18:42 Dose: 0.5 mg Aspirin (Aspirin Chewable) 81 mg PO DAILY [facility] Last Admin: 10/06/17 08:58 Dose: 81 mg Atorvastatin Calcium (Lipitor) 20 mg PO HS [facility] Last Admin: 10/05/17 21:02 Dose: 20 mg Carvedilol (Coreg) 3.125 mg PO Q12 [facility] Last Admin: 10/06/17 08:56 Dose: Not Given Glipizide (Glucotrol) 5 mg PO BID [facility] Last Admin: 10/06/17 08:56 Dose: 5 mg Heparin Sodium (Porcine) (Heparin) 5,000 units SC Q8 [facility] PRN Reason: Protocol Last Admin: 10/06/17 08:57 Dose: 5,000 units Hydrochlorothiazide (Microzide) 12.5 mg PO DAILY [facility] Last Admin: 10/06/17 08:56 Dose: 12.5 mg Vancomycin HCl 1 gm/ Sodium (Chloride) 250 mls @ 166.667 mls/hr IVPB Q12@0500, 1700 [facility] PRN Reason: Protocol Last Admin: 10/06/17 04:27 Dose: 166.667 mls/hr Insulin Detemir (Levemir) 25 units SC DAILY [facility] Last Admin: 10/06/17 08:53 Dose: 25 u Insulin Human Lispro (Humalog) 0 units SC ACHS [facility] PRN Reason: Protocol Last Admin: 10/06/17 12:41 Dose: Not Given Lactobacillus Acidophilus (Bacid Acidophilus) 1 cap PO BID [facility] Last Admin: 10/06/17 08:56 Dose: 1 cap Losartan Potassium (Cozaar) 100 mg PO DAILY [facility] Last Admin: 10/06/17 08:57 Dose: 100 mg Metformin HCl (Glucophage) 1,000 mg PO [facility] Last Admin: 10/06/17 08:56 Dose: 1,000 mg Oxycodone HCl (Oxycodone Immediate Release Tab) 30 mg PO QID PRN PRN Reason: Pain, severe (8-10) Last Admin: 10/06/17 00:11 Dose: 30 mg Oxycodone HCl (Oxycontin Extended Release Tab) 30 mg PO Q12 [facility] Stop: 10/09/17 09:01 Last Admin: 10/06/17 09:37 Dose: 30 mg - Labs Labs: 09/30/17 09:54 - Constitutional Appears: Non-toxic, Chronically Ill - Head Exam Head Exam: NORMOCEPHALIC - Eye Exam Eye Exam: PERRL - ENT Exam ENT Exam: Mucous Membranes Dry - Neck Exam Neck Exam: absent: Lymphadenopathy - Respiratory Exam Respiratory Exam: Decreased Breath Sounds - Cardiovascular Exam Cardiovascular Exam: REGULAR RHYTHM - GI/Abdominal Exam GI & Abdominal Exam: Distended - Rectal Exam Rectal Exam: Deferred - Exam Exam: NORMAL INSPECTION Assessment and Plan (1) Osteomyelitis due to type 2 diabetes mellitus Status: Acute (2) Osteomyelitis due to type 2 diabetes mellitus Status: Acute (3) Cellulitis Status: Acute (4) Gangrene of toe Status: Acute (5) Diabetes mellitus Status: Chronic
[2017-10-06] MEDS: oxyCODONE 10 mg ER Tab (oxyCONTIN) PO SCH (22:04)
--- NOTE | 2017-10-06 22:56 | CP.PCM.PN ---
Subjective - Date & Time of Evaluation Date of Evaluation: 10/06/17 Time of Evaluation: 20:30 Objective - Vital Signs/Intake and Output Vital Signs (last 24 hours): Temp Pulse Resp BP Pulse Ox 98.2 F 54 L 20 125/64 98 10/06/17 21:26 10/06/17 21:26 10/06/17 21:26 10/06/17 22:07 10/06/17 21:26 - Medications Medications: Current Medications Alprazolam (Xanax) 0.5 mg PO TID PRN PRN Reason: Anxiety Last Admin: 10/02/17 18:42 Dose: 0.5 mg Aspirin (Aspirin Chewable) 81 mg PO DAILY [facility] Last Admin: 10/06/17 08:58 Dose: 81 mg Atorvastatin Calcium (Lipitor) 20 mg PO HS [facility] Last Admin: 10/06/17 22:08 Dose: 20 mg Carvedilol (Coreg) 3.125 mg PO Q12 [facility] Last Admin: 10/06/17 22:07 Dose: 3.125 mg Glipizide (Glucotrol) 5 mg PO BID [facility] Last Admin: 10/06/17 16:08 Dose: 5 mg Heparin Sodium (Porcine) (Heparin) 5,000 units SC Q8 [facility] PRN Reason: Protocol Last Admin: 10/06/17 17:05 Dose: 5,000 units Hydrochlorothiazide (Microzide) 12.5 mg PO DAILY [facility] Last Admin: 10/06/17 08:56 Dose: 12.5 mg Vancomycin HCl 1 gm/ Sodium (Chloride) 250 mls @ 166.667 mls/hr IVPB Q12@0500, 1700 [facility] PRN Reason: Protocol Last Admin: 10/06/17 17:04 Dose: 166.667 mls/hr Insulin Detemir (Levemir) 25 units SC DAILY [facility] Last Admin: 10/06/17 08:53 Dose: 25 u Insulin Human Lispro (Humalog) 0 units SC ACHS [facility] PRN Reason: Protocol Last Admin: 10/06/17 22:08 Dose: Not Given Lactobacillus Acidophilus (Bacid Acidophilus) 1 cap PO BID [facility] Last Admin: 10/06/17 16:06 Dose: 1 cap Losartan Potassium (Cozaar) 100 mg PO DAILY [facility] Last Admin: 10/06/17 08:57 Dose: 100 mg Metformin HCl (Glucophage) 1,000 mg PO BIDWM [facility] Last Admin: 10/06/17 16:08 Dose: 1,000 mg Oxycodone HCl (Oxycodone Immediate Release Tab) 30 mg PO QID PRN PRN Reason: Pain, severe (8-10) Last Admin: 10/06/17 16:06 Dose: 30 mg Oxycodone HCl (Oxycontin Extended Release Tab) 30 mg PO Q12 [facility] Stop: 10/09/17 21:01 Last Admin: 10/06/17 22:04 Dose: 30 mg - Labs Labs: 09/30/17 09:54
[2017-10-07] MEDS: oxyCODONE 10 mg Immediate Release Tab PO PRN (01:51)
[2017-10-07 08:13] VITALS: PULSE 51; TEMP 98.1; O2SAT 97
[2017-10-07] MEDS: Insulin Lispro (humaLOG) 100 Units/ml Inj SC SCH (08:46)
--- NOTE | 2017-10-07 08:47 | CP.PCM.PN ---
Subjective - Date & Time of Evaluation Date of Evaluation: 10/07/17 Time of Evaluation: 08:46 - Subjective Subjective: 62 y/o male seen at bedside in TCU today 12 days s/p partial second ray amputation, resection of third proximal phalanx and biopsy of hallux distal phalanx, all of right foot. Pt is going back to [facility] today and is aware of follow up with Dr. Pittman in the wound care center on Wednesday. Pt states he is doing well with [facility] forefoot offloading shoe and feels stable. He has kept his dressing clean dry and intact. States his pain has decreased over the last two days. Denies F/C/N/V/CP/SOB Objective - Vital Signs/Intake and Output Vital Signs (last 24 hours): Temp Pulse Resp BP Pulse Ox 98.1 F 51 L 20 130/75 97 10/07/17 08:12 10/07/17 08:12 10/07/17 08:12 10/07/17 08:12 10/07/17 08:12 - Medications Medications: Current Medications Alprazolam (Xanax) 0.5 mg PO TID PRN PRN Reason: Anxiety Last Admin: 10/02/17 18:42 Dose: 0.5 mg Aspirin (Aspirin Chewable) 81 mg PO DAILY [facility] Last Admin: 10/06/17 08:58 Dose: 81 mg Atorvastatin Calcium (Lipitor) 20 mg PO HS [facility] Last Admin: 10/06/17 22:08 Dose: 20 mg Carvedilol (Coreg) 3.125 mg PO Q12 [facility] Last Admin: 10/06/17 22:07 Dose: 3.125 mg Glipizide (Glucotrol) 5 mg PO BID [facility] Last Admin: 10/06/17 16:08 Dose: 5 mg Heparin Sodium (Porcine) (Heparin) 5,000 units SC Q8 [facility] PRN Reason: Protocol Last Admin: 10/07/17 01:52 Dose: 5,000 units Hydrochlorothiazide (Microzide) 12.5 mg PO DAILY [facility] Last Admin: 10/06/17 08:56 Dose: 12.5 mg Vancomycin HCl 1 gm/ Sodium (Chloride) 250 mls @ 166.667 mls/hr IVPB Q12@0500, 1700 [facility] PRN Reason: Protocol Last Admin: 10/07/17 05:22 Dose: 166.667 mls/hr Insulin Detemir (Levemir) 25 units SC DAILY [facility] Last Admin: 10/06/17 08:53 Dose: 25 u Insulin Human Lispro (Humalog) 0 units SC ACHS [facility] PRN Reason: Protocol Last Admin: 10/06/17 22:08 Dose: Not Given Lactobacillus Acidophilus (Bacid Acidophilus) 1 cap PO BID [facility] Last Admin: 10/06/17 16:06 Dose: 1 cap Losartan Potassium (Cozaar) 100 mg PO DAILY [facility] Last Admin: 10/06/17 08:57 Dose: 100 mg Metformin HCl (Glucophage) 1,000 mg PO BIDWM [facility] Last Admin: 10/06/17 16:08 Dose: 1,000 mg Oxycodone HCl (Oxycodone Immediate Release Tab) 30 mg PO QID PRN PRN Reason: Pain, severe (8-10) Last Admin: 10/07/17 01:51 Dose: 30 mg Oxycodone HCl (Oxycontin Extended Release Tab) 30 mg PO Q12 [facility] Stop: 10/09/17 21:01 Last Admin: 10/06/17 22:04 Dose: 30 mg - Labs Labs: 09/30/17 09:54 - Constitutional Appears: Well, Non-toxic, No Acute Distress - Extremities Exam Additional comments: Lower extremity exam: VASC: DP/PT pulses are palpable 2/4 B/L. CFT < 3 sec to all digits. Temperature gradient warm to warm to B/L lower extremities. Diffuse non-pitting edema noted to RLE, decreasing. DERM: Sutures intact to surgical site. Surgical incision to dorsum of 3rd digit is intact with well coapted skin edges. Surgical incision site dehiscence is noted to surgical incision site in interspace b/n 1st and 3rd digits with open wound measuring 0.6cm x 2.1cm x 0.1cm. Wound base is 70% granular with 30% fibrotic tissue noted within wound bed. No maceration noted at this time. Otherwise no open lesions, wounds, maceration, xerosis, abnormal pigmentation or abnormal growths noted. NEURO: Protective sensation grossly diminished ORTHO: Amputation of second digit noted right foot. No tenderness noted upon palpation of surgical site. No calf tenderness to RLE. - Neurological Exam Neurological Exam: Alert, Awake, Oriented x3 - Psychiatric Exam Psychiatric exam: Normal Affect, Normal Mood Assessment and Plan - Assessment and Plan (Free Text) Assessment: 62 year old male seen at bedside 12 days s/p right foot partial second ray amputation, resection of third proximal phalanx and biopsy of hallux distal phalanx Plan: Patient seen and evaluated at bedside Plan discussed with Dr. James Bolton, NNL today Surgical site cleansed with sterile saline and dressed with betadine, gauze, kerlix, and light LUBA Pt will be d/c with use of cane and forefoot offloading shoe [facility] to [facility] Continue PWB to heel on RLE to allow adequate healing of wound site Patient to follow up in wound care center with Dr. Pittman on Wednesday 10/11 at 1: 30pm for continued management of interspace wound and post-operative care
[2017-10-07] MEDS: Lactobacillus Acidophilus 500 MU Cap PO SCH (08:55)
[2017-10-07] MEDS: Insulin Detemir 100 Units/ml Inj SC SCH (08:57)
[2017-10-07 08:58] VITALS: BP 130/95
[2017-10-07] MEDS: oxyCODONE 10 mg ER Tab (oxyCONTIN) PO SCH (10:24)
== END 2017-10-07 11:00 | disposition home or self-care (01) | DRG 256 ==
LOC: H.TCU 19:00
PROVIDERS: ADMIT Internal Medicine; ATTEND Internal Medicine
PROC: F07Z9FZ Gait Training/Functional Ambulation Treatment using Assistive, Adaptive, Supportive or Protective Equipment (ICD-10-PCS; principal; 2017-09-29)
PROC: F08Z4FZ Home Management Treatment using Assistive, Adaptive, Supportive or Protective Equipment (ICD-10-PCS; 2017-09-29)
PROC: F07L6FZ Therapeutic Exercise Treatment of Musculoskeletal System - Lower Back / Lower Extremity using Assistive, Adaptive, Supportive or Protective Equipment (ICD-10-PCS; 2017-09-29)
DX: Z47.81 Encounter for orthopedic aftercare following surgical amputation (principal); E11.52 Type 2 diabetes mellitus with diabetic peripheral angiopathy with gangrene; Z89.421 Acquired absence of other right toe(s); E11.621 Type 2 diabetes mellitus with foot ulcer; L97.519 Non-pressure chronic ulcer of other part of right foot with unspecified severity; J44.9 Chronic obstructive pulmonary disease, unspecified; Z86.14 Personal history of Methicillin resistant Staphylococcus aureus infection; F41.9 Anxiety disorder, unspecified; Z87.01 Personal history of pneumonia (recurrent); Z87.891 Personal history of nicotine dependence; Z59.0 Homelessness

== ENCOUNTER 2017-11-01 12:31 | Inpatient (IN) | payer MEDICAID ==
[2017-11-01 12:31] VITALS: BMI 33.5
[2017-11-01] MEDS ORDERED: Oxycodone/Acetaminophen 5/325 mg Tab PO STA (15:36)
[2017-11-01] MEDS ORDERED: Oxycodone/Acetaminophen 5/325 mg Tab ONE (15:45)
--- NOTE | 2017-11-01 15:51 | ED PDOC ---
Lower Extremity Pain/Injury Additional Complaint(s): 62 yo male pmhx DMII, HTN and osteomyelitis of right 2nd toe s/p partial 2nd ray amputation and resection of 3rd proximal phalanx on 09/15/17 sent to ED from his podiatry office this afternoon for right foot cellulitis and fever. Pt reports he had fever of 102.0 F at the podiatry office. States he has right foot pain for last 3 days and it's getting worse. Denies subjective fever at home. Denies chills, nausea, vomiting, chest pain,dyspea or dizziness. PMD: Dr. Garcia Podiatry: Dr. Ramirez/ Dr. Pittman <Sultan Nilson - Last Filed: 11/01/17 16:11> <Олег Mcintyre - Last Filed: 11/01/17 17:30> Time Seen by Provider: 11/01/17 15:00 Chief Complaint (Nursing): Lower Extremity Problem/Injury Past Medical History Vital Signs: Last Vital Signs Temp 99.6 F 11/01/17 13:22 Pulse 80 11/01/17 13:22 Resp 16 11/01/17 13:22 BP 150/60 11/01/17 13:22 Pulse Ox 100 11/01/17 13:22 - Medical History PMH: Anxiety, Bronchitis, COPD, Diabetes, Gall Bladder Disease, HTN, Hypercholesterolemia, Pneumonia Denies: Depression, Chronic Kidney Disease - Surgical History Surgical History: Cholecystectomy - Family History Family History: States: Diabetes (Mother) - Social History Current smoker - smoking cessation education provided: Yes (smoked 1/2 PPD x 10 yrs) Alcohol: None Drugs: Denies <Sultan Nilson - Last Filed: 11/01/17 16:11> Vital Signs: Last Vital Signs Temp 99.6 F 11/01/17 13:22 Pulse 80 11/01/17 13:22 Resp 16 11/01/17 13:22 BP 150/60 11/01/17 13:22 Pulse Ox 100 11/01/17 16:13 <Олег Mcintyre - Last Filed: 11/01/17 17:30> - Home Medications Home Medications: Ambulatory Orders Medication Instructions Recorded Aspirin 81 mg PO DAILY 06/25/14 Aspirin [Aspirin Chewable] 81 mg PO DAILY #30 chew 10/06/17 Atorvastatin [Lipitor] 20 mg PO DAILY #30 tab 10/06/17 Carvedilol [Coreg] 3.125 mg PO Q12 #60 tab 10/06/17 Clindamycin [Cleocin] 300 mg PO Q8 #21 cap 10/06/17 GlipiZIDE [Glucotrol] 5 tab PO BID #60 tab 10/06/17 Insulin Detemir [Levemir] 20 units SC DAILY 30 Days vial 10/06/17 Lactobacillus Acidophilus [Bacid 1 cap PO BID #20 cap 10/06/17 Acidophilus] Losartan [Cozaar] 100 mg PO DAILY #30 tab 10/06/17 MetFORMIN [glucoPHAGE] 1,000 mg PO BIDWM #60 tab 10/06/17 hydroCHLOROthiazide [Microzide] 12.5 mg PO DAILY #30 cap 10/06/17 levoFLOXacin [Levaquin] 500 mg PO DAILY #7 tab 10/06/17 Alprazolam [Xanax] 0.5 mg PO TID 10/07/17 oxyCODONE [oxyCODONE Immediate 30 mg PO QID PRN 10/07/17 Release Tab] - Allergies Allergies/Adverse Reactions: Allergies Allergy/AdvReac Type Severity Reaction Status Date / Time No Known Allergies Allergy Verified 12/30/15 17:31 Review of Systems Constitutional: Negative for: Chills Cardiovascular: Negative for: Chest Pain, Palpitations Respiratory: Negative for: Shortness of Breath, Wheezing Gastrointestinal: Negative for: Nausea, Vomiting Musculoskeletal: Positive for: Foot Pain Neurological: Negative for: Headache, Dizziness <Sultan Nilson - Last Filed: 11/01/17 16:11> Physical Exam - Physical Exam Extremity: Positive for: Other (Open lesions with macerated area with whitish discharge on interspacs of right 2nd and 3d toes. Bluish discoloration of 3rd ties. Has surrounding erythema, swelling and warmth extending to proximal mid lower leg. Neurovascular intact.) <Sultan Nilson - Last Filed: 11/01/17 16:11> - ECG O2 Sat by Pulse Oximetry: 100 - Progress ED Course And Treament: Assessment: 62 yo male pmhx DMII and osteomyelitis presents with worsening right lower foot cellulitis and fever. Plan: CBC CMP PT/INR MG PHOSPHORUS VBG URINE CX BLOOD CX UA VANCOMYCIN 1 GM IVPB PAIN MANAGEMENT: OXYCODONE PO Pt had RLE doppler US on 09/29/17 which was negative for DVT. Case d/w ED attending Dr. Mcintyre <Sultan Nilson - Last Filed: 11/01/17 16:11> - Laboratory Results Result Diagrams: 11/01/17 16:17 11/01/17 16:17 <Олег Mcintyre - Last Filed: 11/01/17 17:30> Medical Decision Making Medical Decision Makin yo male with h/o toe ambutation presents with evidence of cellulitis. Agree with resident note. Treated with Vancomycin IV. Podiatry consult ordered. Case discussed with FP resident Abhijit who will admit to his service. <Олег Mcintyre - Last Filed: 11/01/17 17:30> Disposition <Sultan Nilson - Last Filed: 11/01/17 16:11> - Disposition Disposition Time: 17:30 - POA Present On Arrival: None <Олег Mcintyre - Last Filed: 11/01/17 17:30> - Clinical Impression Clinical Impression: Cellulitis of foot - Disposition Condition: GUARDED Forms: [facility] (Lithuanian)
[2017-11-01] MEDS ORDERED: oxyCODONE 10 mg ER Tab (oxyCONTIN) PO STA (16:08)
[2017-11-01 16:17] LABS: VENOUS BLOOD GAS BASE EXCESS 3.9 mmol/L (0.0-2.0); VENOUS BLOOD GAS PCO2 46 mmHg (40-60); VENOUS BLOOD GAS PO2 36 mm/Hg (30-55); VENOUS BLOOD PH 7.41 (7.32-7.43)
[2017-11-01 16:42] LABS: ALBUMIN 3.9 g/dL (3.5-5.0); CALCIUM 8.8 mg/dL (8.4-10.2); GFR AFRICAN-AMERICAN > 60; GFR NON-AFRICAN AMERICAN > 60
[2017-11-01 16:50] LABS: ALT/SGPT 25 U/L (21-72); AST/SGOT 19 U/L (17-59); BLOOD UREA NITROGEN 16 mg/dl (9-20); MAGNESIUM 2.1 MG/DL (1.6-2.3)
[2017-11-01 16:54] LABS: INR 1.3 (0.9-1.2); PARTIAL THROMBOPLASTIN TIME 30.8 Seconds (25.6-37.1); PROTHROMBIN TIME 14.3 Seconds (9.8-13.1)
[2017-11-01] MEDS ORDERED: oxyCODONE 10 mg ER Tab (oxyCONTIN) PO ONE (16:55)
[2017-11-01] MEDS ORDERED: Sod Polystyrene Sulf 15 gm/60 ml Susp PO ONE (16:57)
[2017-11-01 16:59] LABS: BASO # 0.1 K/uL (0.0-0.2); BASO % 0.4 % (0.0-2.0); EOS # 0.1 K/uL (0.0-0.7); EOS % 0.4 % (0.0-4.0); HEMOGLOBIN 11.5 g/dL (12.0-18.0); LYMPH # 1.5 K/uL (1.0-4.3); LYMPH % 8.9 % (20.0-40.0); MEAN CELL VOLUME 89.4 fl (80.0-94.0); MEAN CORPUSCULAR HEMOGLOBIN 29.6 pg (27.0-31.0); MEAN CORPUSCULAR HGB CONC 33.1 g/dL (33.0-37.0); MEAN PLATELET VOLUME 8.5 fl (7.2-11.7); MONO # 1.1 K/uL (0.0-0.8); MONO % 6.6 % (0.0-10.0); NEUT % 83.7 % (50.0-75.0); NRBC % 0.1 % (0.0-0.0); PLATELET COUNT 165 K/uL (130-400); RED CELL DISTRIBUTION WIDTH 15.3 % (11.5-14.5); WHITE BLOOD COUNT 16.7 K/uL (4.8-10.8)
[2017-11-01] MEDS ORDERED: oxyCODONE 10 mg Immediate Release Tab PO STA (17:00)
[2017-11-01 17:25] LABS: LYMPHOCYTE 8 % (20-50); MONOCYTE 6 % (0-10); NEUTROPHIL 86 % (42-75); PLATELET ESTIMATE NORMAL (NORMAL); TOTAL CELLS COUNTED 100
[2017-11-01 17:26] LABS: ANISOCYTOSIS SLIGHT; OVALOCYTES SLIGHT
[2017-11-01] MEDS: Sodium Chloride 0.9% 1,000 ML IV SCH ×2 (17:45→23:41)
[2017-11-01 18:24] LABS: SQUAMOUS EPITHIAL < 1 /hpf (0-5); URINE BILIRUBIN NEGATIVE (NEGATIVE); URINE BLOOD SMALL (NEGATIVE); URINE CLARITY CLEAR (Clear); URINE COLOR YELLOW (YELLOW); URINE GLUCOSE (UA) >=500 mg/dL (Normal); URINE LEUKOCYTE ESTERASE NEG Leu/uL (Negative); URINE NITRATE NEGATIVE (NEGATIVE); URINE PROTEIN 100 mg/dL (NEGATIVE); URINE UROBILINOGEN 0.2-1.0 mg/dL (0.2-1.0)
--- NOTE | 2017-11-01 18:54 | CP.PCM.HP ---
History of Present Illness - History of Present Illness History of Present Illness: 62 yo ,m, PMHx/o DM , HTN, Osteomyelitis of right 2nd toe s/p partial 2nd right amputation and resection of 3rd proximal phalanx on 09/15/17 sent to ED from his podiatry office this afternoon for right foot cellulitis and fever 102 at the podiatry office. Patient reports that he has had wound care every week after the amputation and started noticing swelling of the leg 2 days ago and pain right foot, 10/10 when moving his leg with difficulty to walk. He denies subjective fever at home, trauma, inmovilization, hx/o DVT, vomiting, chest pain , SOB. Patient reports [facility] a [facility]. PMD: Dr. Garcia Podiatry: Dr. Ramirez/ Dr. Pittman Allergies: NKDA Meds: Metformin 500 mg BID, Glipizide 5m BID, Losartan, levemir 20 u bedtime, Aspirin. Rest of meds does not remember. PShx: cholecystectomy, debridement right heel, right 2nd toe s/p partial 2nd right amputation and resection of 3rd proximal phalanx on 09/15/17 FHx: Mother DM, Father CAD Shx: Smoker 1/2 PPD for 10 years, no ETOH, rect drugs. Ed course VS: Bp:150/60 rest normal Labs: 16.7>11.5<165 VBG normal. k: 5,2 hemolized. Imaging: Xrays reviewed: No signs of soft tissue emphysema noted at this time Meds:Vancomycin IV. Present on Admission - Present on Admission Any Indicators Present on Admission: No History of DVT/PE: No History of Uncontrolled Diabetes: No Review of Systems - Constitutional Constitutional: As Per HPI, Fever - Cardiovascular Cardiovascular: As Per HPI - Respiratory Respiratory: As Per HPI - Gastrointestinal Gastrointestinal: As Per HPI - Musculoskeletal Musculoskeletal: As Per HPI Past Patient History - Infectious Disease Hx of Infectious Diseases: None - Tetanus Immunizations Tetanus Immunization: Unknown - Past Medical History & Family History Past Medical History?: Yes - Past Social History Alcohol: None Drugs: Denies - CARDIAC Hx Hypercholesterolemia: Yes Hx Hypertension: Yes - PULMONARY Hx Bronchitis: Yes Hx Chronic Obstructive Pulmonary Disease (COPD): Yes Hx Pneumonia: Yes - NEUROLOGICAL Hx Neurological Disorder: No - HEENT Hx Cataracts: Yes (CHANEL SX) - RENAL Hx Chronic Kidney Disease: No - ENDOCRINE/METABOLIC Hx Diabetes Mellitus Type 2: Yes - HEMATOLOGICAL/ONCOLOGICAL Hx Blood Transfusions: No Hx Blood Transfusion Reaction: No - INTEGUMENTARY Other/Comment: RT FOOT ULCER - MUSCULOSKELETAL/RHEUMATOLOGICAL Hx Falls: Yes - GASTROINTESTINAL Hx Gall Bladder Disease: Yes - GENITOURINARY/GYNECOLOGICAL Hx Genitourinary Disorders: No - PSYCHIATRIC Hx Anxiety: Yes Hx Depression: No - SURGICAL HISTORY Hx Cholecystectomy: Yes - ANESTHESIA Hx Anesthesia: Yes Hx Anesthesia Reactions: No Hx Malignant Hyperthermia: No Meds Allergies/Adverse Reactions: Allergies Allergy/AdvReac Type Severity Reaction Status Date / Time No Known Allergies Allergy Verified 12/30/15 17:31 Physical Exam - Constitutional Appears: Toxic, No Acute Distress - Head Exam Head Exam: ATRAUMATIC, NORMOCEPHALIC - Eye Exam Eye Exam: Normal appearance - ENT Exam ENT Exam: Mucous Membranes Moist - Respiratory Exam Respiratory Exam: Clear to Auscultation Bilateral. absent: Rales, Rhonchi, Wheezes - Cardiovascular Exam Cardiovascular Exam: REGULAR RHYTHM, +S1, +S2 - GI/Abdominal Exam GI & Abdominal Exam: Normal Bowel Sounds, Soft. absent: Guarding, Tenderness - Extremities Exam Extremities exam: Positive for: tenderness. Negative for: calf tenderness, pedal edema Additional comments: right Food: Open lesions with macerated area with whitish discharge on interspacs of right 2nd and 3d toes. Bluish discoloration of 3rd ties. Has surrounding erythema, swelling and warmth extending to proximal mid lower leg with Td to palpation over the skin and warmth to touch. Neurovascular intact. - Neurological Exam Neurological exam: Alert, Oriented x3 - Psychiatric Exam Psychiatric exam: Normal Affect, Normal Mood - Skin Skin Exam: Warm Results - Vital Signs Recent Vital Signs: Last Vital Signs Temp 99.6 F 11/01/17 13:22 Pulse 80 11/01/17 13:22 Resp 16 11/01/17 13:22 BP 150/60 11/01/17 13:22 Pulse Ox 100 11/01/17 16:13 - Labs Result Diagrams: 11/01/17 16:17 11/01/17 16:17 Labs: Laboratory Results - last 24 hr 11/01/17 11/01/17 11/01/17 15:36 16:17 16:17 WBC 16.7 H D RBC 3.90 L Hgb 11.5 L Hct 34.8 L MCV 89.4 MCH 29.6 MCHC 33.1 RDW 15.3 H Plt Count 165 MPV 8.5 Neut % (Auto) 83.7 H Lymph % (Auto) 8.9 L [place] % (Auto) 6.6 Eos % (Auto) 0.4 Baso % (Auto) 0.4 Neut # (Auto) 14.0 H Lymph # (Auto) 1.5 [place] # (Auto) 1.1 H Eos # (Auto) 0.1 Baso # (Auto) 0.1 Neutrophils % (Manual) 86 H Lymphocytes % (Manual) 8 L Monocytes % (Manual) 6 Platelet Estimate Normal Anisocytosis (manual) Slight Ovalocytes Slight PT INR APTT pO2 36 VBG pH 7.41 VBG pCO2 46 VBG HCO3 27.3 VBG Total CO2 30.6 H VBG O2 Sat (Calc) 76.2 H VBG Base Excess 3.9 H VBG Potassium 4.4 Sodium 132.0 135 Chloride 98.0 98 Glucose 391 H Lactate 2.6 H FiO2 21.0 Potassium 5.2 H Carbon Dioxide 26 Anion Gap 16 BUN 16 Creatinine 0.9 Est GFR ( Amer) > 60 Est GFR (Non-Af Amer) > 60 Random Glucose 374 H Calcium 8.8 Phosphorus 1.8 L Magnesium 2.1 Total Bilirubin 1.0 AST 19 ALT 25 Alkaline Phosphatase 55 Total Protein 7.7 Albumin 3.9 Globulin 3.8 Albumin/Globulin Ratio 1.0 Venous Blood Potassium 4.4 Urine Color Urine Clarity Urine pH Ur Specific [place] Urine Protein Urine Glucose (UA) Urine Ketones Urine Blood Urine Nitrate Urine Bilirubin Urine Urobilinogen Ur Leukocyte Esterase Urine RBC (Auto) Urine Microscopic WBC Ur Squamous Epith Cells 11/01/17 11/01/17 16:17 17:34 WBC RBC Hgb Hct MCV MCH MCHC RDW Plt Count MPV Neut % (Auto) Lymph % (Auto) [place] % (Auto) Eos % (Auto) Baso % (Auto) Neut # (Auto) Lymph # (Auto) [place] # (Auto) Eos # (Auto) Baso # (Auto) Neutrophils % (Manual) Lymphocytes % (Manual) Monocytes % (Manual) Platelet Estimate Anisocytosis (manual) Ovalocytes PT 14.3 H INR 1.3 H APTT 30.8 pO2 VBG pH VBG pCO2 VBG HCO3 VBG Total CO2 VBG O2 Sat (Calc) VBG Base Excess VBG Potassium Sodium Chloride Glucose Lactate FiO2 Potassium Carbon Dioxide Anion Gap BUN Creatinine Est GFR ( Amer) Est GFR (Non-Af Amer) Random Glucose Calcium Phosphorus Magnesium Total Bilirubin AST ALT Alkaline Phosphatase Total Protein Albumin Globulin Albumin/Globulin Ratio Venous Blood Potassium Urine Color Yellow Urine Clarity Clear Urine pH 7.0 Ur Specific [place] 1.030 Urine Protein 100 Urine Glucose (UA) >=500 Urine Ketones Negative Urine Blood Small Urine Nitrate Negative Urine Bilirubin Negative Urine Urobilinogen 0.2-1.0 Ur Leukocyte Esterase Neg Urine RBC (Auto) 7 H Urine Microscopic WBC < 1 Ur Squamous Epith Cells < 1 Assessment & Plan - Assessment and Plan (Free Text) Plan: 62 yo ,m, PMHx/o DM , HTN, Osteomyelitis of right 2nd toe s/p partial 2nd right amputation and resection of 3rd proximal phalanx on 09/15/17 admitted for right food cellulitis Assessment/Plan 1) Right food Cellulitis -s/p Osteomyelitis of right 2nd toe s/p partial 2nd right amputation and resection of 3rd proximal phalanx on 09/15/17 -Vancomycin 1g BID -Pain control percocet 1 tab mod pain, dilaudid sev pain -Podiatry consult appreciated -blood cx, urine cx -f/u CBC, CMP 2) DM -Diabetic diet -SSI 3) HTN -continue home meds 4) DVT Prophylaxis -Lovenox 40 mg sc daily
--- NOTE | 2017-11-01 19:05 | CP.PCM.CON ---
History of Present Illness - History of Present Illness History of Present Illness: 62 year old male with history of uncontrolled diabetes and right partial second ray amputation. Patient was seen earlier today by Dr. Pittman who sent him to the ED for streaking cellulitis up his right leg with an open wound to his second digit amputation site and a dusky third toe. Patient states that he is not feeling well at this time and has chills. He will be admitted to floors for IV abx. Denies recent V/F/CP/SOB/D/posterior calf pain. Past Patient History - Infectious Disease Hx of Infectious Diseases: None - Tetanus Immunizations Tetanus Immunization: Unknown - Past Medical History & Family History Past Medical History?: Yes - Past Social History Alcohol: None Drugs: Denies - CARDIAC Hx Hypercholesterolemia: Yes Hx Hypertension: Yes - PULMONARY Hx Bronchitis: Yes Hx Chronic Obstructive Pulmonary Disease (COPD): Yes Hx Pneumonia: Yes - NEUROLOGICAL Hx Neurological Disorder: No - HEENT Hx Cataracts: Yes (CHANEL SX) - RENAL Hx Chronic Kidney Disease: No - ENDOCRINE/METABOLIC Hx Diabetes Mellitus Type 2: Yes - HEMATOLOGICAL/ONCOLOGICAL Hx Blood Transfusions: No Hx Blood Transfusion Reaction: No - INTEGUMENTARY Other/Comment: RT FOOT ULCER - MUSCULOSKELETAL/RHEUMATOLOGICAL Hx Falls: Yes - GASTROINTESTINAL Hx Gall Bladder Disease: Yes - GENITOURINARY/GYNECOLOGICAL Hx Genitourinary Disorders: No - PSYCHIATRIC Hx Anxiety: Yes Hx Depression: No - SURGICAL HISTORY Hx Cholecystectomy: Yes - ANESTHESIA Hx Anesthesia: Yes Hx Anesthesia Reactions: No Hx Malignant Hyperthermia: No Meds Allergies/Adverse Reactions: Allergies Allergy/AdvReac Type Severity Reaction Status Date / Time No Known Allergies Allergy Verified 12/30/15 17:31 - Medications Medications: Current Medications Sodium Chloride (Sodium Chloride 0.9%) 1,000 mls @ 250 mls/hr IV .Q4H [facility] Stop: 11/02/17 16:56 Last Admin: 11/01/17 17:45 Dose: 250 mls/hr Physical Exam - Constitutional Appears: Non-toxic, In Acute Distress - Extremities Exam Additional comments: Dressing to right foot left C/D/I Per Dr. Pittman, right third digit was becoming dusky in color in wound care center earlier today - Neurological Exam Neurological exam: Alert, Oriented x3 - Psychiatric Exam Psychiatric exam: Agitated, Anxious Results - Vital Signs Recent Vital Signs: Last Vital Signs Temp 99.6 F 11/01/17 13:22 Pulse 80 11/01/17 13:22 Resp 16 11/01/17 13:22 BP 150/60 11/01/17 13:22 Pulse Ox 100 11/01/17 16:13 - Labs Result Diagrams: 11/01/17 16:17 11/01/17 16:17 Labs: Laboratory Results - last 24 hr 11/01/17 11/01/17 11/01/17 15:36 16:17 16:17 WBC 16.7 H D RBC 3.90 L Hgb 11.5 L Hct 34.8 L MCV 89.4 MCH 29.6 MCHC 33.1 RDW 15.3 H Plt Count 165 MPV 8.5 Neut % (Auto) 83.7 H Lymph % (Auto) 8.9 L [place] % (Auto) 6.6 Eos % (Auto) 0.4 Baso % (Auto) 0.4 Neut # (Auto) 14.0 H Lymph # (Auto) 1.5 [place] # (Auto) 1.1 H Eos # (Auto) 0.1 Baso # (Auto) 0.1 Neutrophils % (Manual) 86 H Lymphocytes % (Manual) 8 L Monocytes % (Manual) 6 Platelet Estimate Normal Anisocytosis (manual) Slight Ovalocytes Slight PT INR APTT pO2 36 VBG pH 7.41 VBG pCO2 46 VBG HCO3 27.3 VBG Total CO2 30.6 H VBG O2 Sat (Calc) 76.2 H VBG Base Excess 3.9 H VBG Potassium 4.4 Sodium 132.0 135 Chloride 98.0 98 Glucose 391 H Lactate 2.6 H FiO2 21.0 Potassium 5.2 H Carbon Dioxide 26 Anion Gap 16 BUN 16 Creatinine 0.9 Est GFR ( Amer) > 60 Est GFR (Non-Af Amer) > 60 Random Glucose 374 H Calcium 8.8 Phosphorus 1.8 L Magnesium 2.1 Total Bilirubin 1.0 AST 19 ALT 25 Alkaline Phosphatase 55 Total Protein 7.7 Albumin 3.9 Globulin 3.8 Albumin/Globulin Ratio 1.0 Venous Blood Potassium 4.4 Urine Color Urine Clarity Urine pH Ur Specific [place] Urine Protein Urine Glucose (UA) Urine Ketones Urine Blood Urine Nitrate Urine Bilirubin Urine Urobilinogen Ur Leukocyte Esterase Urine RBC (Auto) Urine Microscopic WBC Ur Squamous Epith Cells 11/01/17 11/01/17 16:17 17:34 WBC RBC Hgb Hct MCV MCH MCHC RDW Plt Count MPV Neut % (Auto) Lymph % (Auto) [place] % (Auto) Eos % (Auto) Baso % (Auto) Neut # (Auto) Lymph # (Auto) [place] # (Auto) Eos # (Auto) Baso # (Auto) Neutrophils % (Manual) Lymphocytes % (Manual) Monocytes % (Manual) Platelet Estimate Anisocytosis (manual) Ovalocytes PT 14.3 H INR 1.3 H APTT 30.8 pO2 VBG pH VBG pCO2 VBG HCO3 VBG Total CO2 VBG O2 Sat (Calc) VBG Base Excess VBG Potassium Sodium Chloride Glucose Lactate FiO2 Potassium Carbon Dioxide Anion Gap BUN Creatinine Est GFR ( Amer) Est GFR (Non-Af Amer) Random Glucose Calcium Phosphorus Magnesium Total Bilirubin AST ALT Alkaline Phosphatase Total Protein Albumin Globulin Albumin/Globulin Ratio Venous Blood Potassium Urine Color Yellow Urine Clarity Clear Urine pH 7.0 Ur Specific [place] 1.030 Urine Protein 100 Urine Glucose (UA) >=500 Urine Ketones Negative Urine Blood Small Urine Nitrate Negative Urine Bilirubin Negative Urine Urobilinogen 0.2-1.0 Ur Leukocyte Esterase Neg Urine RBC (Auto) 7 H Urine Microscopic WBC < 1 Ur Squamous Epith Cells < 1 Assessment & Plan - Assessment and Plan (Free Text) Assessment: 62 year old male with diabetic foot infection seen in ED for admission to hospital for IV abx Plan: Patient seen and evaluated in ED Per Dr. Pittman, dressing left on Xrays reviewed: No signs of soft tissue emphysema noted at this time No plans for surgical intervention at this time Podiatry will continue to follow while patient in house - Date & Time Date: 11/01/17 Time: 19:15
[2017-11-01] MEDS ORDERED: Oxycodone/Acetaminophen 5/325 mg Tab PO PRN (19:18)
[2017-11-01] MEDS ORDERED: Glucagon Recombinant 1 mg Inj IM PRN (19:34)
[2017-11-01] MEDS ORDERED: Dextrose 50% SYRINGE Inj (50 ml) IV PRN (19:34)
[2017-11-01] MEDS: Insulin Lispro (humaLOG) 100 Units/ml Inj SC SCH (23:09)
[2017-11-02] MEDS: Sodium Chloride 0.9% 1,000 ML IV SCH ×5 (03:57→15:57)
--- NOTE | 2017-11-02 06:58 | PQF GENQUE ---
This form is a permanent part of the medical record 11/02/17 Dr. Mary Pittman, Please clarify if this is cellulitis of the postoperative wound or not. 62 yo male pmhx DMII, HTN and osteomyelitis of right 2nd toe s/p partial 2nd ray amputation and resection of 3rd proximal phalanx on 09/15/17 sent to ED from his podiatry office this afternoon for right foot cellulitis and fever. Documentation of: right Food: Open lesions with macerated area with whitish discharge on interspace of right 2nd and 3d toes. Bluish discoloration of 3rd toe. Has surrounding erythema, swelling and warmth extending to proximal mid lower leg. Treated with IVAB . Clarification of your documentation is requested to better reflect the severity of illness and intensity of treatment of your patient. Indicators present [] Specify: [] [] Specify: [] [] Specify: [] [] Specify: [] Location in the medical record that reflects the above clinical findings: [] Treatment Provided: [] PHYSICIAN'S RESPONSE Based on your medical judgment of the clinical indicators outlined above please clarify the following: [] Practitioner response [] If unable to determine, please check the box, sign and date. Present On Admission (POA) Indicator: [] Present at the time of admission [] Not present at the time of admission [] Clinically Undetermined In responding to this query, please exercise your independent professional judgment. The fact that a question is asked does not imply that any particular answer is desired or expected. Thank you for your clarification on this documentation. If you have any questions please call:ext [phone] * Thank you, Emily Moreira RN [facility]
--- NOTE | 2017-11-02 07:01 | PQF GENQUE ---
This form is a permanent part of the medical record 11/02/17 Dr. Mary Pittman, Please document the cause of the open wound: ? dehiscence, non healing surgical site, ulcer ( etiology) , other explanation, unable to determine. Documentation of right foot open lesions with macerated area with whitish discharge on interspace of right 2nd and 3d toe. Podiatry: open wound to his second digit amputation site . Diabetic foot infection. Clarification of your documentation is requested to better reflect the severity of illness and intensity of treatment of your patient. Indicators present [] Specify: [] [] Specify: [] [] Specify: [] [] Specify: [] Location in the medical record that reflects the above clinical findings: [] Treatment Provided: [] PHYSICIAN'S RESPONSE Based on your medical judgment of the clinical indicators outlined above please clarify the following: [] Practitioner response [] If unable to determine, please check the box, sign and date. Present On Admission (POA) Indicator: [] Present at the time of admission [] Not present at the time of admission [] Clinically Undetermined In responding to this query, please exercise your independent professional judgment. The fact that a question is asked does not imply that any particular answer is desired or expected. Thank you for your clarification on this documentation. If you have any questions please call:ext [phone] * Thank you, Emily Moreira RN [facility]
[2017-11-02] MEDS ORDERED: Pneumococcal 23-Valent Vaccine IM ONE (08:00)
--- NOTE | 2017-11-02 08:55 | CP.PCM.PN ---
Subjective - Date & Time of Evaluation Date of Evaluation: 11/02/17 Time of Evaluation: 08:15 - Subjective Subjective: Patient seen and examined at bedside this morning. Patient reports right foot pain is unchanged. Patient was seen by podiatry and had dressings changed. Patient denies pain on the left LE and foot. The patient denies headaches, dizziness, chest pain, SOB, abdominal pain, nausea, vomiting, diarrhea, dysuria , or fever. Objective - Vital Signs/Intake and Output Vital Signs (last 24 hours): Temp Pulse Resp BP Pulse Ox 99.1 F 69 20 154/73 H 96 11/02/17 08:20 11/02/17 08:20 11/02/17 08:20 11/02/17 08:20 11/02/17 08:20 - Medications Medications: Current Medications Acetaminophen (Tylenol 325mg Tab) 650 mg PO Q6 PRN PRN Reason: Fever >100.4 F Last Admin: 11/01/17 20:28 Dose: 650 mg Aspirin (Aspirin Chewable) 81 mg PO DAILY [facility] Atorvastatin Calcium (Lipitor) 20 mg PO DAILY [facility] Carvedilol (Coreg) 3.125 mg PO Q12 [facility] Last Admin: 11/01/17 21:27 Dose: Not Given Dextrose (Dextrose 50% Inj) 0 ml IV STAT PRN; Protocol PRN Reason: Hypoglycemia Protocol Dextrose (Glutose 15) 0 gm PO ONCE PRN; Protocol PRN Reason: Hypoglycemia Protocol Enoxaparin Sodium (Lovenox) 40 mg SC DAILY [facility] PRN Reason: Protocol Glucagon (Glucagen Diagnostic Kit) 0 mg IM STAT PRN; Protocol PRN Reason: Hypoglycemia Protocol Hydrochlorothiazide (Microzide) 12.5 mg PO DAILY [facility] Hydromorphone HCl (Dilaudid) 0.5 mg IVP Q6 PRN PRN Reason: Pain, severe (8-10) Last Admin: 11/02/17 06:29 Dose: 0.5 mg Sodium Chloride (Sodium Chloride 0.9%) 1,000 mls @ 250 mls/hr IV .Q4H [facility] Stop: 11/02/17 16:56 Last Admin: 11/02/17 07:33 Dose: Not Given Vancomycin HCl 1 gm/ Sodium (Chloride) 250 mls @ 166.667 mls/hr IVPB Q12H [facility] PRN Reason: Protocol Last Admin: 11/02/17 04:03 Dose: 166.667 mls/hr Insulin Human Lispro (Humalog) 0 units SC ACHS [facility] PRN Reason: Protocol Last Admin: 11/01/17 23:09 Dose: Not Given Losartan Potassium (Cozaar) 100 mg PO DAILY [facility] Oxycodone/Acetaminophen (Percocet 5/325 Mg Tab) 1 tab PO Q4 PRN PRN Reason: Pain, moderate (4-7) Stop: 11/04/17 19:19 - Labs Labs: 11/01/17 16:17 11/01/17 16:17 PT 14.3 Seconds (9.8-13.1) H 11/01/17 16:17 INR 1.3 (0.9-1.2) H 11/01/17 16:17 APTT 30.8 Seconds (25.6-37.1) 11/01/17 16:17 - Constitutional Appears: No Acute Distress - Head Exam Head Exam: ATRAUMATIC, NORMAL INSPECTION, NORMOCEPHALIC - Eye Exam Eye Exam: Normal appearance - ENT Exam ENT Exam: Mucous Membranes Moist - Neck Exam Neck Exam: Full ROM. absent: Tenderness - Respiratory Exam Respiratory Exam: Clear to Ausculation Bilateral. absent: Decreased Breath Sounds, Rales, Rhonchi, Wheezes, Respiratory Distress - Cardiovascular Exam Cardiovascular Exam: REGULAR RHYTHM - GI/Abdominal Exam GI & Abdominal Exam: Soft, Normal Bowel Sounds. absent: Distended, Tenderness - Extremities Exam Extremities Exam: Full ROM, Tenderness Additional comments: right foot newly dressed by podiatry, no erythema, tenderness of the lower extremity left LE and foot, non-tender, no erythema, no edema - Neurological Exam Neurological Exam: Alert, Awake, Oriented x3 - Skin Skin Exam: Dry Assessment and Plan - Assessment and Plan (Free Text) Assessment: 62 y/o man w/ pmh of DM2, HTN, Osteomyelitis of right 2nd toe s/p partial 2nd right amputation and resection of 3rd proximal phalanx on 09/15/17 admitted for right foot cellulitis Plan: 1) Right Foot Cellulitis - s/p Osteomyelitis of right 2nd toe s/p partial 2nd right amputation and resection of 3rd proximal phalanx on 09/15/17 - Vancomycin 1gm IV Q12 - Pain control: oxycodone 30 mg PO Q6h, xanax 0.5 mg PO Q8h prn - Podiatry consulted, recommendations appreciated: no plan for surgical intervention at this time - Infectious Disease consulted, Dr. De La Paz - Cardiology consulted, Dr. Quiros - f/u blood cx, urine cx - CBC: 14.2>10.8/32.7<166 - ESR: 96 - CMP: 137/4.7, 102/26, 14/0.9, glucose 226, AST 18, ALT 29, alk phos 57 - PT: 14.5 - PTT: 29.8 - INR: 1.3 2) DM2 - Diabetic diet - SSI - hypoglycemic protocol - resumed home levemir and glipizide - held metformin 3) HTN - currently BP elevated most likely 2/2 to pain - continue home HCTZ 12.5 mg PO daily and Losartan 100 mg PO daily - monitor for acute changes 4) DVT Prophylaxis - Lovenox 40 mg sc daily
[2017-11-02] MEDS: Enoxaparin 40 mg Syringe SC SCH (08:59)
[2017-11-02] MEDS: Insulin Lispro (humaLOG) 100 Units/ml Inj SC SCH ×4 (09:02→21:58)
--- NOTE | 2017-11-02 09:25 | CP.PCM.PN ---
Subjective - Date & Time of Evaluation Date of Evaluation: 11/02/17 Time of Evaluation: 09:20 - Subjective Subjective: 62 year old male seen at bedside after being admitted through the ED yesterday from the wound care center for right lower extremity cellulitic changes secondary to non-healing surgical sites. Patient had partial second ray amputation and third digit partial proximal phalanx amputation on 09/25/17. Both wounds failed to heal following those surgeries. Patient states that overall today he is feeling better. He states that his pain is well controlled. Is AAO x 3 and NAD resting comfortably in bed at time of visit. Patient denies any further pedal complaints at this time. Denies N/V/F/C/CP/SOB/D/posterior calf pain when squeezed. Objective - Vital Signs/Intake and Output Vital Signs (last 24 hours): Temp Pulse Resp BP Pulse Ox 99.1 F 69 20 154/73 H 96 11/02/17 08:20 11/02/17 09:01 11/02/17 08:20 11/02/17 09:01 11/02/17 08:20 - Medications Medications: Current Medications Acetaminophen (Tylenol 325mg Tab) 650 mg PO Q6 PRN PRN Reason: Fever >100.4 F Last Admin: 11/01/17 20:28 Dose: 650 mg Aspirin (Aspirin Chewable) 81 mg PO DAILY [facility] Last Admin: 11/02/17 08:59 Dose: 81 mg Atorvastatin Calcium (Lipitor) 20 mg PO DAILY [facility] Last Admin: 11/02/17 09:02 Dose: 20 mg Carvedilol (Coreg) 3.125 mg PO Q12 [facility] Last Admin: 11/02/17 08:59 Dose: 3.125 mg Dextrose (Dextrose 50% Inj) 0 ml IV STAT PRN; Protocol PRN Reason: Hypoglycemia Protocol Dextrose (Glutose 15) 0 gm PO ONCE PRN; Protocol PRN Reason: Hypoglycemia Protocol Enoxaparin Sodium (Lovenox) 40 mg SC DAILY [facility] PRN Reason: Protocol Last Admin: 11/02/17 08:59 Dose: 40 mg Glucagon (Glucagen Diagnostic Kit) 0 mg IM STAT PRN; Protocol PRN Reason: Hypoglycemia Protocol Hydrochlorothiazide (Microzide) 12.5 mg PO DAILY [facility] Last Admin: 11/02/17 09:01 Dose: 12.5 mg Hydromorphone HCl (Dilaudid) 0.5 mg IVP Q6 PRN PRN Reason: Pain, severe (8-10) Last Admin: 11/02/17 06:29 Dose: 0.5 mg Sodium Chloride (Sodium Chloride 0.9%) 1,000 mls @ 250 mls/hr IV .Q4H [facility] Stop: 11/02/17 16:56 Last Admin: 11/02/17 09:04 Dose: Not Given Vancomycin HCl 1 gm/ Sodium (Chloride) 250 mls @ 166.667 mls/hr IVPB Q12H [facility] PRN Reason: Protocol Last Admin: 11/02/17 04:03 Dose: 166.667 mls/hr Insulin Human Lispro (Humalog) 0 units SC ACHS [facility] PRN Reason: Protocol Last Admin: 11/02/17 09:02 Dose: 3 units Losartan Potassium (Cozaar) 100 mg PO DAILY [facility] Last Admin: 11/02/17 09:01 Dose: 100 mg Oxycodone/Acetaminophen (Percocet 5/325 Mg Tab) 1 tab PO Q4 PRN PRN Reason: Pain, moderate (4-7) Stop: 11/04/17 19:19 - Labs Labs: 11/01/17 16:17 11/01/17 16:17 PT 14.3 Seconds (9.8-13.1) H 11/01/17 16:17 INR 1.3 (0.9-1.2) H 11/01/17 16:17 APTT 30.8 Seconds (25.6-37.1) 11/01/17 16:17 - Constitutional Appears: Well, Non-toxic, No Acute Distress - Extremities Exam Additional comments: RLE focused exam: Vasc: DP/PT pulses nonpalpable to RLE most likely secondary to edema. Skin temperature warm to warm from proximal to distal. CFT < 3 seconds to all digits b/l except right third digit. Right third digit appears purple/kapadia and dusky in nature - is cool to touch. Neuro: Epicritic and protective sensation grossly intact b/l Derm: Two nonhealing surgical sites noted to right foot. First is at previous second digit amputation site. Noted to be roughly 4 cm x 1 cm and probes deep to muscle but not bone. Wound base mostly fibrotic. No purulent drainage, malodor noted. Second nonhealing surgical site noted to dorsal third digit. Measures roughly 1 cm x 0.5 cm x 0.2 cm. No malodor, no purulent drainage, no probe to bone, no undermining, tracking or tunneling. Cellulitic changes noted to dorsum of foot surrounding both wounds without streaking up the leg. Otherwise, no open lesions, wounds, maceration, xerosis, abnormal pigmentation or abnormal growths noted b/l. Nails well manicured and normotrophic 1-10 b/l MSK: Minimal POP to both wound sites - Neurological Exam Neurological Exam: Alert, Awake, Oriented x3 - Psychiatric Exam Psychiatric exam: Normal Affect, Normal Mood Assessment and Plan - Assessment and Plan (Free Text) Assessment: 62 year old male seen at bedside for cellulitic changes secondary to non- healing surgical sites at right second digit amputation site and dorsal right third digit Plan: Patient seen and evaluated Plan discussed with attending Dr. Pittman. WBC 16.7 on admission, awaiting new CBC today Afebrile Wound cx taken and pending Continue IV abx ID consult appreciated Xray R foot: Partial second ray resection, third proximal phalanx resection, no signs of OM or soft tissue emphysema Discussed taking MRI of foot with Dr. Pittman, he is concerned that MRI will indicate OM vs. postoperative changes and will hold off on taking MRI for time being Wound cleansed with soap and saline a dressed with DSD No plan for surgical intervention at this time Podiatry will continue to follow while patient in house
--- NOTE | 2017-11-02 12:02 | RAD ---
PROCEDURE: Right Foot Radiographs. HISTORY: diabetic foot infection, rule out gas COMPARISON: 09/25/2017 FINDINGS: BONES: Stable findings. Prior resection 2nd digit. JOINTS: Normal. SOFT TISSUES: Persistent soft tissue swelling best seen on the lateral view at the level of the distal metatarsals and phalanges. OTHER FINDINGS: None. IMPRESSION: Soft tissue swelling without acute articular or osseous abnormality.
[2017-11-02] MEDS: oxyCODONE 10 mg Immediate Release Tab PO SCH ×3 (12:03→23:18)
[2017-11-02 13:28] LABS: HEMOGLOBIN 10.8 g/dL (12.0-18.0); MEAN CORPUSCULAR HEMOGLOBIN 29.9 pg (27.0-31.0); MEAN CORPUSCULAR HGB CONC 33.2 g/dL (33.0-37.0); RBC 3.63 Mil/uL (4.40-5.90); RED CELL DISTRIBUTION WIDTH 15.1 % (11.5-14.5); WHITE BLOOD COUNT 14.2 K/uL (4.8-10.8)
[2017-11-02 13:47] LABS: INR 1.3 (0.9-1.2); PROTHROMBIN TIME 14.5 Seconds (9.8-13.1)
[2017-11-02 13:48] LABS: PARTIAL THROMBOPLASTIN TIME 29.8 Seconds (25.6-37.1)
[2017-11-02 13:51] LABS: ALBUMIN 3.6 g/dL (3.5-5.0); ALT/SGPT 29 U/L (21-72); AST/SGOT 18 U/L (17-59); BLOOD UREA NITROGEN 14 mg/dl (9-20); CALCIUM 8.2 mg/dL (8.4-10.2); GFR AFRICAN-AMERICAN > 60; GFR NON-AFRICAN AMERICAN > 60
--- NOTE | 2017-11-02 18:18 | CP.PCM.PCO ---
Addendum Addendum: 11/02/17 18:[address] De La Paz and let him know patient has fever now 102.7 . Blood cx and urine cx was ordered stat. Suggested to add Cefepime 1g IV BID Case discussed with my Senior. Will ordered CXR and MRI right foot.
[2017-11-02] MEDS: Cefepime 1 GM in Sodium Chloride 0.9% 100 ML IVPB SCH (21:48)
[2017-11-02] MEDS: Insulin Detemir 100 Units/ml Inj SC SCH (21:54)
--- NOTE | 2017-11-03 01:21 | CP.PCM.CON ---
History of Present Illness - History of Present Illness History of Present Illness: consulation for evaluation of PVD HPI: Mr. Dias is a 62-year-old male with past medical history significant for hypertension diabetes mellitus hyperlipidemia who was admitted 2 months ago with symptoms of bilateral lower extremity and cellulitis of right lower extremity. At that time he had undergone a duplex arterial scan suggestive of infragenicular disease for which he had undergone a peripheral angiogram. And findings of the angiogram were consistent with microvascular disease with calcified vessels he is now readmitted for recurrent episode of cellulitis. Review of Systems - Review of Systems Systems not reviewed;Unavailable: Acuity of Condition - Constitutional Constitutional: As Per HPI - EENT Eyes: As Per HPI Ears: As Per HPI Nose/Mouth/Throat: As Per HPI - Cardiovascular Cardiovascular: As Per HPI - Respiratory Respiratory: As Per HPI - Gastrointestinal Gastrointestinal: As Per HPI - Genitourinary Genitourinary: As Per HPI - Reproductive: Male Reproductive:Male: As Per HPI - Musculoskeletal Musculoskeletal: As Per HPI - Integumentary Integumentary: As Per HPI - Neurological Neurological: As Per HPI - Psychiatric Psychiatric: As Per HPI - Endocrine Endocrine: As Per HPI - Hematologic/Lymphatic Hematologic: As Per HPI Past Patient History - Infectious Disease Hx of Infectious Diseases: None - Tetanus Immunizations Tetanus Immunization: Unknown - Past Medical History & Family History Past Medical History?: Yes - Past Social History Alcohol: None Drugs: Denies - CARDIAC Hx Hypercholesterolemia: Yes Hx Hypertension: Yes - PULMONARY Hx Bronchitis: Yes Hx Chronic Obstructive Pulmonary Disease (COPD): Yes Hx Pneumonia: Yes - NEUROLOGICAL Hx Neurological Disorder: No - HEENT Hx Cataracts: Yes (CHANEL SX) - RENAL Hx Chronic Kidney Disease: No - ENDOCRINE/METABOLIC Hx Diabetes Mellitus Type 2: Yes - HEMATOLOGICAL/ONCOLOGICAL Hx Blood Transfusions: No Hx Blood Transfusion Reaction: No - INTEGUMENTARY Other/Comment: RT FOOT ULCER - MUSCULOSKELETAL/RHEUMATOLOGICAL Hx Falls: Yes - GASTROINTESTINAL Hx Gall Bladder Disease: Yes - GENITOURINARY/GYNECOLOGICAL Hx Genitourinary Disorders: No - PSYCHIATRIC Hx Anxiety: Yes Hx Depression: No - SURGICAL HISTORY Hx Cholecystectomy: Yes - ANESTHESIA Hx Anesthesia: Yes Hx Anesthesia Reactions: No Hx Malignant Hyperthermia: No Meds Allergies/Adverse Reactions: Allergies Allergy/AdvReac Type Severity Reaction Status Date / Time No Known Allergies Allergy Verified 12/30/15 17:31 - Medications Medications: Current Medications Acetaminophen (Tylenol 325mg Tab) 650 mg PO Q6 PRN PRN Reason: Fever >100.4 F Last Admin: 11/02/17 17:57 Dose: 650 mg Alprazolam (Xanax) 0.5 mg PO Q8 PRN PRN Reason: Anxiety Aspirin (Aspirin Chewable) 81 mg PO DAILY [facility] Last Admin: 11/02/17 08:59 Dose: 81 mg Atorvastatin Calcium (Lipitor) 20 mg PO DAILY [facility] Last Admin: 11/02/17 09:02 Dose: 20 mg Carvedilol (Coreg) 3.125 mg PO Q12 [facility] Last Admin: 11/02/17 21:49 Dose: 3.125 mg Dextrose (Dextrose 50% Inj) 0 ml IV STAT PRN; Protocol PRN Reason: Hypoglycemia Protocol Dextrose (Glutose 15) 0 gm PO ONCE PRN; Protocol PRN Reason: Hypoglycemia Protocol Enoxaparin Sodium (Lovenox) 40 mg SC DAILY [facility] PRN Reason: Protocol Last Admin: 11/02/17 08:59 Dose: 40 mg Glipizide (Glucotrol) 5 mg PO BID [facility] Last Admin: 11/02/17 16:18 Dose: 5 mg Glucagon (Glucagen Diagnostic Kit) 0 mg IM STAT PRN; Protocol PRN Reason: Hypoglycemia Protocol Hydrochlorothiazide (Microzide) 12.5 mg PO DAILY [facility] Last Admin: 11/02/17 09:01 Dose: 12.5 mg Vancomycin HCl 1 gm/ Sodium (Chloride) 250 mls @ 166.667 mls/hr IVPB Q12H [facility] PRN Reason: Protocol Last Admin: 11/02/17 16:19 Dose: 166.667 mls/hr Cefepime HCl 1 gm/ Sodium (Chloride) 100 mls @ 100 mls/hr IVPB Q12 [facility] PRN Reason: Protocol Last Admin: 11/02/17 21:48 Dose: 100 mls/hr Insulin Detemir (Levemir) 20 units SC HS [facility] Last Admin: 11/02/17 21:54 Dose: 20 units Insulin Human Lispro (Humalog) 0 units SC ACHS [facility] PRN Reason: Protocol Last Admin: 11/02/17 21:58 Dose: Not Given Losartan Potassium (Cozaar) 100 mg PO DAILY [facility] Last Admin: 11/02/17 09:01 Dose: 100 mg Oxycodone HCl (Oxycodone Immediate Release Tab) 30 mg PO Q6H [facility] Last Admin: 11/02/17 23:18 Dose: 30 mg Physical Exam - Constitutional Appears: Well - Head Exam Head Exam: ATRAUMATIC, NORMAL INSPECTION, NORMOCEPHALIC - Eye Exam Eye Exam: EOMI, Normal appearance, PERRL Pupil Exam: NORMAL ACCOMODATION, PERRL - ENT Exam ENT Exam: Mucous Membranes Moist, Normal Exam - Neck Exam Neck exam: Positive for: Normal Inspection - Respiratory Exam Respiratory Exam: Clear to Auscultation Bilateral, NORMAL BREATHING PATTERN - Cardiovascular Exam Cardiovascular Exam: REGULAR RHYTHM, RRR, +S1, +S2, Systolic Murmur - GI/Abdominal Exam GI & Abdominal Exam: Normal Bowel Sounds, Soft. absent: Tenderness - Extremities Exam Extremities exam: Positive for: pedal edema, tenderness Additional comments: RLE - erythema and tenderness extending upto mid thigh - Back Exam Back exam: NORMAL INSPECTION - Neurological Exam Neurological exam: Alert, CN II-XII Intact, Oriented x3, Reflexes Normal - Psychiatric Exam Psychiatric exam: Normal Affect, Normal Mood - Skin Skin Exam: Dry, Intact, Normal Color, Warm Results - Vital Signs Recent Vital Signs: Last Vital Signs Temp 98.7 F 11/02/17 18:57 Pulse 74 11/02/17 21:49 Resp 17 11/02/17 17:55 BP 128/70 11/02/17 21:49 Pulse Ox 96 11/02/17 17:55 - Labs Result Diagrams: 11/02/17 12:40 11/02/17 12:40 Labs: Laboratory Results - last 24 hr 11/02/17 11/02/17 11/02/17 05:14 11:10 12:40 WBC 14.2 H RBC 3.63 L Hgb 10.8 L Hct 32.7 L MCV 90.0 MCH 29.9 MCHC 33.2 RDW 15.1 H Plt Count 166 ESR 96 H PT INR APTT Sodium Potassium Chloride Carbon Dioxide Anion Gap BUN Creatinine Est GFR ( Amer) Est GFR (Non-Af Amer) POC Glucose (mg/dL) 233 H 257 H Random Glucose Calcium Total Bilirubin AST ALT Alkaline Phosphatase Total Protein Albumin Globulin Albumin/Globulin Ratio 11/02/17 11/02/17 11/02/17 12:40 12:40 16:02 WBC RBC Hgb Hct MCV MCH MCHC RDW Plt Count ESR PT 14.5 H INR 1.3 H APTT 29.8 Sodium 137 Potassium 4.7 Chloride 102 Carbon Dioxide 26 Anion Gap 14 BUN 14 Creatinine 0.9 Est GFR ( Amer) > 60 Est GFR (Non-Af Amer) > 60 POC Glucose (mg/dL) 107 Random Glucose 226 H Calcium 8.2 L Total Bilirubin 0.8 AST 18 ALT 29 Alkaline Phosphatase 57 Total Protein 7.4 Albumin 3.6 Globulin 3.7 Albumin/Globulin Ratio 1.0 11/02/17 21:53 WBC RBC Hgb Hct MCV MCH MCHC RDW Plt Count ESR PT INR APTT Sodium Potassium Chloride Carbon Dioxide Anion Gap BUN Creatinine Est GFR ( Amer) Est GFR (Non-Af Amer) POC Glucose (mg/dL) 148 H Random Glucose Calcium Total Bilirubin AST ALT Alkaline Phosphatase Total Protein Albumin Globulin Albumin/Globulin Ratio Assessment & Plan (1) PVD (peripheral vascular disease) Assessment and Plan: No evidece of macrovascular obstructive disease has microvascular disease 2' to uncontrolled DM Rx for cellulitis per primary team keep pt on DAPT, statins, acei Status: Acute (2) Cellulitis of foot Status: Acute (3) HTN (hypertension) Status: Acute (4) Hyperglycemia Status: Acute (5) Diabetes mellitus Status: Chronic Priority: Medium
[2017-11-03] MEDS: oxyCODONE 10 mg Immediate Release Tab PO SCH ×4 (04:33→22:49)
[2017-11-03 06:28] LABS: HEMOGLOBIN 10.2 g/dL (12.0-18.0); MEAN CELL VOLUME 90.4 fl (80.0-94.0); MEAN CORPUSCULAR HEMOGLOBIN 29.5 pg (27.0-31.0); MEAN CORPUSCULAR HGB CONC 32.6 g/dL (33.0-37.0); RBC 3.46 Mil/uL (4.40-5.90); RED CELL DISTRIBUTION WIDTH 15.5 % (11.5-14.5); WHITE BLOOD COUNT 12.4 K/uL (4.8-10.8)
[2017-11-03 06:38] LABS: BLOOD UREA NITROGEN 14 mg/dl (9-20); CALCIUM 8.2 mg/dL (8.4-10.2); GFR AFRICAN-AMERICAN > 60; GFR NON-AFRICAN AMERICAN > 60
--- NOTE | 2017-11-03 08:06 | CP.PCM.PN ---
Subjective - Date & Time of Evaluation Date of Evaluation: 11/03/17 Time of Evaluation: 08:03 - Subjective Subjective: 62 year old male seen at bedside after being admitted through the ED on 11/01/17 from the wound care center for right lower extremity cellulitic changes secondary to non-healing surgical sites. Patient had partial second ray amputation and third digit partial proximal phalanx amputation on 09/25/17. Both wounds failed to heal following those surgeries. Patient states that he was feverish overnight but feels better now. He states that his pain is well controlled. Is AAO x 3 and NAD resting comfortably in bed at time of visit. Patient denies any further pedal complaints at this time. Denies N/V/F/C/CP/SOB/ D/posterior calf pain when squeezed. Objective - Vital Signs/Intake and Output Vital Signs (last 24 hours): Temp Pulse Resp BP Pulse Ox 98.7 F 78 20 135/59 L 99 11/03/17 01:14 11/03/17 01:14 11/03/17 01:14 11/03/17 01:14 11/03/17 01:14 - Medications Medications: Current Medications Acetaminophen (Tylenol 325mg Tab) 650 mg PO Q6 PRN PRN Reason: Fever >100.4 F Last Admin: 11/02/17 17:57 Dose: 650 mg Alprazolam (Xanax) 0.5 mg PO Q8 PRN PRN Reason: Anxiety Aspirin (Aspirin Chewable) 81 mg PO DAILY [facility] Last Admin: 11/02/17 08:59 Dose: 81 mg Atorvastatin Calcium (Lipitor) 20 mg PO DAILY [facility] Last Admin: 11/02/17 09:02 Dose: 20 mg Carvedilol (Coreg) 3.125 mg PO Q12 [facility] Last Admin: 11/02/17 21:49 Dose: 3.125 mg Dextrose (Dextrose 50% Inj) 0 ml IV STAT PRN; Protocol PRN Reason: Hypoglycemia Protocol Dextrose (Glutose 15) 0 gm PO ONCE PRN; Protocol PRN Reason: Hypoglycemia Protocol Enoxaparin Sodium (Lovenox) 40 mg SC DAILY [facility] PRN Reason: Protocol Last Admin: 11/02/17 08:59 Dose: 40 mg Glipizide (Glucotrol) 5 mg PO BID [facility] Last Admin: 11/02/17 16:18 Dose: 5 mg Glucagon (Glucagen Diagnostic Kit) 0 mg IM STAT PRN; Protocol PRN Reason: Hypoglycemia Protocol Hydrochlorothiazide (Microzide) 12.5 mg PO DAILY [facility] Last Admin: 11/02/17 09:01 Dose: 12.5 mg Vancomycin HCl 1 gm/ Sodium (Chloride) 250 mls @ 166.667 mls/hr IVPB Q12H [facility] PRN Reason: Protocol Last Admin: 11/03/17 04:34 Dose: 166.667 mls/hr Cefepime HCl 1 gm/ Sodium (Chloride) 100 mls @ 100 mls/hr IVPB Q12 [facility] PRN Reason: Protocol Last Admin: 11/02/17 21:48 Dose: 100 mls/hr Insulin Detemir (Levemir) 20 units SC HS [facility] Last Admin: 11/02/17 21:54 Dose: 20 units Insulin Human Lispro (Humalog) 0 units SC ACHS [facility] PRN Reason: Protocol Last Admin: 11/02/17 21:58 Dose: Not Given Losartan Potassium (Cozaar) 100 mg PO DAILY [facility] Last Admin: 11/02/17 09:01 Dose: 100 mg Oxycodone HCl (Oxycodone Immediate Release Tab) 30 mg PO Q6H [facility] Last Admin: 11/03/17 04:33 Dose: 30 mg - Labs Labs: 11/03/17 05:40 11/03/17 05:40 PT 14.5 Seconds (9.8-13.1) H 11/02/17 12:40 INR 1.3 (0.9-1.2) H 11/02/17 12:40 APTT 29.8 Seconds (25.6-37.1) 11/02/17 12:40 - Constitutional Appears: Well, Non-toxic, No Acute Distress - Extremities Exam Additional comments: RLE focused exam: Vasc: DP/PT pulses nonpalpable to RLE most likely secondary to edema. Skin temperature warm to warm from proximal to distal. CFT < 3 seconds to all digits b/l except right third digit. Right third digit appears purple/kapadia and dusky in nature but is same temperature as other digits - venous congestion vs. ischemic changes. Neuro: Epicritic and protective sensation grossly intact b/l Derm: Two nonhealing surgical sites noted to right foot. First is at previous second digit amputation site. Noted to be roughly 4 cm x 1 cm and probes deep to muscle but not bone. Wound base mostly fibrotic. No purulent drainage or malodor noted. Second nonhealing surgical site noted to dorsal third digit. Measures roughly 1 cm x 0.5 cm x 0.2 cm. No malodor, no purulent drainage, no probe to bone, no undermining, tracking or tunneling. Cellulitic changes noted to dorsum of foot surrounding both wounds without streaking up the leg, improving. Increased serous drainage noted to both wound sites today. Otherwise , no open lesions, wounds, maceration, xerosis, abnormal pigmentation or abnormal growths noted b/l. Nails well manicured and normotrophic 1-10 b/l MSK: Minimal POP to both wound sites - Neurological Exam Neurological Exam: Alert, Awake, Oriented x3 - Psychiatric Exam Psychiatric exam: Normal Affect, Normal Mood Assessment and Plan - Assessment and Plan (Free Text) Assessment: 62 year old male seen at bedside for cellulitic changes secondary to non- healing surgical sites at right second digit amputation site and dorsal right third digit Plan: Patient seen and evaluated at bedside Plan discussed with Dr. Pittman Overnight febrile state noted WBC 12.7 from 14.2 Wound cx pending Continue IV abx per ID Continue pain and medical management per Medicine F/u MRI - surgical intervention will be based on results of MRI Per Dr. Quiros patient's vasculopathy is microvascular in nature - no intervetion possible Wound dressed with ABD, DSD Podiatry will continue to follow while patient in house
[2017-11-03] MEDS: Insulin Lispro (humaLOG) 100 Units/ml Inj SC SCH ×4 (08:32→21:45)
[2017-11-03] MEDS: Enoxaparin 40 mg Syringe SC SCH (08:32)
[2017-11-03] MEDS: Cefepime 1 GM in Sodium Chloride 0.9% 100 ML IVPB SCH ×2 (08:34→20:03)
--- NOTE | 2017-11-03 09:06 | CP.PCM.PN ---
Subjective - Date & Time of Evaluation Date of Evaluation: 11/03/17 Time of Evaluation: 07:00 - Subjective Subjective: Patient seen and examined at bedside this morning. Patient reports right foot pain is improved. Pain managed w/ home medications restarted. Patient was seen by podiatry and had dressings changed. Patient denies pain on the left LE and foot. The patient denies headaches, dizziness, chest pain, SOB, abdominal pain, nausea, vomiting, diarrhea, dysuria, or fever. Objective - Vital Signs/Intake and Output Vital Signs (last 24 hours): Temp Pulse Resp BP Pulse Ox 99.3 F 68 18 153/75 H 97 11/03/17 08:05 11/03/17 08:33 11/03/17 08:05 11/03/17 08:33 11/03/17 08:05 - Medications Medications: Current Medications Acetaminophen (Tylenol 325mg Tab) 650 mg PO Q6 PRN PRN Reason: Fever >100.4 F Last Admin: 11/02/17 17:57 Dose: 650 mg Alprazolam (Xanax) 0.5 mg PO Q8 PRN PRN Reason: Anxiety Aspirin (Aspirin Chewable) 81 mg PO DAILY [facility] Last Admin: 11/03/17 08:33 Dose: 81 mg Atorvastatin Calcium (Lipitor) 20 mg PO DAILY [facility] Last Admin: 11/03/17 08:33 Dose: 20 mg Carvedilol (Coreg) 3.125 mg PO Q12 [facility] Last Admin: 11/03/17 08:33 Dose: 3.125 mg Dextrose (Dextrose 50% Inj) 0 ml IV STAT PRN; Protocol PRN Reason: Hypoglycemia Protocol Dextrose (Glutose 15) 0 gm PO ONCE PRN; Protocol PRN Reason: Hypoglycemia Protocol Enoxaparin Sodium (Lovenox) 40 mg SC DAILY [facility] PRN Reason: Protocol Last Admin: 11/03/17 08:32 Dose: 40 mg Glipizide (Glucotrol) 5 mg PO BID [facility] Last Admin: 11/03/17 08:33 Dose: 5 mg Glucagon (Glucagen Diagnostic Kit) 0 mg IM STAT PRN; Protocol PRN Reason: Hypoglycemia Protocol Hydrochlorothiazide (Microzide) 12.5 mg PO DAILY [facility] Last Admin: 11/03/17 08:33 Dose: 12.5 mg Vancomycin HCl 1 gm/ Sodium (Chloride) 250 mls @ 166.667 mls/hr IVPB Q12H [facility] PRN Reason: Protocol Last Admin: 11/03/17 04:34 Dose: 166.667 mls/hr Cefepime HCl 1 gm/ Sodium (Chloride) 100 mls @ 100 mls/hr IVPB Q12 [facility] PRN Reason: Protocol Last Admin: 11/03/17 08:34 Dose: 100 mls/hr Insulin Detemir (Levemir) 20 units SC HS [facility] Last Admin: 11/02/17 21:54 Dose: 20 units Insulin Human Lispro (Humalog) 0 units SC ACHS [facility] PRN Reason: Protocol Last Admin: 11/03/17 08:32 Dose: Not Given Losartan Potassium (Cozaar) 100 mg PO DAILY [facility] Last Admin: 11/03/17 08:33 Dose: 100 mg Oxycodone HCl (Oxycodone Immediate Release Tab) 30 mg PO Q6H [facility] Last Admin: 11/03/17 04:33 Dose: 30 mg - Labs Labs: 11/03/17 05:40 11/03/17 05:40 PT 14.5 Seconds (9.8-13.1) H 11/02/17 12:40 INR 1.3 (0.9-1.2) H 11/02/17 12:40 APTT 29.8 Seconds (25.6-37.1) 11/02/17 12:40 - Constitutional Appears: No Acute Distress - Head Exam Head Exam: ATRAUMATIC, NORMAL INSPECTION, NORMOCEPHALIC - Eye Exam Eye Exam: Normal appearance - ENT Exam ENT Exam: Mucous Membranes Moist - Neck Exam Neck Exam: Full ROM. absent: Tenderness - Respiratory Exam Respiratory Exam: Clear to Ausculation Bilateral, NORMAL BREATHING PATTERN. absent: Rales, Rhonchi, Wheezes, Respiratory Distress - Cardiovascular Exam Cardiovascular Exam: REGULAR RHYTHM. absent: Tachycardia - GI/Abdominal Exam GI & Abdominal Exam: Soft, Normal Bowel Sounds. absent: Distended, Tenderness - Extremities Exam Additional comments: right foot newly dressed by podiatry, no erythema, tenderness of the lower extremity left LE and foot, non-tender, no erythema, no edema - Neurological Exam Neurological Exam: Alert, Awake, Oriented x3 - Skin Skin Exam: Dry Assessment and Plan - Assessment and Plan (Free Text) Assessment: 62 y/o man w/ pmh of DM2, HTN, Osteomyelitis of right 2nd toe s/p partial 2nd right amputation and resection of 3rd proximal phalanx on 09/15/17 admitted for right foot cellulitis Plan: 1) Right Foot Cellulitis - s/p Osteomyelitis of right 2nd toe s/p partial 2nd right amputation and resection of 3rd proximal phalanx on 09/15/17 - Vancomycin 1gm IV Q12 - vanc trough this afternoon prior to 4th dose - patient spiked fever overnight, ID notified - started cefepime 1 gm IV Q12 - Podiatry consulted, recommendations appreciated: surgical intervention depending on results of MRI - Infectious Disease consulted, Dr. De La Paz - Cardiology consulted, Dr. Quiros, recommendations appreciated: no intervention at this time, continue medications - f/u blood cx, urine cx - CBC: 12.4>10.2/31.3<143 - ESR: 96 - CMP: 137/3.9, 104/26, 14/0.9, glucose 153 2) DM2 - Diabetic diet - SSI - hypoglycemic protocol - resumed home levemir and glipizide - held metformin 3) HTN - currently BP elevated most likely 2/2 to pain - increased HCTZ to 25 mg PO daily - c/w Losartan 100 mg PO daily - monitor for acute changes 4) HLD - atorvastatin increased to 40 mg PO daily 5) Pain management - resumed home regimen: oxycodone 30 mg PO Q6h, xanax 0.5 mg PO Q8h prn - consider lyrica for neuropathy - consider pain management consult 6) DVT Prophylaxis - Lovenox 40 mg sc daily
--- NOTE | 2017-11-03 13:58 | CP.PCM.CON ---
History of Present Illness - History of Present Illness History of Present Illness: 62 yo ,m, PMHx/o DM , HTN, Osteomyelitis of right 2nd toe s/p partial 2nd right amputation and resection of 3rd proximal phalanx on 09/15/17 sent to ED from his podiatry office this afternoon for right foot cellulitis and fever 102 at the podiatry office. Patient reports that he has had wound care every week after the amputation and started noticing swelling of the leg 2 days ago and pain right foot, 10/10 when moving his leg with difficulty to walk. Allergies: NKDA Meds: Metformin 500 mg BID, Glipizide 5m BID, Losartan, levemir 20 u bedtime, Aspirin. Rest of meds does not remember. PShx: cholecystectomy, debridement right heel, right 2nd toe s/p partial 2nd right amputation and resection of 3rd proximal phalanx on 09/15/17 FHx: Mother DM, Father CAD Shx: Smoker 1/2 PPD for 10 years, no ETOH, rect drugs. Review of Systems - Constitutional Constitutional: As Per HPI - EENT Eyes: absent: As Per HPI, Blind Spots, Blurred Vision, Change in Vision, Decreased Night Vision, Diplopia, Discharge, Dry Eye, Exophthalmos, Floaters, Irritation, Itchy Eyes, Loss of Peripheral Vision, Pain, Photophobia, Requires Corrective Lenses, Sees Flashes, Spots in Vision, Tunnel Vision, Other Visual Disturbances, Loss of Vision, Other Ears: absent: As Per HPI, Decreased Hearing, Ear Discharge, Ear Pain, Tinnitus, Abnormal Hearing, Disequilibrium, Dizziness, Other Nose/Mouth/Throat: absent: As Per HPI, Epistaxis, Nasal Congestion, Nasal Discharge, Nasal Obstruction, Nasal Trauma, Nose Pain, Post Nasal Drip, Sinus Pain, Sinus Pressure, Bleeding Gums, Change in Voice, Dental Pain, Dry Mouth, Dysphagia, Halitosis, Hoarsness, Lip Swelling, Mouth Lesions, Mouth Pain, Odynophagia, Sore Throat, Throat Swelling, Tongue Swelling, Facial Pain, Neck Pain, Neck Mass, Other - Cardiovascular Cardiovascular: As Per HPI - Respiratory Respiratory: absent: As Per HPI, Cough, Dyspnea, Hemoptysis, Dyspnea on Exertion , Wheezing, Snoring, Stridor, Pain on Inspiration, Chest Congestion, Excessive Mucous Production, Change in Mucous Color, Pain with Coughing, Other - Gastrointestinal Gastrointestinal: absent: As Per HPI, Abdominal Pain, Belching, Bloating, Change in Bowel Habits, Change in Stool Character, Coffee Ground Emesis, Constipation, Cramping, Diarrhea, Dyspepsia, Dysphagia, Early Satiety, Excessive Flatus, Fecal Incontinence, Heartburn, Hematemesis, Hematochezia, Loose Stools, Melena, Nausea, Odynophagia, Temesmus, Vomiting, Other - Genitourinary Genitourinary: absent: As Per HPI, Change in Urinary Stream, Difficulty Urinating, Dysuria, Flank Pain, Hematuria, Pyuria, Nocturia, Urinary Incontinence, Urinary Frequency, Urinary Hesitance, Urinary Urgency, Voiding Freq/Small Amts, Freq UTI, Hx Renal/Bladder Calculi, Hx /Renal Surgery, Bladder Distension, Other - Musculoskeletal Musculoskeletal: As Per HPI - Integumentary Integumentary: As Per HPI, Skin Pain, Wounds - Neurological Neurological: As Per HPI - Psychiatric Psychiatric: absent: As Per HPI, Abnormal Sleep Pattern, Anhedonia, Anxiety, Auditory Hallucinations, Behavioral Changes, Change in Appetite, Change in Libido, Confusion, Depression, Difficulty Concentrating, Hallucinations, Homicidal Ideation, Hopelessness, Irritability, Memory Loss, Mood Swings, Panic Attacks, Paranoia, Suicidal Ideation, Visual Hallucinations, Tactile Hallucinations, Other - Endocrine Endocrine: absent: As Per HPI, Change in Body Appearance, Change in Libido, Cold Intolorance, Deepening of Voice, Excessive Sweating, Fatigue, Flushing, Heat Intolorance, Increase in Ring/Shoe/Hat Size, Palpitations, Polydipsia, Polyphagia, Polyuria, Other - Hematologic/Lymphatic Hematologic: absent: As Per HPI, Easy Bleeding, Easy Bruising, Lymphadenopathy, Other Past Patient History - Infectious Disease Hx of Infectious Diseases: None - Tetanus Immunizations Tetanus Immunization: Unknown - Past Medical History & Family History Past Medical History?: Yes - Past Social History Alcohol: None Drugs: Denies - CARDIAC Hx Hypercholesterolemia: Yes Hx Hypertension: Yes - PULMONARY Hx Bronchitis: Yes Hx Chronic Obstructive Pulmonary Disease (COPD): Yes Hx Pneumonia: Yes - NEUROLOGICAL Hx Neurological Disorder: No - HEENT Hx Cataracts: Yes (CHANEL SX) - RENAL Hx Chronic Kidney Disease: No - ENDOCRINE/METABOLIC Hx Diabetes Mellitus Type 2: Yes - HEMATOLOGICAL/ONCOLOGICAL Hx Blood Transfusions: No Hx Blood Transfusion Reaction: No - INTEGUMENTARY Other/Comment: RT FOOT ULCER - MUSCULOSKELETAL/RHEUMATOLOGICAL Hx Falls: Yes - GASTROINTESTINAL Hx Gall Bladder Disease: Yes - GENITOURINARY/GYNECOLOGICAL Hx Genitourinary Disorders: No - PSYCHIATRIC Hx Anxiety: Yes Hx Depression: No - SURGICAL HISTORY Hx Cholecystectomy: Yes - ANESTHESIA Hx Anesthesia: Yes Hx Anesthesia Reactions: No Hx Malignant Hyperthermia: No Meds Allergies/Adverse Reactions: Allergies Allergy/AdvReac Type Severity Reaction Status Date / Time No Known Allergies Allergy Verified 12/30/15 17:31 - Medications Medications: Current Medications Acetaminophen (Tylenol 325mg Tab) 650 mg PO Q6 PRN PRN Reason: Fever >100.4 F Last Admin: 11/02/17 17:57 Dose: 650 mg Alprazolam (Xanax) 0.5 mg PO Q8 PRN PRN Reason: Anxiety Aspirin (Aspirin Chewable) 81 mg PO DAILY [facility] Last Admin: 11/03/17 08:33 Dose: 81 mg Atorvastatin Calcium (Lipitor) 40 mg PO DAILY [facility] Carvedilol (Coreg) 3.125 mg PO Q12 [facility] Last Admin: 11/03/17 08:33 Dose: 3.125 mg Dextrose (Dextrose 50% Inj) 0 ml IV STAT PRN; Protocol PRN Reason: Hypoglycemia Protocol Dextrose (Glutose 15) 0 gm PO ONCE PRN; Protocol PRN Reason: Hypoglycemia Protocol Enoxaparin Sodium (Lovenox) 40 mg SC DAILY [facility] PRN Reason: Protocol Last Admin: 11/03/17 08:32 Dose: 40 mg Glipizide (Glucotrol) 5 mg PO BID [facility] Last Admin: 11/03/17 08:33 Dose: 5 mg Glucagon (Glucagen Diagnostic Kit) 0 mg IM STAT PRN; Protocol PRN Reason: Hypoglycemia Protocol Hydrochlorothiazide (Hydrodiuril) 25 mg PO DAILY [facility] Cefepime HCl 1 gm/ Sodium (Chloride) 100 mls @ 100 mls/hr IVPB Q12 [facility] PRN Reason: Protocol Last Admin: 11/03/17 08:34 Dose: 100 mls/hr Linezolid (Zyvox 600mg/300ml D5w) 600 mg in 300 mls @ 300 mls/hr IVPB Q12 [facility] PRN Reason: Protocol Insulin Detemir (Levemir) 20 units SC [facility] Last Admin: 11/02/17 21:54 Dose: 20 units Insulin Human Lispro (Humalog) 0 units SC ACHS [facility] PRN Reason: Protocol Last Admin: 11/03/17 12:49 Dose: 3 units Losartan Potassium (Cozaar) 100 mg PO DAILY [facility] Last Admin: 11/03/17 08:33 Dose: 100 mg Oxycodone HCl (Oxycodone Immediate Release Tab) 30 mg PO Q6H [facility] Last Admin: 11/03/17 10:13 Dose: 30 mg Physical Exam - Constitutional Appears: Non-toxic, Chronically Ill - Head Exam Head Exam: NORMOCEPHALIC - Eye Exam Eye Exam: PERRL - ENT Exam ENT Exam: Mucous Membranes Dry, Normal Oropharynx - Neck Exam Neck exam: Negative for: Lymphadenopathy - Respiratory Exam Respiratory Exam: Decreased Breath Sounds, Rhonchi - Cardiovascular Exam Cardiovascular Exam: REGULAR RHYTHM, +S1, +S2 - GI/Abdominal Exam GI & Abdominal Exam: Diminished Bowel Sounds, Soft. absent: Normal Bowel Sounds , Tenderness - Rectal Exam Rectal Exam: Deferred - Exam Exam: NORMAL INSPECTION - Extremities Exam Extremities exam: Positive for: pedal edema. Negative for: calf tenderness, tenderness, pedal pulses present Additional comments: right Food: Open lesions with macerated area with whitish discharge on interspacs of right 2nd and 3d toes. Bluish discoloration of 3rd ties. Has surrounding erythema, swelling and warmth extending to proximal mid lower leg with Td to palpation over the skin and warmth to touch. Neurovascular intact. - Back Exam Back exam: absent: CVA tenderness (L), CVA tenderness (R), paraspinal tenderness - Neurological Exam Neurological exam: Alert, CN II-XII Intact, Oriented x3, Reflexes Normal - Psychiatric Exam Psychiatric exam: Normal Mood - Skin Skin Exam: Dry Results - Vital Signs Recent Vital Signs: Last Vital Signs Temp 99.3 F 11/03/17 08:05 Pulse 68 11/03/17 08:33 Resp 18 11/03/17 08:05 BP 153/75 H 11/03/17 08:33 Pulse Ox 97 11/03/17 08:05 - Labs Result Diagrams: 11/03/17 05:40 11/03/17 05:40 Labs: Laboratory Results - last 24 hr 11/02/17 11/02/17 11/02/17 12:40 16:02 21:53 WBC RBC Hgb Hct MCV MCH MCHC RDW Plt Count ESR 96 H Sodium Potassium Chloride Carbon Dioxide Anion Gap BUN Creatinine Est GFR ( Amer) Est GFR (Non-Af Amer) POC Glucose (mg/dL) 107 148 H Random Glucose Calcium 11/03/17 11/03/17 11/03/17 05:22 05:40 05:40 WBC 12.4 H RBC 3.46 L Hgb 10.2 L Hct 31.3 L MCV 90.4 MCH 29.5 MCHC 32.6 L RDW 15.5 H Plt Count 143 ESR Sodium 137 Potassium 3.9 Chloride 104 Carbon Dioxide 26 Anion Gap 11 BUN 14 Creatinine 0.9 Est GFR ( Amer) > 60 Est GFR (Non-Af Amer) > 60 POC Glucose (mg/dL) 146 H Random Glucose 153 H Calcium 8.2 L 11/03/17 11:09 WBC RBC Hgb Hct MCV MCH MCHC RDW Plt Count ESR Sodium Potassium Chloride Carbon Dioxide Anion Gap BUN Creatinine Est GFR ( Amer) Est GFR (Non-Af Amer) POC Glucose (mg/dL) 229 H Random Glucose Calcium Assessment & Plan (1) Cellulitis of foot Status: Acute (2) Osteomyelitis due to type 2 diabetes mellitus Status: Acute - Assessment and Plan (Free Text) Assessment: recurrent infection right foot r/o cellulitis vs ongoing OM consider MRI, vascular re-eval cont IV antibiotics
--- NOTE | 2017-11-03 15:06 | MRI ---
PROCEDURE: MRI of the right foot without contrast HISTORY: S/p right foot 2nd,3rd toe amputation.cellulitis. History of diabetes COMPARISON: Comparison is made with the previous x-ray of the right foot dated 11/01/2017 and previous MRI dated 09/22/2017 TECHNIQUE: Axial coronal and sagittal MRI images of the right foot were obtained without IV contrast administration FINDINGS: The patient status post amputation of the 2nd toe. There is bony destruction at the distal portion and distal head of the 2nd metatarsal bone consistent with acute osteomyelitis. There is also cortical destruction and abnormal signal noted at the proximal and mid phalanx of the 3rd toe also suggestive of osteomyelitis. There is a diffuse soft tissue edema and swelling a at the distal right foot more prominent adjacent to the distal head of the 2nd metatarsal bone and in the 3rd toe consistent with active infection/ inflammatory process. The possibility of abscess formation cannot be totally excluded in this noncontrast study. There is a fluid seen at and adjacent to the proximal interphalangeal joint of the 3rd toe and the possibility of septic arthritis should also considered. There is a diffuse bone marrow edema noted at the proximal and mid 2nd metatarsal bone without adjacent cortical destruction likely reactive bone marrow changes. There is a small amount of fluid seen at the 4th and 5th metatarsal-phalangeal joints likely represent reactive arthritis. IMPRESSION: Findings consistent with osteomyelitis involving the distal portion and the distal head of the 2nd metatarsal bone as well as the proximal and mid phalanx of the 3rd toe. Adjacent soft tissue swelling and inflammatory changes. Possible septic arthritis involving the proximal interphalangeal joint of the 3rd toe. The possibility of abscess formation cannot be totally excluded in this noncontrast study. Diffuse soft tissue edema in the right foot.
--- NOTE | 2017-11-03 15:35 | RAD ---
HISTORY: right food cellulitis. Cough. COMPARISON: Comparison is made with 09/21/2017 TECHNIQUE: Chest PA and lateral FINDINGS: LUNGS: No active pulmonary disease. PLEURA: No significant pleural effusion identified. No pneumothorax apparent. CARDIOVASCULAR: Normal. OSSEOUS STRUCTURES: No significant abnormalities. VISUALIZED UPPER ABDOMEN: Normal. OTHER FINDINGS: None. IMPRESSION: No active disease.
--- NOTE | 2017-11-03 18:02 | US ---
PROCEDURE: Right lower extremity venous duplex Doppler. HISTORY: cellulitis COMPARISON: None available. TECHNIQUE: Common femoral, superficial femoral, popliteal and posterior tibial veins were evaluated. Flow was assessed with color Doppler, compressibility, assessment of phasic flow and augmentation response. FINDINGS: COMMON FEMORAL VEIN: Unremarkable. SUPERFICIAL FEMORAL VEIN: Unremarkable. POPLITEAL VEIN: Unremarkable. POSTERIOR TIBIAL VEIN: Unremarkable. OTHER FINDINGS: 1.1 cm (short axis) right inguinal lymph node with evidence of central fatty hilum. IMPRESSION: No evidence of deep venous thrombosis in the right lower extremity.
[2017-11-03] MEDS: Insulin Detemir 100 Units/ml Inj SC SCH (21:47)
[2017-11-03] MEDS: Linezolid 600 mg in D5W 300 ml 600 MG/300 ML BAG IVPB SCH (21:47)
[2017-11-04] MEDS: oxyCODONE 10 mg Immediate Release Tab PO SCH ×4 (05:02→22:43)
[2017-11-04 06:36] LABS: HEMOGLOBIN 10.2 g/dL (12.0-18.0); MEAN CELL VOLUME 89.2 fl (80.0-94.0); MEAN CORPUSCULAR HEMOGLOBIN 29.3 pg (27.0-31.0); MEAN CORPUSCULAR HGB CONC 32.9 g/dL (33.0-37.0); RBC 3.49 Mil/uL (4.40-5.90); RED CELL DISTRIBUTION WIDTH 15.4 % (11.5-14.5); WHITE BLOOD COUNT 10.7 K/uL (4.8-10.8)
--- NOTE | 2017-11-04 07:14 | CP.PCM.PN ---
Subjective - Date & Time of Evaluation Date of Evaluation: 11/04/17 Time of Evaluation: 06:45 - Subjective Subjective: Patient seen and examined at bedside this morning. Patient reports right foot pain is slightly improved. Pain managed w/ home medications regimen. Patient was seen by podiatry and had dressings changed. Patient had PIP of 3rd digit tapped for possible septic arthritis. Patient is having normal bowel movements and voiding freely. Patient denies pain on the left LE and foot. The patient denies headaches, dizziness, chest pain, SOB, abdominal pain, nausea, vomiting, diarrhea, dysuria, or fever. Objective - Vital Signs/Intake and Output Vital Signs (last 24 hours): Temp Pulse Resp BP Pulse Ox 98.9 F 86 20 154/77 H 93 L 11/04/17 04:00 11/04/17 00:02 11/04/17 00:02 11/04/17 00:02 11/04/17 00:02 - Medications Medications: Current Medications Acetaminophen (Tylenol 325mg Tab) 650 mg PO Q6 PRN PRN Reason: Fever >100.4 F Last Admin: 11/02/17 17:57 Dose: 650 mg Alprazolam (Xanax) 0.5 mg PO Q8 PRN PRN Reason: Anxiety Last Admin: 11/03/17 21:53 Dose: 0.5 mg Aspirin (Aspirin Chewable) 81 mg PO DAILY [facility] Last Admin: 11/03/17 08:33 Dose: 81 mg Atorvastatin Calcium (Lipitor) 40 mg PO DAILY [facility] Carvedilol (Coreg) 3.125 mg PO Q12 [facility] Last Admin: 11/03/17 20:03 Dose: 3.125 mg Dextrose (Dextrose 50% Inj) 0 ml IV STAT PRN; Protocol PRN Reason: Hypoglycemia Protocol Dextrose (Glutose 15) 0 gm PO ONCE PRN; Protocol PRN Reason: Hypoglycemia Protocol Enoxaparin Sodium (Lovenox) 40 mg SC DAILY [facility] PRN Reason: Protocol Last Admin: 11/03/17 08:32 Dose: 40 mg Glipizide (Glucotrol) 5 mg PO BID [facility] Last Admin: 11/03/17 16:47 Dose: 5 mg Glucagon (Glucagen Diagnostic Kit) 0 mg IM STAT PRN; Protocol PRN Reason: Hypoglycemia Protocol Hydrochlorothiazide (Hydrodiuril) 25 mg PO DAILY [facility] Cefepime HCl 1 gm/ Sodium (Chloride) 100 mls @ 100 mls/hr IVPB Q12 [facility] PRN Reason: Protocol Last Admin: 11/03/17 20:03 Dose: 100 mls/hr Linezolid (Zyvox 600mg/300ml D5w) 600 mg in 300 mls @ 300 mls/hr IVPB Q12 [facility] PRN Reason: Protocol Last Admin: 11/03/17 21:47 Dose: 300 mls/hr Insulin Detemir (Levemir) 20 units SC [facility] Last Admin: 11/03/17 21:47 Dose: 20 units Insulin Human Lispro (Humalog) 0 units SC ACHS [facility] PRN Reason: Protocol Last Admin: 11/03/17 21:45 Dose: Not Given Losartan Potassium (Cozaar) 100 mg PO DAILY [facility] Last Admin: 11/03/17 08:33 Dose: 100 mg Oxycodone HCl (Oxycodone Immediate Release Tab) 30 mg PO Q6H [facility] Last Admin: 11/04/17 05:02 Dose: 30 mg - Labs Labs: 11/04/17 05:45 11/03/17 05:40 PT 14.5 Seconds (9.8-13.1) H 11/02/17 12:40 INR 1.3 (0.9-1.2) H 11/02/17 12:40 APTT 29.8 Seconds (25.6-37.1) 11/02/17 12:40 - Constitutional Appears: No Acute Distress - Head Exam Head Exam: ATRAUMATIC, NORMAL INSPECTION, NORMOCEPHALIC - Eye Exam Eye Exam: Normal appearance - ENT Exam ENT Exam: Mucous Membranes Moist - Respiratory Exam Respiratory Exam: Clear to Ausculation Bilateral, NORMAL BREATHING PATTERN. absent: Decreased Breath Sounds, Rales, Rhonchi, Wheezes, Respiratory Distress - Cardiovascular Exam Cardiovascular Exam: REGULAR RHYTHM. absent: Tachycardia - GI/Abdominal Exam GI & Abdominal Exam: Soft, Normal Bowel Sounds. absent: Distended, Tenderness - Extremities Exam Additional comments: right foot newly dressed by podiatry, no erythema, tenderness of the lower extremity left LE and foot, non-tender, no erythema, no edema - Neurological Exam Neurological Exam: Alert, Awake, Oriented x3 - Skin Skin Exam: Dry Assessment and Plan - Assessment and Plan (Free Text) Assessment: 62 y/o man w/ pmh of DM2, HTN, Osteomyelitis of right 2nd toe s/p partial 2nd right amputation and resection of 3rd proximal phalanx on 09/15/17 admitted for right foot cellulitis Plan: 1) Right Foot Cellulitis - s/p Osteomyelitis of right 2nd toe s/p partial 2nd right amputation and resection of 3rd proximal phalanx on 09/15/17 - DC'ed Vancomycin 1gm IV Q12 - vanc trough: 11.1 - patient afebrile over 24 hours - cefepime 1 gm IV Q12 day 2 - MRI foot 11/02/2017: OM distal portion and distal head of 2nd metatarsal bone as well as proximal and mid phalanx of 3rd toe. Possible septic arthritis of PIP joint of 3rd toe. diffuse soft tissue edema in right foot - Podiatry consulted, recommendations appreciated: surgical intervention depending on results of MRI - Infectious Disease consulted, Dr. De La Paz, recommendations appreciated - Cardiology consulted, Dr. Quiros, recommendations appreciated: no intervention at this time, continue medications - blood culture: no growth - wound culture: MRSA - scheduled for OR tomorrow - EKG ordered - NPO after midnight - PO meds held - CBC: 10.7>10.2/31.1<160 - ESR: 105 - CMP: 136/4.0, 100/29, 14/1.1, glucose 170 2) UTI - patient denies dysuria, hematuria, or fever - urine culture: enterococcus faecalis - started on linezolid 600 mg IV Q12h 3) DM2 - Diabetic diet - SSI - hypoglycemic protocol - resumed home levemir and glipizide - held metformin 4) HTN - currently BP elevated most likely 2/2 to pain - c.w HCTZ 25 mg PO daily - c/w Losartan 100 mg PO daily - monitor for acute changes 5) HLD - c/w atorvastatin 40 mg PO daily 6) Pain management - resumed home regimen: oxycodone 30 mg PO Q6h, xanax 0.5 mg PO Q8h prn - consider lyrica for neuropathy - consider pain management consult - PO pain meds held after midnight - lidocaine patch, toradol IV, and dilaudid IV until s/p procedure 7) DVT Prophylaxis - Lovenox 40 mg sc daily, held
[2017-11-04 08:17] LABS: BLOOD UREA NITROGEN 14 mg/dl (9-20); CALCIUM 8.6 mg/dL (8.4-10.2); GFR AFRICAN-AMERICAN > 60; GFR NON-AFRICAN AMERICAN > 60
[2017-11-04] MEDS: Cefepime 1 GM in Sodium Chloride 0.9% 100 ML IVPB SCH ×2 (09:04→20:56)
[2017-11-04] MEDS: Linezolid 600 mg in D5W 300 ml 600 MG/300 ML BAG IVPB SCH ×2 (09:04→21:57)
[2017-11-04] MEDS: Enoxaparin 40 mg Syringe SC SCH (09:05)
[2017-11-04] MEDS: Insulin Lispro (humaLOG) 100 Units/ml Inj SC SCH ×4 (09:07→21:57)
--- NOTE | 2017-11-04 09:11 | PQF GENQUE ---
This form is a permanent part of the medical record 11/04/17 Dr. Darrian Ladd, Would you please clarify if there is an associated diagnosis or not to go along with the Urine CS findings. Admitted for cellulitic changes secondary to non-healing surgical sites at right digit amputation site and dorsal right third digit. URINE CS on admission : Enteroccus Faecalis VRE. Vancomycin D/C and placed on Zyvox and Cefepime. Clarification of your documentation is requested to better reflect the severity of illness and intensity of treatment of your patient. Indicators present [] Specify: [] [] Specify: [] [] Specify: [] [] Specify: [] Location in the medical record that reflects the above clinical findings: [] Treatment Provided: [] PHYSICIAN'S RESPONSE Based on your medical judgment of the clinical indicators outlined above please clarify the following: [] Practitioner response [] If unable to determine, please check the box, sign and date. Present On Admission (POA) Indicator: [] Present at the time of admission [] Not present at the time of admission [] Clinically Undetermined In responding to this query, please exercise your independent professional judgment. The fact that a question is asked does not imply that any particular answer is desired or expected. Thank you for your clarification on this documentation. If you have any questions please call:ext [phone] * Thank you, Emily Moreira RN CDNEW [facility]
[2017-11-04] MEDS ORDERED: Povidone Iodine Topical 10% Sol ONE (10:01)
[2017-11-04] MEDS: Lactobacillus Acidophilus 500 MU Cap PO SCH ×2 (11:13→16:49)
[2017-11-04] MEDS ORDERED: HYDROmorphone 1 mg/ml ISec IVP PRN (12:04)
--- NOTE | 2017-11-04 12:29 | CARD ---
APPROVED REPORT EKG Measurement Heart [id number] <Conclusion> Normal sinus rhythm Moderate voltage criteria for LVH, may be normal variant Borderline ECG
--- NOTE | 2017-11-04 14:10 | CP.PCM.PCO ---
Physician Communication Note - Physician Communication Note Physician Communication Note: Patient is medically optimized for surgical procedure tomorrow
--- NOTE | 2017-11-04 14:37 | CP.PCM.PN ---
Subjective - Date & Time of Evaluation Date of Evaluation: 11/04/17 Time of Evaluation: 14:33 - Subjective Subjective: 62 year old male seen at bedside after being admitted through the ED on 11/01/17 from the wound care center for right lower extremity cellulitic changes secondary to non-healing surgical sites. Patient had partial second ray amputation and third digit partial proximal phalanx amputation on 09/25/17. Both wounds failed to heal following those surgeries. Patient is AAO x 3 and NAD resting comfortably in bed at time of visit. States that pain to right foot is well controlled. Patient denies any further pedal complaints at this time. Denies N/V/F/C/CP/SOB/D/posterior calf pain when squeezed. Objective - Vital Signs/Intake and Output Vital Signs (last 24 hours): Temp Pulse Resp BP Pulse Ox 98.5 F 86 19 154/77 H 96 11/04/17 07:55 11/04/17 09:06 11/04/17 07:55 11/04/17 09:06 11/04/17 07:55 - Medications Medications: Current Medications Acetaminophen (Tylenol 325mg Tab) 650 mg PO Q6 PRN PRN Reason: Fever >100.4 F Last Admin: 11/02/17 17:57 Dose: 650 mg Alprazolam (Xanax) 0.5 mg PO Q8 PRN PRN Reason: Anxiety Last Admin: 11/04/17 11:25 Dose: 0.5 mg Aspirin (Aspirin Chewable) 81 mg PO DAILY [facility] Last Admin: 11/04/17 09:07 Dose: 81 mg Atorvastatin Calcium (Lipitor) 40 mg PO DAILY [facility] Last Admin: 11/04/17 09:06 Dose: 40 mg Carvedilol (Coreg) 3.125 mg PO Q12 [facility] Last Admin: 11/04/17 09:05 Dose: 3.125 mg Dextrose (Dextrose 50% Inj) 0 ml IV STAT PRN; Protocol PRN Reason: Hypoglycemia Protocol Dextrose (Glutose 15) 0 gm PO ONCE PRN; Protocol PRN Reason: Hypoglycemia Protocol Enoxaparin Sodium (Lovenox) 40 mg SC DAILY [facility] PRN Reason: Protocol Last Admin: 11/04/17 09:05 Dose: 40 mg Glipizide (Glucotrol) 5 mg PO BID [facility] Last Admin: 11/04/17 09:06 Dose: 5 mg Glucagon (Glucagen Diagnostic Kit) 0 mg IM STAT PRN; Protocol PRN Reason: Hypoglycemia Protocol Hydrochlorothiazide (Hydrodiuril) 25 mg PO DAILY [facility] Last Admin: 11/04/17 09:06 Dose: 25 mg Hydromorphone HCl (Dilaudid) 1 mg PO Q4 PRN PRN Reason: Pain, moderate (4-7) Hydromorphone HCl (Dilaudid) 0.5 mg IVP Q4 PRN PRN Reason: Pain, moderate (4-7) Cefepime HCl 1 gm/ Sodium (Chloride) 100 mls @ 100 mls/hr IVPB Q12 [facility] PRN Reason: Protocol Last Admin: 11/04/17 09:04 Dose: 100 mls/hr Linezolid (Zyvox 600mg/300ml D5w) 600 mg in 300 mls @ 300 mls/hr IVPB Q12 [facility] PRN Reason: Protocol Last Admin: 11/04/17 09:04 Dose: 300 mls/hr Insulin Detemir (Levemir) 20 units SC HS [facility] Last Admin: 11/03/17 21:47 Dose: 20 units Insulin Human Lispro (Humalog) 0 units SC ACHS [facility] PRN Reason: Protocol Last Admin: 11/04/17 12:42 Dose: 4 units Ketorolac Tromethamine (Toradol) 15 mg IVP Q6 PRN PRN Reason: Pain, Mild (1-3) Lactobacillus Acidophilus (Bacid Acidophilus) 1 cap PO BID [facility] Last Admin: 11/04/17 11:13 Dose: 1 cap Lidocaine (Lidoderm) 1 ea TD DAILY [facility] Losartan Potassium (Cozaar) 100 mg PO DAILY [facility] Last Admin: 11/04/17 09:06 Dose: 100 mg Oxycodone HCl (Oxycodone Immediate Release Tab) 30 mg PO Q6H [facility] Last Admin: 11/04/17 11:13 Dose: 30 mg - Labs Labs: 11/04/17 05:45 11/04/17 05:45 PT 14.5 Seconds (9.8-13.1) H 11/02/17 12:40 INR 1.3 (0.9-1.2) H 11/02/17 12:40 APTT 29.8 Seconds (25.6-37.1) 11/02/17 12:40 - Constitutional Appears: Well, Non-toxic, No Acute Distress - Extremities Exam Additional comments: RLE focused exam: Vasc: DP/PT pulses nonpalpable to RLE most likely secondary to edema. Skin temperature warm to warm from proximal to distal. CFT < 3 seconds to all digits b/l except right third digit. Right third digit appears purple/kapadia and dusky in nature and is cool to touch Neuro: Epicritic and protective sensation grossly intact b/l Derm: Two nonhealing surgical sites noted to right foot. First is at previous second digit amputation site. Noted to be roughly 4 cm x 1 cm and probes deep to muscle but not bone. Wound base mostly fibrotic. Roughly 2 cc of purulent drainage expressed from fluctuant pocket of skin on plantar aspect of foot. Second nonhealing surgical site noted to dorsal third digit. Measures roughly 1 cm x 0.5 cm x 0.2 cm. Roughly 4 cc of purulent drainage expressed from wound. Wound probes deep to bone and joint space of PIPJ. Cellulitic changes noted to dorsum of foot surrounding both wounds without streaking up the leg, improving. Otherwise, no open lesions, wounds, maceration, xerosis, abnormal pigmentation or abnormal growths noted b/l. Nails well manicured and normotrophic 1-10 b/l MSK: Minimal POP to both wound sites - Neurological Exam Neurological Exam: Alert, Awake, Oriented x3 - Psychiatric Exam Psychiatric exam: Normal Affect, Normal Mood Assessment and Plan - Assessment and Plan (Free Text) Assessment: 62 year old male seen for diabetic foot infection of right foot Plan: Patient seen and evaluated with attending Dr. Pittman Afebrile, WBC 10.7 ESR 105 Wound cx Right foot: MRSA, Acinetobacter Baumannii Urine cx: VRE Continue IV abx per ID LE US: No evidence of DVT R foot MRI: OM involvin distal portion of second metatarsal, proximal and mid phalanx of third toe. Possible septic arthritis involving the proximal interphalangeal joint of the third toe Third digit PIPJ opened at bedside to allow for drainage of purulent fluid - Joint fluid aspirated and sent to pathology for culture Due to expression of multiple cc of purulent drainage from nonhealing surgical sites, coupled with results of MRI, patient will be brought back to OR tomorrow for amputation of right third digit with incision and drainage of nonhealing surgical sites and removal of all nonviable soft tissue and bone Surgery is schedule for 5:30 pm 11/05/16 Medical clearance obtained Patient to be NPO tomorrow after breakfast Patients wounds dressed with DSD, ABD Podiatry will continue to follow while patient in house
[2017-11-04] MEDS: Insulin Detemir 100 Units/ml Inj SC SCH (21:56)
[2017-11-05] MEDS ORDERED: Lidocaine 5% Patch TD SCH
[2017-11-05] MEDS: Insulin Lispro (humaLOG) 100 Units/ml Inj SC SCH ×4 (07:30→22:06)
--- NOTE | 2017-11-05 07:38 | CP.PCM.PN ---
Addendum entered and electronically signed by Nima Lemon MD 11/05/17 14:29: Patient seen by podiatry. Dr. Pittman sees improved healing of tissue and wants a potential healthier surgical site. Procedure postponed until WednesdayNovember 08 @ 13:30. Patient's PO meds and diet will be resumed. Original Note: <Nima Lemon - Last Filed: 11/05/17 13:17> Subjective - Date & Time of Evaluation Date of Evaluation: 11/05/17 Time of Evaluation: 07:20 - Subjective Subjective: Patient seen and examined at bedside this morning. Patient reports right foot pain is slightly improved. Pain managed w/ home medications regimen; however, on hold until after procedure today. Patient reports pain substitutions tiding him over. Patient to OR today for amputation. Patient had PIP of 3rd digit tapped for possible septic arthritis. Patient is having normal bowel movements and voiding freely. Patient denies pain on the left LE and foot. The patient denies headaches, dizziness, chest pain, SOB, abdominal pain, nausea, vomiting, diarrhea, dysuria, or fever. Objective - Vital Signs/Intake and Output Vital Signs (last 24 hours): Temp Pulse Resp BP Pulse Ox 99.3 F 67 20 114/71 94 L 11/05/17 00:16 11/05/17 00:16 11/05/17 00:16 11/05/17 00:16 11/05/17 00:16 - Medications Medications: Current Medications Acetaminophen (Tylenol 325mg Tab) 650 mg PO Q6 PRN PRN Reason: Fever >100.4 F Last Admin: 11/04/17 21:50 Dose: 650 mg Alprazolam (Xanax) 0.5 mg PO Q8 PRN PRN Reason: Anxiety Last Admin: 11/04/17 11:25 Dose: 0.5 mg Aspirin (Aspirin Chewable) 81 mg PO DAILY [facility] Last Admin: 11/04/17 09:07 Dose: 81 mg Atorvastatin Calcium (Lipitor) 40 mg PO DAILY [facility] Last Admin: 11/04/17 09:06 Dose: 40 mg Carvedilol (Coreg) 3.125 mg PO Q12 [facility] Last Admin: 11/04/17 20:56 Dose: 3.125 mg Dextrose (Dextrose 50% Inj) 0 ml IV STAT PRN; Protocol PRN Reason: Hypoglycemia Protocol Dextrose (Glutose 15) 0 gm PO ONCE PRN; Protocol PRN Reason: Hypoglycemia Protocol Enoxaparin Sodium (Lovenox) 40 mg SC DAILY [facility] PRN Reason: Protocol Last Admin: 11/04/17 09:05 Dose: 40 mg Glipizide (Glucotrol) 5 mg PO BID [facility] Last Admin: 11/04/17 16:50 Dose: 5 mg Glucagon (Glucagen Diagnostic Kit) 0 mg IM STAT PRN; Protocol PRN Reason: Hypoglycemia Protocol Hydrochlorothiazide (Hydrodiuril) 25 mg PO DAILY [facility] Last Admin: 11/04/17 09:06 Dose: 25 mg Hydromorphone HCl (Dilaudid) 1 mg PO Q4 PRN PRN Reason: Pain, moderate (4-7) Hydromorphone HCl (Dilaudid) 0.5 mg IVP Q4 PRN PRN Reason: Pain, moderate (4-7) Cefepime HCl 1 gm/ Sodium (Chloride) 100 mls @ 100 mls/hr IVPB Q12 [facility] PRN Reason: Protocol Last Admin: 11/04/17 20:56 Dose: 100 mls/hr Linezolid (Zyvox 600mg/300ml D5w) 600 mg in 300 mls @ 300 mls/hr IVPB Q12 [facility] PRN Reason: Protocol Last Admin: 11/04/17 21:57 Dose: 300 mls/hr Insulin Detemir (Levemir) 20 units SC HS [facility] Last Admin: 11/04/17 21:56 Dose: 20 units Insulin Human Lispro (Humalog) 0 units SC ACHS [facility] PRN Reason: Protocol Last Admin: 11/04/17 21:57 Dose: Not Given Ketorolac Tromethamine (Toradol) 15 mg IVP Q6 PRN PRN Reason: Pain, Mild (1-3) Lactobacillus Acidophilus (Bacid Acidophilus) 1 cap PO BID [facility] Last Admin: 11/04/17 16:49 Dose: 1 cap Lidocaine (Lidoderm) 1 ea TD DAILY [facility] Losartan Potassium (Cozaar) 100 mg PO DAILY [facility] Last Admin: 11/04/17 09:06 Dose: 100 mg Oxycodone HCl (Oxycodone Immediate Release Tab) 30 mg PO Q6H [facility] Last Admin: 02/08/18 22:43 Dose: 30 mg - Labs Labs: 11/04/17 05:45 11/04/17 05:45 PT 14.5 Seconds (9.8-13.1) H 11/02/17 12:40 INR 1.3 (0.9-1.2) H 11/02/17 12:40 APTT 29.8 Seconds (25.6-37.1) 11/02/17 12:40 - Constitutional Appears: No Acute Distress - Head Exam Head Exam: ATRAUMATIC, NORMAL INSPECTION, NORMOCEPHALIC - Eye Exam Eye Exam: Normal appearance - ENT Exam ENT Exam: Mucous Membranes Moist - Neck Exam Neck Exam: Full ROM. absent: Tenderness - Respiratory Exam Respiratory Exam: Clear to Ausculation Bilateral, NORMAL BREATHING PATTERN. absent: Decreased Breath Sounds, Rales, Rhonchi, Wheezes, Respiratory Distress - Cardiovascular Exam Cardiovascular Exam: REGULAR RHYTHM. absent: Tachycardia - GI/Abdominal Exam GI & Abdominal Exam: Soft, Normal Bowel Sounds. absent: Distended, Tenderness - Extremities Exam Additional comments: right foot newly dressed by podiatry, no erythema, tenderness of the lower extremity left LE and foot, non-tender, no erythema, no edema - Neurological Exam Neurological Exam: Alert, Awake, Oriented x3 - Skin Skin Exam: Dry Assessment and Plan - Assessment and Plan (Free Text) Assessment: 62 y/o man w/ pmh of DM2, HTN, Osteomyelitis of right 2nd toe s/p partial 2nd right amputation and resection of 3rd proximal phalanx on 09/15/17 admitted for right foot cellulitis Plan: 1) Right Foot Cellulitis - s/p Osteomyelitis of right 2nd toe s/p partial 2nd right amputation and resection of 3rd proximal phalanx on 09/15/17 - cefepime 1 gm IV Q12 day 3 - MRI foot 11/02/2017: OM distal portion and distal head of 2nd metatarsal bone as well as proximal and mid phalanx of 3rd toe. Possible septic arthritis of PIP joint of 3rd toe. diffuse soft tissue edema in right foot - Podiatry consulted, recommendations appreciated: amputation of 3rd digit of right foot - Infectious Disease consulted, Dr. De La Paz, recommendations appreciated - Cardiology consulted, Dr. 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 2) UTI - patient denies dysuria, hematuria, or fever - urine culture: enterococcus faecalis - on linezolid 600 mg IV Q12h day 2 3) DM2 - Diabetic diet - SSI - hypoglycemic protocol - resumed home levemir and glipizide - held metformin 4) HTN - currently BP elevated most likely 2/2 to pain - c.w HCTZ 25 mg PO daily - c/w Losartan 100 mg PO daily - monitor for acute changes 5) HLD - c/w atorvastatin 40 mg PO daily 6) Pain management - resumed home regimen: oxycodone 30 mg PO Q6h, xanax 0.5 mg PO Q8h prn - PO pain meds held until after procedure - lidocaine patch, ativan IV, and dilaudid IV until s/p procedure 7) DVT Prophylaxis - Lovenox 40 mg sc daily, held <Abena Rangel - Last Filed: 11/06/17 09:37> Objective - Vital Signs/Intake and Output Vital Signs (last 24 hours): Temp Pulse Resp BP Pulse Ox 98.3 F 54 L 20 134/66 99 11/06/17 08:26 11/06/17 08:26 11/06/17 08:26 11/06/17 08:26 11/06/17 08:26 - Medications Medications: Current Medications Acetaminophen (Tylenol 325mg Tab) 650 mg PO Q6 PRN PRN Reason: Fever >100.4 F Last Admin: 11/04/17 21:50 Dose: 650 mg Alprazolam (Xanax) 0.5 mg PO Q8 PRN PRN Reason: Anxiety Last Admin: 11/05/17 20:42 Dose: 0.5 mg Aspirin (Aspirin Chewable) 81 mg PO DAILY [facility] Atorvastatin Calcium (Lipitor) 40 mg PO DAILY [facility] Last Admin: 11/06/17 08:46 Dose: 40 mg Carvedilol (Coreg) 3.125 mg PO Q12 [facility] Last Admin: 11/06/17 08:47 Dose: Not Given Dextrose (Dextrose 50% Inj) 0 ml IV STAT PRN; Protocol PRN Reason: Hypoglycemia Protocol Dextrose (Glutose 15) 0 gm PO ONCE PRN; Protocol PRN Reason: Hypoglycemia Protocol Enoxaparin Sodium (Lovenox) 40 mg SC DAILY [facility] PRN Reason: Protocol Stop: 11/06/17 18:20 Last Admin: 11/06/17 08:43 Dose: 40 mg Glipizide (Glucotrol) 5 mg PO BID [facility] Last Admin: 11/06/17 08:47 Dose: 5 mg Glucagon (Glucagen Diagnostic Kit) 0 mg IM STAT PRN; Protocol PRN Reason: Hypoglycemia Protocol Hydrochlorothiazide (Hydrodiuril) 25 mg PO DAILY [facility] Last Admin: 11/06/17 08:46 Dose: 25 mg Hydromorphone HCl (Dilaudid) 1 mg PO Q4 PRN PRN Reason: Pain, moderate (4-7) Cefepime HCl 1 gm/ Sodium (Chloride) 100 mls @ 100 mls/hr IVPB Q12 [facility] PRN Reason: Protocol Last Admin: 11/06/17 08:46 Dose: 100 mls/hr Linezolid (Zyvox 600mg/300ml D5w) 600 mg in 300 mls @ 300 mls/hr IVPB Q12@0100, 1300 [facility] PRN Reason: Protocol Last Admin: 11/06/17 00:41 Dose: 300 mls/hr Insulin Detemir (Levemir) 20 units SC HS [facility] Last Admin: 11/05/17 22:06 Dose: 20 units Insulin Human Lispro (Humalog) 0 units SC ACHS [facility] PRN Reason: Protocol Last Admin: 11/06/17 07:58 Dose: Not Given Lactobacillus Acidophilus (Bacid Acidophilus) 1 cap PO BID [facility] Last Admin: 11/06/17 08:45 Dose: 1 cap Lidocaine (Lidoderm) 1 ea TD DAILY [facility] Last Admin: 11/06/17 08:44 Dose: 1 ea Losartan Potassium (Cozaar) 100 mg PO DAILY [facility] Last Admin: 11/06/17 08:48 Dose: Not Given Oxycodone HCl (Oxycodone Immediate Release Tab) 30 mg PO Q6H [facility] Last Admin: 11/06/17 04:30 Dose: 30 mg - Labs Labs: 11/05/17 15:04 11/05/17 15:04 PT 15.0 Seconds (9.8-13.1) H 11/05/17 15:04 INR 1.3 (0.9-1.2) H 11/05/17 15:04 APTT 28.4 Seconds (25.6-37.1) 11/05/17 15:04 Attending/Attestation - Attestation I have personally seen and examined this patient.: Yes I have fully participated in the care of the patient.: Yes I have reviewed all pertinent clinical information, including history, physical exam and plan: Yes Notes (Text): 11/06/17 09:35 PATIENT SEEN AND EXAMINED. CASE DISCUSSED WITH RESIDENT. PATIENT SCHEDULE FOR SURGERY TODAY. WILL GIVE DOSE OF ATIVAN IV - LONG TIME USE OF XANAX - CONCERN BENZO WITHDRAWL IF WITHHELD ABRUPTLY. AGREE WITH FINDINGS AND PLAN.
[2017-11-05] MEDS: Lactobacillus Acidophilus 500 MU Cap PO SCH ×2 (08:46→16:31)
[2017-11-05] MEDS: Lidocaine 5% Patch TD SCH (08:51)
--- NOTE | 2017-11-05 09:05 | CP.PCM.PN ---
Subjective - Date & Time of Evaluation Date of Evaluation: 11/05/17 Time of Evaluation: 09:02 - Subjective Subjective: 62 year old male seen at bedside after being admitted through the ED on 11/01/17 from the wound care center for right lower extremity cellulitic changes secondary to non-healing surgical sites. Patient had partial second ray amputation and third digit partial proximal phalanx amputation on 09/25/17. Both wounds failed to heal following those surgeries. Patient is AAO x 3 and NAD resting comfortably in bed at time of visit. States that pain to right foot is well controlled. Patient denies any further pedal complaints at this time. Denies N/V/F/C/CP/SOB/D/posterior calf pain when squeezed. Patient is for I and D of nonhealing surgical sites today at 5:[address] Pittman and Podiatry Objective - Vital Signs/Intake and Output Vital Signs (last 24 hours): Temp Pulse Resp BP Pulse Ox 99.7 F H 71 20 164/78 H 97 11/05/17 07:54 11/05/17 07:54 11/05/17 07:54 11/05/17 08:47 11/05/17 07:54 - Medications Medications: Current Medications Acetaminophen (Tylenol 325mg Tab) 650 mg PO Q6 PRN PRN Reason: Fever >100.4 F Last Admin: 11/04/17 21:50 Dose: 650 mg Alprazolam (Xanax) 0.5 mg PO Q8 PRN PRN Reason: Anxiety Last Admin: 11/04/17 11:25 Dose: 0.5 mg Aspirin (Aspirin Chewable) 81 mg PO DAILY [facility] Last Admin: 11/04/17 09:07 Dose: 81 mg Atorvastatin Calcium (Lipitor) 40 mg PO DAILY [facility] Last Admin: 11/05/17 08:49 Dose: Not Given Carvedilol (Coreg) 3.125 mg PO Q12 [facility] Last Admin: 11/05/17 08:47 Dose: 3.125 mg Dextrose (Dextrose 50% Inj) 0 ml IV STAT PRN; Protocol PRN Reason: Hypoglycemia Protocol Dextrose (Glutose 15) 0 gm PO ONCE PRN; Protocol PRN Reason: Hypoglycemia Protocol Enoxaparin Sodium (Lovenox) 40 mg SC DAILY [facility] PRN Reason: Protocol Last Admin: 02/08/18 09:05 Dose: 40 mg Glipizide (Glucotrol) 5 mg PO BID [facility] Last Admin: 11/04/17 16:50 Dose: 5 mg Glucagon (Glucagen Diagnostic Kit) 0 mg IM STAT PRN; Protocol PRN Reason: Hypoglycemia Protocol Hydrochlorothiazide (Hydrodiuril) 25 mg PO DAILY [facility] Last Admin: 11/05/17 08:49 Dose: Not Given Hydromorphone HCl (Dilaudid) 1 mg PO Q4 PRN PRN Reason: Pain, moderate (4-7) Hydromorphone HCl (Dilaudid) 0.5 mg IVP Q4 PRN PRN Reason: Pain, moderate (4-7) Cefepime HCl 1 gm/ Sodium (Chloride) 100 mls @ 100 mls/hr IVPB Q12 [facility] PRN Reason: Protocol Last Admin: 11/04/17 20:56 Dose: 100 mls/hr Linezolid (Zyvox 600mg/300ml D5w) 600 mg in 300 mls @ 300 mls/hr IVPB Q12 [facility] PRN Reason: Protocol Last Admin: 11/04/17 21:57 Dose: 300 mls/hr Insulin Detemir (Levemir) 20 units SC HS [facility] Last Admin: 11/04/17 21:56 Dose: 20 units Insulin Human Lispro (Humalog) 0 units SC ACHS [facility] PRN Reason: Protocol Last Admin: 11/05/17 07:30 Dose: Not Given Ketorolac Tromethamine (Toradol) 15 mg IVP Q6 PRN PRN Reason: Pain, Mild (1-3) Last Admin: 11/05/17 08:40 Dose: 15 mg Lactobacillus Acidophilus (Bacid Acidophilus) 1 cap PO BID [facility] Last Admin: 11/05/17 08:46 Dose: Not Given Lidocaine (Lidoderm) 1 ea TD DAILY [facility] Last Admin: 11/05/17 08:51 Dose: 1 ea Losartan Potassium (Cozaar) 100 mg PO DAILY [facility] Last Admin: 11/04/17 09:06 Dose: 100 mg Oxycodone HCl (Oxycodone Immediate Release Tab) 30 mg PO Q6H [facility] Last Admin: 11/04/17 22:43 Dose: 30 mg - Labs Labs: 11/04/17 05:45 11/04/17 05:45 PT 14.5 Seconds (9.8-13.1) H 11/02/17 12:40 INR 1.3 (0.9-1.2) H 11/02/17 12:40 APTT 29.8 Seconds (25.6-37.1) 11/02/17 12:40 - Constitutional Appears: Well, Non-toxic, No Acute Distress - Extremities Exam Additional comments: Dressings to right foot left intact Noted to be C/D/I No erythematous streaking noted up the patient's leg - Neurological Exam Neurological Exam: Alert, Awake, Oriented x3 - Psychiatric Exam Psychiatric exam: Normal Affect, Normal Mood Assessment and Plan - Assessment and Plan (Free Text) Assessment: 62 year old male seen preoperatively for amputation of right third digit with incision and drainage of forefoot secondary to diabetic foot infection from nonhealing surgical sites Plan: Patient seen and evaluated at bedside Plan discussed with attending Dr. Pittman Afebrile WBC 10.7 yesterday Continue IV abx per ID Joint aspirate cx pending Dressings to left foot left in place Discussed with Family medicine, patient may have light breakfast and then is to be NPO for remainder of day Medical clearance for surgery obtained All anticoagulation therapy held at this time Patient for OR amputation of right third digit with incision and drainage of right forefoot today at 5:30pm Podiatry will continue to follow while patient in house
[2017-11-05] MEDS: Cefepime 1 GM in Sodium Chloride 0.9% 100 ML IVPB SCH ×2 (09:13→20:39)
[2017-11-05] MEDS ORDERED: HYDROmorphone 0.5 mg/0.5 ml ISec IVP PRN (10:15)
[2017-11-05] MEDS: Linezolid 600 mg in D5W 300 ml 600 MG/300 ML BAG IVPB SCH (10:56)
[2017-11-05] MEDS ORDERED: Lidocaine 1% Inj (20ml) ONE (12:07)
--- NOTE | 2017-11-05 12:24 | PCM.SURG1 ---
Surgeon's Initial Post Op Note - Surgeon's Notes Surgeon: Denis Garland MD Floor Nurse: NONE Type of Anesthesia: Local Pre-Operative Diagnosis: Foot infection Operative Findings: US showed a patent right basilic vein Post-Operative Diagnosis: Foot infection Operation Performed: Single lumen picc, 39 cm, right basilic vein. Tip is in the SVC. Specimen/Specimens Removed: NONE Estimated Blood Loss: EBL {In ML}: 2 Blood Products Given: N/A Drains Used: No Drains Post-Op Condition: Fair Date of Surgery/Procedure: 11/05/17 Time of Surgery/Procedure: 12:20
--- NOTE | 2017-11-05 13:31 | CP.PCM.PN ---
Subjective - Date & Time of Evaluation Date of Evaluation: 11/05/17 Time of Evaluation: 08:00 - Subjective Subjective: admitted from the wound care center for right lower extremity cellulitic changes secondary to non-healing surgical sites. Patient had partial second ray amputation and third digit partial proximal phalanx amputation on 09/25/17. Both wounds failed to heal following those surgeries going for amputation and revision debridement urine c/s likely contaminant as U/A was benign and pt asx wound grew MRSA as before and MDRO- acinetobacter cont current rx Objective - Vital Signs/Intake and Output Vital Signs (last 24 hours): Temp Pulse Resp BP Pulse Ox 97.9 F 72 18 162/79 H 97 11/05/17 12:13 11/05/17 12:13 11/05/17 12:13 11/05/17 12:13 11/05/17 07:54 - Medications Medications: Current Medications Acetaminophen (Tylenol 325mg Tab) 650 mg PO Q6 PRN PRN Reason: Fever >100.4 F Last Admin: 11/04/17 21:50 Dose: 650 mg Alprazolam (Xanax) 0.5 mg PO Q8 PRN PRN Reason: Anxiety Last Admin: 11/04/17 11:25 Dose: 0.5 mg Aspirin (Aspirin Chewable) 81 mg PO DAILY [facility] Last Admin: 11/04/17 09:07 Dose: 81 mg Atorvastatin Calcium (Lipitor) 40 mg PO DAILY [facility] Last Admin: 11/05/17 08:49 Dose: Not Given Carvedilol (Coreg) 3.125 mg PO Q12 [facility] Last Admin: 11/05/17 08:47 Dose: 3.125 mg Dextrose (Dextrose 50% Inj) 0 ml IV STAT PRN; Protocol PRN Reason: Hypoglycemia Protocol Dextrose (Glutose 15) 0 gm PO ONCE PRN; Protocol PRN Reason: Hypoglycemia Protocol Enoxaparin Sodium (Lovenox) 40 mg SC DAILY [facility] PRN Reason: Protocol Last Admin: 11/04/17 09:05 Dose: 40 mg Glipizide (Glucotrol) 5 mg PO BID [facility] Last Admin: 11/04/17 16:50 Dose: 5 mg Glucagon (Glucagen Diagnostic Kit) 0 mg IM STAT PRN; Protocol PRN Reason: Hypoglycemia Protocol Hydrochlorothiazide (Hydrodiuril) 25 mg PO DAILY [facility] Last Admin: 11/05/17 10:01 Dose: 25 mg Hydromorphone HCl (Dilaudid) 1 mg PO Q4 PRN PRN Reason: Pain, moderate (4-7) Hydromorphone HCl (Dilaudid) 0.5 mg IVP Q6 [facility] Cefepime HCl 1 gm/ Sodium (Chloride) 100 mls @ 100 mls/hr IVPB Q12 [facility] PRN Reason: Protocol Last Admin: 11/05/17 09:13 Dose: 100 mls/hr Linezolid (Zyvox 600mg/300ml D5w) 600 mg in 300 mls @ 300 mls/hr IVPB Q12 [facility] PRN Reason: Protocol Last Admin: 11/05/17 10:56 Dose: 300 mls/hr Insulin Detemir (Levemir) 20 units SC HS [facility] Last Admin: 11/04/17 21:56 Dose: 20 units Insulin Human Lispro (Humalog) 0 units SC ACHS [facility] PRN Reason: Protocol Last Admin: 11/05/17 11:30 Dose: Not Given Lactobacillus Acidophilus (Bacid Acidophilus) 1 cap PO BID [facility] Last Admin: 11/05/17 08:46 Dose: Not Given Lidocaine (Lidoderm) 1 ea TD DAILY [facility] Last Admin: 11/05/17 08:51 Dose: 1 ea Losartan Potassium (Cozaar) 100 mg PO DAILY [facility] Last Admin: 11/05/17 10:02 Dose: 100 mg Oxycodone HCl (Oxycodone Immediate Release Tab) 30 mg PO Q6H [facility] Last Admin: 11/04/17 22:43 Dose: 30 mg - Labs Labs: 11/04/17 05:45 11/04/17 05:45 PT 14.5 Seconds (9.8-13.1) H 11/02/17 12:40 INR 1.3 (0.9-1.2) H 11/02/17 12:40 APTT 29.8 Seconds (25.6-37.1) 11/02/17 12:40 - Constitutional Appears: Non-toxic, Chronically Ill - Head Exam Head Exam: ATRAUMATIC, NORMAL INSPECTION, NORMOCEPHALIC - Eye Exam Eye Exam: EOMI, Normal appearance, PERRL Pupil Exam: NORMAL ACCOMODATION, PERRL - ENT Exam ENT Exam: Mucous Membranes Moist, Normal Exam - Neck Exam Neck Exam: Full ROM, Normal Inspection. absent: Lymphadenopathy - Respiratory Exam Respiratory Exam: Clear to Ausculation Bilateral, NORMAL BREATHING PATTERN - Cardiovascular Exam Cardiovascular Exam: REGULAR RHYTHM, +S1, +S2. absent: Murmur - GI/Abdominal Exam GI & Abdominal Exam: Soft, Normal Bowel Sounds. absent: Tenderness - Rectal Exam Rectal Exam: Deferred - Extremities Exam Extremities Exam: Full ROM, Normal Capillary Refill, Normal Inspection. absent : Joint Swelling, Pedal Edema - Back Exam Back Exam: NORMAL INSPECTION - Neurological Exam Neurological Exam: Alert, Awake, CN II-XII Intact, Normal Gait, Oriented x3 - Psychiatric Exam Psychiatric exam: Normal Affect, Normal Mood - Skin Skin Exam: Dry, Intact, Normal Color, Warm Additional comments: right foot dressing in place wound care orders reviewed Assessment and Plan (1) Cellulitis of foot Status: Acute (2) Osteomyelitis due to type 2 diabetes mellitus Status: Acute - Assessment and Plan (Free Text) Assessment: urine c/s likely contaminant as U/A was benign and pt asx wound grew MRSA as before and MDRO- acinetobacter cont current rx Plan: admitted from the wound care center for right lower extremity cellulitic changes secondary to non-healing surgical sites. Patient had partial second ray amputation and third digit partial proximal phalanx amputation on 09/25/17. Both wounds failed to heal following those surgeries going for amputation and revision debridement prognosis for limb salvage guarded
--- NOTE | 2017-11-05 14:07 | VASCULAR ---
PROCEDURE: Date of procedure: 11/05/2017 Procedure: 1. Placement of a right arm PICC with ultrasound and fluoroscopic guidance, CPT 30957 2. PICC tip confirmation with spot radiograph and is in the superior vena cava Medications: 3cc 1 percent lidocaine EBL: 2 cc HISTORY: Infection requiring long-term IV antibiotics TECHNIQUE: Following informed consent and procedure time-out, the patient was placed supine on the interventional table and the right arm prepped and draped in the usual sterile fashion. Ultrasound showed a patent and compressible right basilic vein. After the skin was anesthetized with lidocaine, the basilic vein was accessed with micro micropuncture technique using ultrasound guidance. A guidewire was then advanced under fluoroscopic guidance into the superior vena cava. An image documenting ultrasound guidance for vascular access was permanently saved. The length of the single-lumen 4 Mongolian PICC was trimmed to 39 centimeters and advanced through a peel-away sheath. The PICC was position with tip of PICC confirm a spot radiograph the superior vena cava. The PICC was secured to the patient's skin. The PICC was flushed. A biopatch and sterile dressing was applied. IMPRESSION: Placement of a single-lumen 4 Mongolian PICC trimmed to 39 centimeters via right basilic vein. The tip of the PICC is confirmed with spot radiograph and is in the superior vena cava.
[2017-11-05] MEDS ORDERED: Povidone Iodine Topical 10% Sol ONE (14:40)
--- NOTE | 2017-11-05 15:03 | NM ---
PROCEDURE: Indium white blood cell study right foot HISTORY: Osteomyelitis suspected. Relevant surgical history: Status post amputation 2nd digit. COMPARISON: 11/02/2017 MRI right footSummary of findings on the comparison examination: Findings consistent with osteomyelitis involving distal portion and distal head of the 2nd metatarsal bone as well as proximal and mid phalanx of the 3rd toe. TECHNIQUE: 0.46 mCi indium 111 labeled white blood cells administered intravenously. FINDINGS: Intense accumulation of radionuclide at the surgical site primarily 2nd digit and to a lesser extent 3rd digit. IMPRESSION: Positive indium white blood cell examination for osteomyelitis affecting the left 2nd and to lesser extent left 3rd digits. Limitations of the current examination: The patient was asked to return for additional imaging, declining my specific request.
[2017-11-05 15:09] LABS: HEMOGLOBIN 10.9 g/dL (12.0-18.0); MEAN CELL VOLUME 88.6 fl (80.0-94.0); MEAN CORPUSCULAR HEMOGLOBIN 28.7 pg (27.0-31.0); MEAN CORPUSCULAR HGB CONC 32.4 g/dL (33.0-37.0); RBC 3.79 Mil/uL (4.40-5.90); RED CELL DISTRIBUTION WIDTH 15.1 % (11.5-14.5); WHITE BLOOD COUNT 7.6 K/uL (4.8-10.8)
[2017-11-05 15:31] LABS: INR 1.3 (0.9-1.2); PARTIAL THROMBOPLASTIN TIME 28.4 Seconds (25.6-37.1)
[2017-11-05 15:34] LABS: BLOOD UREA NITROGEN 16 mg/dl (9-20); CALCIUM 8.5 mg/dL (8.4-10.2); GFR AFRICAN-AMERICAN > 60; GFR NON-AFRICAN AMERICAN > 60
[2017-11-05] MEDS: oxyCODONE 10 mg Immediate Release Tab PO SCH ×2 (16:25→22:25)
[2017-11-05] MEDS ORDERED: Enoxaparin 40 mg Syringe SC SCH (18:12)
[2017-11-05] MEDS: Enoxaparin 40 mg Syringe SC SCH (19:15)
[2017-11-05] MEDS: Insulin Detemir 100 Units/ml Inj SC SCH (22:06)
[2017-11-06] MEDS: Linezolid 600 mg in D5W 300 ml 600 MG/300 ML BAG IVPB SCH ×2 (00:41→12:28)
[2017-11-06] MEDS: oxyCODONE 10 mg Immediate Release Tab PO SCH ×4 (04:30→22:21)
--- NOTE | 2017-11-06 07:53 | CP.PCM.PN ---
<Nima Lemon - Last Filed: 11/06/17 12:48> Subjective - Date & Time of Evaluation Date of Evaluation: 11/06/17 Time of Evaluation: 07:53 - Subjective Subjective: Patient seen and examined at bedside this morning. There are no acute events overnight. The procedure is postponed until 11/08. Patient reports right foot pain is slightly improved. Pain medications resumed. Patient is having normal bowel movements and voiding freely. Patient denies pain on the left LE and foot. The patient denies headaches, dizziness, chest pain, SOB, abdominal pain , nausea, vomiting, diarrhea, dysuria, or fever. Objective - Vital Signs/Intake and Output Vital Signs (last 24 hours): Temp Pulse Resp BP Pulse Ox 98.5 F 61 19 152/74 H 96 11/06/17 00:00 11/06/17 00:00 11/06/17 00:00 11/06/17 00:00 11/06/17 00:00 - Medications Medications: Current Medications Acetaminophen (Tylenol 325mg Tab) 650 mg PO Q6 PRN PRN Reason: Fever >100.4 F Last Admin: 11/04/17 21:50 Dose: 650 mg Alprazolam (Xanax) 0.5 mg PO Q8 PRN PRN Reason: Anxiety Last Admin: 11/05/17 20:42 Dose: 0.5 mg Aspirin (Aspirin Chewable) 81 mg PO DAILY [facility] Atorvastatin Calcium (Lipitor) 40 mg PO DAILY [facility] Last Admin: 11/05/17 08:49 Dose: Not Given Carvedilol (Coreg) 3.125 mg PO Q12 [facility] Last Admin: 11/05/17 20:44 Dose: 3.125 mg Dextrose (Dextrose 50% Inj) 0 ml IV STAT PRN; Protocol PRN Reason: Hypoglycemia Protocol Dextrose (Glutose 15) 0 gm PO ONCE PRN; Protocol PRN Reason: Hypoglycemia Protocol Enoxaparin Sodium (Lovenox) 40 mg SC DAILY [facility] PRN Reason: Protocol Stop: 11/06/17 18:20 Glipizide (Glucotrol) 5 mg PO BID [facility] Last Admin: 11/05/17 16:28 Dose: 5 mg Glucagon (Glucagen Diagnostic Kit) 0 mg IM STAT PRN; Protocol PRN Reason: Hypoglycemia Protocol Hydrochlorothiazide (Hydrodiuril) 25 mg PO DAILY [facility] Last Admin: 11/05/17 10:01 Dose: 25 mg Hydromorphone HCl (Dilaudid) 1 mg PO Q4 PRN PRN Reason: Pain, moderate (4-7) Cefepime HCl 1 gm/ Sodium (Chloride) 100 mls @ 100 mls/hr IVPB Q12 [facility] PRN Reason: Protocol Last Admin: 11/05/17 20:39 Dose: 100 mls/hr Linezolid (Zyvox 600mg/300ml D5w) 600 mg in 300 mls @ 300 mls/hr IVPB Q12@0100, 1300 [facility] PRN Reason: Protocol Last Admin: 11/06/17 00:41 Dose: 300 mls/hr Insulin Detemir (Levemir) 20 units SC HS [facility] Last Admin: 11/05/17 22:06 Dose: 20 units Insulin Human Lispro (Humalog) 0 units SC ACHS [facility] PRN Reason: Protocol Last Admin: 11/05/17 22:06 Dose: Not Given Lactobacillus Acidophilus (Bacid Acidophilus) 1 cap PO BID [facility] Last Admin: 11/05/17 16:31 Dose: 1 cap Lidocaine (Lidoderm) 1 ea TD DAILY [facility] Last Admin: 11/05/17 08:51 Dose: 1 ea Losartan Potassium (Cozaar) 100 mg PO DAILY [facility] Last Admin: 11/05/17 10:02 Dose: 100 mg Oxycodone HCl (Oxycodone Immediate Release Tab) 30 mg PO Q6H [facility] Last Admin: 11/06/17 04:30 Dose: 30 mg - Labs Labs: 11/05/17 15:04 11/05/17 15:04 PT 15.0 Seconds (9.8-13.1) H 11/05/17 15:04 INR 1.3 (0.9-1.2) H 11/05/17 15:04 APTT 28.4 Seconds (25.6-37.1) 11/05/17 15:04 - Constitutional Appears: No Acute Distress - Head Exam Head Exam: ATRAUMATIC, NORMAL INSPECTION, NORMOCEPHALIC - Eye Exam Eye Exam: Normal appearance - ENT Exam ENT Exam: Mucous Membranes Moist - Neck Exam Neck Exam: Full ROM. absent: Tenderness - Respiratory Exam Respiratory Exam: Clear to Ausculation Bilateral, NORMAL BREATHING PATTERN. absent: Decreased Breath Sounds, Rales, Rhonchi, Wheezes, Respiratory Distress - Cardiovascular Exam Cardiovascular Exam: REGULAR RHYTHM. absent: Tachycardia - GI/Abdominal Exam GI & Abdominal Exam: Soft, Normal Bowel Sounds. absent: Distended, Tenderness - Extremities Exam Additional comments: Dressings to right foot remain intact, C/D/I No erythematous streaking noted up the patient's leg no erythema, tenderness of the lower extremity left LE and foot, non-tender, no erythema, no edema - Neurological Exam Neurological Exam: Alert, Awake, Oriented x3 - Skin Skin Exam: Dry Assessment and Plan - Assessment and Plan (Free Text) Assessment: 62 y/o man w/ pmh of DM2, HTN, Osteomyelitis of right 2nd toe s/p partial 2nd right amputation and resection of 3rd proximal phalanx on 09/15/17 admitted for right foot cellulitis Plan: 1) Right Foot Cellulitis - s/p Osteomyelitis of right 2nd toe s/p partial 2nd right amputation and resection of 3rd proximal phalanx on 09/15/17 - cefepime 1 gm IV Q12 day 4 - MRI foot 11/02/2017: OM distal portion and distal head of 2nd metatarsal bone as well as proximal and mid phalanx of 3rd toe. Possible septic arthritis of PIP joint of 3rd toe. diffuse soft tissue edema in right foot - Podiatry consulted, recommendations appreciated: amputation of 3rd digit of right foot - Infectious Disease consulted, Dr. De La Paz, recommendations appreciated - Cardiology consulted, Dr. Quiros, recommendations appreciated: no intervention at this time, continue medications - blood culture: no growth - wound culture: MRSA - scheduled for OR 11/08/2017 @ 13:30 - heart healthy diabetic diet resumed - PO meds held - CBC: 7.6>10.9/33.6<193 - ESR: 105 - CMP: 137/4.9, 97/29, 16/1.0, glucose 126 - PICC line placed on right arm due to terminal carman need for IV antibiotics 2) UTI - patient denies dysuria, hematuria, or fever - urine culture: enterococcus faecalis - on linezolid 600 mg IV Q12h day 3 3) DM2 - Diabetic diet - SSI - hypoglycemic protocol - resumed home levemir and glipizide - held metformin 4) HTN - currently BP elevated most likely 2/2 to pain - c.w HCTZ 25 mg PO daily - c/w Losartan 100 mg PO daily - monitor for acute changes 5) HLD - c/w atorvastatin 40 mg PO daily 6) Pain management - resumed home regimen: oxycodone 30 mg PO Q6h, xanax 0.5 mg PO Q8h prn - PO pain meds resumed 7) DVT Prophylaxis - Lovenox 40 mg sc daily <Abena Rangel - Last Filed: 11/07/17 08:40> Objective - Vital Signs/Intake and Output Vital Signs (last 24 hours): Temp Pulse Resp BP Pulse Ox 100 F H 61 20 121/65 96 11/07/17 07:57 11/07/17 08:06 11/07/17 07:57 11/07/17 08:06 11/07/17 07:57 - Medications Medications: Current Medications Acetaminophen (Tylenol 325mg Tab) 650 mg PO Q6 PRN PRN Reason: Fever >100.4 F Last Admin: 11/04/17 21:50 Dose: 650 mg Alprazolam (Xanax) 0.5 mg PO Q8 PRN PRN Reason: Anxiety Last Admin: 11/06/17 11:23 Dose: 0.5 mg Aspirin (Aspirin Chewable) 81 mg PO DAILY [facility] Last Admin: 11/07/17 08:02 Dose: 81 mg Atorvastatin Calcium (Lipitor) 40 mg PO DAILY [facility] Last Admin: 11/07/17 08:09 Dose: 40 mg Carvedilol (Coreg) 3.125 mg PO Q12 [facility] Last Admin: 11/07/17 08:04 Dose: 3.125 mg Dextrose (Dextrose 50% Inj) 0 ml IV STAT PRN; Protocol PRN Reason: Hypoglycemia Protocol Dextrose (Glutose 15) 0 gm PO ONCE PRN; Protocol PRN Reason: Hypoglycemia Protocol Glipizide (Glucotrol) 5 mg PO BID [facility] Last Admin: 11/07/17 08:09 Dose: 5 mg Glucagon (Glucagen Diagnostic Kit) 0 mg IM STAT PRN; Protocol PRN Reason: Hypoglycemia Protocol Hydrochlorothiazide (Hydrodiuril) 25 mg PO DAILY [facility] Last Admin: 11/07/17 08:09 Dose: 25 mg Hydromorphone HCl (Dilaudid) 1 mg PO Q4 PRN PRN Reason: Pain, moderate (4-7) Cefepime HCl 1 gm/ Sodium (Chloride) 100 mls @ 100 mls/hr IVPB Q12 [facility] PRN Reason: Protocol Last Admin: 11/07/17 08:11 Dose: 100 mls/hr Linezolid (Zyvox 600mg/300ml D5w) 600 mg in 300 mls @ 300 mls/hr IVPB Q12@0100, 1300 [facility] PRN Reason: Protocol Last Admin: 11/07/17 00:20 Dose: 300 mls/hr Insulin Detemir (Levemir) 20 units SC HS [facility] Last Admin: 11/06/17 22:03 Dose: 20 units Insulin Human Lispro (Humalog) 0 units SC ACHS [facility] PRN Reason: Protocol Last Admin: 11/06/17 22:04 Dose: Not Given Lactobacillus Acidophilus (Bacid Acidophilus) 1 cap PO BID [facility] Last Admin: 11/07/17 08:04 Dose: 1 cap Lidocaine (Lidoderm) 1 ea TD DAILY [facility] Last Admin: 11/07/17 08:10 Dose: 1 ea Losartan Potassium (Cozaar) 100 mg PO DAILY [facility] Last Admin: 11/07/17 08:06 Dose: 100 mg Oxycodone HCl (Oxycodone Immediate Release Tab) 30 mg PO Q6H [facility] Last Admin: 11/07/17 04:46 Dose: 30 mg - Labs Labs: 11/05/17 15:04 11/05/17 15:04 PT 15.0 Seconds (9.8-13.1) H 11/05/17 15:04 INR 1.3 (0.9-1.2) H 11/05/17 15:04 APTT 28.4 Seconds (25.6-37.1) 11/05/17 15:04 Attending/Attestation - Attestation I have personally seen and examined this patient.: Yes I have fully participated in the care of the patient.: Yes I have reviewed all pertinent clinical information, including history, physical exam and plan: Yes Notes (Text): 11/07/17 08:39 ATTENDING NOTE ATTESTATION PATIENT SEEN AND EXAMINED. SURGERY POSTPONED UNTIL Wednesday11/08/17 BY PODIATRIC SURGEON. CASE DISCUSSED WITH RESIDENT. CASE DISCUSSED WITH RESIDENT. AGREE WITH FINDINGS AND PLAN.
[2017-11-06] MEDS: Insulin Lispro (humaLOG) 100 Units/ml Inj SC SCH ×4 (07:58→22:04)
[2017-11-06] MEDS: Lidocaine 5% Patch TD SCH (08:44)
[2017-11-06] MEDS: Lactobacillus Acidophilus 500 MU Cap PO SCH ×2 (08:45→16:18)
[2017-11-06] MEDS: Cefepime 1 GM in Sodium Chloride 0.9% 100 ML IVPB SCH ×2 (08:46→22:02)
--- NOTE | 2017-11-06 11:23 | CP.PCM.PN ---
Subjective - Date & Time of Evaluation Date of Evaluation: 11/06/17 Time of Evaluation: 11:23 - Subjective Subjective: 62 year old male seen at bedside this morning for right foot cellulitic changes with non-healing surgical site wound. Patient had partial second ray amputation and third digit partial proximal phalanx amputation on 09/25/17. Both wounds failed to heal following those surgeries. At present, patient is AAO x 3 and NAD resting comfortably in bed at time of visit. States that pain to right foot is well controlled. Patient denies any further pedal complaints at this time. Denies F/C/N/V/CP/SOB/D/posterior calf pain when squeezed. Objective - Vital Signs/Intake and Output Vital Signs (last 24 hours): Temp Pulse Resp BP Pulse Ox 98.3 F 54 L 20 134/66 99 11/06/17 08:26 11/06/17 08:26 11/06/17 08:26 11/06/17 08:26 11/06/17 08:26 - Medications Medications: Current Medications Acetaminophen (Tylenol 325mg Tab) 650 mg PO Q6 PRN PRN Reason: Fever >100.4 F Last Admin: 11/04/17 21:50 Dose: 650 mg Alprazolam (Xanax) 0.5 mg PO Q8 PRN PRN Reason: Anxiety Last Admin: 11/06/17 11:23 Dose: 0.5 mg Aspirin (Aspirin Chewable) 81 mg PO DAILY [facility] Last Admin: 11/06/17 10:06 Dose: 81 mg Atorvastatin Calcium (Lipitor) 40 mg PO DAILY [facility] Last Admin: 11/06/17 08:46 Dose: 40 mg Carvedilol (Coreg) 3.125 mg PO Q12 [facility] Last Admin: 11/06/17 08:47 Dose: Not Given Dextrose (Dextrose 50% Inj) 0 ml IV STAT PRN; Protocol PRN Reason: Hypoglycemia Protocol Dextrose (Glutose 15) 0 gm PO ONCE PRN; Protocol PRN Reason: Hypoglycemia Protocol Enoxaparin Sodium (Lovenox) 40 mg SC DAILY [facility] PRN Reason: Protocol Stop: 11/06/17 18:20 Last Admin: 11/06/17 08:43 Dose: 40 mg Glipizide (Glucotrol) 5 mg PO BID [facility] Last Admin: 11/06/17 08:47 Dose: 5 mg Glucagon (Glucagen Diagnostic Kit) 0 mg IM STAT PRN; Protocol PRN Reason: Hypoglycemia Protocol Hydrochlorothiazide (Hydrodiuril) 25 mg PO DAILY [facility] Last Admin: 11/06/17 08:46 Dose: 25 mg Hydromorphone HCl (Dilaudid) 1 mg PO Q4 PRN PRN Reason: Pain, moderate (4-7) Cefepime HCl 1 gm/ Sodium (Chloride) 100 mls @ 100 mls/hr IVPB Q12 [facility] PRN Reason: Protocol Last Admin: 11/06/17 08:46 Dose: 100 mls/hr Linezolid (Zyvox 600mg/300ml D5w) 600 mg in 300 mls @ 300 mls/hr IVPB Q12@0100, 1300 [facility] PRN Reason: Protocol Last Admin: 11/06/17 00:41 Dose: 300 mls/hr Insulin Detemir (Levemir) 20 units SC HS [facility] Last Admin: 11/05/17 22:06 Dose: 20 units Insulin Human Lispro (Humalog) 0 units SC ACHS [facility] PRN Reason: Protocol Last Admin: 11/06/17 07:58 Dose: Not Given Lactobacillus Acidophilus (Bacid Acidophilus) 1 cap PO BID [facility] Last Admin: 11/06/17 08:45 Dose: 1 cap Lidocaine (Lidoderm) 1 ea TD DAILY [facility] Last Admin: 11/06/17 08:44 Dose: 1 ea Losartan Potassium (Cozaar) 100 mg PO DAILY [facility] Last Admin: 11/06/17 08:48 Dose: Not Given Oxycodone HCl (Oxycodone Immediate Release Tab) 30 mg PO Q6H [facility] Last Admin: 11/06/17 10:09 Dose: 30 mg - Labs Labs: 11/05/17 15:04 11/05/17 15:04 PT 15.0 Seconds (9.8-13.1) H 11/05/17 15:04 INR 1.3 (0.9-1.2) H 11/05/17 15:04 APTT 28.4 Seconds (25.6-37.1) 11/05/17 15:04 - Constitutional Appears: Well, Non-toxic, No Acute Distress - Extremities Exam Additional comments: RLE focused exam: Vasc: DP/PT pulses nonpalpable to RLE secondary to edema. Skin temperature warm to warm from proximal to distal. CFT < 3 seconds to all digits B/L except right third digit. Right third digit appears purple/kapadia and dusky in nature and is cool to touch Neuro: Epicritic and protective sensation grossly intact B/L Derm: Two nonhealing surgical sites noted to right foot. First is at previous second digit amputation site. Noted to be roughly 4 cm x 1 cm and probes deep to muscle but not bone. Wound base is mostly fibrotic. Approx 1cc of purulent drainage noted to dressing. Additional 1cc expressed with pressure. Second nonhealing surgical site noted to dorsal third digit. Measures roughly 1 cm x 0.5 cm x 0.2 cm. Wound probes deep to bone and joint space of PIPJ. Cellulitic changes noted to dorsum of foot surrounding both wounds without streaking up the leg, improving. No other open lesions, wounds, maceration, xerosis, abnormal pigmentation or abnormal growths noted B/L.Nails well manicured and normotrophic x9 Ortho: Minimal tenderness to palpation of both wound sites - Neurological Exam Neurological Exam: Alert, Awake, Oriented x3 - Psychiatric Exam Psychiatric exam: Normal Affect, Normal Mood Assessment and Plan - Assessment and Plan (Free Text) Assessment: 62 year old male with right foot non-healing infected wound with infective gangrenous changes noted to 3rd digit, secondary to diabetes mellitus Plan: Patient seen and evaluated at bedside Plan discussed with attending Dr. Pittman Labs and vitals reviewed - febrile, WBC 7.6 Continue IV abx per ID - PICC line in place Joint aspirate cx pending - prelim shows S. aureus Wounds cleansed with saline and dressed with betadine + DSD to R foot Medical clearance for surgery obtained All anticoagulation therapy to be held tomorrow NPO order to be placed tomorrow after midnight Patient for OR amputation of right third digit with incision and drainage of right forefoot on Wednesday at 1:30pm Podiatry will continue to follow while patient in house
[2017-11-06] MEDS: Insulin Detemir 100 Units/ml Inj SC SCH (22:03)
[2017-11-07] MEDS: Linezolid 600 mg in D5W 300 ml 600 MG/300 ML BAG IVPB SCH ×2 (00:20→12:23)
[2017-11-07] MEDS: oxyCODONE 10 mg Immediate Release Tab PO SCH ×4 (04:46→22:38)
[2017-11-07] MEDS: Lactobacillus Acidophilus 500 MU Cap PO SCH ×2 (08:04→16:27)
[2017-11-07] MEDS: Lidocaine 5% Patch TD SCH (08:10)
[2017-11-07] MEDS: Cefepime 1 GM in Sodium Chloride 0.9% 100 ML IVPB SCH ×2 (08:11→21:30)
--- NOTE | 2017-11-07 08:17 | CP.PCM.PN ---
<Abhijit Rodas T - Last Filed: 11/07/17 12:43> Subjective - Date & Time of Evaluation Date of Evaluation: 11/07/17 Time of Evaluation: 08:30 - Subjective Subjective: Pt seen and examined at beside. Denies any overnight pain or complaints. Will be going for surgery tomorrow morning. Normal bowel movements and voids. Also denies fevers/chills, n/v/d, chest pain, SOB, dyspnea, or cough. Objective - Vital Signs/Intake and Output Vital Signs (last 24 hours): Temp Pulse Resp BP Pulse Ox 100 F H 61 20 121/65 96 11/07/17 07:57 11/07/17 08:06 11/07/17 07:57 11/07/17 08:06 11/07/17 07:57 - Medications Medications: Current Medications Acetaminophen (Tylenol 325mg Tab) 650 mg PO Q6 PRN PRN Reason: Fever >100.4 F Last Admin: 11/04/17 21:50 Dose: 650 mg Alprazolam (Xanax) 0.5 mg PO Q8 PRN PRN Reason: Anxiety Last Admin: 11/06/17 11:23 Dose: 0.5 mg Aspirin (Aspirin Chewable) 81 mg PO DAILY [facility] Last Admin: 11/07/17 08:02 Dose: 81 mg Atorvastatin Calcium (Lipitor) 40 mg PO DAILY [facility] Last Admin: 11/07/17 08:09 Dose: 40 mg Carvedilol (Coreg) 3.125 mg PO Q12 [facility] Last Admin: 11/07/17 08:04 Dose: 3.125 mg Dextrose (Dextrose 50% Inj) 0 ml IV STAT PRN; Protocol PRN Reason: Hypoglycemia Protocol Dextrose (Glutose 15) 0 gm PO ONCE PRN; Protocol PRN Reason: Hypoglycemia Protocol Glipizide (Glucotrol) 5 mg PO BID [facility] Last Admin: 11/07/17 08:09 Dose: 5 mg Glucagon (Glucagen Diagnostic Kit) 0 mg IM STAT PRN; Protocol PRN Reason: Hypoglycemia Protocol Hydrochlorothiazide (Hydrodiuril) 25 mg PO DAILY [facility] Last Admin: 11/07/17 08:09 Dose: 25 mg Hydromorphone HCl (Dilaudid) 1 mg PO Q4 PRN PRN Reason: Pain, moderate (4-7) Cefepime HCl 1 gm/ Sodium (Chloride) 100 mls @ 100 mls/hr IVPB Q12 [facility] PRN Reason: Protocol Last Admin: 11/07/17 08:11 Dose: 100 mls/hr Linezolid (Zyvox 600mg/300ml D5w) 600 mg in 300 mls @ 300 mls/hr IVPB Q12@0100, 1300 [facility] PRN Reason: Protocol Last Admin: 11/07/17 00:20 Dose: 300 mls/hr Insulin Detemir (Levemir) 20 units SC HS [facility] Last Admin: 11/06/17 22:03 Dose: 20 units Insulin Human Lispro (Humalog) 0 units SC ACHS [facility] PRN Reason: Protocol Last Admin: 11/06/17 22:04 Dose: Not Given Lactobacillus Acidophilus (Bacid Acidophilus) 1 cap PO BID [facility] Last Admin: 11/07/17 08:04 Dose: 1 cap Lidocaine (Lidoderm) 1 ea TD DAILY [facility] Last Admin: 11/07/17 08:10 Dose: 1 ea Losartan Potassium (Cozaar) 100 mg PO DAILY [facility] Last Admin: 11/07/17 08:06 Dose: 100 mg Oxycodone HCl (Oxycodone Immediate Release Tab) 30 mg PO Q6H [facility] Last Admin: 11/07/17 04:46 Dose: 30 mg - Labs Labs: 11/05/17 15:04 11/05/17 15:04 PT 15.0 Seconds (9.8-13.1) H 11/05/17 15:04 INR 1.3 (0.9-1.2) H 11/05/17 15:04 APTT 28.4 Seconds (25.6-37.1) 11/05/17 15:04 - Additional Findings Additional findings: - Constitutional Appears: No Acute Distress - Eye Exam Eye Exam: Normal appearance - ENT Exam ENT Exam: Mucous Membranes Moist - Respiratory Exam Respiratory Exam: Clear to Ausculation Bilateral, NORMAL BREATHING PATTERN. absent: Decreased Breath Sounds, Rales, Rhonchi, Wheezes, Respiratory Distress - Cardiovascular Exam Cardiovascular Exam: REGULAR RHYTHM. absent: Tachycardia - GI/Abdominal Exam GI & Abdominal Exam: Soft, Normal Bowel Sounds. absent: Distended, Tenderness - Extremities Exam Additional comments: Dressings to right foot remain intact, C/D/I No erythematous streaking noted up the patient's leg no erythema, tenderness of the lower extremity left LE and foot, non-tender, no erythema, no edema - Neurological Exam Neurological Exam: Alert, Awake, Oriented x3 - Skin Skin Exam: Dry Assessment and Plan - Assessment and Plan (Free Text) Plan: 62 y/o man w/ pmh of DM2, HTN, Osteomyelitis of right 2nd toe s/p partial 2nd right amputation and resection of 3rd proximal phalanx on 09/15/17 admitted for right foot cellulitis 1) Right Foot Cellulitis - s/p Osteomyelitis of right 2nd toe s/p partial 2nd right amputation and resection of 3rd proximal phalanx on 09/15/17 - cefepime 1 gm IV Q12 day 5 - MRI foot 11/02/2017: OM distal portion and distal head of 2nd metatarsal bone as well as proximal and mid phalanx of 3rd toe. Possible septic arthritis of PIP joint of 3rd toe. diffuse soft tissue edema in right foot - Podiatry consulted, recommendations appreciated: amputation of 3rd digit of right foot - Infectious Disease consulted, Dr. De La Paz, recommendations appreciated - Cardiology consulted, Dr. 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 - NPO after midnight for surgery - Will switch pain meds to Lidocaine TD, IV Ativan, and Dilaudid 2) UTI - patient denies dysuria, hematuria, or fever - urine culture: enterococcus faecalis - on linezolid 600 mg IV Q12h day 4 3) DM2 - Diabetic diet - SSI - hypoglycemic protocol - resumed home levemir and glipizide - held metformin 4) HTN - currently BP elevated most likely 2/2 to pain - c.w HCTZ 25 mg PO daily - c/w Losartan 100 mg PO daily - monitor for acute changes 5) HLD - c/w atorvastatin 40 mg PO daily 6) Pain management - resumed home regimen: oxycodone 30 mg PO Q6h, xanax 0.5 mg PO Q8h prn - PO pain meds resumed 7) DVT Prophylaxis - Lovenox 40 mg sc daily <Abena Rangel - Last Filed: 11/08/17 10:33> Objective - Vital Signs/Intake and Output Vital Signs (last 24 hours): Temp Pulse Resp BP Pulse Ox 98.8 F 57 L 18 104/61 98 11/08/17 08:34 11/08/17 09:08 11/08/17 08:34 11/08/17 09:08 11/08/17 08:34 - Medications Medications: Current Medications Acetaminophen (Tylenol 325mg Tab) 650 mg PO Q6 PRN PRN Reason: Fever >100.4 F Last Admin: 11/04/17 21:50 Dose: 650 mg Aspirin (Aspirin Chewable) 81 mg PO DAILY [facility] Last Admin: 11/08/17 08:24 Dose: Not Given Atorvastatin Calcium (Lipitor) 40 mg PO DAILY [facility] Last Admin: 11/08/17 08:25 Dose: Not Given Carvedilol (Coreg) 3.125 mg PO Q12 [facility] Last Admin: 11/08/17 09:08 Dose: Not Given Dextrose (Dextrose 50% Inj) 0 ml IV STAT PRN; Protocol PRN Reason: Hypoglycemia Protocol Dextrose (Glutose 15) 0 gm PO ONCE PRN; Protocol PRN Reason: Hypoglycemia Protocol Enoxaparin Sodium (Lovenox) 40 mg SC HS [facility] PRN Reason: Protocol Glipizide (Glucotrol) 5 mg PO BID [facility] Last Admin: 11/08/17 08:25 Dose: Not Given Glucagon (Glucagen Diagnostic Kit) 0 mg IM STAT PRN; Protocol PRN Reason: Hypoglycemia Protocol Hydrochlorothiazide (Hydrodiuril) 25 mg PO DAILY [facility] Last Admin: 11/08/17 08:25 Dose: Not Given Hydromorphone HCl (Dilaudid) 0.5 mg IVP Q4 PRN PRN Reason: Pain, moderate (4-7) Stop: 11/10/17 03:04 Last Admin: 11/08/17 04:43 Dose: 0.5 mg Cefepime HCl 1 gm/ Sodium (Chloride) 100 mls @ 100 mls/hr IVPB Q12 [facility] PRN Reason: Protocol Last Admin: 11/08/17 09:01 Dose: 100 mls/hr Linezolid (Zyvox 600mg/300ml D5w) 600 mg in 300 mls @ 300 mls/hr IVPB Q12@0100, 1300 [facility] PRN Reason: Protocol Last Admin: 11/08/17 00:49 Dose: 300 mls/hr Insulin Detemir (Levemir) 20 units SC HS [facility] Last Admin: 11/07/17 22:39 Dose: 20 units Insulin Human Lispro (Humalog) 0 units SC ACHS [facility] PRN Reason: Protocol Last Admin: 11/08/17 06:31 Dose: Not Given Lactobacillus Acidophilus (Bacid Acidophilus) 1 cap PO BID [facility] Last Admin: 11/08/17 08:24 Dose: Not Given Lidocaine (Lidoderm) 1 ea TD DAILY [facility] Last Admin: 11/08/17 08:31 Dose: Not Given Lorazepam (Ativan) 0.5 mg IVP TID PRN PRN Reason: Anxiety Last Admin: 11/08/17 09:27 Dose: 0.5 mg Losartan Potassium (Cozaar) 100 mg PO DAILY [facility] Last Admin: 11/08/17 08:25 Dose: Not Given Oxycodone HCl (Oxycodone Immediate Release Tab) 30 mg PO Q6H [facility] Last Admin: 11/08/17 05:20 Dose: 30 mg - Labs Labs: 11/08/17 06:20 11/08/17 06:20 PT 14.8 Seconds (9.8-13.1) H 11/08/17 06:20 INR 1.3 (0.9-1.2) H 11/08/17 06:20 APTT 33.2 Seconds (25.6-37.1) 11/08/17 06:20 Attending/Attestation - Attestation I have personally seen and examined this patient.: Yes I have fully participated in the care of the patient.: Yes I have reviewed all pertinent clinical information, including history, physical exam and plan: Yes Notes (Text): 11/08/17 10:32 ATTENDING NOTE ATTESTATION PATIENT SEEN AND EXAMNED. CASE DISCUSSED WITH RESIDENT. AGREE WITH FINDINGS AND PLAN.
[2017-11-07] MEDS: Insulin Lispro (humaLOG) 100 Units/ml Inj SC SCH ×4 (09:09→22:24)
[2017-11-07 11:13] LABS: BLOOD UREA NITROGEN 14 mg/dl (9-20); CALCIUM 8.6 mg/dL (8.4-10.2); GFR AFRICAN-AMERICAN > 60; GFR NON-AFRICAN AMERICAN > 60
[2017-11-07 11:43] LABS: HEMOGLOBIN 10.4 g/dL (12.0-18.0); MEAN CELL VOLUME 86.8 fl (80.0-94.0); MEAN CORPUSCULAR HEMOGLOBIN 29.1 pg (27.0-31.0); MEAN CORPUSCULAR HGB CONC 33.5 g/dL (33.0-37.0); RBC 3.57 Mil/uL (4.40-5.90); RED CELL DISTRIBUTION WIDTH 15.4 % (11.5-14.5); WHITE BLOOD COUNT 5.7 K/uL (4.8-10.8)
--- NOTE | 2017-11-07 11:45 | CP.PCM.PN ---
Subjective - Date & Time of Evaluation Date of Evaluation: 11/07/17 Time of Evaluation: 11:45 - Subjective Subjective: Podiatry Progress Note - Dr. Pittman 62 year old male seen at bedside this morning for right foot cellulitic changes with non-healing surgical site wound. Pt is accompanied by son at time of visit. At present, patient is AAO x 3 and NAD resting comfortably in bed at time of visit. States that pain to right foot is intermittent in nature, but is well controlled by meds. Patient denies any further pedal complaints at this time. Denies F/C/N/V/CP/SOB/D/posterior calf pain when squeezed. Objective - Vital Signs/Intake and Output Vital Signs (last 24 hours): Temp Pulse Resp BP Pulse Ox 100 F H 61 20 121/65 96 11/07/17 07:57 11/07/17 08:06 11/07/17 07:57 11/07/17 08:06 11/07/17 07:57 - Medications Medications: Current Medications Acetaminophen (Tylenol 325mg Tab) 650 mg PO Q6 PRN PRN Reason: Fever >100.4 F Last Admin: 11/04/17 21:50 Dose: 650 mg Alprazolam (Xanax) 0.5 mg PO Q8 PRN PRN Reason: Anxiety Last Admin: 11/06/17 11:23 Dose: 0.5 mg Aspirin (Aspirin Chewable) 81 mg PO DAILY [facility] Last Admin: 11/07/17 08:02 Dose: 81 mg Atorvastatin Calcium (Lipitor) 40 mg PO DAILY [facility] Last Admin: 11/07/17 08:09 Dose: 40 mg Carvedilol (Coreg) 3.125 mg PO Q12 [facility] Last Admin: 11/07/17 08:04 Dose: 3.125 mg Dextrose (Dextrose 50% Inj) 0 ml IV STAT PRN; Protocol PRN Reason: Hypoglycemia Protocol Dextrose (Glutose 15) 0 gm PO ONCE PRN; Protocol PRN Reason: Hypoglycemia Protocol Glipizide (Glucotrol) 5 mg PO BID [facility] Last Admin: 11/07/17 08:09 Dose: 5 mg Glucagon (Glucagen Diagnostic Kit) 0 mg IM STAT PRN; Protocol PRN Reason: Hypoglycemia Protocol Hydrochlorothiazide (Hydrodiuril) 25 mg PO DAILY [facility] Last Admin: 11/07/17 08:09 Dose: 25 mg Hydromorphone HCl (Dilaudid) 1 mg PO Q4 PRN PRN Reason: Pain, moderate (4-7) Cefepime HCl 1 gm/ Sodium (Chloride) 100 mls @ 100 mls/hr IVPB Q12 [facility] PRN Reason: Protocol Last Admin: 11/07/17 08:11 Dose: 100 mls/hr Linezolid (Zyvox 600mg/300ml D5w) 600 mg in 300 mls @ 300 mls/hr IVPB Q12@0100, 1300 [facility] PRN Reason: Protocol Last Admin: 11/07/17 00:20 Dose: 300 mls/hr Insulin Detemir (Levemir) 20 units SC HS [facility] Last Admin: 11/06/17 22:03 Dose: 20 units Insulin Human Lispro (Humalog) 0 units SC ACHS [facility] PRN Reason: Protocol Last Admin: 11/07/17 09:09 Dose: 2 units Lactobacillus Acidophilus (Bacid Acidophilus) 1 cap PO BID [facility] Last Admin: 11/07/17 08:04 Dose: 1 cap Lidocaine (Lidoderm) 1 ea TD DAILY [facility] Last Admin: 11/07/17 08:10 Dose: 1 ea Losartan Potassium (Cozaar) 100 mg PO DAILY [facility] Last Admin: 11/07/17 08:06 Dose: 100 mg Oxycodone HCl (Oxycodone Immediate Release Tab) 30 mg PO Q6H [facility] Last Admin: 11/07/17 10:26 Dose: 30 mg - Labs Labs: 11/05/17 15:04 11/07/17 10:30 PT 15.0 Seconds (9.8-13.1) H 11/05/17 15:04 INR 1.3 (0.9-1.2) H 11/05/17 15:04 APTT 28.4 Seconds (25.6-37.1) 11/05/17 15:04 - Constitutional Appears: Well, Non-toxic, No Acute Distress - Extremities Exam Additional comments: RLE focused exam: Vasc: DP/PT pulses nonpalpable to RLE secondary to edema. Skin temperature warm to warm from proximal to distal. CFT < 3 seconds to all digits B/L except right third digit. Right third digit appears purple/kapadia and dusky in nature and is cool to touch Neuro: Epicritic and protective sensation grossly intact B/L Derm: Two nonhealing surgical sites noted to right foot. First is at previous second digit amputation site. Noted to be roughly 4 cm x 1 cm and probes deep to muscle but not bone. Wound base is mostly fibrotic. Approx 1cc of purulent drainage noted to dressing. Additional 1cc expressed with pressure. Second nonhealing surgical site noted to dorsal third digit. Measures roughly 1 cm x 0.5 cm x 0.2 cm. Wound probes deep to bone and joint space of PIPJ. Mild erythema noted to shashi wound. Distal aspect of 3rd digit exhibits sloughed skin with erythema noted to subcutaneous tissue. Cellulitic changes noted to be resolving to proximal foot. No other open lesions, wounds, maceration, xerosis, abnormal pigmentation or abnormal growths noted B/L. Nails well manicured and normotrophic x8 Ortho: Minimal tenderness to palpation of both wound sites - Neurological Exam Neurological Exam: Alert, Awake, Oriented x3 - Psychiatric Exam Psychiatric exam: Normal Affect, Normal Mood Assessment and Plan - Assessment and Plan (Free Text) Assessment: 62 year old male with right foot non-healing infected wound with infective gangrenous changes noted to 3rd digit, secondary to diabetes mellitus Plan: Patient seen and evaluated at bedside Plan discussed with attending Dr. Pittman Labs and vitals reviewed - febrile, WBC 5.7 Continue IV abx per ID - PICC line in place Joint aspirate cx taken 11/04 from 3rd digit PIPJ shows growth of MRSA Wounds cleansed with saline and dressed with betadine + DSD to R foot Medical clearance for surgery obtained and in chart Lovenox held today prior to surgery tomorrow NPO diet tonight after midnight Patient for OR amputation of right third digit with incision and drainage of right forefoot, tomorrow at 1:30pm Podiatry will continue to follow while patient in house
[2017-11-07] MEDS ORDERED: Enoxaparin 40 mg Syringe SC ONE (13:31)
--- NOTE | 2017-11-07 13:49 | CP.PCM.PN ---
Subjective - Date & Time of Evaluation Date of Evaluation: 11/07/17 Time of Evaluation: 07:00 - Subjective Subjective: comfortable wound dressing in place for or again in am- further amp Objective - Vital Signs/Intake and Output Vital Signs (last 24 hours): Temp Pulse Resp BP Pulse Ox 100 F H 61 20 121/65 96 11/07/17 07:57 11/07/17 08:06 11/07/17 07:57 11/07/17 08:06 11/07/17 07:57 - Medications Medications: Current Medications Acetaminophen (Tylenol 325mg Tab) 650 mg PO Q6 PRN PRN Reason: Fever >100.4 F Last Admin: 11/04/17 21:50 Dose: 650 mg Alprazolam (Xanax) 0.5 mg PO Q8 PRN PRN Reason: Anxiety Last Admin: 11/07/17 13:34 Dose: 0.5 mg Aspirin (Aspirin Chewable) 81 mg PO DAILY [facility] Last Admin: 11/07/17 08:02 Dose: 81 mg Atorvastatin Calcium (Lipitor) 40 mg PO DAILY [facility] Last Admin: 11/07/17 08:09 Dose: 40 mg Carvedilol (Coreg) 3.125 mg PO Q12 [facility] Last Admin: 11/07/17 08:04 Dose: 3.125 mg Dextrose (Dextrose 50% Inj) 0 ml IV STAT PRN; Protocol PRN Reason: Hypoglycemia Protocol Dextrose (Glutose 15) 0 gm PO ONCE PRN; Protocol PRN Reason: Hypoglycemia Protocol Enoxaparin Sodium (Lovenox) 40 mg SC ONCE [facility] PRN Reason: Protocol Stop: 11/07/17 13:32 Enoxaparin Sodium (Lovenox) 40 mg SC [facility] PRN Reason: Protocol Glipizide (Glucotrol) 5 mg PO BID [facility] Last Admin: 11/07/17 08:09 Dose: 5 mg Glucagon (Glucagen Diagnostic Kit) 0 mg IM STAT PRN; Protocol PRN Reason: Hypoglycemia Protocol Hydrochlorothiazide (Hydrodiuril) 25 mg PO DAILY [facility] Last Admin: 11/07/17 08:09 Dose: 25 mg Hydromorphone HCl (Dilaudid) 1 mg PO Q4 PRN PRN Reason: Pain, moderate (4-7) Cefepime HCl 1 gm/ Sodium (Chloride) 100 mls @ 100 mls/hr IVPB Q12 [facility] PRN Reason: Protocol Last Admin: 11/07/17 08:11 Dose: 100 mls/hr Linezolid (Zyvox 600mg/300ml D5w) 600 mg in 300 mls @ 300 mls/hr IVPB Q12@0100, 1300 [facility] PRN Reason: Protocol Last Admin: 11/07/17 12:23 Dose: 300 mls/hr Insulin Detemir (Levemir) 20 units SC HS [facility] Last Admin: 11/06/17 22:03 Dose: 20 units Insulin Human Lispro (Humalog) 0 units SC ACHS [facility] PRN Reason: Protocol Last Admin: 11/07/17 12:20 Dose: 3 units Lactobacillus Acidophilus (Bacid Acidophilus) 1 cap PO BID [facility] Last Admin: 11/07/17 08:04 Dose: 1 cap Lidocaine (Lidoderm) 1 ea TD DAILY [facility] Last Admin: 11/07/17 08:10 Dose: 1 ea Losartan Potassium (Cozaar) 100 mg PO DAILY [facility] Last Admin: 11/07/17 08:06 Dose: 100 mg Oxycodone HCl (Oxycodone Immediate Release Tab) 30 mg PO Q6H [facility] Last Admin: 11/07/17 10:26 Dose: 30 mg - Labs Labs: 11/07/17 10:30 11/07/17 10:30 PT 15.0 Seconds (9.8-13.1) H 11/05/17 15:04 INR 1.3 (0.9-1.2) H 11/05/17 15:04 APTT 28.4 Seconds (25.6-37.1) 11/05/17 15:04 - Constitutional Appears: Non-toxic, Chronically Ill - Head Exam Head Exam: NORMOCEPHALIC - Eye Exam Eye Exam: PERRL - ENT Exam ENT Exam: Mucous Membranes Dry - Neck Exam Neck Exam: absent: Lymphadenopathy - Respiratory Exam Respiratory Exam: Decreased Breath Sounds - Cardiovascular Exam Cardiovascular Exam: REGULAR RHYTHM - GI/Abdominal Exam GI & Abdominal Exam: Distended, Soft - Rectal Exam Rectal Exam: Deferred - Exam Exam: NORMAL INSPECTION - Extremities Exam Extremities Exam: absent: Pedal Edema - Back Exam Back Exam: absent: CVA tenderness (L), CVA tenderness (R) Assessment and Plan (1) Cellulitis of foot Status: Acute (2) Osteomyelitis due to type 2 diabetes mellitus Status: Acute - Assessment and Plan (Free Text) Assessment: ciont iv antibiotics and wound care
[2017-11-07] MEDS ORDERED: Enoxaparin 40 mg Syringe SC SCH (22:00)
[2017-11-07] MEDS: Insulin Detemir 100 Units/ml Inj SC SCH (22:39)
[2017-11-08] MEDS: Linezolid 600 mg in D5W 300 ml 600 MG/300 ML BAG IVPB SCH ×2 (00:49→12:47)
[2017-11-08] MEDS ORDERED: HYDROmorphone 0.5 mg/0.5 ml ISec IVP PRN (03:04)
[2017-11-08] MEDS: oxyCODONE 10 mg Immediate Release Tab PO SCH ×4 (05:20→22:06)
[2017-11-08] MEDS: Insulin Lispro (humaLOG) 100 Units/ml Inj SC SCH ×3 (06:31→15:49)
[2017-11-08 06:37] LABS: HEMOGLOBIN 10.8 g/dL (12.0-18.0); MEAN CELL VOLUME 86.5 fl (80.0-94.0); MEAN CORPUSCULAR HEMOGLOBIN 29.3 pg (27.0-31.0); MEAN CORPUSCULAR HGB CONC 33.9 g/dL (33.0-37.0); RBC 3.69 Mil/uL (4.40-5.90); RED CELL DISTRIBUTION WIDTH 15.2 % (11.5-14.5); WHITE BLOOD COUNT 6.5 K/uL (4.8-10.8)
[2017-11-08 07:09] LABS: INR 1.3 (0.9-1.2); PARTIAL THROMBOPLASTIN TIME 33.2 Seconds (25.6-37.1); PROTHROMBIN TIME 14.8 Seconds (9.8-13.1)
[2017-11-08 07:18] LABS: ALB/GLOB RATIO 0.8 (1.0-2.1); ALBUMIN 3.5 g/dL (3.5-5.0); ALT/SGPT 40 U/L (21-72); AST/SGOT 34 U/L (17-59); BLOOD UREA NITROGEN 15 mg/dl (9-20); CALCIUM 8.7 mg/dL (8.4-10.2); GFR AFRICAN-AMERICAN > 60; GFR NON-AFRICAN AMERICAN > 60
--- NOTE | 2017-11-08 07:34 | CP.PCM.PN ---
Subjective - Date & Time of Evaluation Date of Evaluation: 11/08/17 Time of Evaluation: 07:25 - Subjective Subjective: Patient seen and examined this morning at beside. There are no acute events overnight. The patient sitting comfortably in bed, NAD. The patient denies any overnight pain or complaints. Will be going for surgery this afternoon. Normal bowel movements and voids. Patient denies fevers, chills, nausea, vomiting, diarrhea, chest pain, SOB, dyspnea, or cough. Objective - Vital Signs/Intake and Output Vital Signs (last 24 hours): Temp Pulse Resp BP Pulse Ox 98.9 F 63 19 149/73 95 11/08/17 00:00 11/08/17 00:00 11/08/17 00:00 11/08/17 00:00 11/08/17 00:00 - Medications Medications: Current Medications Acetaminophen (Tylenol 325mg Tab) 650 mg PO Q6 PRN PRN Reason: Fever >100.4 F Last Admin: 11/04/17 21:50 Dose: 650 mg Aspirin (Aspirin Chewable) 81 mg PO DAILY [facility] Last Admin: 11/07/17 08:02 Dose: 81 mg Atorvastatin Calcium (Lipitor) 40 mg PO DAILY [facility] Last Admin: 11/07/17 08:09 Dose: 40 mg Carvedilol (Coreg) 3.125 mg PO Q12 [facility] Last Admin: 11/07/17 21:30 Dose: 3.125 mg Dextrose (Dextrose 50% Inj) 0 ml IV STAT PRN; Protocol PRN Reason: Hypoglycemia Protocol Dextrose (Glutose 15) 0 gm PO ONCE PRN; Protocol PRN Reason: Hypoglycemia Protocol Enoxaparin Sodium (Lovenox) 40 mg SC HS [facility] PRN Reason: Protocol Glipizide (Glucotrol) 5 mg PO BID [facility] Last Admin: 11/07/17 16:28 Dose: 5 mg Glucagon (Glucagen Diagnostic Kit) 0 mg IM STAT PRN; Protocol PRN Reason: Hypoglycemia Protocol Hydrochlorothiazide (Hydrodiuril) 25 mg PO DAILY [facility] Last Admin: 11/07/17 08:09 Dose: 25 mg Hydromorphone HCl (Dilaudid) 0.5 mg IVP Q4 PRN PRN Reason: Pain, moderate (4-7) Stop: 11/10/17 03:04 Last Admin: 11/08/17 04:43 Dose: 0.5 mg Cefepime HCl 1 gm/ Sodium (Chloride) 100 mls @ 100 mls/hr IVPB Q12 [facility] PRN Reason: Protocol Last Admin: 11/07/17 21:30 Dose: 100 mls/hr Linezolid (Zyvox 600mg/300ml D5w) 600 mg in 300 mls @ 300 mls/hr IVPB Q12@0100, 1300 [facility] PRN Reason: Protocol Last Admin: 11/08/17 00:49 Dose: 300 mls/hr Insulin Detemir (Levemir) 20 units SC HS [facility] Last Admin: 11/07/17 22:39 Dose: 20 units Insulin Human Lispro (Humalog) 0 units SC ACHS [facility] PRN Reason: Protocol Last Admin: 11/08/17 06:31 Dose: Not Given Lactobacillus Acidophilus (Bacid Acidophilus) 1 cap PO BID [facility] Last Admin: 11/07/17 16:27 Dose: 1 cap Lidocaine (Lidoderm) 1 ea TD DAILY [facility] Last Admin: 11/07/17 08:10 Dose: 1 ea Lorazepam (Ativan) 0.5 mg IVP TID PRN PRN Reason: Anxiety Losartan Potassium (Cozaar) 100 mg PO DAILY [facility] Last Admin: 11/07/17 08:06 Dose: 100 mg Oxycodone HCl (Oxycodone Immediate Release Tab) 30 mg PO Q6H [facility] Last Admin: 11/08/17 05:20 Dose: 30 mg - Labs Labs: 11/08/17 06:20 11/08/17 06:20 PT 14.8 Seconds (9.8-13.1) H 11/08/17 06:20 INR 1.3 (0.9-1.2) H 11/08/17 06:20 APTT 33.2 Seconds (25.6-37.1) 11/08/17 06:20 - Constitutional Appears: No Acute Distress - Head Exam Head Exam: ATRAUMATIC, NORMAL INSPECTION, NORMOCEPHALIC - Eye Exam Eye Exam: Normal appearance - ENT Exam ENT Exam: Mucous Membranes Moist - Respiratory Exam Respiratory Exam: Clear to Ausculation Bilateral, NORMAL BREATHING PATTERN. absent: Decreased Breath Sounds, Rales, Rhonchi, Wheezes, Respiratory Distress - Cardiovascular Exam Cardiovascular Exam: REGULAR RHYTHM. absent: Tachycardia - GI/Abdominal Exam GI & Abdominal Exam: Soft, Normal Bowel Sounds. absent: Distended, Tenderness - Extremities Exam Additional comments: Dressings to right foot remain intact, C/D/I No erythematous streaking noted up the patient's leg no erythema, tenderness of the lower extremity left LE and foot, non-tender, no erythema, no edema - Neurological Exam Neurological Exam: Alert, Awake, Oriented x3 - Skin Skin Exam: Dry Assessment and Plan - Assessment and Plan (Free Text) Assessment: 62 y/o man w/ pmh of DM2, HTN, Osteomyelitis of right 2nd toe s/p partial 2nd right amputation and resection of 3rd proximal phalanx on 09/15/17 admitted for right foot cellulitis Plan: 1) Right Foot Cellulitis - s/p Osteomyelitis of right 2nd toe s/p partial 2nd right amputation and resection of 3rd proximal phalanx on 09/15/17 - cefepime 1 gm IV Q12 day 6 - MRI foot 11/02/2017: OM distal portion and distal head of 2nd metatarsal bone as well as proximal and mid phalanx of 3rd toe. Possible septic arthritis of PIP joint of 3rd toe. diffuse soft tissue edema in right foot - Podiatry consulted, recommendations appreciated: amputation of 3rd digit of right foot - Infectious Disease consulted, Dr. De La Paz, recommendations appreciated - Cardiology consulted, Dr. Quiros, recommendations appreciated: no intervention at this time, continue medications - blood culture: no growth - wound culture: MRSA - scheduled for OR 11/08/2017 @ 13:30 - heart healthy diabetic diet resumed - PO meds to be held after midnight - CBC: 6.5>10.8/31.9<218 - ESR: 105 - CMP: 133/4.4, 95/29, 15/1.1, glucose 194 - PICC line placed on right arm due to [employer] need for IV antibiotics - NPO after midnight for surgery - Will switch pain meds to Lidocaine TD, IV Ativan, and Dilaudid 2) UTI - patient denies dysuria, hematuria, or fever - urine culture: enterococcus faecalis - on linezolid 600 mg IV Q12h day 5 3) DM2 - Diabetic diet - SSI - hypoglycemic protocol - resumed home levemir and glipizide - held metformin 4) HTN - currently BP elevated most likely 2/2 to pain - c.w HCTZ 25 mg PO daily - c/w Losartan 100 mg PO daily - monitor for acute changes 5) HLD - c/w atorvastatin 40 mg PO daily 6) Pain management - resumed home regimen: oxycodone 30 mg PO Q6h, xanax 0.5 mg PO Q8h prn - PO pain meds held until s/p procedure 7) DVT Prophylaxis - Lovenox 40 mg sc daily, held this morning for procedure
[2017-11-08] MEDS: Lactobacillus Acidophilus 500 MU Cap PO SCH ×2 (08:24→16:12)
[2017-11-08] MEDS: Lidocaine 5% Patch TD SCH (08:31)
--- NOTE | 2017-11-08 08:51 | CP.PCM.PN ---
Subjective - Date & Time of Evaluation Date of Evaluation: 11/08/17 Time of Evaluation: 08:48 - Subjective Subjective: Podiatry Progress Note - Dr. Pittman 62 year old male seen at bedside this morning preoperatively for right foot cellulitic changes with non-healing surgical site wound. At present, patient is AAO x 3 and NAD resting comfortably in bed at time of visit. States that pain to right foot is intermittent in nature, but is well controlled by meds. Patient denies any further pedal complaints at this time. Patient states that he has been NPO since before midnight last night. Denies F/C/N/V/CP/SOB/D/ posterior calf pain when squeezed. Objective - Vital Signs/Intake and Output Vital Signs (last 24 hours): Temp Pulse Resp BP Pulse Ox 98.8 F 58 L 18 91/57 L 98 11/08/17 08:34 11/08/17 08:34 11/08/17 08:34 11/08/17 08:34 11/08/17 08:34 - Medications Medications: Current Medications Acetaminophen (Tylenol 325mg Tab) 650 mg PO Q6 PRN PRN Reason: Fever >100.4 F Last Admin: 11/04/17 21:50 Dose: 650 mg Aspirin (Aspirin Chewable) 81 mg PO DAILY [facility] Last Admin: 11/08/17 08:24 Dose: Not Given Atorvastatin Calcium (Lipitor) 40 mg PO DAILY [facility] Last Admin: 11/08/17 08:25 Dose: Not Given Carvedilol (Coreg) 3.125 mg PO Q12 [facility] Last Admin: 11/07/17 21:30 Dose: 3.125 mg Dextrose (Dextrose 50% Inj) 0 ml IV STAT PRN; Protocol PRN Reason: Hypoglycemia Protocol Dextrose (Glutose 15) 0 gm PO ONCE PRN; Protocol PRN Reason: Hypoglycemia Protocol Enoxaparin Sodium (Lovenox) 40 mg SC HS [facility] PRN Reason: Protocol Glipizide (Glucotrol) 5 mg PO BID [facility] Last Admin: 11/08/17 08:25 Dose: Not Given Glucagon (Glucagen Diagnostic Kit) 0 mg IM STAT PRN; Protocol PRN Reason: Hypoglycemia Protocol Hydrochlorothiazide (Hydrodiuril) 25 mg PO DAILY [facility] Last Admin: 11/08/17 08:25 Dose: Not Given Hydromorphone HCl (Dilaudid) 0.5 mg IVP Q4 PRN PRN Reason: Pain, moderate (4-7) Stop: 11/10/17 03:04 Last Admin: 11/08/17 04:43 Dose: 0.5 mg Cefepime HCl 1 gm/ Sodium (Chloride) 100 mls @ 100 mls/hr IVPB Q12 [facility] PRN Reason: Protocol Last Admin: 11/07/17 21:30 Dose: 100 mls/hr Linezolid (Zyvox 600mg/300ml D5w) 600 mg in 300 mls @ 300 mls/hr IVPB Q12@0100, 1300 [facility] PRN Reason: Protocol Last Admin: 11/08/17 00:49 Dose: 300 mls/hr Insulin Detemir (Levemir) 20 units SC HS [facility] Last Admin: 11/07/17 22:39 Dose: 20 units Insulin Human Lispro (Humalog) 0 units SC ACHS [facility] PRN Reason: Protocol Last Admin: 11/08/17 06:31 Dose: Not Given Lactobacillus Acidophilus (Bacid Acidophilus) 1 cap PO BID [facility] Last Admin: 11/08/17 08:24 Dose: Not Given Lidocaine (Lidoderm) 1 ea TD DAILY [facility] Last Admin: 11/08/17 08:31 Dose: Not Given Lorazepam (Ativan) 0.5 mg IVP TID PRN PRN Reason: Anxiety Losartan Potassium (Cozaar) 100 mg PO DAILY [facility] Last Admin: 11/08/17 08:25 Dose: Not Given Oxycodone HCl (Oxycodone Immediate Release Tab) 30 mg PO Q6H [facility] Last Admin: 11/08/17 05:20 Dose: 30 mg - Labs Labs: 11/08/17 06:20 11/08/17 06:20 PT 14.8 Seconds (9.8-13.1) H 11/08/17 06:20 INR 1.3 (0.9-1.2) H 11/08/17 06:20 APTT 33.2 Seconds (25.6-37.1) 11/08/17 06:20 - Constitutional Appears: Well, Non-toxic, No Acute Distress - Extremities Exam Additional comments: RLE focused exam: Vasc: DP/PT pulses nonpalpable to RLE secondary to edema. Skin temperature warm to warm from proximal to distal. CFT < 3 seconds to all digits B/L except right third digit. Right third digit appears purple/kapadia and dusky in nature and is cool to touch Neuro: Epicritic and protective sensation grossly intact B/L Derm: Two nonhealing surgical sites noted to right foot. First is at previous second digit amputation site. Noted to be roughly 4 cm x 1 cm and probes deep to muscle but not bone. Wound base is mostly fibrotic. No purulent drainage expressed at this time. Second nonhealing surgical site noted to dorsal third digit. Measures roughly 1 cm x 0.5 cm x 0.2 cm. Wound probes deep to bone and joint space of PIPJ. Mild erythema noted to shashi wound. Distal aspect of 3rd digit exhibits sloughed skin with erythema noted to subcutaneous tissue. Cellulitic changes noted to be resolving to proximal foot. No other open lesions , wounds, maceration, xerosis, abnormal pigmentation or abnormal growths noted B /L. Nails well manicured and normotrophic x8 Ortho: Minimal tenderness to palpation of both wound sites, improving - Neurological Exam Neurological Exam: Alert, Awake, Oriented x3 - Psychiatric Exam Psychiatric exam: Normal Affect, Normal Mood Assessment and Plan - Assessment and Plan (Free Text) Assessment: 62 year old male with right foot non-healing infected wound with infective gangrenous changes noted to 3rd digit, secondary to diabetes mellitus seen preoperatively before amputaiton of third digit with I and D of non healing surgical site Plan: Pt was seen and examined in SDS Pt NPO status confirmed All pre-op testing and clearance in chart Pt has exhausted al conservative treatment at this time an is opting for surgical intervention Pt was explained procedure and postoperative course All pts questions were answered to satisfaction No guarantees were made Pt understands all risks benefits, and complications of procedure Patients wounds dressed with betadine, ABD, DSD Podiatry will continue to follow postoperatively while patient in house
[2017-11-08] MEDS: Cefepime 1 GM in Sodium Chloride 0.9% 100 ML IVPB SCH ×2 (09:01→22:01)
[2017-11-08] MEDS ORDERED: Bupivacaine 0.5% Inj(30mL) ONE (12:30)
[2017-11-08] MEDS ORDERED: Lidocaine 1% Inj (20ml) ONE (12:30)
[2017-11-08] MEDS ORDERED: Propofol 10 mg/ml Inj (20 ML) ONE ×2 (13:47→14:10)
[2017-11-08] MEDS ORDERED: Midazolam 2 MG/2 ML VIAL ONE (13:48)
[2017-11-08] MEDS ORDERED: Lactated Ringer's 1,000 ML IV ONE (13:51)
[2017-11-08] MEDS ORDERED: Bupivacaine 0.5% 50 ML IJ ONE (14:05)
[2017-11-08] MEDS ORDERED: Lidocaine 1% Inj (20ml) IJ ONE (14:05)
--- NOTE | 2017-11-08 15:02 | PCM.SURG1 ---
Surgeon's Initial Post Op Note - Surgeon's Notes Surgeon: Dr. Americo Pittman, DPM Molecular Pathologist: Obi Prescott, PGY1 Type of Anesthesia: IV Sedation, Local Anesthesia Administered By: Dr. Li Pre-Operative Diagnosis: Osteomyelitis of right third digit with abscess right foot Operative Findings: See dictation report. M- 4-0 prolene. I- 10 cc 1:1 1% lidocaine plain, 0.5% marcaine plain Post-Operative Diagnosis: Same Operation Performed: Amputation right third digit with incision and drainage of right foot Specimen/Specimens Removed: Bone and soft tissue right foot Estimated Blood Loss: EBL {In ML}: 10 Blood Products Given: N/A Drains Used: No Drains Post-Op Condition: Good Date of Surgery/Procedure: 11/08/17 Time of Surgery/Procedure: 15:02
[2017-11-08] MEDS: Lactated Ringer's 1,000 ML IV SCH ×2 (15:49→23:00)
--- NOTE | 2017-11-08 17:17 | RAD ---
PROCEDURE: Right Foot Radiographs. HISTORY: s/p amputation right third digit, I and D COMPARISON: Preoperative study 11/01/2014 FINDINGS: BONES: Postoperative findings identified 2nd and 3rd digits. JOINTS: Considerable soft tissue swelling at the site of incision drainage. SOFT TISSUES: Normal. OTHER FINDINGS: None. IMPRESSION: Soft tissue swelling without acute articular or osseous abnormality.
--- NOTE | 2017-11-08 19:42 | CP.PCM.PCO ---
Addendum Addendum: 11/08/17 20:19 Patient seen and examined bedside. Pt reports he had surgery this afternoon. Patient sitting comfortable on chair having dinner.Pain controlled with medications. He denies fever, chest pain, SOB, palpitation, n,v, Abd pain. VS: normal. hemodynamically stable O: Right food with bandage, C/D/I. neurovascular intact A: Amputation right third digit with incision and drainage of right foot P: continue pain medication and antibiotics
[2017-11-08] MEDS ORDERED: Enoxaparin 40 mg Syringe SC SCH (22:00)
[2017-11-08] MEDS: Insulin Detemir 100 Units/ml Inj SC SCH (22:03)
[2017-11-09] MEDS: Linezolid 600 mg in D5W 300 ml 600 MG/300 ML BAG IVPB SCH ×2 (00:35→12:10)
[2017-11-09] MEDS: oxyCODONE 10 mg Immediate Release Tab PO SCH ×3 (04:14→16:02)
[2017-11-09] MEDS: Insulin Lispro (humaLOG) 100 Units/ml Inj SC SCH ×4 (04:48→16:03)
--- NOTE | 2017-11-09 06:48 | CP.PCM.PN ---
Subjective - Date & Time of Evaluation Date of Evaluation: 11/09/17 Time of Evaluation: 06:48 - Subjective Subjective: Patient seen and examined this morning at beside. There are no acute events overnight. The patient sitting comfortably in bed, NAD. The patient denies any overnight pain or complaints. Patient reports surgery went well yesterday. Patient denies fevers, chills, nausea, vomiting, diarrhea, chest pain, SOB, dyspnea, or cough. Objective - Vital Signs/Intake and Output Vital Signs (last 24 hours): Temp Pulse Resp BP Pulse Ox 99.2 F 60 19 128/69 97 11/09/17 05:00 11/09/17 05:00 11/09/17 05:00 11/09/17 05:00 11/09/17 05:00 Intake and Output: 11/08/17 11/09/17 18:59 06:59 Intake Total 300 Output Total 350 Balance -50 - Medications Medications: Current Medications Acetaminophen (Tylenol 325mg Tab) 650 mg PO Q6 PRN PRN Reason: Fever >100.4 F Last Admin: 11/04/17 21:50 Dose: 650 mg Aspirin (Aspirin Chewable) 81 mg PO DAILY [facility] Last Admin: 11/08/17 08:24 Dose: Not Given Atorvastatin Calcium (Lipitor) 40 mg PO DAILY [facility] Last Admin: 11/08/17 08:25 Dose: Not Given Carvedilol (Coreg) 3.125 mg PO Q12 [facility] Last Admin: 11/08/17 22:00 Dose: 3.125 mg Dextrose (Dextrose 50% Inj) 0 ml IV STAT PRN; Protocol PRN Reason: Hypoglycemia Protocol Dextrose (Glutose 15) 0 gm PO ONCE PRN; Protocol PRN Reason: Hypoglycemia Protocol Enoxaparin Sodium (Lovenox) 40 mg SC HS [facility] PRN Reason: Protocol Last Admin: 11/08/17 22:02 Dose: 40 mg Glipizide (Glucotrol) 5 mg PO BID [facility] Last Admin: 11/08/17 16:13 Dose: 5 mg Glucagon (Glucagen Diagnostic Kit) 0 mg IM STAT PRN; Protocol PRN Reason: Hypoglycemia Protocol Hydrochlorothiazide (Hydrodiuril) 25 mg PO DAILY [facility] Last Admin: 11/08/17 08:25 Dose: Not Given Hydromorphone HCl (Dilaudid) 0.5 mg IVP Q4 PRN PRN Reason: Pain, moderate (4-7) Stop: 11/10/17 03:04 Last Admin: 11/08/17 04:43 Dose: 0.5 mg Cefepime HCl 1 gm/ Sodium (Chloride) 100 mls @ 100 mls/hr IVPB Q12 [facility] PRN Reason: Protocol Last Admin: 11/08/17 22:01 Dose: 100 mls/hr Linezolid (Zyvox 600mg/300ml D5w) 600 mg in 300 mls @ 300 mls/hr IVPB Q12@0100, 1300 [facility] PRN Reason: Protocol Last Admin: 11/09/17 00:35 Dose: 300 mls/hr Lactated Ringer's (Lactated Ringer's) 1,000 mls @ 125 mls/hr IV .Q8H [facility] Last Admin: 11/08/17 23:00 Dose: Not Given Insulin Detemir (Levemir) 20 units SC HS [facility] Last Admin: 11/08/17 22:03 Dose: 20 units Insulin Human Lispro (Humalog) 0 units SC ACHS [facility] PRN Reason: Protocol Last Admin: 11/09/17 04:48 Dose: Not Given Lactobacillus Acidophilus (Bacid Acidophilus) 1 cap PO BID [facility] Last Admin: 11/08/17 16:12 Dose: 1 cap Lidocaine (Lidoderm) 1 ea TD DAILY [facility] Last Admin: 11/08/17 08:31 Dose: Not Given Lorazepam (Ativan) 0.5 mg IVP TID PRN PRN Reason: Anxiety Last Admin: 11/08/17 09:27 Dose: 0.5 mg Losartan Potassium (Cozaar) 100 mg PO DAILY [facility] Last Admin: 11/08/17 08:25 Dose: Not Given Oxycodone HCl (Oxycodone Immediate Release Tab) 30 mg PO Q6H [facility] Last Admin: 11/09/17 04:14 Dose: 30 mg - Labs Labs: 11/08/17 06:20 11/08/17 06:20 PT 14.8 Seconds (9.8-13.1) H 11/08/17 06:20 INR 1.3 (0.9-1.2) H 11/08/17 06:20 APTT 33.2 Seconds (25.6-37.1) 02/12/18 06:20 - Constitutional Appears: No Acute Distress - Head Exam Head Exam: ATRAUMATIC, NORMAL INSPECTION, NORMOCEPHALIC - Eye Exam Eye Exam: Normal appearance - ENT Exam ENT Exam: Mucous Membranes Moist - Neck Exam Neck Exam: Full ROM. absent: Tenderness - Respiratory Exam Respiratory Exam: Clear to Ausculation Bilateral, NORMAL BREATHING PATTERN. absent: Decreased Breath Sounds, Rales, Rhonchi, Wheezes, Respiratory Distress - Cardiovascular Exam Cardiovascular Exam: REGULAR RHYTHM. absent: Tachycardia - GI/Abdominal Exam GI & Abdominal Exam: Soft, Normal Bowel Sounds. absent: Distended, Tenderness - Extremities Exam Additional comments: Dressings to right foot remain intact, C/D/I No erythematous streaking noted up the patient's leg no erythema, tenderness of the lower extremity left LE and foot, non-tender, no erythema, no edema - Neurological Exam Neurological Exam: Alert, Awake, Oriented x3 - Skin Skin Exam: Dry, Intact, Normal Color, Warm Assessment and Plan - Assessment and Plan (Free Text) Assessment: 62 y/o man w/ pmh of DM2, HTN, Osteomyelitis of right 2nd toe s/p partial 2nd right amputation and resection of 3rd proximal phalanx on 09/15/17 admitted for right foot cellulitis Plan: 1) Right Foot Cellulitis - s/p Osteomyelitis of right 2nd toe s/p partial 2nd right amputation and resection of 3rd proximal phalanx on 09/15/17 - cefepime 1 gm IV Q12 day 7 - MRI foot 11/02/2017: OM distal portion and distal head of 2nd metatarsal bone as well as proximal and mid phalanx of 3rd toe. Possible septic arthritis of PIP joint of 3rd toe. diffuse soft tissue edema in right foot - Podiatry consulted, recommendations appreciated - Infectious Disease consulted, Dr. De La Paz, recommendations appreciated - Cardiology consulted, Dr. 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
[2017-11-09] MEDS: Cefepime 1 GM in Sodium Chloride 0.9% 100 ML IVPB SCH (08:55)
[2017-11-09] MEDS: Lactobacillus Acidophilus 500 MU Cap PO SCH ×2 (08:56→16:02)
[2017-11-09] MEDS: Lidocaine 5% Patch TD SCH (08:58)
[2017-11-09] MEDS: Lactated Ringer's 1,000 ML IV SCH (08:58)
--- NOTE | 2017-11-09 11:57 | CP.PCM.PN ---
Subjective - Date & Time of Evaluation Date of Evaluation: 11/09/17 Time of Evaluation: 09:00 - Subjective Subjective: s/p amp 3rd digit and i and d await or cultures possible d/c on iv vanco for 6 weeks discussed Objective - Vital Signs/Intake and Output Vital Signs (last 24 hours): Temp Pulse Resp BP Pulse Ox 98.2 F 78 19 112/61 97 11/09/17 08:30 11/09/17 10:18 11/09/17 08:30 11/09/17 08:56 11/09/17 10:18 - Medications Medications: Current Medications Acetaminophen (Tylenol 325mg Tab) 650 mg PO Q6 PRN PRN Reason: Fever >100.4 F Last Admin: 11/04/17 21:50 Dose: 650 mg Aspirin (Aspirin Chewable) 81 mg PO DAILY [facility] Last Admin: 11/09/17 08:56 Dose: 81 mg Atorvastatin Calcium (Lipitor) 40 mg PO DAILY [facility] Last Admin: 11/09/17 08:58 Dose: 40 mg Carvedilol (Coreg) 3.125 mg PO Q12 [facility] Last Admin: 11/09/17 08:56 Dose: 3.125 mg Dextrose (Dextrose 50% Inj) 0 ml IV STAT PRN; Protocol PRN Reason: Hypoglycemia Protocol Dextrose (Glutose 15) 0 gm PO ONCE PRN; Protocol PRN Reason: Hypoglycemia Protocol Enoxaparin Sodium (Lovenox) 40 mg SC HS [facility] PRN Reason: Protocol Last Admin: 11/08/17 22:02 Dose: 40 mg Gabapentin (Neurontin) 100 mg PO BID [facility] Last Admin: 11/09/17 11:21 Dose: 100 mg Glipizide (Glucotrol) 5 mg PO BID [facility] Last Admin: 11/09/17 08:57 Dose: 5 mg Glucagon (Glucagen Diagnostic Kit) 0 mg IM STAT PRN; Protocol PRN Reason: Hypoglycemia Protocol Hydrochlorothiazide (Hydrodiuril) 25 mg PO DAILY [facility] Last Admin: 11/09/17 08:57 Dose: 25 mg Hydromorphone HCl (Dilaudid) 0.5 mg IVP Q4 PRN PRN Reason: Pain, moderate (4-7) Stop: 11/10/17 03:04 Last Admin: 11/08/17 04:43 Dose: 0.5 mg Linezolid (Zyvox 600mg/300ml D5w) 600 mg in 300 mls @ 300 mls/hr IVPB Q12@0100, 1300 [facility] PRN Reason: Protocol Last Admin: 11/09/17 00:35 Dose: 300 mls/hr Vancomycin HCl 1 gm/ Sodium (Chloride) 250 mls @ 166.667 mls/hr IVPB Q12 [facility] PRN Reason: Protocol Last Admin: 11/09/17 11:20 Dose: 166.667 mls/hr Insulin Detemir (Levemir) 20 units SC HS [facility] Last Admin: 11/08/17 22:03 Dose: 20 units Insulin Human Lispro (Humalog) 0 units SC ACHS [facility] PRN Reason: Protocol Last Admin: 11/09/17 11:23 Dose: 4 units Lactobacillus Acidophilus (Bacid Acidophilus) 1 cap PO BID [facility] Last Admin: 11/09/17 08:56 Dose: 1 cap Lidocaine (Lidoderm) 1 ea TD DAILY [facility] Last Admin: 11/09/17 08:58 Dose: 1 ea Lorazepam (Ativan) 0.5 mg IVP TID PRN PRN Reason: Anxiety Last Admin: 11/09/17 11:01 Dose: 0.5 mg Losartan Potassium (Cozaar) 100 mg PO DAILY [facility] Last Admin: 11/09/17 08:55 Dose: 100 mg Metformin HCl (Glucophage) 1,000 mg PO BIDWM [facility] Last Admin: 11/09/17 11:21 Dose: 1,000 mg Oxycodone HCl (Oxycodone Immediate Release Tab) 30 mg PO Q6H [facility] Last Admin: 11/09/17 10:26 Dose: 30 mg - Labs Labs: 11/08/17 06:20 11/08/17 06:20 PT 14.8 Seconds (9.8-13.1) H 11/08/17 06:20 INR 1.3 (0.9-1.2) H 11/08/17 06:20 APTT 33.2 Seconds (25.6-37.1) 11/08/17 06:20 Assessment and Plan (1) Cellulitis of foot Status: Acute (2) Osteomyelitis due to type 2 diabetes mellitus Status: Acute
--- NOTE | 2017-11-09 12:58 | CP.PCM.PN ---
Subjective - Date & Time of Evaluation Date of Evaluation: 11/09/17 Time of Evaluation: 12:55 - Subjective Subjective: 62 year old male seen at bedside one day s/p third digit amputation with incision and drainage of right foot. Patient is AAO x 3 and NAD at time of visit. Denies any pain at this time and states that he has been ambulating in his heel wedge shoe. Denies any further pedal complaints at this time. Denies any postoperative N/V/F/C/CP/SOB/D/posterior calf pain when squeezed. Objective - Vital Signs/Intake and Output Vital Signs (last 24 hours): Temp Pulse Resp BP Pulse Ox 98.2 F 78 19 112/61 97 11/09/17 08:30 11/09/17 10:18 11/09/17 08:30 11/09/17 08:56 11/09/17 10:18 - Medications Medications: Current Medications Acetaminophen (Tylenol 325mg Tab) 650 mg PO Q6 PRN PRN Reason: Fever >100.4 F Last Admin: 11/04/17 21:50 Dose: 650 mg Aspirin (Aspirin Chewable) 81 mg PO DAILY [facility] Last Admin: 11/09/17 08:56 Dose: 81 mg Atorvastatin Calcium (Lipitor) 40 mg PO DAILY [facility] Last Admin: 11/09/17 08:58 Dose: 40 mg Carvedilol (Coreg) 3.125 mg PO Q12 [facility] Last Admin: 11/09/17 08:56 Dose: 3.125 mg Dextrose (Dextrose 50% Inj) 0 ml IV STAT PRN; Protocol PRN Reason: Hypoglycemia Protocol Dextrose (Glutose 15) 0 gm PO ONCE PRN; Protocol PRN Reason: Hypoglycemia Protocol Enoxaparin Sodium (Lovenox) 40 mg SC HS [facility] PRN Reason: Protocol Last Admin: 11/08/17 22:02 Dose: 40 mg Gabapentin (Neurontin) 100 mg PO BID [facility] Last Admin: 11/09/17 11:21 Dose: 100 mg Glipizide (Glucotrol) 5 mg PO BID [facility] Last Admin: 11/09/17 08:57 Dose: 5 mg Glucagon (Glucagen Diagnostic Kit) 0 mg IM STAT PRN; Protocol PRN Reason: Hypoglycemia Protocol Hydrochlorothiazide (Hydrodiuril) 25 mg PO DAILY [facility] Last Admin: 11/09/17 08:57 Dose: 25 mg Hydromorphone HCl (Dilaudid) 0.5 mg IVP Q4 PRN PRN Reason: Pain, moderate (4-7) Stop: 11/10/17 03:04 Last Admin: 11/08/17 04:43 Dose: 0.5 mg Linezolid (Zyvox 600mg/300ml D5w) 600 mg in 300 mls @ 300 mls/hr IVPB Q12@0100, 1300 [facility] PRN Reason: Protocol Last Admin: 11/09/17 12:10 Dose: 300 mls/hr Vancomycin HCl 1 gm/ Sodium (Chloride) 250 mls @ 166.667 mls/hr IVPB Q12 [facility] PRN Reason: Protocol Last Admin: 11/09/17 11:20 Dose: 166.667 mls/hr Insulin Detemir (Levemir) 20 units SC HS [facility] Last Admin: 11/08/17 22:03 Dose: 20 units Insulin Human Lispro (Humalog) 0 units SC ACHS [facility] PRN Reason: Protocol Last Admin: 11/09/17 11:23 Dose: 4 units Lactobacillus Acidophilus (Bacid Acidophilus) 1 cap PO BID [facility] Last Admin: 11/09/17 08:56 Dose: 1 cap Lidocaine (Lidoderm) 1 ea TD DAILY [facility] Last Admin: 11/09/17 08:58 Dose: 1 ea Lorazepam (Ativan) 0.5 mg IVP TID PRN PRN Reason: Anxiety Last Admin: 11/09/17 11:01 Dose: 0.5 mg Losartan Potassium (Cozaar) 100 mg PO DAILY [facility] Last Admin: 11/09/17 08:55 Dose: 100 mg Metformin HCl (Glucophage) 1,000 mg PO BIDWM [facility] Last Admin: 11/09/17 11:21 Dose: 1,000 mg Oxycodone HCl (Oxycodone Immediate Release Tab) 30 mg PO Q6H [facility] Last Admin: 11/09/17 10:26 Dose: 30 mg - Labs Labs: 11/08/17 06:20 11/08/17 06:20 PT 14.8 Seconds (9.8-13.1) H 11/08/17 06:20 INR 1.3 (0.9-1.2) H 11/08/17 06:20 APTT 33.2 Seconds (25.6-37.1) 11/08/17 06:20 - Constitutional Appears: Well, Non-toxic, No Acute Distress - Extremities Exam Additional comments: RLE focused exam: Vasc: DP/PT pulses nonpalpable to RLE secondary to edema. Skin temperature warm to warm from proximal to distal. CFT < 3 seconds to all digits B/L Mild edema noted to right foot surgical site. Neuro: Epicritic and protective sensation grossly intact B/L Derm: Amputation site of right third digit noted with skin lines well coapted and all sutures intact with no signs of dehiscence. Nonhealing second digit amputation site noted with retention suture in place with no signs of dehiscence. No clinical signs of infection to either site including erythema, malodor, purulent drainage. Ortho: Minimal tenderness to palpation of both surgical sites - Neurological Exam Neurological Exam: Alert, Awake, Oriented x3 - Psychiatric Exam Psychiatric exam: Normal Affect, Normal Mood Assessment and Plan - Assessment and Plan (Free Text) Assessment: 62 year old male seen at bedside one day s/p third digit amputation with incision and drainage of right foot Plan: Patient seen and evaluated at bedside Afebrile, absent leukocytosis Plan discussed with attending Dr. Pittman Patient to be discharged today to [facility] [place] for 6-8 weeks IV abx and physical therapy Wound dressed with adaptic, ABD, DSD Patient to remain partial weight bearing to heel of right foot with aid of walker Patient to follow up with Dr. Pittman in wound care center following discharge
--- NOTE | 2017-11-09 14:56 | CP.PCM.DIS ---
Provider - Provider Date of Admission: 11/01/17 17:12 Attending physician: Hillary Hui MD Time Spent in preparation of Discharge (in minutes): 30 Diagnosis - Discharge Diagnosis (1) Osteomyelitis of foot, right, acute Status: Acute Hospital Course - Lab Results Lab Results: Micro Results 11/02/17 18:20 Blood Blood Culture - Final NO GROWTH AFTER 5 DAYS 11/02/17 18:20 Blood Gram Stain - Final TEST NOT PERFORMED 11/01/17 15:00 Blood Blood Culture - Final NO GROWTH AFTER 5 DAYS 11/01/17 15:00 Blood Gram Stain - Final TEST NOT PERFORMED 11/01/17 15:45 Blood Blood Culture - Final NO GROWTH AFTER 5 DAYS 11/01/17 15:45 Blood Gram Stain - Final TEST NOT PERFORMED 11/04/17 17:00 Toe Gram Stain - Final 11/04/17 17:00 Toe Wound Culture - Final Methicillin Resistant S Aureus 11/02/17 13:05 Foot - Right Gram Stain - Final 11/02/17 13:05 Foot - Right Wound Culture - Final Methicillin Resistant S Aureus Acinetobacter Baumannii 11/02/17 18:42 Urine Urine Culture - Final Enterococcus Faecalis 11/01/17 17:34 Urine,Random Urine Culture - Final Enterococcus Faecalis Most Recent Lab Values WBC 6.5 K/uL (4.8-10.8) 11/08/17 06:20 RBC 3.69 Mil/uL (4.40-5.90) L 11/08/17 06:20 Hgb 10.8 g/dL (12.0-18.0) L 11/08/17 06:20 Hct 31.9 % (35.0-51.0) L 11/08/17 06:20 MCV 86.5 fl (80.0-94.0) 11/08/17 06:20 MCH 29.3 pg (27.0-31.0) 11/08/17 06:20 MCHC 33.9 g/dL (33.0-37.0) 11/08/17 06:20 RDW 15.2 % (11.5-14.5) H 11/08/17 06:20 Plt Count 218 K/uL (130-400) 11/08/17 06:20 MPV 8.5 fl (7.2-11.7) 11/01/17 16:17 Neut % (Auto) 83.7 % (50.0-75.0) H 11/01/17 16:17 Lymph % (Auto) 8.9 % (20.0-40.0) L 11/01/17 16:17 [place] % (Auto) 6.6 % (0.0-10.0) 11/01/17 16:17 Eos % (Auto) 0.4 % (0.0-4.0) 11/01/17 16:17 Baso % (Auto) 0.4 % (0.0-2.0) 11/01/17 16:17 Neut # (Auto) 14.0 K/uL (1.8-7.0) H 11/01/17 16:17 Lymph # (Auto) 1.5 K/uL (1.0-4.3) 11/01/17 16:17 [place] # (Auto) 1.1 K/uL (0.0-0.8) H 11/01/17 16:17 Eos # (Auto) 0.1 K/uL (0.0-0.7) 11/01/17 16:17 Baso # (Auto) 0.1 K/uL (0.0-0.2) 11/01/17 16:17 Neutrophils % (Manual) 86 % (42-75) H 11/01/17 16:17 Lymphocytes % (Manual) 8 % (20-50) L 11/01/17 16:17 Monocytes % (Manual) 6 % (0-10) 11/01/17 16:17 Platelet Estimate Normal (NORMAL) 11/01/17 16:17 Anisocytosis (manual) Slight 11/01/17 16:17 Ovalocytes Slight 11/01/17 16:17 ESR 105 mm/hr (0-20) H 11/04/17 08:19 PT 14.8 Seconds (9.8-13.1) H 11/08/17 06:20 INR 1.3 (0.9-1.2) H 11/08/17 06:20 APTT 33.2 Seconds (25.6-37.1) 11/08/17 06:20 pO2 36 mm/Hg (30-55) 11/01/17 15:36 VBG pH 7.41 (7.32-7.43) 11/01/17 15:36 VBG pCO2 46 mmHg (40-60) 11/01/17 15:36 VBG HCO3 27.3 mmol/L 11/01/17 15:36 VBG Total CO2 30.6 mmol/L (22-28) H 11/01/17 15:36 VBG O2 Sat (Calc) 76.2 % (40-65) H 11/01/17 15:36 VBG Base Excess 3.9 mmol/L (0.0-2.0) H 11/01/17 15:36 VBG Potassium 4.4 mmol/L (3.6-5.2) 11/01/17 15:36 Sodium 132.0 mmol/L (132-148) 11/01/17 15:36 Chloride 98.0 mmol/L (98-107) 11/01/17 15:36 Glucose 391 mg/dL (75-110) H 11/01/17 15:36 Lactate 2.6 mmol/L (0.7-2.1) H 11/01/17 15:36 FiO2 21.0 % 11/01/17 15:36 Sodium 133 mmol/l (132-148) 11/08/17 06:20 Potassium 4.4 MMOL/L (3.6-5.0) 11/08/17 06:20 Chloride 95 mmol/L (98-107) L 11/08/17 06:20 Carbon Dioxide 29 mmol/L (22-30) 11/08/17 06:20 Anion Gap 13 (10-20) 11/08/17 06:20 BUN 15 mg/dl (9-20) 11/08/17 06:20 Creatinine 1.1 mg/dl (0.8-1.5) 11/08/17 06:20 Est GFR ( Amer) > 60 11/08/17 06:20 Est GFR (Non-Af Amer) > 60 11/08/17 06:20 POC Glucose (mg/dL) 287 mg/dL (65-110) H 11/09/17 11:22 Random Glucose 194 mg/dL (75-110) H 11/08/17 06:20 Calcium 8.7 mg/dL (8.4-10.2) 11/08/17 06:20 Phosphorus 1.8 mg/dl (2.5-4.5) L 11/01/17 16:17 Magnesium 2.1 MG/DL (1.6-2.3) 11/01/17 16:17 Total Bilirubin 0.4 mg/dl (0.2-1.3) 11/08/17 06:20 AST 34 U/L (17-59) 11/08/17 06:20 ALT 40 U/L (21-72) 11/08/17 06:20 Alkaline Phosphatase 84 U/L (38-126) 11/08/17 06:20 Total Protein 7.5 G/DL (6.3-8.2) 11/08/17 06:20 Albumin 3.5 g/dL (3.5-5.0) 11/08/17 06:20 Globulin 4.1 gm/dL (2.2-3.9) H 11/08/17 06:20 Albumin/Globulin Ratio 0.8 (1.0-2.1) L 11/08/17 06:20 Venous Blood Potassium 4.4 mmol/L (3.6-5.2) 11/01/17 15:36 Urine Color Yellow (YELLOW) 11/01/17 17:34 Urine Clarity Clear (Clear) 11/01/17 17:34 Urine pH 7.0 (5.0-8.0) 11/01/17 17:34 Ur Specific [place] 1.030 (1.003-1.030) 11/01/17 17:34 Urine Protein 100 mg/dL (NEGATIVE) 11/01/17 17:34 Urine Glucose (UA) >=500 mg/dL (Normal) 11/01/17 17:34 Urine Ketones Negative mg/dL (NEGATIVE) 11/01/17 17:34 Urine Blood Small (NEGATIVE) 11/01/17 17:34 Urine Nitrate Negative (NEGATIVE) 11/01/17 17:34 Urine Bilirubin Negative (NEGATIVE) 11/01/17 17:34 Urine Urobilinogen 0.2-1.0 mg/dL (0.2-1.0) 11/01/17 17:34 Ur Leukocyte Esterase Neg [place]/uL (Negative) 11/01/17 17:34 Urine RBC (Auto) 7 /hpf (0-3) H 11/01/17 17:34 Urine Microscopic WBC < 1 /hpf (0-5) 11/01/17 17:34 Ur Squamous Epith Cells < 1 /hpf (0-5) 11/01/17 17:34 Vancomycin Trough 11.1 ug/mL (5.0-10.0) H 11/03/17 16:01 Blood Type AB POSITIVE 11/08/17 13:12 Blood Type Confirm AB POSITIVE 11/05/17 15:15 Antibody Screen Negative 11/08/17 13:12 BBK History Checked Patient has bt 11/08/17 13:12 - Hospital Course Hospital Course: 62 y/o man w/ pmh of DM2, HTN, Osteomyelitis of right 2nd toe s/p partial 2nd right amputation and resection of 3rd proximal phalanx on 09/15/17 admitted for right foot osteomyelitis. VS showed elevated BP, CBC showed elevated WBC, CMP showed hyperkalemia but sample was hemolyzed, XR showed no soft tissue edema. Patient was started on vancomycin. The patient had MRI of the foot showing osteomyelitis and possible septic arthritis of the PIP of the 3rd digit. Patient had joint aspirated. Patient had fever while in-house, ID was notified and antibiotics were changed accordingly. Patient was switched to linezolid and cefepime. The patient was optimized for surgery to have 3rd digit amputated. Patient had procedure done and recovering appropriately. The patient was re-evaluated by ID and antibiotics were switched back to vancomycin 1 gm Q12 for 6 weeks and 1 more day of linezolid, with cefepime being DC'ed. The patient has been seen, examined, and deemed medically fit for discharge to [facility] to complete IV antibiotics and physical therapy. The patient is to follow up w/ wound care center. Discharge Exam - Head Exam Head Exam: ATRAUMATIC, NORMAL INSPECTION, NORMOCEPHALIC - Eye Exam Eye Exam: Normal appearance - ENT Exam ENT Exam: Mucous Membranes Moist - Neck Exam Neck exam: Full Rom, Tenderness - Respiratory Exam Respiratory Exam: Clear to PA & Lateral, UNREMARKABLE. absent: Decreased Breath Sounds, Rales, Rhonchi, Wheezes, Respiratory Distress, Stridor - Cardiovascular Exam Cardiovascular Exam: REGULAR RHYTHM. absent: Tachycardia - GI/Abdominal Exam GI & Abdominal Exam: Normal Bowel Sounds, Soft. absent: Distended, Tenderness - Extremities Exam Additional comments: Dressings to right foot remain intact, C/D/I No erythematous streaking noted up the patient's leg no erythema, tenderness of the lower extremity left LE and foot, non-tender, no erythema, no edema - Neurological Exam Neurological exam: Alert, Oriented x3 - Skin Skin Exam: Dry, Intact, Normal Color, Warm Discharge Plan - Follow Up Plan Condition: GUARDED Disposition: HOME/ ROUTINE Instructions: MRSA (Methicillin Resistant Staphylococcus Aureus) (DC), Transmetatarsal Amputation (DC), Osteomyelitis (DC) Referrals: Americo Pittman DPM [Medical Doctor] - Nico Quiros MD [Staff Provider] -
[2017-11-09 16:12] VITALS: BP 123/63; PULSE 58; RESP 20; TEMP 98.8; O2SAT 99
[2017-11-09 19:40] LABS: SQUAMOUS EPITHIAL < 1 /hpf (0-5); URINE BILIRUBIN NEGATIVE (NEGATIVE); URINE BLOOD SMALL (NEGATIVE); URINE CLARITY CLEAR (Clear); URINE COLOR YELLOW (YELLOW); URINE GLUCOSE (UA) >=500 mg/dL (Normal); URINE LEUKOCYTE ESTERASE NEG Leu/uL (Negative); URINE NITRATE NEGATIVE (NEGATIVE); URINE PROTEIN NEGATIVE (NEGATIVE); URINE UROBILINOGEN 0.2-1.0 mg/dL (0.2-1.0)
--- NOTE | 2017-11-10 09:32 | OP ---
PROCEDURE DATE: 11/08/2017 PREOPERATIVE DIAGNOSES: 1. Osteomyelitis of right third digit. 2. Right foot abscess. POSTOPERATIVE DIAGNOSES: 1. Osteomyelitis of right third digit. 2. Right foot abscess. NAME OF PROCEDURE: 1. Right foot third digit amputation. 2. Incision and drainage of right foot. SURGEON: Americo Pittman DPM SECOND SHIFT SUPERVISOR: Obi Prescott DPM, PGY-1 TYPE OF ANESTHESIA: IV sedation with local. 10 mL of 1:1 mixture of 1% lidocaine plain and 0.5% Marcaine plain. ANESTHESIOLOGIST: Dr. Li. INDICATIONS: The patient is a 61-year-old male with the above-mentioned diagnoses. The patient is status post right second digit amputation and resection of head of third proximal phalanx on 09/15/2017. The patient was admitted from the ED for right foot cellulitis and was found to have a nonhealing wound to the previous second digit amputation site, and erythematous and edematous changes noted to the right third digit. The patient has exhausted all conservative treatments at this time and now requests surgical intervention. The patient signed a consent after careful explanation of risks, benefits, complications, and alternatives for procedure, and wishes to proceed. No guarantees were given nor implied. PREPARATION: The patient was brought into the operating room and placed on the operating room table in the supine position. Time-out was performed for identification of the correct patient and procedure. After induction of IV sedation, the patient received a total of 10 mL of a 1:1 mixture of 1% lidocaine plain and 0.5% Marcaine plain administered in a proximal V-type fashion. Once local anesthesia was achieved, the right lower extremity was then prepped and draped in normal sterile manner and the procedure began. PROCEDURE #1: Right foot third digit amputation Attention was directed to the right third digit, which was noted to be edematous and erythematous. Ulceration #1 was noted to the dorsal aspect measuring approximately 1 x 0.5 cm. A second ulceration was noted to the lateral aspect of the 3rd digit measuring approximately 0.5 x 0.5 cm. Approximately 0.5cc of purulence was expressed from the lateral ulceration. Using a #15 blade, an dorsally based racquet type incision was made down to the level of bone at the base of the third digit. The incision was then extended down through the subcutaneous layers to the level of bone. A moderate amount of fibrin slough noted within the 3rd digit. Using a bone clamp to stabilize the third digit, the digit was then disarticulated from the foot at the level of the metatarsophalangeal joint. The bone was noted to be soft, and friable in nature. All remaining nonviable soft tissue and bone were removed. Next, using a sagittal saw, the articular cartilage of the third metatarsal head was resected. All soft tissue and bony samples were sent to pathology for examination. The remaining soft tissue and bone was noted to have adequate perfusion. PROCEDURE #2: Incision and drainage of right foot Attention was directed to the previous second digit amputation site where it was noted to have a nonhealing wound measuring approximately 4 x 1 cm. The wound base was noted to be 100% fibrotic. Approximately 1 mL of purulence was expressed from the previous amputation site. Using a sagittal saw, the distal most aspect of the second metatarsal was resected. The specimen was passed off the surgical field to be sent to pathology. Next, utilizing a pulse lavage with 3L normal saline & bacitracin solution, the 2nd digit amputation site was irrigated. Directing attention to the third digit amputation site, the area was irrigated as well. Using 4-0 Vicryl suture, deep closure was provided using a horizontal box technique. Next , using 3-0 Prolene suture, the incision was closed using a simple interrupted suture technique. Attention was then directed back to the second digit nonhealing wound where a retention suture was inserted at the wound site. The wound was then dressed with betadine soaked adaptic, gauze, and Kerlix. POSTOPERATIVE CONDITION: The patient tolerated anesthesia and procedure well and was escorted to the recovery room with vital signs stable and neurovascular status intact to the right foot. The patient is to remain nonweightbearing to the right lower extremity.Podiatry will continue to follow the patient while in-house. Obi Prescott DPM Americo Pittman DPM BETHANIE
== END 2017-11-09 19:45 | DRG 581 ==
LOC: H.ER 12:31 → H.ERHOLD 17:12 → H.MEDSURG1 21:56
PROVIDERS: ADMIT Family Medicine Geriatric Medicine; ATTEND Family Medicine Geriatric Medicine
PROC: 3E0234Z Introduction of Serum, Toxoid and Vaccine into Muscle, Percutaneous Approach (ICD-10-PCS; 2017-11-02)
PROC: 02HV33Z Insertion of Infusion Device into Superior Vena Cava, Percutaneous Approach (ICD-10-PCS; 2017-11-05)
PROC: B518ZZA Fluoroscopy of Superior Vena Cava, Guidance (ICD-10-PCS; 2017-11-05)
PROC: 3E04329 Introduction of Other Anti-infective into Central Vein, Percutaneous Approach (ICD-10-PCS; 2017-11-05)
PROC: 0Y6T0Z0 Detachment at Right 3rd Toe, Complete, Open Approach (ICD-10-PCS; principal; 2017-11-08 13:30)
PROC: 0H9MXZX Drainage of Right Foot Skin, External Approach, Diagnostic (ICD-10-PCS; 2017-11-08 13:30)
DX: T81.4XXA Infection following a procedure, initial encounter (principal); M86.171 Other acute osteomyelitis, right ankle and foot; E11.52 Type 2 diabetes mellitus with diabetic peripheral angiopathy with gangrene; E11.621 Type 2 diabetes mellitus with foot ulcer; L03.115 Cellulitis of right lower limb; L02.611 Cutaneous abscess of right foot; E11.65 Type 2 diabetes mellitus with hyperglycemia; E87.5 Hyperkalemia; L97.519 Non-pressure chronic ulcer of other part of right foot with unspecified severity; N39.0 Urinary tract infection, site not specified; E11.628 Type 2 diabetes mellitus with other skin complications; J44.9 Chronic obstructive pulmonary disease, unspecified; B95.62 Methicillin resistant Staphylococcus aureus infection as the cause of diseases classified elsewhere; B95.2 Enterococcus as the cause of diseases classified elsewhere; I10 Essential (primary) hypertension; E78.5 Hyperlipidemia, unspecified; E78.00 Pure hypercholesterolemia, unspecified; F41.9 Anxiety disorder, unspecified; F17.210 Nicotine dependence, cigarettes, uncomplicated; Z23 Encounter for immunization; Z89.421 Acquired absence of other right toe(s); Y83.5 Amputation of limb(s) as the cause of abnormal reaction of the patient, or of later complication, without mention of misadventure at the time of the procedure; Z79.82 Long term (current) use of aspirin; Z79.4 Long term (current) use of insulin; Z87.01 Personal history of pneumonia (recurrent); Y92.9 Unspecified place or not applicable